=== PATIENT | female | born 1935 | race Caucasian/White ===

== ENCOUNTER → 2016-11-16 | Outpatient (CLI) | payer OTHER ==
--- NOTE | 2016-11-16 13:28 | US ---
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 Comparison: CT abdomen and pelvis June 06, 2012. Findings: The right kidney measures 11.0 x 4.0 x 4.8 cm and the left kidney measures 10.6 x 3.9 x 4.0 cm. The kidneys have normal echotexture, cortical thickness, and contour without pelvicaliectasis. T he right renal pelvis/proximal right ureter are mildly prominent similar to the comparison CT. The bladder is normal. Bilateral ureteral jets are present. Prevoid bladder volume is 115 mL. Postv oid bladder volume is 13 mL. Impression: Normal renal ultrasound.
== END ==
LOC: FIMAGING 11:33
PROVIDERS: ATTEND Urology
DX: N34.3 Urethral syndrome, unspecified (principal)

== ENCOUNTER 2017-05-25 19:56 | Emergency (ER) | payer OTHER ==
[2017-05-25 20:08] VITALS: RESP 18; TEMP 98.4
--- NOTE | 2017-05-25 20:20 | EDPHY ---
H & P Stated Complaint: pt has uncontrolled blood sugar, toe infection x3 days Time Seen by Provider: 05/25/17 20:19 HPI/ROS: CHIEF COMPLAINT: Evaluation of right great toe HISTORY OF PRESENT ILLNESS: Patient has a history of diabetes which she reports is poorly managed. She reports that is not atypical for her blood sugars to be 4 -500 range. She denies any vomiting or weakness. Patient has had fairly poor follow-up with an top spotter. She reportedly has seen Dr. Elena Beavers once approximately 4 months ago. Patient became concerned about some mild erythema to her right great toe. She has a history of a ingrown toenail which was resected some time ago and has a chronically abnormal nail since that procedure. Patient denies any fever. She denies any additional acute complaints. The patient reports that she has been using 15 units of Lantus on a daily basis and then uses fast-acting insulin on a sliding scale. REVIEW OF SYSTEMS: A comprehensive 10 point review of systems is otherwise negative aside from elements mentioned in the history of present illness. Source: Patient - Personal History Current Tetanus Diphtheria and Acellular Pertussis (TDAP): Unsure - Medical/Surgical History Hx Asthma: No Hx Chronic Respiratory Disease: No Hx Diabetes: Yes Hx Cardiac Disease: No Hx Renal Disease: No Hx Cirrhosis: No Hx Alcoholism: No Hx HIV/AIDS: No Hx Splenectomy or Spleen Trauma: No Other PMH: HTN, DM, anxiety, - Social History Smoking Status: Never smoked - Physical Exam Exam: General Appearance: Alert, no distress Eyes: Pupils equal and round no pallor or injection ENT, Mouth: Mucous membranes moist Respiratory: There are no retractions, lungs are clear to auscultation Cardiovascular: Regular rate and rhythm Gastrointestinal: Abdomen is soft and nontender, no masses, bowel sounds normal Neurological: A&O, normal motor function, normal sensory exam, normal cranial nerves Skin: Warm and dry, no rashes Musculoskeletal: Neck is supple nontender Extremities: Evidence of old nail resection on right great toe, minimal erythema, no discharge, no fluctuance, no abscess, no evidence of white/dry gangrene Psychiatric: Patient is oriented X 3, there is no agitation Constitutional: Initial Vital Signs Temperature (C) 36.9 C 05/25/17 20:03 Heart Rate 86 05/25/17 20:03 Respiratory Rate 18 07/20/17 20:03 Blood Pressure 173/82 H 05/25/17 20:03 O2 Sat (%) 96 05/25/17 20:03 O2 Delivery Mode Room Air Allergies/Adverse Reactions: amoxicillin trihydrate [From Augmentin] Allergy (Verified 08/10/15 03:10) brompheniramine maleate [From Rondec] Allergy (Verified 08/10/15 03:10) carbinoxamine maleate [From Rondec] Allergy (Verified 08/10/15 03:10) cefaclor [From Ceclor] Allergy (Verified 08/10/15 03:10) cefuroxime axetil [From Ceftin] Allergy (Verified 08/10/15 03:10) chlorpheniramine maleate [From Ornade] Allergy (Verified 08/10/15 03:10) clindamycin Allergy (Verified 08/10/15 03:10) hydrocodone Allergy (Verified 08/10/15 03:10) latex [Latex] Allergy (Verified 08/10/15 03:10) metronidazole [From Flagyl] Allergy (Verified 08/10/15 03:10) Metronidazole HCl [From Flagyl] Allergy (Verified 12/10/13 13:46) Penicillins Allergy (Verified 12/10/13 13:46) phenylpropanolamine HCl [From Ornade] Allergy (Verified 12/10/13 13:46) potassium clavula *RETIRED-07/16/12 [From Augmentin] Allergy (Verified 12/10/13 13:46) pseudoephedrine HCl [From Rondec] Allergy (Verified 12/10/13 13:46) Sulfa (Sulfonamide Antibiotics) Allergy (Verified 12/10/13 13:46) Home Medications: Medication Instructions Recorded Clorazepate Dipotassium [Tranxene 7.5 mg PO HS PRN 06/07/12 T-Tab (RX)] Glucosam/Csa/Collagen/Hyalur A 1 each PO DAILY 06/07/12 [Glucosamine Chondroitin Cap] Losartan Potassium [Cozaar] 100 mg PO DAILY 06/07/12 Multivitamins [Multivitamin (OTC)] 1 each PO DAILY 06/07/12 [place]-3 Fatty Acids [Fish Oil 1000 1,000 mg PO DAILY 06/07/12 mg (OTC)] Ibuprofen [Motrin 200 mg (OTC)] 200 mg PO DAILY PRN 10/23/13 Insulin Aspart [Novolog] 2 - 9 unit SQ TIDMEAL PRN 08/28/13 Acetaminophen [Tylenol Tablet] 325 mg PO DAILY PRN 12/10/13 Insulin Glargine [Lantus 100 18 units SC DAILY 12/10/13 UNITS/ML (RX)] Metoprolol Tartrate [Lopressor 100 100 mg PO BID 12/10/13 mg (RX)] Doxycycline Hyclate 100 mg PO BID #20 tablet 05/25/17 Medical Decision Making ED Course/Re-evaluation: The patient presents to the ED for evaluation of a possible right toe infection. She has minimal cellulitis. She will be started on doxycycline there is no evidence of abscess, whether dry gangrene or significant soft tissue infection. The patient is noted to have hyperglycemia without evidence of diabetic ketoacidosis. The patient is scheduled to see her primary care provider Dr. Mancilla on Monday. The patient is also under the care of Dr. Beavers from Endocrinology. I have stressed to her the importance of making sure she has closer follow up with her top spotter she does not appear to adequately be controlling her blood sugars on a long-term basis. The patient will be referred to our case loader operator for a telephone call on Monday to ensure that she is getting proper outpatient follow-up. The patient will see Dr. Mancilla tomorrow. Differential Diagnosis: Differential diagnosis considered includes diabetic ketoacidosis, cellulitis, abscess, gangrene - Data Points Laboratory Results: Laboratory Results 05/25/17 20:40 05/25/17 20:40 Sodium 130 mEq/L L mEq/L (134-144) Potassium 4.4 mEq/L mEq/L (3.5-5.2) Chloride 94 mEq/L L mEq/L (97-110) Carbon Dioxide 23 mEq/l mEq/l (22-31) Anion Gap 13 mEq/L mEq/L (8-16) BUN 22 mg/dL mg/dL (7-23) Creatinine 0.7 mg/dL mg/dL (0.6-1.0) Estimated GFR > 60 Glucose 363 mg/dL H mg/dL (70-100) Calcium 9.3 mg/dL mg/dL (8.5-10.4) Departure - Departure Disposition: Home, Routine, Self-Care Clinical Impression: Diabetes mellitus, Cellulitis Condition: Good Instructions: Cellulitis (ED) Additional Instructions: 1. Please take antibiotics as directed. 2. Please follow up tomorrow with Dr. Mancilla for recheck. 3. You need to have close follow up with Dr. Mancilla and Dr. Beavers as your blood sugars have not been well controlled. 4. Please return to the ED for markedly worsening symptoms, fever, increasing redness, vomiting or other concerns. Referrals: Donaldo Mancilla MD [Primary Care Provider] - As per Instructions Prescriptions: Doxycycline Hyclate 100 mg PO BID #20 tablet
[2017-05-25 21:23] LABS: ANION GAP 13 mEq/L (8-16); CALCIUM 9.3 mg/dL (8.5-10.4); CARBON DIOXIDE 23 mEq/l (22-31); CHLORIDE 94 mEq/L (97-110); CREATININE 0.7 mg/dL (0.6-1.0); GLOMERULAR FILTRATION RATE > 60; GLUCOSE 363 mg/dL (70-100); POTASSIUM 4.4 mEq/L (3.5-5.2); SODIUM 130 mEq/L (134-144)
[2017-05-25 22:33] VITALS: BP 155/76; PULSE 70; O2SAT 95
== END 2017-05-25 22:34 | disposition home or self-care (01) ==
DX: L03.031 Cellulitis of right toe (principal); E11.9 Type 2 diabetes mellitus without complications; I10 Essential (primary) hypertension; Z79.4 Long term (current) use of insulin; Z91.040 Latex allergy status

== ENCOUNTER 2018-01-02 23:34 | Emergency (ER) | payer OTHER ==
[2018-01-02] MEDS ORDERED: NS 500 ML IV ONE (23:41)
--- NOTE | 2018-01-02 23:45 | EDPHY ---
H & P HPI/ROS: HPI CHIEF COMPLAINT: Diarrhea, dehydration, high blood sugar, generalized weakness HISTORY OF PRESENT ILLNESS: This is a very pleasant 82-year-old female she presents emergency room by EMS from private residence where she lives independently she has a history of insulin-dependent diabetes, she presents emergency room stating that for the past few days she has had watery diarrhea. Denies black tarry stools. She also reports that her blood sugars have been very labile sometimes running low in the 60s but most recently running high in the 200s to up to 400s. She says this is unusual for her. She states tonight she had worsening diarrhea she felt like she was getting dehydrated. She also reports that her blood sugar was in the 400s. She denies any chest pain or shortness of breath. Denies any abdominal pain. Denies fever. Denies vomiting. Denies urinary symptoms. Denies nausea. Denies focal weakness numbness or tingling. Past Medical History: Hypertension, diabetes, anxiety, hyponatremia, Past Surgical History: Hysterectomy, appendectomy Social History: Denies daily use drugs alcohol tobacco products. Lives independently. Private residence. Family History: Noncontributory ROS REVIEW OF SYSTEMS: A comprehensive 10 point review of systems is otherwise negative aside from elements mentioned in the history of present illness. Exam Constitutional appears well nontoxic triage nursing summary reviewed, vital signs reviewed, awake/alert. Eyes normal conjunctivae and sclera, EOMI, PERRLA. HENT normal inspection, atraumatic, dry mucus membranes, no epistaxis, neck supple/ no meningismus, no raccoon eyes. Respiratory clear to auscultation bilaterally, normal breath sounds, no respiratory distress, no wheezing. Cardiovascular rate normal, regular rhythm, no murmur, no edema, distal pulses normal. Gastrointestinal soft, non-tender, no rebound, no guarding, normal bowel sounds, no distension, no pulsatile mass. Genitourinary no CVA tenderness. Musculoskeletal no midline vertebral tenderness, full range of motion, no calf swelling, no tenderness of extremities, no meningismus, good pulses, neurovascularly intact. Skin pink, warm, & dry, no rash, skin atraumatic. Neurologic awake, alert and oriented x 3, AAOx3, moves all 4 extremities equally, motor intact, sensory intact, CN II-XII intact, normal cerebellar, normal vision, normal speech. Psychiatric normal mood/affect. Heme/Lymph/Immune no lymphadenopathy. Differential Diagnosis: Includes but is not limited to in a particular order electrolyte disturbance, hyponatremia, dehydration, DKA, infection, colitis, C diff, enteritis, GI illness, urinary tract infection Medical Decision Making: Plan for this patient IV establishment with IV fluid bolus 500 cc normal saline until I can evaluate her sodium, clinically on exam she does appear dry, check urinalysis basic blood work, send stool studies if she is able to provide a diarrheal stools sample. Re-evaluation: 0218: Patient re-evaluated this time she is resting comfortably. Sodium noted to be 128. She has received 1 L of normal saline here in the emergency room is feeling much better. She reports to me she feels very well hydrated. She denies feeling weak. She would like to go home. She has not had any vomiting or diarrhea here in the emergency room. She states she is unable to give us a diarrheal sample. Vital signs have been stable. She is afebrile. Abdomen is soft nontender. She is feeling better after 1 L normal saline. She would like to go home. We discussed return precautions. She understands return emergency room if she develops worsening abdominal pain, fever, vomiting, worsening diarrhea, or not feeling well questions or concerns. Source: Patient, EMS - Medical/Surgical History Hx Asthma: No Hx Chronic Respiratory Disease: No Hx Diabetes: Yes Hx Cardiac Disease: No Hx Renal Disease: No Hx Cirrhosis: No Hx Alcoholism: No Hx HIV/AIDS: No Hx Splenectomy or Spleen Trauma: No Other PMH: HTN, DM, anxiety, - Social History Smoking Status: Never smoked Constitutional: Initial Vital Signs Temperature (C) 36.8 C 01/02/18 23:34 Heart Rate 78 01/02/18 23:34 Respiratory Rate 16 01/02/18 23:34 Blood Pressure 110/74 01/02/18 23:34 O2 Sat (%) 98 01/02/18 23:34 O2 Delivery Mode Room Air Allergies/Adverse Reactions: amoxicillin trihydrate [From Augmentin] Allergy (Verified 01/02/18 23:54) brompheniramine maleate [From Rondec] Allergy (Verified 01/02/18 23:54) carbinoxamine maleate [From Rondec] Allergy (Verified 01/02/18 23:54) cefaclor [From Ceclor] Allergy (Verified 01/02/18 23:54) cefuroxime axetil [From Ceftin] Allergy (Verified 01/02/18 23:54) chlorpheniramine maleate [From Ornade] Allergy (Verified 01/02/18 23:54) clindamycin Allergy (Verified 01/02/18 23:54) hydrocodone Allergy (Verified 01/02/18 23:54) latex [Latex] Allergy (Verified 01/02/18 23:54) metronidazole [From Flagyl] Allergy (Verified 01/02/18 23:54) Metronidazole HCl [From Flagyl] Allergy (Verified 01/02/18 23:54) Penicillins Allergy (Verified 01/02/18 23:54) phenylpropanolamine HCl [From Ornade] Allergy (Verified 01/02/18 23:54) potassium clavula *RETIRED-07/16/12 [From Augmentin] Allergy (Verified 01/02/18 23:54) pseudoephedrine HCl [From Rondec] Allergy (Verified 01/02/18 23:54) Sulfa (Sulfonamide Antibiotics) Allergy (Verified 01/02/18 23:54) Home Medications: Medication Instructions Recorded Clorazepate Dipotassium [Tranxene 7.5 mg PO HS PRN 06/07/12 T-Tab (RX)] Glucosam/Csa/Collagen/Hyalur A 1 each PO DAILY 06/07/12 [Glucosamine Chondroitin Cap] Losartan Potassium [Cozaar] 100 mg PO DAILY 06/07/12 Multivitamins [Multivitamin (OTC)] 1 each PO DAILY 06/07/12 [place]-3 Fatty Acids [Fish Oil 1000 1,000 mg PO DAILY 06/07/12 mg (OTC)] Ibuprofen [Motrin 200 mg (OTC)] 200 mg PO DAILY PRN 08/28/13 Insulin Aspart [Novolog] 2 - 9 unit SQ TIDMEAL PRN 08/28/13 Acetaminophen [Tylenol Tablet] 325 mg PO DAILY PRN 12/10/13 Insulin Glargine [Lantus 100 18 units SC DAILY 12/10/13 UNITS/ML (RX)] Metoprolol Tartrate [Lopressor 100 100 mg PO BID 12/10/13 mg (RX)] Doxycycline Hyclate 100 mg PO BID #20 tablet 05/25/17 Medical Decision Making - Data Points Laboratory Results: Laboratory Results 01/02/18 23:43 01/02/18 23:43 01/03/18 01/03/18 01/03/18 01:30 00:21 00:01 WBC RBC Hgb Hct MCV MCH MCHC RDW Plt Count MPV Neut % (Auto) Lymph % (Auto) [place] % (Auto) Eos % (Auto) Baso % (Auto) Nucleat RBC Rel Count Absolute Neuts (auto) Absolute Lymphs (auto) Absolute Monos (auto) Absolute Eos (auto) Absolute Basos (auto) Absolute Nucleated RBC Immature Gran % Immature Gran # PT 13.5 SEC SEC (12.0-15.0) INR 1.01 (0.83-1.16) APTT 29.2 SEC SEC (23.0-38.0) VBG Lactic Acid 1.5 mmol/L mmol/L (0.7-2.1) Sodium Potassium Chloride Carbon Dioxide Anion Gap BUN Creatinine Estimated GFR Glucose Calcium Total Bilirubin Conjugated Bilirubin Unconjugated Bilirubin AST ALT Alkaline Phosphatase Total Protein Albumin Lipase Urine Color YELLOW Urine Appearance CLEAR Urine pH 5.0 (5.0-7.5) Ur Specific [place] 1.010 (1.002-1.030) Urine Protein NEGATIVE (NEGATIVE) Urine Ketones TRACE H (NEGATIVE) Urine Blood NEGATIVE (NEGATIVE) Urine Nitrate NEGATIVE (NEGATIVE) Urine Bilirubin NEGATIVE (NEGATIVE) Urine Urobilinogen NEGATIVE EU EU (0.2-1.0) Ur Leukocyte Esterase NEGATIVE (NEGATIVE) Urine RBC 1-3 /hpf /hpf (0-3) Urine WBC 1-3 /hpf /hpf (0-3) Ur Epithelial Cells TRACE /lpf /lpf (NONE-1+) Hyaline Casts 1-5 /lpf /lpf (0-1) Urine Glucose 3+ H (NEGATIVE) 01/02/18 01/02/18 23:43 23:43 WBC 6.77 10^3/uL 10^3/uL (3.80-9.50) RBC 3.96 10^6/uL L 10^6/uL (4.18-5.33) Hgb 12.0 g/dL L g/dL (12.6-16.3) Hct 34.2 % L % (38.0-47.0) MCV 86.4 fL fL (81.5-99.8) MCH 30.3 pg pg (27.9-34.1) MCHC 35.1 g/dL g/dL (32.4-36.7) RDW 13.3 % % (11.5-15.2) Plt Count 219 10^3/uL 10^3/uL (150-400) MPV 9.3 fL fL (8.7-11.7) Neut % (Auto) 68.8 % % (39.3-74.2) Lymph % (Auto) 19.2 % % (15.0-45.0) [place] % (Auto) 7.4 % % (4.5-13.0) Eos % (Auto) 3.5 % % (0.6-7.6) Baso % (Auto) 1.0 % % (0.3-1.7) Nucleat RBC Rel Count 0.0 % % (0.0-0.2) Absolute Neuts (auto) 4.65 10^3/uL 10^3/uL (1.70-6.50) Absolute Lymphs (auto) 1.30 10^3/uL 10^3/uL (1.00-3.00) Absolute Monos (auto) 0.50 10^3/uL 10^3/uL (0.30-0.80) Absolute Eos (auto) 0.24 10^3/uL 10^3/uL (0.03-0.40) Absolute Basos (auto) 0.07 10^3/uL 10^3/uL (0.02-0.10) Absolute Nucleated RBC 0.00 10^3/uL 10^3/uL (0-0.01) Immature Gran % 0.1 % % (0.0-1.1) Immature Gran # 0.01 10^3/uL 10^3/uL (0.00-0.10) PT INR APTT VBG Lactic Acid Sodium 128 mEq/L L mEq/L (135-145) Potassium 4.0 mEq/L mEq/L (3.5-5.2) Chloride 95 mEq/L L mEq/L (97-110) Carbon Dioxide 22 mEq/l mEq/l (22-31) Anion Gap 11 mEq/L mEq/L (8-16) BUN 26 mg/dL H mg/dL (7-23) Creatinine 0.8 mg/dL mg/dL (0.6-1.0) Estimated GFR > 60 Glucose 241 mg/dL H mg/dL (70-100) Calcium 9.4 mg/dL mg/dL (8.5-10.4) Total Bilirubin 0.7 mg/dL mg/dL (0.1-1.4) Conjugated Bilirubin 0.2 mg/dL mg/dL (0.0-0.5) Unconjugated Bilirubin 0.5 mg/dL mg/dL (0.0-1.1) AST 26 IU/L IU/L (14-46) ALT 35 IU/L IU/L (9-52) Alkaline Phosphatase 96 IU/L IU/L (38-126) Total Protein 6.3 g/dL g/dL (6.3-8.2) Albumin 3.6 g/dL g/dL (3.5-5.0) Lipase 49 IU/L IU/L (23-300) Urine Color Urine Appearance Urine pH Ur Specific [place] Urine Protein Urine Ketones Urine Blood Urine Nitrate Urine Bilirubin Urine Urobilinogen Ur Leukocyte Esterase Urine RBC Urine WBC Ur Epithelial Cells Hyaline Casts Urine Glucose Medications Given: Discontinued Medications Sodium Chloride (Ns) 500 mls @ 0 mls/hr IV EDNOW ONE; Wide Open PRN Reason: Protocol Stop: 01/02/18 23:42 Last Admin: 01/02/18 23:50 Dose: 500 mls Sodium Chloride (Ns) 500 mls @ 0 mls/hr IV ONCE ONE PRN Reason: Wide Open Stop: 01/03/18 00:24 Last Admin: 01/03/18 00:26 Dose: 500 mls Departure - Departure Disposition: Home, Routine, Self-Care Clinical Impression: Dehydration, Hyponatremia Diarrhea Qualifiers: Diarrhea type: unspecified type Qualified Code(s): R19.7 - Diarrhea, unspecified Condition: Good Instructions: Acute Diarrhea (ED), Dehydration (ED) Additional Instructions: 1. [place] or plain diet over the next 48 hr. 2. Return emergency room if you have abdominal pain worsening diarrhea high fever vomiting or you do not feel well. 3. Try to stay well-hydrated Referrals: Patient,NotPresent [Unknown] - As per Instructions
[2018-01-02 23:47] VITALS: RESP 16; TEMP 98.2; O2SAT 98
[2018-01-03 00:04] LABS: PLATELET COUNT 219 10^3/uL (150-400)
[2018-01-03 00:14] LABS: INR 1.01 (0.83-1.16); PROTIME(PATIENT) 13.5 SEC (12.0-15.0)
[2018-01-03] MEDS ORDERED: NS 500 ML IV ONE (00:23)
[2018-01-03 01:37] VITALS: BP 153/68; PULSE 77
== END 2018-01-03 02:41 | disposition home or self-care (01) ==
LOC: EDUNIT#
DX: R19.7 Diarrhea, unspecified (principal); E86.0 Dehydration; E87.1 Hypo-osmolality and hyponatremia; E86.9 Volume depletion, unspecified; I10 Essential (primary) hypertension; E11.9 Type 2 diabetes mellitus without complications; Z79.4 Long term (current) use of insulin; Z91.040 Latex allergy status

== ENCOUNTER 2018-04-30 20:36 | Emergency (ER) | payer OTHER ==
--- NOTE | 2018-04-30 21:24 | CPEKG ---
Heart Rate: 78 RR Interval: 769 P-R Interval: 148 QRSD Interval: 96 QT Interval: 412 QTC Interval: 470 P [place]: -43 QRS [place]: 59 T Wave [place]: 67 EKG Severity - ABNORMAL ECG - EKG Impression: SINUS RHYTHM EKG Impression: ATRIAL PREMATURE COMPLEX EKG Impression: LEFT VENTRICULAR HYPERTROPHY Electronically Signed By: Freedom Guy 30-Apr-2018 23:23:05
[2018-04-30 21:53] LABS: PLATELET COUNT 179 10^3/uL (150-400)
--- NOTE | 2018-04-30 22:44 | EDPHY ---
H & P Stated Complaint: elevated bp luevano nausea dizzy x24 hr Time Seen by Provider: 04/30/18 21:25 HPI/ROS: Chief Complaint: Headache, nausea, hypertension HPI: 82-year-old woman with a history of type 1 diabetes and hypertension is presenting with concerns of her blood pressure being elevated. She has had a headache with nausea all day. She checked her blood pressure was 214 systolic. She checked it again is not coming down. She has been taking her medications as prescribed. No numbness or weakness. No nausea or vomiting. No chest pain or shortness of breath. No palpitations. ROS: 10 point Review of Systems is negative except as noted in the HPI. PMH: Hypertension, diabetes Social History: No smoking, no alcohol, no recreational drug use Family History: non-contributory Physical Exam: Gen: Awake, Alert, No Distress HEENT: Nose: no rhinorrhea Eyes: PERRLA, EOMI Mouth: Moist mucosa Neck: Supple, no JVD Chest: nontender, lungs clear to auscultation Heart: S1, S2 normal, no murmur Abd: Soft, non-tender, no guarding Back: no CVA tenderness, no midline tenderness Ext: no edema, non-tender Skin: no rash Neuro: CN II-XII intact, Sensation grossly intact, Strength 5/5 in bilateral upper and lower extremities - Personal History Current Tetanus/Diphtheria Vaccine: Yes Current Tetanus Diphtheria and Acellular Pertussis (TDAP): Yes - Medical/Surgical History Hx Asthma: No Hx Chronic Respiratory Disease: No Hx Diabetes: Yes Hx Cardiac Disease: No Hx Renal Disease: No Hx Cirrhosis: No Hx Alcoholism: No Hx HIV/AIDS: No Hx Splenectomy or Spleen Trauma: No Other PMH: HTN, DM, anxiety,. appy tonsils - Social History Smoking Status: Never smoked Constitutional: Initial Vital Signs Temperature (C) 36.9 C 04/30/18 20:45 Heart Rate 86 04/30/18 20:45 Respiratory Rate 18 04/30/18 20:45 Blood Pressure 211/92 H 04/30/18 20:45 O2 Sat (%) 96 04/30/18 20:45 O2 Delivery Mode Room Air Allergies/Adverse Reactions: amoxicillin trihydrate [From Augmentin] Allergy (Verified 01/02/18 23:54) brompheniramine maleate [From Rondec] Allergy (Verified 01/02/18 23:54) carbinoxamine maleate [From Rondec] Allergy (Verified 01/02/18 23:54) cefaclor [From Ceclor] Allergy (Verified 01/02/18 23:54) cefuroxime axetil [From Ceftin] Allergy (Verified 01/02/18 23:54) chlorpheniramine maleate [From Ornade] Allergy (Verified 01/02/18 23:54) clindamycin Allergy (Verified 01/02/18 23:54) hydrocodone Allergy (Verified 01/02/18 23:54) latex [Latex] Allergy (Verified 01/02/18 23:54) metronidazole [From Flagyl] Allergy (Verified 01/02/18 23:54) Metronidazole HCl [From Flagyl] Allergy (Verified 01/02/18 23:54) Penicillins Allergy (Verified 01/02/18 23:54) phenylpropanolamine HCl [From Ornade] Allergy (Verified 01/02/18 23:54) potassium clavula *RETIRED-07/16/12 [From Augmentin] Allergy (Verified 01/02/18 23:54) pseudoephedrine HCl [From Rondec] Allergy (Verified 01/02/18 23:54) Sulfa (Sulfonamide Antibiotics) Allergy (Verified 01/02/18 23:54) Home Medications: Medication Instructions Recorded Glucosam/Csa/Collagen/Hyalur A 1 each PO DAILY 06/07/12 [Glucosamine Chondroitin Cap] Losartan Potassium [Cozaar] 50 mg PO DAILY 06/07/12 Multivitamins [Multivitamin (OTC)] 1 each PO DAILY 06/07/12 [place]-3 Fatty Acids [Fish Oil 1000 1,000 mg PO DAILY 06/07/12 mg (OTC)] Ibuprofen [Motrin 200 mg (OTC)] 200 mg PO DAILY PRN 08/28/13 Insulin Aspart [Novolog] 2 - 9 unit SQ TIDMEAL PRN 08/28/13 Acetaminophen [Tylenol Tablet] 325 mg PO DAILY PRN 12/10/13 Insulin Glargine [Lantus 100 18 units SC DAILY 12/10/13 UNITS/ML (RX)] Metoprolol Tartrate [Lopressor 100 25 mg PO BID 12/10/13 mg (RX)] Medical Decision Making - Diagnostics EKG Interpretation: ECG time 9:22 p.m., rate of 78, normal axis, normal intervals, there is findings suggestive of LVH, otherwise no acute ischemic changes. Imaging Results: Imaging Impressions Head CT 04/30/18 21:39 Impression: No evidence for acute intracranial abnormality. Mild periventricular and deep hemispheric white matter change that can be seen with small vessel ischemic disease. Results called and discussed with Freedom Guy M.D., on April 30, 2018 at 2220. Imaging: Discussed imaging studies w/ call center analyst Radiologist ED Course/Re-evaluation: 82-year-old woman with a history of hypertension diabetes presenting with headache nausea and hypertension. CT scan of brain is normal. ECG shows all thing acute. Renal functions normal. Urinalysis is negative for infection. Patient's blood pressure has come down to 117/58 without any treatment. She has been reassured. There is no evidence of any end-organ damage. Will discharge with follow-up with primary care physician. - Data Points Laboratory Results: Laboratory Results 04/30/18 21:44 04/30/18 21:44 04/30/18 04/30/18 04/30/18 22:15 21:44 21:44 WBC 8.03 10^3/uL 10^3/uL (3.80-9.50) RBC 4.20 10^6/uL 10^6/uL (4.18-5.33) Hgb 12.5 g/dL L g/dL (12.6-16.3) Hct 36.4 % L % (38.0-47.0) MCV 86.7 fL fL (81.5-99.8) MCH 29.8 pg pg (27.9-34.1) MCHC 34.3 g/dL g/dL (32.4-36.7) RDW 13.1 % % (11.5-15.2) Plt Count 179 10^3/uL 10^3/uL (150-400) MPV 9.4 fL fL (8.7-11.7) Neut % (Auto) 82.1 % H % (39.3-74.2) Lymph % (Auto) 10.1 % L % (15.0-45.0) [place] % (Auto) 5.0 % % (4.5-13.0) Eos % (Auto) 2.1 % % (0.6-7.6) Baso % (Auto) 0.5 % % (0.3-1.7) Nucleat RBC Rel Count 0.0 % % (0.0-0.2) Absolute Neuts (auto) 6.59 10^3/uL H 10^3/uL (1.70-6.50) Absolute Lymphs (auto) 0.81 10^3/uL L 10^3/uL (1.00-3.00) Absolute Monos (auto) 0.40 10^3/uL 10^3/uL (0.30-0.80) Absolute Eos (auto) 0.17 10^3/uL 10^3/uL (0.03-0.40) Absolute Basos (auto) 0.04 10^3/uL 10^3/uL (0.02-0.10) Absolute Nucleated RBC 0.00 10^3/uL 10^3/uL (0-0.01) Immature Gran % 0.2 % % (0.0-1.1) Immature Gran # 0.02 10^3/uL 10^3/uL (0.00-0.10) Sodium 128 mEq/L L mEq/L (135-145) Potassium 4.2 mEq/L mEq/L (3.3-5.0) Chloride 91 mEq/L L mEq/L (97-110) Carbon Dioxide 25 mEq/l mEq/l (22-31) Anion Gap 12 mEq/L mEq/L (8-16) BUN 20 mg/dL mg/dL (7-23) Creatinine 0.7 mg/dL mg/dL (0.6-1.0) Estimated GFR > 60 Glucose 276 mg/dL H mg/dL (70-100) Calcium 9.1 mg/dL mg/dL (8.5-10.4) Urine Color PALE YELLOW Urine Appearance CLEAR Urine pH 7.0 (5.0-7.5) Ur Specific [place] 1.010 (1.002-1.030) Urine Protein NEGATIVE (NEGATIVE) Urine Ketones 1+ H (NEGATIVE) Urine Blood NEGATIVE (NEGATIVE) Urine Nitrate NEGATIVE (NEGATIVE) Urine Bilirubin NEGATIVE (NEGATIVE) Urine Urobilinogen NEGATIVE EU EU (0.2-1.0) Ur Leukocyte Esterase NEGATIVE (NEGATIVE) Urine RBC 1-3 /hpf /hpf (0-3) Urine WBC 1-3 /hpf /hpf (0-3) Ur Epithelial Cells NONE SEEN /lpf /lpf (NONE-1+) Urine Glucose 3+ H (NEGATIVE) Departure - Departure Disposition: Home, Routine, Self-Care Clinical Impression: Hypertension Condition: Good Instructions: Hypertension (ED) Additional Instructions: Follow up with your primary care physician in 2-3 days for blood pressure recheck. Return to the emergency department for chest pain, fevers or chills, nausea, vomiting, or any other concerns. Referrals: Donaldo Mancilla MD [Primary Care Provider] - As per Instructions
[2018-04-30 23:34] VITALS: BP 117/58
== END 2018-04-30 23:40 | disposition home or self-care (01) ==
DX: I10 Essential (primary) hypertension (principal); E11.9 Type 2 diabetes mellitus without complications; Z79.4 Long term (current) use of insulin; Z91.040 Latex allergy status

== ENCOUNTER 2018-05-09 22:14 | Inpatient (IN) | payer OTHER ==
--- NOTE | 2018-05-09 22:18 | EDPHY ---
H & P Stated Complaint: ALOC Time Seen by Provider: 05/09/18 22:17 HPI/ROS: HPI The patient presents with an episode of ALOC which occurred just prior to arrival while the patient was at the pharmacy check out. She slumped backwards while in line, witnessed by another remote mortgage underwriter. She lost consciousness for approximately 30 sec. She currently feels dizzy and generally unwell. She says preceding her episode, she remembers feeling like she needed to sit down, very lightheaded. She has no prior history of fainting. She does not have any shortness of breath, chest pain, palpitations. Per paramedics, blood glucose was 324, the patient have a history of diabetes on insulin. Other vital signs were normal, EKG was unremarkable. She is complaining of left ankle edema. She has been having left ankle and foot pain over the last 5 days. She is not sure if she injured herself while gardening. She has been using an Keith wrap on this because of the swelling that she is having. REVIEW OF SYSTEMS Constitutional: No fever, no chills. Eyes: No discharge. ENT: No sore throat. Cardiovascular: No chest pain, no palpitations. Respiratory: No cough, no shortness of breath. Gastrointestinal: No abdominal pain, no vomiting. Genitourinary: No hematuria. Musculoskeletal: No back pain. Skin: No rashes. Neurological: No headache. PMHx: Insulin-dependent diabetes, hypertension Soc Hx: Housed, lives independently; is contemplating moving to an assisted living facility PHYSICAL General Appearance: Alert, no distress Eyes: Pupils equal and round no pallor or injection ENT, Mouth: Mucous membranes moist Respiratory: There are no retractions, lungs are clear to auscultation Cardiovascular: Regular rate and rhythm Gastrointestinal: Abdomen is soft and non-tender, no masses, bowel sounds normal Neurological: A&O, moves all extremities Skin: Warm and dry, no rashes Musculoskeletal: Neck is supple non tender Extremities: symmetrical, full range of motion, left ankle with mild edema, there is tenderness overlying the medial metatarsals with no overlying skin changes Psychiatric: Patient is oriented X 3, there is no agitation Source: Patient, EMS Exam Limitations: No limitations Constitutional: Initial Vital Signs Temperature (C) 37.0 C 05/09/18 22:25 Heart Rate 88 05/09/18 22:25 Respiratory Rate 16 05/09/18 22:25 Blood Pressure 199/99 H 05/09/18 22:25 O2 Sat (%) 98 05/09/18 22:25 O2 Delivery Mode Room Air Allergies/Adverse Reactions: amoxicillin trihydrate [From Augmentin] Allergy (Verified 01/02/18 23:54) brompheniramine maleate [From Rondec] Allergy (Verified 01/02/18 23:54) carbinoxamine maleate [From Rondec] Allergy (Verified 01/02/18 23:54) cefaclor [From Ceclor] Allergy (Verified 01/02/18 23:54) cefuroxime axetil [From Ceftin] Allergy (Verified 01/02/18 23:54) chlorpheniramine maleate [From Ornade] Allergy (Verified 01/02/18 23:54) clindamycin Allergy (Verified 01/02/18 23:54) hydrocodone Allergy (Verified 01/02/18 23:54) latex [Latex] Allergy (Verified 01/02/18 23:54) metronidazole [From Flagyl] Allergy (Verified 01/02/18 23:54) Metronidazole HCl [From Flagyl] Allergy (Verified 01/02/18 23:54) Penicillins Allergy (Verified 01/02/18 23:54) phenylpropanolamine HCl [From Ornade] Allergy (Verified 01/02/18 23:54) potassium clavula *RETIRED-07/16/12 [From Augmentin] Allergy (Verified 01/02/18 23:54) pseudoephedrine HCl [From Rondec] Allergy (Verified 01/02/18 23:54) Sulfa (Sulfonamide Antibiotics) Allergy (Verified 01/02/18 23:54) Home Medications: Medication Instructions Recorded Multivitamins [Multivitamin (OTC)] 1 each PO DAILY 06/07/12 [place]-3 Fatty Acids [Fish Oil 1000 1,000 mg PO DAILY 06/07/12 mg (OTC)] Insulin Aspart [Novolog] 2 - 9 unit SQ TIDMEAL PRN 08/28/13 Insulin Glargine [Lantus 100 15 units SC DAILY 12/10/13 UNITS/ML (RX)] Acetaminophen [Tylenol ES 500 mg 500 mg PO DAILY PRN 05/10/18 (*)] Fluorometholone [Fml (*)] 1 drop RTEYE BID 05/10/18 Latanoprost 0.005% [Xalatan 0.005% 1 drops EACHEYE HS 05/10/18 (*)] Losartan Potassium [Cozaar 50 mg 50 mg PO HS 05/10/18 (*)] Losartan Potassium [Cozaar 50 mg 100 mg PO DAILY 05/10/18 (*)] Metoprolol Tartrate [Lopressor 50 50 mg PO BID 05/10/18 mg (*)] Propylene Glycol/Peg 400 [Systane 1 drop EACHEYE TID 05/10/18 0.3-0.4% Eye Drops] Propylene Glycol/Peg 400 [Systane 1 drop EACHEYE PRN PRN 05/10/18 Gel Eye Drops] Sodium Chloride 5% [Dannie-128 5%] 1 - 3 drop EACHEYE TID 05/10/18 amLODIPine BESYLATE [Norvasc 5 mg 5 mg PO DAILY 05/10/18 (*)] Medical Decision Making - Diagnostics EKG Interpretation: EKG: Complete interpretation has been separately recorded in the [employer] archive. Summary impression: LVH Imaging Results: X-ray left ankle three view shows no fracture, no dislocation, interpreted by me , radiology interpretation is pending. Chest x-ray is unremarkable. Differential Diagnosis: 82-year-old female with history of diabetes, hypertension, presents with syncopal episode, brought in by ambulance from the drug store where she was buying a compression stocking for her left leg swelling and pain. On exam, well-appearing, hypertensive, does have left ankle swelling. Differential diagnosis includes pulmonary embolism, vasovagal event, arrhythmia , CHF. In the emergency department, basic labs were obtained and were relatively normal except for elevated glucose without any signs of anion gap acidosis. D- dimer was negative making DVT unlikely. X-ray of her ankle was also normal. I will place her in an ankle stirrup splint. She received a L of fluid but continued to feel generally unwell. She has had no events on telemetry so far. I have consulted with the hospitalist infection control manager Dr. Alves who will admit the patient for further monitoring. Patient is happy with this plan. - Data Points Laboratory Results: Laboratory Results 05/10/18 08:40 05/10/18 08:40 Medications Given: Acetaminophen (Tylenol) 650 mg PO Q4HRS PRN PRN Reason: Pain, Mild/Fever, Can Take PO Stop: 11/06/18 00:19 Last Admin: 05/10/18 23:13 Dose: 650 mg Amlodipine Besylate (Norvasc) 5 mg PO DAILY [facility] Stop: 11/06/18 10:59 Last Admin: 05/10/18 12:35 Dose: Not Given Enoxaparin Sodium (Lovenox) 40 mg SC DAILY [facility] Stop: 11/06/18 08:59 Last Admin: 05/10/18 10:45 Dose: 40 mg Fluorometholone (Fml) 0 drop RTEYE BID [facility] Stop: 11/06/18 20:59 Last Admin: 05/10/18 22:06 Dose: 1 drop Vancomycin HCl 750 mg/ (Dextrose) 150 mls @ 150 mls/hr IV Q24H [facility] Stop: 06/09/18 11:59 Last Admin: 05/10/18 12:30 Dose: 150 mls Insulin Human Lispro (Humalog Lispro) 0 unit SC ACHS [facility] PRN Reason: Protocol Stop: 11/06/18 17:29 Last Admin: 05/10/18 22:04 Dose: Not Given Latanoprost (Xalatan 0.005%) 1 drops EACHEYE [facility] Stop: 11/06/18 20:59 Last Admin: 05/10/18 22:02 Dose: 1 drop Losartan Potassium (Cozaar) 50 mg PO [facility] Stop: 11/06/18 20:59 Last Admin: 05/10/18 22:01 Dose: 50 mg Losartan Potassium (Cozaar) 100 mg PO DAILY [facility] Stop: 11/06/18 10:59 Last Admin: 05/10/18 12:35 Dose: 100 mg Metoprolol Tartrate (Lopressor) 50 mg PO BID [facility] Stop: 11/06/18 10:59 Last Admin: 05/10/18 22:02 Dose: 50 mg Miscellaneous Medication (Non-Formulary) 1 ea EACHEYE TID [facility] Stop: 11/06/18 15:59 Last Admin: 05/10/18 22:19 Dose: 1 drop Sodium Chloride (Dannie-128 5%) 1 - 3 drops EACHEYE TID [facility] Stop: 11/06/18 15:59 Last Admin: 05/10/18 22:19 Dose: 1 drop Discontinued Medications Hydralazine HCl (Apresoline) 25 mg PO ONCE ONE Stop: 05/10/18 00:50 Last Admin: 05/10/18 01:13 Dose: 25 mg Sodium Chloride (Ns) 1,000 mls @ 0 mls/hr IV ONCE ONE; [place] PRN Reason: Protocol Stop: 05/09/18 22:25 Last Admin: 05/09/18 22:29 Dose: 1,000 mls Insulin Glargine (Lantus Syringe) 15 units SC DAILY [facility] Stop: 11/06/18 08:59 Last Admin: 05/10/18 10:47 Dose: 15 units Insulin Human Lispro (Humalog Lispro) 0 unit SC TIDMEAL [facility] PRN Reason: Protocol Stop: 11/06/18 07:59 Last Admin: 05/10/18 10:45 Dose: 2 units Insulin Human Lispro (Humalog Lispro) 10 unit SC ONCE ONE Stop: 05/10/18 00:50 Last Admin: 05/10/18 01:14 Dose: 5 units Point of Care Test Results: Chemistry 05/10/18 05/10/18 05/10/18 10:26 07:55 03:20 POC Glucose 199 mg/dL H mg/dL 246 mg/dL H mg/dL 267 mg/dL H mg/dL (70-100) (70-100) (70-100) POC Troponin I 05/09/18 22:32 POC Glucose POC Troponin I 0.00 ng/mL ng/mL (0.00-0.08) Departure - Departure Disposition: [facility] Acute Clinical Impression: Hyperglycemia Syncope Qualifiers: Syncope type: unspecified Qualified Code(s): R55 - Syncope and collapse Condition: Fair
[2018-05-09] MEDS ORDERED: NS 1,000 ML IV ONE (22:24)
--- NOTE | 2018-05-09 22:30 | CPEKG ---
Heart Rate: 89 RR Interval: 674 P-R Interval: 152 QRSD Interval: 102 QT Interval: 380 QTC Interval: 463 P [place]: -2 QRS [place]: 40 T Wave [place]: 45 EKG Severity - ABNORMAL ECG - EKG Impression: SINUS RHYTHM EKG Impression: PROBABLE LEFT VENTRICULAR HYPERTROPHY Electronically Signed By: Cathy Chaves 10-May-2018 07:45:48
[2018-05-09 22:57] LABS: PLATELET COUNT 249 10^3/uL (150-400)
[2018-05-10] MEDS ORDERED: ONDANSETRON DISINTEGRATING 4 MG TAB PO PRN (00:20)
[2018-05-10] MEDS ORDERED: ONDANSETRON 4 MG/2 ML VIAL IVP PRN (00:20)
[2018-05-10] MEDS ORDERED: D50W 25 GM/50 ML VIAL IVP PRN (00:22)
[2018-05-10] MEDS ORDERED: INSULIN LISPRO 100 UNIT/ML SC ONE ×2 (00:49→01:00)
[2018-05-10] MEDS ORDERED: hydrALAZINE 25 MG TAB PO ONE (00:49)
--- NOTE | 2018-05-10 01:08 | PDGENHP ---
History and Physical - Chief Complaint Syncope - History of Present Illness 82 yo F w/ hx of HTN and IDDM presents after syncopal event. Patient tells me she has been under a lot of stress lately. On Monday she noticed that her L ankle was hurting. This progressed and became red and swollen. She does not recall specific trauma but it has made accomplishing her ADLs difficult. Today she felt fatigued and "unwell" most of the day. She went to the pharmacy to get some compression stocking when she had a syncopal event while in line. She denies a specific prodrome aside from feeling unwell. She was unconscious for about 30 seconds, she says, and denies post-ictal confusion. No shaking movements were noted at the scene. Of note, she tells me her blood sugar and blood pressure have been poorly controlled lately. She states is not unusual to see BG in the 400-500 range or SBP's over 200. Despite these numbers she claims compliance with her home medications. BG on arrival was >300 and SBP during my evaluation >200. Case discussed with ED physician Dr. Chaves, previous records reviewed including D/C summary by Dr. Morris dated 12/11/13. History Information - Allergies/Home Medication List Allergies/Adverse Reactions: amoxicillin trihydrate [From Augmentin] Allergy (Verified 01/02/18 23:54) brompheniramine maleate [From Rondec] Allergy (Verified 01/02/18 23:54) carbinoxamine maleate [From Rondec] Allergy (Verified 01/02/18 23:54) cefaclor [From Ceclor] Allergy (Verified 01/02/18 23:54) cefuroxime axetil [From Ceftin] Allergy (Verified 01/02/18 23:54) chlorpheniramine maleate [From Ornade] Allergy (Verified 01/02/18 23:54) clindamycin Allergy (Verified 01/02/18 23:54) hydrocodone Allergy (Verified 01/02/18 23:54) latex [Latex] Allergy (Verified 01/02/18 23:54) metronidazole [From Flagyl] Allergy (Verified 01/02/18 23:54) Metronidazole HCl [From Flagyl] Allergy (Verified 01/02/18 23:54) Penicillins Allergy (Verified 01/02/18 23:54) phenylpropanolamine HCl [From Ornade] Allergy (Verified 01/02/18 23:54) potassium clavula *RETIRED-07/16/12 [From Augmentin] Allergy (Verified 01/02/18 23:54) pseudoephedrine HCl [From Rondec] Allergy (Verified 01/02/18 23:54) Sulfa (Sulfonamide Antibiotics) Allergy (Verified 01/02/18 23:54) Home Medications: Glucosam/Csa/Collagen/Hyalur A [Glucosamine Chondroitin Cap] 1 each PO DAILY 12/18 [Last Taken 12/09/13] Losartan Potassium [Cozaar] 50 mg PO DAILY 06/07/12 [Last Taken 12/10/13] Multivitamins [Multivitamin (OTC)] 1 each PO DAILY 06/07/12 [Last Taken 12/09/13 ] Harrison-3 Fatty Acids [Fish Oil 1000 mg (OTC)] 1,000 mg PO DAILY 06/07/12 [Last Taken 12/09/13] Ibuprofen [Motrin 200 mg (OTC)] 200 mg PO DAILY PRN 08/28/13 [Last Taken ] Insulin Aspart [Novolog] 2 - 9 unit SQ TIDMEAL PRN 08/28/13 [Last Taken 18:00] Acetaminophen [Tylenol Tablet] 325 mg PO DAILY PRN 12/10/13 [Last Taken 12/08/13 ] Insulin Glargine [Lantus 100 UNITS/ML (RX)] 18 units SC DAILY 12/10/13 [Last Taken 12/10/13 08:00] Metoprolol Tartrate [Lopressor 100 mg (RX)] 25 mg PO BID 12/10/13 [Last Taken 08:00] I have personally reviewed and updated: family history, medical history - Past Medical History diabetes type 2, hypertension - Surgical History Reports: appendectomy, hysterectomy - Family History Positive for: cancer - Social History Smoking Status: Never smoked Review of Systems Review of Systems: ROS: 10pt was reviewed & negative except for what was stated in HPI & below Physical Exam Physical Exam: Temp Pulse Resp BP Pulse Ox 37.0 C 96 16 184/76 H 97 05/09/18 22:25 05/10/18 00:34 05/10/18 00:34 05/10/18 00:34 05/10/18 00:34 Constitutional: appears nourished, uncomfortable Eyes: PERRL, EOMI Ears, Nose, Mouth, Throat: moist mucous membranes, no oral mucosal ulcers Cardiovascular: regular rate and rhythym, no murmur, rub, or gallop, other ( Occasional irregular beats) Respiratory: no respiratory distress, clear to auscultation Gastrointestinal: normoactive bowel sounds, soft, non-tender abdomen Skin: warm, other (Swelling and redness of medial L ankle) Neurologic: AAOx3, CN II-XII Intact Psychiatric: interacting appropriately, not anxious Lab Data & Imaging Review 05/09/18 22:45 05/09/18 22:45 WBC 9.83 10^3/uL (3.80-9.50) H 05/09/18 22:45 RBC 4.29 10^6/uL (4.18-5.33) 05/09/18 22:45 Hgb 12.9 g/dL (12.6-16.3) 05/09/18 22:45 Hct 37.2 % (38.0-47.0) L 05/09/18 22:45 MCV 86.7 fL (81.5-99.8) 05/09/18 22:45 MCH 30.1 pg (27.9-34.1) 05/09/18 22:45 MCHC 34.7 g/dL (32.4-36.7) 05/09/18 22:45 RDW 13.2 % (11.5-15.2) 05/09/18 22:45 Plt Count 249 10^3/uL (150-400) 05/09/18 22:45 MPV 9.6 fL (8.7-11.7) 05/09/18 22:45 Neut % (Auto) 72.6 % (39.3-74.2) 05/09/18 22:45 Lymph % (Auto) 13.4 % (15.0-45.0) L 05/09/18 22:45 Phillips % (Auto) 10.7 % (4.5-13.0) 05/09/18 22:45 Eos % (Auto) 2.4 % (0.6-7.6) 05/09/18 22:45 Baso % (Auto) 0.6 % (0.3-1.7) 05/09/18 22:45 Nucleat RBC Rel Count 0.0 % (0.0-0.2) 05/09/18 22:45 Absolute Neuts (auto) 7.13 10^3/uL (1.70-6.50) H 05/09/18 22:45 Absolute Lymphs (auto) 1.32 10^3/uL (1.00-3.00) 05/09/18 22:45 Absolute Monos (auto) 1.05 10^3/uL (0.30-0.80) H 05/09/18 22:45 Absolute Eos (auto) 0.24 10^3/uL (0.03-0.40) 05/09/18 22:45 Absolute Basos (auto) 0.06 10^3/uL (0.02-0.10) 05/09/18 22:45 Absolute Nucleated RBC 0.00 10^3/uL (0-0.01) 05/09/18 22:45 Immature Gran % 0.3 % (0.0-1.1) 05/09/18 22:45 Immature Gran # 0.03 10^3/uL (0.00-0.10) 05/09/18 22:45 D-Dimer < 0.27 ug/mLFEU (0.00-0.50) 05/09/18 22:45 Sodium 131 mEq/L (135-145) L 05/09/18 22:45 Potassium 4.2 mEq/L (3.3-5.0) 05/09/18 22:45 Chloride 91 mEq/L (97-110) L 05/09/18 22:45 Carbon Dioxide 26 mEq/l (22-31) 05/09/18 22:45 Anion Gap 14 mEq/L (8-16) 05/09/18 22:45 BUN 21 mg/dL (7-23) 05/09/18 22:45 Creatinine 0.8 mg/dL (0.6-1.0) 05/09/18 22:45 Estimated GFR > 60 05/09/18 22:45 Glucose 304 mg/dL (70-100) H 05/09/18 22:45 Calcium 9.5 mg/dL (8.5-10.4) 05/09/18 22:45 POC Troponin I 0.00 ng/mL (0.00-0.08) 05/09/18 22:32 NT-Pro-B Natriuret Pep 1010 pg/mL (0-450) H 05/09/18 22:45 Urine Color YELLOW 05/09/18 23:33 Urine Appearance CLEAR 05/09/18 23:33 Urine pH 6.0 (5.0-7.5) 05/09/18 23:33 Ur Specific [place] 1.017 (1.002-1.030) 05/09/18 23:33 Urine Protein NEGATIVE (NEGATIVE) 05/09/18 23:33 Urine Ketones 1+ (NEGATIVE) H 05/09/18 23:33 Urine Blood NEGATIVE (NEGATIVE) 05/09/18 23:33 Urine Nitrate NEGATIVE (NEGATIVE) 05/09/18 23:33 Urine Bilirubin NEGATIVE (NEGATIVE) 05/09/18 23:33 Urine Urobilinogen NEGATIVE EU (0.2-1.0) 05/09/18 23:33 Ur Leukocyte Esterase NEGATIVE (NEGATIVE) 05/09/18 23:33 Urine RBC 1-3 /hpf (0-3) 05/09/18 23:33 Urine WBC 1-3 /hpf (0-3) 05/09/18 23:33 Ur Epithelial Cells TRACE /lpf (NONE-1+) 05/09/18 23:33 Urine Bacteria TRACE /hpf (NONE SEEN) H 05/09/18 23:33 Hyaline Casts 1-5 /lpf (0-1) 05/09/18 23:33 Urine Mucus TRACE /lpf (NONE-1+) 05/09/18 23:33 Urine Glucose 3+ (NEGATIVE) H 05/09/18 23:33 Imaging Review: Imaging Impressions Chest X-Ray 05/09/18 22:57 Impression: Chest negative for acute abnormality. Foot X-Ray 05/09/18 22:57 Impression: Negative for fracture. Degenerative changes are noted. Visualized and Interpreted Chest x-ray results: Yes Chest X-Ray results: no infiltrate Visualized and Interpreted EKG results: Yes EKG Interpretation: Positive for: normal sinsus rhythm, other (LVH) Assessment & Plan Assessment: 82 yo F w/ hx of poorly controlled HTN and IDDM presents with syncope. Plan: 1. Syncope - Unclear etiology, patient lightheaded and feeling overall unwell prior to event. Most likely etiology is vasovagal from ankle pain with contribution from hypovolemia due to ongoing elevated blood glucose and osmotic diuresis. The event does not sound concerning for a seizure. Cardiac work-up and monitoring has been unremarkable so for aside from mildly elevated BNP. ECG shows NSR with signs of LVH(personally interpreted), likely related to poorly controlled HTN. - Admit for observation - Monitor on telemetry, trend cardiac enzymes - PT/OT evaluations - Aim for better control of blood glucose and BP, see below - S/p 1 L NS, will obtain orthostatic VS in the morning 2. L ankle swelling, redness - Possibly 2/2 sprain but patient does not recall this happening. Xray negative for specific abnormality. Infection and crystal arthropathy seem less likely but reasonable to monitor for progression of pain, erythema, and swelling. - Serial ankle examinations, if febrile will likely need arthrocentesis; 0/4 SIRS currently 3. IDDM c/b hyperglycemia - Patient tells me it is not uncommon to have BG>400 at home despite insulin glargine 15 u qAM + lispro SSI. I suspect she is underdosed in both basal and bolus insulins. - Insulin lispro SSI standard protocol + insulin glargine 15 u qAM to first gauge effect of home regimen; increase as indicated - Check BG ACHS, D50 IV PRN for hypoglycemia - Will check A1c with AM labs 4. HTN - Poorly controlled despite metoprolol and losartan at home. - Will manage with PRN hydralazine overnight - Needs pharmacy confirmation of home doses prior to reconciliation and further adjustment Diet - Regular Code - Full Ppx - LMWH Dispo - Admit under observation status
[2018-05-10] MEDS: ACETAMINOPHEN 325 MG TAB PO PRN ×3 (02:34→23:13)
[2018-05-10] MEDS ORDERED: INSULIN LISPRO 100 UNIT/ML SC SCH (08:00)
[2018-05-10 08:51] LABS: PLATELET COUNT 222 10^3/uL (150-400)
[2018-05-10] MEDS ORDERED: INSULIN GLARGINE 100 UNITS/ML UNIT SC SCH (09:00)
[2018-05-10] MEDS: ENOXAPARIN 40 MG/0.4 ML SYR SC SCH (10:45)
[2018-05-10] MEDS: VANCOMYCIN 750 MG in D5W 150 ML IV SCH (12:30)
[2018-05-10] MEDS: METOPROLOL TARTRATE 50 MG TAB PO SCH ×2 (12:34→22:02)
[2018-05-10] MEDS: amLODIPine BESYLATE 5 MG TAB PO SCH (12:35)
[2018-05-10] MEDS: LOSARTAN POTASSIUM 50 MG TAB PO SCH ×2 (12:35→22:01)
--- NOTE | 2018-05-10 15:28 | ASMTCMCOM ---
CM Note CM Note Notes: Patient admitted for self-reported syncopal event at home. She also reports poorly controlled Diabetes and Hypertension. She endorses being under great psychological strain. I met [facility] patient and her daughter Johana to discuss discharge planning. They have started to discuss transitioning patient to an assisted living facility, but patient is clearly not entirely sure this is what she wants. 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 She perseverates a bit on "being happy" and that she's had to "give up her dreams" recently. Her daughter tried to remind her that she can't handle the responsibilities of owning her home right now and that moving somewhere smaller and more manageable would help eliminate some stress. Patient has apparently visited a few facilities but she doesn't seem mentally ready to commit. I emphasized that the family will need to come up with an interim plan for home. I provided a list of private duty caregivers and the [employer]. Case Management will follow. Date Signed: 05/10/2018 03:27 PM Electronically Signed By:Chelsea Miranda RN
[2018-05-10] MEDS ORDERED: SODIUM CHLORIDE 5% 30 ML OPHT.BTL EACHEYE SCH (16:00)
--- NOTE | 2018-05-10 16:15 | HOSPPROG ---
Hospitalist Progress Note Assessment/Plan: * Syncope - suspect vasovagal due to foot pain * LLE pain/erythema - suspect cellulitis s/p recent toenail removal by podiatry -PCN/cephalosporin allergy - start IV Vanco * DM - uncontrolled - HgA1c 11.2 -very resistant to any change in diabetic regimen -extremely fearful of hypoglycemic episode living alone * HTN -watch on home meds * Anxiety -refuses med tx - has tried in past Subjective: Very anxious about living alone as a diabetic. Foot still hurts, unable to walk Objective: Vital Signs Temp Pulse Resp BP Pulse Ox 36.9 C 80 18 166/79 H 98 05/10/18 15:42 05/10/18 15:42 05/10/18 15:42 05/10/18 15:42 05/10/18 15:42 Laboratory Results 05/10/18 08:40 05/10/18 08:40 05/09/18 05/10/18 05/11/18 05:59 05:59 05:59 Intake Total 200 350 Output Total 1200 500 Balance -1000 -150 US - negative for DVT EKG viewed, my personal interpretation is - LVH, NSR - Physical Exam Constitutional: no apparent distress, appears nourished, not in pain Cardiovascular: regular rate and rhythym, no murmur, rub, or gallop Respiratory: no respiratory distress, no rales or rhonchi, clear to auscultation Gastrointestinal: normoactive bowel sounds, soft, non-tender abdomen, no palpable masses Skin: warm, erythema, rash, No normal color, No fluctuance Neurologic: AAOx3, sensation intact bilaterally Psychiatric: interacting appropriately, not anxious, not encephalopathic, thought process linear ICD10 Worksheet Patient Problems: Problems Problem Status Onset Chest pain Acute
--- NOTE | 2018-05-10 16:44 | PDMN ---
Medical Necessity Medical necessity: Change to IP, as of 05/10/18, per MD; los >2 mn for ongoing management of suspected vasovagal syncope r/t LLE pain/erythema; pt unable to walk; requiring IV abx & therapies; comorbid advanced age & uncontrolled diabetes; per progress note & order 05/10/18
[2018-05-10] MEDS: SODIUM CHLORIDE 5% 30 ML OPHT.BTL EACHEYE SCH ×2 (17:41→22:19)
[2018-05-10] MEDS: POLYETHYLENE GLYCOL EACHEYE SCH ×2 (18:22→22:19)
[2018-05-10] MEDS: PROPYLENE GLYCOL EACHEYE SCH ×2 (18:22→22:19)
[2018-05-10] MEDS: [UNRECOGNIZED DRUG - OTHER] EACHEYE SCH ×2 (18:22→22:19)
[2018-05-10] MEDS: INSULIN LISPRO 100 UNIT/ML SC SCH ×2 (18:24→22:04)
[2018-05-10] MEDS ORDERED: FLUOROMETHOLONE 5 ML OPHT.BTL RTEYE SCH (21:00)
[2018-05-10] MEDS ORDERED: LATANOPROST 0.005% 2.5 ML OPHT DROPS EACHEYE SCH ×2 (21:00)
[2018-05-10] MEDS: LATANOPROST 0.005% 2.5 ML OPHT DROPS EACHEYE SCH (22:02)
[2018-05-10] MEDS: FLUOROMETHOLONE 5 ML OPHT.BTL RTEYE SCH (22:06)
[2018-05-11] MEDS ORDERED: INSULIN GLARGINE 100 UNITS/ML UNIT SC ONE (10:52)
[2018-05-11] MEDS: INSULIN GLARGINE 100 UNITS/ML UNIT SC SCH (10:52)
[2018-05-11] MEDS: ENOXAPARIN 40 MG/0.4 ML SYR SC SCH (10:54)
[2018-05-11] MEDS: FLUOROMETHOLONE 5 ML OPHT.BTL RTEYE SCH (10:54)
[2018-05-11] MEDS: PROPYLENE GLYCOL EACHEYE SCH ×2 (10:57→17:23)
[2018-05-11] MEDS: [UNRECOGNIZED DRUG - OTHER] EACHEYE SCH ×2 (10:57→17:23)
[2018-05-11] MEDS: POLYETHYLENE GLYCOL EACHEYE SCH ×2 (10:57→17:23)
[2018-05-11] MEDS: SODIUM CHLORIDE 5% 30 ML OPHT.BTL EACHEYE SCH ×2 (11:00→17:24)
[2018-05-11] MEDS: LOSARTAN POTASSIUM 50 MG TAB PO SCH ×2 (11:01→20:50)
[2018-05-11] MEDS: METOPROLOL TARTRATE 50 MG TAB PO SCH ×2 (11:01→20:50)
[2018-05-11] MEDS: amLODIPine BESYLATE 5 MG TAB PO SCH (11:02)
[2018-05-11] MEDS: INSULIN LISPRO 100 UNIT/ML SC SCH ×4 (13:09→21:00)
[2018-05-11] MEDS: VANCOMYCIN 750 MG in D5W 150 ML IV SCH (13:13)
--- NOTE | 2018-05-11 15:13 | HOSPPROG ---
Hospitalist Progress Note Assessment/Plan: * Syncope - suspect vasovagal due to foot pain/dehydration * LLE cellulitis, started after recent podiatry manipulation of toenail -PCN/cephalosporin allergy - start IV Vanco -improved on IV abx - continue -erythema now localized to 1st MTP - consider gout -clinical suspicion still greater for infection * DM - uncontrolled - HgA1c 11.2 -very resistant to any change in diabetic regimen -extremely fearful of hypoglycemic episode living alone -follows with Dr. Beavers -has 24 hr continuous glucose monitor at home, hasn't used yet * HTN -increase Norvasc * Anxiety -refuses med tx - has tried in past Subjective: Foot is better Objective: Vital Signs Temp Pulse Resp BP Pulse Ox 36.8 C 96 18 148/74 H 97 05/11/18 08:00 05/11/18 12:00 05/11/18 12:00 05/11/18 12:00 05/11/18 12:00 05/10/18 05/11/18 05/12/18 05:59 05:59 05:59 Intake Total 500 Output Total 770 200 Balance -270 -200 - Physical Exam Constitutional: no apparent distress, appears nourished, not in pain Cardiovascular: regular rate and rhythym, no murmur, rub, or gallop Respiratory: no respiratory distress, no rales or rhonchi, clear to auscultation Gastrointestinal: normoactive bowel sounds, soft, non-tender abdomen, no palpable masses Skin: erythema (much better, now localizing to 1st MTP) Neurologic: AAOx3, sensation intact bilaterally Psychiatric: interacting appropriately, not anxious, not encephalopathic, thought process linear ICD10 Worksheet Patient Problems: Problems Problem Status Onset Hyperglycemia Acute Syncope Acute Chest pain Acute
--- NOTE | 2018-05-11 15:33 | ASMTCMCOM ---
CM Note CM Note Notes: 05/11/2018 Case Management Note Met w/pt and both her daughters Johana [phone] and Carlita Goodrich [phone]. Family has long term care administrator plans for pt to move into Assisted Living. Daughters plan to tour [facility] in [place] this weekend. Discharge options discussed are as follows: Option #1: home with home care. Notified [facility] of possibly d/c. [facility] accepted pt. Pt has Meals on Wheels in place already and strong family support. Option #2: SNF rehab. Faxed referrals to [facility], [facility], and [facility]. Discussed pt fears re: hypoglycemia and living alone. Daughter Carlita is T1D using the [employer] 670g system. Unbeknowst to daughters pt has a dexcom G5 on her dining room table from her coding consultant Dr. Beavers. Encouraged pt to bring to hospital for assistance in setting up continuous glucose monitor. Discussed difference between Dexcom G5 and Dexcom G6 with the G6 being FDA approved to dose insulin without finger sticks. Pt to inquire with Dr. Beavers's office if she can switch devices. Pt repair department manager is Dr. Mancilla at [facility] Case Management d/c poc: Home Care vs SNF rehab Case Management to follow. Date Signed: 05/11/2018 03:32 PM Electronically Signed By:Dacia Olmstead RN
[2018-05-12] MEDS: ACETAMINOPHEN 325 MG TAB PO PRN ×2 (00:21→11:26)
[2018-05-12] MEDS: FLUOROMETHOLONE 5 ML OPHT.BTL RTEYE SCH ×3 (00:23→23:17)
[2018-05-12] MEDS: LATANOPROST 0.005% 2.5 ML OPHT DROPS EACHEYE SCH ×2 (00:25→22:41)
[2018-05-12] MEDS: PROPYLENE GLYCOL EACHEYE PRN ×2 (00:30→11:32)
[2018-05-12] MEDS: PEG EACHEYE PRN ×2 (00:30→11:32)
[2018-05-12] MEDS: SODIUM CHLORIDE 5% 30 ML OPHT.BTL EACHEYE SCH ×4 (00:31→23:40)
[2018-05-12] MEDS: [UNRECOGNIZED DRUG - OTHER] EACHEYE SCH ×3 (00:31→17:27)
[2018-05-12] MEDS: PROPYLENE GLYCOL EACHEYE SCH ×3 (00:31→17:27)
[2018-05-12] MEDS: POLYETHYLENE GLYCOL EACHEYE SCH ×3 (00:31→17:27)
[2018-05-12] MEDS: INSULIN LISPRO 100 UNIT/ML SC SCH ×5 (10:57→21:02)
[2018-05-12] MEDS ORDERED: INSULIN GLARGINE 100 UNITS/ML UNIT SC ONE (11:16)
[2018-05-12] MEDS: INSULIN GLARGINE 100 UNITS/ML UNIT SC SCH (11:16)
[2018-05-12] MEDS: amLODIPine BESYLATE 5 MG TAB PO SCH (11:26)
[2018-05-12] MEDS: ENOXAPARIN 40 MG/0.4 ML SYR SC SCH (11:27)
[2018-05-12] MEDS: LOSARTAN POTASSIUM 50 MG TAB PO SCH ×2 (11:27→20:45)
[2018-05-12] MEDS: METOPROLOL TARTRATE 50 MG TAB PO SCH ×2 (11:27→20:44)
[2018-05-12] MEDS: VANCOMYCIN 750 MG in D5W 150 ML IV SCH (13:07)
[2018-05-12] MEDS: VANCOMYCIN HCL/NORMAL SALINE 250 ML IV SCH (13:18)
--- NOTE | 2018-05-12 14:56 | ASMTCMCOM ---
CM Note CM Note Notes: 05/12/2018 Case Management Note Notified via [facility] that [facility] accepted pt. Notified pt who is excited to be discharging to a facility closer to her daughter. Case Management d/c poc: [facility] rehab Case Management to follow. Date Signed: 05/12/2018 02:55 PM Electronically Signed By:Dacia Olmstead RN
[2018-05-12] MEDS ORDERED: D50W 25 GM/50 ML SYR IVP PRN (16:40)
--- NOTE | 2018-05-12 17:07 | HOSPPROG ---
Hospitalist Progress Note Assessment/Plan: * Syncope - suspect vasovagal due to foot pain/dehydration * LLE cellulitis, started after recent podiatry manipulation of toenail -PCN/cephalosporin allergy - start IV Vanco -improved on IV abx - continue -erythema now localized to 1st MTP - consider gout -clinical suspicion still greater for infection * DM - uncontrolled - HgA1c 11.2 -increase lantus to 22 use [facility] ss she will benefit from a simpler regimen as she is overwhelmed -has 24 hr continuous glucose monitor at home, hasn't used yet * HTN -increase Norvasc * Anxiety -refuses med tx - has tried in past Subjective: anxious re: hypoglycemia Objective: Vital Signs Temp Pulse Resp BP Pulse Ox 36.8 C 85 14 118/51 L 96 05/12/18 15:29 05/12/18 15:29 05/12/18 15:29 05/12/18 15:29 05/12/18 15:29 Laboratory Results 05/12/18 05:02 05/11/18 05/12/18 05/13/18 05:59 05:59 05:59 Intake Total 500 300 Output Total 770 600 400 Balance -270 -300 -400 - Physical Exam Constitutional: no apparent distress Eyes: PERRL, anicteric sclera Ears, Nose, Mouth, Throat: moist mucous membranes, hearing normal Cardiovascular: regular rate and rhythym, no murmur, rub, or gallop Respiratory: no respiratory distress, no rales or rhonchi Gastrointestinal: normoactive bowel sounds, soft, non-tender abdomen Skin: warm, normal color Musculoskeletal: full muscle strength, other (erythema over dorsum of L foot. no fluctuance) ICD10 Worksheet Patient Problems: Problems Problem Status Onset Hyperglycemia Acute Syncope Acute Chest pain Acute
[2018-05-13] MEDS: [UNRECOGNIZED DRUG - OTHER] EACHEYE SCH ×4 (00:25→22:12)
[2018-05-13] MEDS: POLYETHYLENE GLYCOL EACHEYE SCH ×4 (00:25→22:12)
[2018-05-13] MEDS: PROPYLENE GLYCOL EACHEYE SCH ×4 (00:25→22:12)
[2018-05-13] MEDS ORDERED: INSULIN LISPRO 100 UNIT/ML SC ONE (04:24)
[2018-05-13] MEDS ORDERED: INSULIN LISPRO humALOG 75/25 100 UNIT/ML SYR SC SCH (09:15)
--- NOTE | 2018-05-13 09:33 | HOSPPROG ---
Hospitalist Progress Note Assessment/Plan: 82 yo F w uncontrolled dm and htn here w syncope and L foot cellulitis Syncope - suspect vasovagal due to foot pain/dehydration no events on telelemtry; has been dc'd LLE cellulitis, started after recent podiatry manipulation of toenail -PCN/cephalosporin allergy - start IV Vanco day 5/7 of abx -improved on IV abx - continue -erythema now localized to 1st MTP - consider gout not as tender as one would expect gout to be and no joint effusion -clinical suspicion still greater for infection DM - uncontrolled - HgA1c 11.2 -increase lantus to [address] on scheduled ACHS lispro w no sliding scale. a few days on this regimen before adjustment is reasonable her anxiety is a barrier to ideal control HTN well controlled with: norvasc 10 losartan 150 hs metoprolol 50 bid hyponatremia: suspect component of pseudohyponatremia check Uosm fluid restrict follow daily Anxiety -refuses med tx - has tried in past proph: lmwh Subjective: very anxious and perseverating about insulin increases, blood pressure Objective: Vital Signs Temp Pulse Resp BP Pulse Ox 37.1 C 98 12 142/64 H 94 05/13/18 03:37 05/13/18 03:37 05/13/18 03:37 05/13/18 03:37 05/13/18 03:37 Laboratory Results 05/13/18 04:12 05/13/18 04:12 05/12/18 05/13/18 05/14/18 05:59 05:59 05:59 Intake Total 300 750 Output Total 600 1050 Balance -300 -300 - Physical Exam Constitutional: no apparent distress, appears nourished Eyes: PERRL, anicteric sclera Ears, Nose, Mouth, Throat: moist mucous membranes, hearing normal Cardiovascular: regular rate and rhythym, no murmur, rub, or gallop Respiratory: no respiratory distress, no rales or rhonchi Gastrointestinal: normoactive bowel sounds, soft, non-tender abdomen Genitourinary: no bladder fullness, No bearden in urethra Skin: warm, normal color Musculoskeletal: full muscle strength, other (L foot w improving erythema, mild edema) Neurologic: AAOx3 Psychiatric: interacting appropriately, No not anxious ICD10 Worksheet Patient Problems: Problems Problem Status Onset Hyperglycemia Acute Syncope Acute Chest pain Acute
[2018-05-13] MEDS: ENOXAPARIN 40 MG/0.4 ML SYR SC SCH (10:25)
[2018-05-13] MEDS: ACETAMINOPHEN 325 MG TAB PO PRN (10:26)
[2018-05-13] MEDS: amLODIPine BESYLATE 5 MG TAB PO SCH (10:28)
[2018-05-13] MEDS: METOPROLOL TARTRATE 50 MG TAB PO SCH ×2 (10:28→19:20)
[2018-05-13] MEDS: INSULIN GLARGINE 100 UNITS/ML UNIT SC SCH (10:28)
[2018-05-13] MEDS: LOSARTAN POTASSIUM 50 MG TAB PO SCH ×2 (10:29→19:20)
[2018-05-13] MEDS: INSULIN LISPRO 100 UNIT/ML SC SCH ×5 (10:38→23:04)
[2018-05-13] MEDS: FLUOROMETHOLONE 5 ML OPHT.BTL RTEYE SCH ×2 (10:49→22:10)
[2018-05-13] MEDS: SODIUM CHLORIDE 5% 30 ML OPHT.BTL EACHEYE SCH ×3 (11:52→22:09)
[2018-05-13] MEDS: VANCOMYCIN HCL/NORMAL SALINE 250 ML IV SCH (14:33)
[2018-05-13] MEDS: PROPYLENE GLYCOL EACHEYE PRN ×2 (22:10→22:11)
[2018-05-13] MEDS: LATANOPROST 0.005% 2.5 ML OPHT DROPS EACHEYE SCH (22:10)
[2018-05-13] MEDS: PEG EACHEYE PRN ×2 (22:10→22:11)
[2018-05-14] MEDS: INSULIN GLARGINE 100 UNITS/ML UNIT SC SCH (08:15)
[2018-05-14] MEDS: LOSARTAN POTASSIUM 50 MG TAB PO SCH ×2 (08:16→20:51)
[2018-05-14] MEDS: INSULIN LISPRO 100 UNIT/ML SC SCH ×3 (08:16→18:27)
[2018-05-14] MEDS: METOPROLOL TARTRATE 50 MG TAB PO SCH ×2 (08:17→20:51)
[2018-05-14] MEDS: ENOXAPARIN 40 MG/0.4 ML SYR SC SCH (08:17)
[2018-05-14] MEDS: amLODIPine BESYLATE 5 MG TAB PO SCH (08:17)
[2018-05-14] MEDS: SODIUM CHLORIDE 5% 30 ML OPHT.BTL EACHEYE SCH ×3 (08:18→20:55)
[2018-05-14] MEDS: FLUOROMETHOLONE 5 ML OPHT.BTL RTEYE SCH ×2 (08:19→20:50)
[2018-05-14] MEDS: [UNRECOGNIZED DRUG - OTHER] EACHEYE SCH ×3 (08:22→21:14)
[2018-05-14] MEDS: POLYETHYLENE GLYCOL EACHEYE SCH ×3 (08:22→21:14)
[2018-05-14] MEDS: PROPYLENE GLYCOL EACHEYE SCH ×3 (08:22→21:14)
--- NOTE | 2018-05-14 10:29 | HOSPPROG ---
Hospitalist Progress Note Assessment/Plan: 82 yo F w uncontrolled dm and htn here w syncope and L foot cellulitis Syncope - suspect vasovagal due to foot pain/dehydration no events on telelemtry; has been dc'd LLE cellulitis, started after recent podiatry manipulation of toenail -PCN/cephalosporin allergy - start IV Vanco day 05/12 of abx -improved on IV abx - continue -erythema now localized to 1st MTP - consider gout not as tender as one would expect gout to be and no joint effusion -clinical suspicion still greater for infection DM - uncontrolled - HgA1c 11.2 -increase lantus to [address] on scheduled ACHS lispro w no sliding scale. a few days on this regimen before adjustment is reasonable her anxiety is a barrier to ideal control 05/14 blood sugars improved HTN well controlled with: norvasc 10 losartan 150 hs metoprolol 50 bid hyponatremia: suspect component of pseudohyponatremia high uosm c/w SIADH fluid restricted await today's Anxiety -refuses med tx - has tried in past proph: lmwh Subjective: very anxious. blood sugars much improved on new regimen. claims to have had symptomatic low at 105 Objective: Vital Signs Temp Pulse Resp BP Pulse Ox 37.3 C 90 14 144/63 H 94 05/14/18 08:00 05/14/18 08:00 05/14/18 08:00 05/14/18 08:00 05/14/18 08:00 Laboratory Results 05/13/18 04:12 05/13/18 04:12 05/13/18 05/14/18 05/15/18 05:59 05:59 05:59 Intake Total 750 700 400 Output Total 1050 350 200 Balance -300 350 200 - Physical Exam Constitutional: no apparent distress, appears nourished Eyes: PERRL, anicteric sclera Ears, Nose, Mouth, Throat: moist mucous membranes, hearing normal Cardiovascular: regular rate and rhythym, no murmur, rub, or gallop Respiratory: no respiratory distress, no rales or rhonchi Gastrointestinal: normoactive bowel sounds, soft, non-tender abdomen Genitourinary: no bladder fullness, No bearden in urethra Skin: warm Musculoskeletal: full muscle strength, other (left toe much better) ICD10 Worksheet Patient Problems: Problems Problem Status Onset Hyperglycemia Acute Syncope Acute Chest pain Acute
[2018-05-14] MEDS: VANCOMYCIN HCL/NORMAL SALINE 250 ML IV SCH (14:37)
[2018-05-14] MEDS: VANCOMYCIN 750 MG in NS 150 ML IV SCH (15:02)
[2018-05-14] MEDS: LATANOPROST 0.005% 2.5 ML OPHT DROPS EACHEYE SCH (20:50)
[2018-05-15] MEDS: ACETAMINOPHEN 325 MG TAB PO PRN (00:25)
[2018-05-15] MEDS: INSULIN LISPRO 100 UNIT/ML SC SCH ×3 (00:26→13:08)
[2018-05-15] MEDS: VANCOMYCIN 750 MG in NS 150 ML IV SCH (03:25)
[2018-05-15] MEDS: ENOXAPARIN 40 MG/0.4 ML SYR SC SCH (08:53)
[2018-05-15] MEDS: INSULIN GLARGINE 100 UNITS/ML UNIT SC SCH (08:54)
[2018-05-15] MEDS: METOPROLOL TARTRATE 50 MG TAB PO SCH (08:54)
[2018-05-15] MEDS: PROPYLENE GLYCOL EACHEYE SCH (08:55)
[2018-05-15] MEDS: POLYETHYLENE GLYCOL EACHEYE SCH (08:55)
[2018-05-15] MEDS: LOSARTAN POTASSIUM 50 MG TAB PO SCH (08:55)
[2018-05-15] MEDS: [UNRECOGNIZED DRUG - OTHER] EACHEYE SCH (08:55)
[2018-05-15] MEDS: SODIUM CHLORIDE 5% 30 ML OPHT.BTL EACHEYE SCH (08:56)
[2018-05-15] MEDS: FLUOROMETHOLONE 5 ML OPHT.BTL RTEYE SCH (08:57)
[2018-05-15] MEDS ORDERED: INSULIN GLARGINE 100 UNITS/ML UNIT SC ONE (12:01)
--- NOTE | 2018-05-15 12:03 | PDIAF ---
- Diagnosis Diagnosis: syncope, cellulitis Code Status: Full Code - Medication Management Discharge Medications: Medications to Continue on Transfer Multivitamins [Multivitamin (*)] 1 each PO DAILY 06/07/12 [Last Taken 05/09/18] Newell-3 Fatty Acids [Fish Oil 1000 mg (*)] 1,000 mg PO DAILY 06/07/12 [Last Taken 05/09/18] Acetaminophen [Tylenol ES 500 mg (*)] 500 mg PO DAILY PRN 05/10/18 [Last Taken Unknown] Fluorometholone [Fml (*)] 1 drop RTEYE BID 05/10/18 [Last Taken 05/09/18 09:00] Latanoprost 0.005% [Xalatan 0.005% (*)] 1 drops EACHEYE HS 05/10/18 [Last Taken 05/08/18] Losartan Potassium [Cozaar 50 mg (*)] 50 mg PO HS 05/10/18 [Last Taken 05/08/18] Losartan Potassium [Cozaar 50 mg (*)] 100 mg PO DAILY 05/10/18 [Last Taken 05/09] Metoprolol Tartrate [Lopressor 50 mg (*)] 50 mg PO BID 05/10/18 [Last Taken 02/21 09:00] Propylene Glycol/Peg 400 [SYSTANE 0.3-0.4% EYE DROPS] 1 drop EACHEYE TID [Last Taken 05/09/18] Propylene Glycol/Peg 400 [Systane Gel Eye Drops] 1 drop EACHEYE PRN PRN [Last Taken Unknown] Sodium Chloride 5% [Dannie-128 5%] 1 - 3 drop EACHEYE TID 05/10/18 [Last Taken 02/21] amLODIPine BESYLATE [Norvasc 5 mg (*)] 5 mg PO DAILY 05/10/18 [Last Taken Unknown] Doxycycline Hyclate 100 mg PO BID #2 tablet 05/15/18 [Last Taken Unknown] FLUoxetine [Prozac 10 MG (*)] 10 mg PO DAILY #30 cap 05/15/18 [Last Taken Unknown] Insulin Glargine [Lantus Syringe] 30 units SC DAILY unit 05/15/18 [Last Taken Unknown] Insulin Lispro [HumaLOG LISPRO] 6 unit SC DAILY@1200 unit 05/15/18 [Last Taken Unknown] Insulin Lispro [HumaLOG LISPRO] 6 unit SC HS unit 05/15/18 [Last Taken Unknown] Insulin Lispro [HumaLOG LISPRO] 10 unit SC DAILY@1800 unit 05/15/18 [Last Taken Unknown] Discharge Medications: Refer to the Discharge Home Medication list for PRN reason. - Orders Services needed: Registered Nurse, Certified Life Skills Instructor, Master Systems Analyst Engineer , Physical Therapy Diet Recommendation: ADA 2000 consistent carb Diet Texture: Regular Texture Diet Additional Instructions: Recommend referral to therapist for behavioral therapy and psychiatrist - Follow Up Care Current Providers and Referrals: Donaldo Mancilla MD [Primary Care Provider] -
--- NOTE | 2018-05-15 12:30 | PDIAF ---
- Diagnosis Diagnosis: syncope, cellulitis Code Status: Full Code - Medication Management Discharge Medications: Medications to Continue on Transfer Multivitamins [Multivitamin (*)] 1 each PO DAILY 06/07/12 [Last Taken 05/09/18] [place]-3 Fatty Acids [Fish Oil 1000 mg (*)] 1,000 mg PO DAILY 06/07/12 [Last Taken 05/09/18] Acetaminophen [Tylenol ES 500 mg (*)] 500 mg PO DAILY PRN 05/10/18 [Last Taken Unknown] Fluorometholone [Fml (*)] 1 drop RTEYE BID 05/10/18 [Last Taken 05/09/18 09:00] Latanoprost 0.005% [Xalatan 0.005% (*)] 1 drops EACHEYE HS 05/10/18 [Last Taken 05/08/18] Losartan Potassium [Cozaar 50 mg (*)] 50 mg PO HS 05/10/18 [Last Taken 05/08/18] Losartan Potassium [Cozaar 50 mg (*)] 100 mg PO DAILY 05/10/18 [Last Taken 05/09] Metoprolol Tartrate [Lopressor 50 mg (*)] 50 mg PO BID 05/10/18 [Last Taken 02/21 09:00] Propylene Glycol/Peg 400 [SYSTANE 0.3-0.4% EYE DROPS] 1 drop EACHEYE TID [Last Taken 05/09/18] Propylene Glycol/Peg 400 [Systane Gel Eye Drops] 1 drop EACHEYE PRN PRN [Last Taken Unknown] Sodium Chloride 5% [Dannie-128 5%] 1 - 3 drop EACHEYE TID 05/10/18 [Last Taken 02/21] amLODIPine BESYLATE [Norvasc 5 mg (*)] 5 mg PO DAILY 05/10/18 [Last Taken Unknown] Doxycycline Hyclate 100 mg PO BID #2 tablet 05/15/18 [Last Taken Unknown] FLUoxetine [Prozac 10 MG (*)] 10 mg PO DAILY #30 cap 05/15/18 [Last Taken Unknown] Insulin Glargine [Lantus Syringe] 30 units SC DAILY unit 05/15/18 [Last Taken Unknown] Insulin Lispro [HumaLOG LISPRO] 6 unit SC DAILY@1200 unit 05/15/18 [Last Taken Unknown] Insulin Lispro [HumaLOG LISPRO] 6 unit SC HS unit 05/15/18 [Last Taken Unknown] Insulin Lispro [HumaLOG LISPRO] 10 unit SC DAILY@1800 unit 05/15/18 [Last Taken Unknown] Discharge Medications: Refer to the Discharge Home Medication list for PRN reason. - Orders Services needed: Registered Nurse, Certified Electrical Systems Drafter, Master Checker Dump Grounds , Physical Therapy Diet Recommendation: ADA 2000 consistent carb, fluid restriction (use comment for amount) (1500ml) Diet Texture: Regular Texture Diet Additional Instructions: Recommend referral to therapist for behavioral therapy and psychiatrist - Labs/Radiology BMP Date: 05/16/18 - Follow Up Care Current Providers and Referrals: Donaldo Mancilla MD [Primary Care Provider] -
[2018-05-15 12:37] VITALS: BP 140/64
--- NOTE | 2018-05-15 13:37 | ASMTCMCOM ---
CM Note CM Note Notes: Chart reviewed. Patient has been medically cleared for discharge to [facility]. Final orders via allscripts. Bobo from [facility] to arrange transportation . CM available should other needs arise. Plan: DC to [facility] Date Signed: 05/15/2018 01:36 PM Electronically Signed By:Rossi Rosado RN
--- NOTE | 2018-05-15 13:39 | ASMTLACE ---
LACE Length of stay for Answers: 4-6 days current admission Comorbidities - select Answers: Diabetes (uncontrolled or all that apply controlled) Other Notes: HTN # of Emergency department Answers: 3-4 visits in the last 6 months Score: 9 Date Signed: 05/15/2018 01:38 PM Electronically Signed By:Rossi Rosado RN
--- NOTE | 2018-05-15 15:10 | GDS ---
[f rep st] DISCHARGE SUMMARY DISCHARGE DIAGNOSES: 1. Type 2 diabetes, uncontrolled. 2. Syncope. 3. Left foot cellulitis. 4. Hypertension. 5. Syndrome of inappropriate antidiuretic hormone secretion. 6. Anxiety. HISTORY OF PRESENT ILLNESS: An 82-year-old female with anxiety, diabetes, and hypertension who presented after a syncopal event. She has been under a lot of stress. She notes her left ankle was hurting. The foot became swollen and red. She went to the pharmacy and had a syncopal episode in line. She denies any prodromal symptoms including chest pain, shortness of breath, or dizziness. HOSPITAL COURSE: 1. Syncope: likely vasovagal. EKG without arrhythmia. Troponin was normal. 2. Left foot cellulitis: was on vancomycin here and will complete doxycycline tomorrow for a total of 7 days. 3. Diabetes, with hyperglycemia: A1c 11. Increased her glargine to 30 units daily, along with scheduled short-acting insulin with meals. 4. Hypertension: Controlled on home medications. 5. Hyponatremia: SIADH. Continue 1500 mL fluid restriction. Repeat a BMP tomorrow. 6. Anxiety: states it is debilitating. Started Prozac 10 mg. Would recommend a therapist and psychiatrist. Disposition: The patient is stable for discharge Follow-up 1. Repeat BMP on 05/16/2018. PHYSICAL EXAMINATION: VITAL SIGNS: Today, temperature 36.8, blood pressure 129 /60, heart rate is in the 80s, respirations 14, and 94% on room air. GENERAL: She is anxious, lying in bed, in no acute distress. HEENT: PERRLA. Moist mucous membranes. CV: Regular rate and rhythm. LUNGS: Clear. ABDOMEN: Soft , nontender, and nondistended. Positive bowel sounds. : No [place]. MUSCULOSKELETAL: Left foot with minimal erythema. No tenderness. Full range of motion. NEUROLOGIC: II through XII are intact. PSYCHIATRIC: Extremely anxious, but answering appropriately. /[id number]/MODL Time spent on discharge >30 min coordinating discharge and bedside with pt explaining med changes MTDD
--- NOTE | 2018-05-15 17:11 | ASDISCHSUM ---
Discharge Information Plan Status:SNF Medically Cleared to Leave:05/15/2018 Discharge Date:05/15/2018 04:12 PM D/C Disposition:Half-Way Facility ADT D/C Disposition:Half-Way Facility Projected Discharge Date:05/15/2018 11:00 AM Transportation at D/C:Wheelchair Van Discharge Delay Reason: Follow-Up Date:05/15/2018 11:00 AM Discharge Slot: Final Diagnosis: Placement Information Referral Type:*Fpc/SNF Referral ID:-[id number] Provider Name:Luz Moore [place] Address 1:[address] Phone Number: Address 2: Fax Number: [facility]:[place] Selection Factors: State:[place] Referral Type:*Home Health Care Services Referral ID:[id number] Provider Name: Address 1: Phone Number: Address 2: Fax Number: [facility]: Selection Factors: State: Patient Contact Information Contact Name:NO Relationship:Daughter Address:[address] [place] [address] Work Phone: [facility]:[place] Alternate Phone: State/Zip Code:[place] [address] Email: Financial Information Financial Class:Medicare Primary Plan Desc:MEDICARE INPATIENT Primary Plan Number:[id number] Secondary Plan Desc:MARCOS LARA PPO Secondary Plan Number:[id number] Assessment Information LACE LACE Length of stay for Answers: 4-6 days current admission Comorbidities - select Answers: Diabetes (uncontrolled or all that apply controlled) Other Notes: HTN # of Emergency department Answers: 3-4 visits in the last 6 months Score: 9 Date Signed: 05/15/2018 01:38 PM Electronically Signed By:Rossi Rosado RN [facility] CM Progress Note CM Note CM Note Notes: Patient admitted for self-reported syncopal event at home. She also reports poorly controlled Diabetes and Hypertension. She endorses being under great psychological strain. I met [facility] patient and her daughter Johana to discuss discharge planning. They have started to discuss transitioning patient to an assisted living facility, but patient is clearly not entirely sure this is what she wants. She endorses having extreme anxiety around her Diabetes/blood glucose control, yet she doesn't see how having any additional help (in the form of private duty analytical laboratory technician) would help with that. She perseverates a bit on "being happy" and that she's had to "give up her dreams" recently. Her daughter tried to remind her that she can't handle the responsibilities of owning her home right now and that moving somewhere smaller and more manageable would help eliminate some stress. Patient has apparently visited a few facilities but she doesn't seem mentally ready to commit. I emphasized that the family will need to come up with an interim plan for home. I provided a list of private duty caregivers and the [employer]. Case Management will follow. Date Signed: 05/10/2018 03:27 PM Electronically Signed By:Chelsea Miranda RN [facility] CM Progress Note CM Note CM Note Notes: 05/11/2018 Case Management Note Met w/pt and both her daughters Johana [phone] and Carlita Goodrich [phone]. Family has exterminator helper termite plans for pt to move into Assisted Living. Daughters plan to tour [facility] in [place] this weekend. Discharge options discussed are as follows: Option #1: home with home care. Notified [facility] of possibly d/c. [facility] accepted pt. Pt has Meals on Wheels in place already and strong family support. Option #2: SNF rehab. Faxed referrals to [facility], and [facility]. Discussed pt fears re: hypoglycemia and living alone. Daughter Carlita is T1D using the Medtronic 670g system. Unbeknowst to daughters pt has a dexcom G5 on her dining room table from her mechanical test engineer Dr. Beavers. Encouraged pt to bring to hospital for assistance in setting up continuous glucose monitor. Discussed difference between Dexcom G5 and Dexcom G6 with the G6 being FDA approved to dose insulin without finger sticks. Pt to inquire with Dr. Beavers's office if she can switch devices. Pt drawing in machine tender helper is Dr. Mancilla at [facility] Case Management d/c poc: Home Care vs SNF rehab Case Management to follow. Date Signed: 05/11/2018 03:32 PM Electronically Signed By:Dacia Olmstead RN [facility] CM Progress Note CM Note CM Note Notes: 05/12/2018 Case Management Note Notified via [employer] that [facility] accepted pt. Notified pt who is excited to be discharging to a facility closer to her daughter. Case Management d/c poc: [facility] re[facility] Case Management to follow. Date Signed: 05/12/2018 02:55 PM Electronically Signed By:Dacia Olmstead RN [facility] CM Progress Note CM Note CM Note Notes: Chart reviewed. Patient has been medically cleared for discharge to [facility]. Final orders via allscripts. Bobo from [facility] to arrange transportation . CM available should other needs arise. Plan: DC to [facility] Date Signed: 05/15/2018 01:36 PM Electronically Signed By:Rossi Rosado RN Intervention Information Intervention Type:*JORGE-Signed Date of Service:05/10/2018 09:52 AM Patient Type:Observation Staff Member:Magaly Estrada Hours: Discipline: Severity: Comment: Intervention Type:*IM-Signed Date of Service:05/11/2018 03:11 PM Patient Type:Inpatient Staff Member:Magaly Estrada Hours: Discipline: Severity: Comment: Intervention Type:*IM-Signed Date of Service:05/15/2018 01:59 PM Patient Type:Inpatient Staff Member:Magaly Estrada Hours: Discipline: Severity: Comment:IM completed on Friday 05/11, however, p jc did not discharge over the weekend. Anothe r IM was signed today, 05/15.
== END 2018-05-15 16:12 | DRG 638 ==
LOC: EDBD → EDUNIT# → F2W 05-10 01:24 → OBSVTOIN 05-10 11:09
PROVIDERS: ADMIT Student in an Organized Health Care Education/Training Program; ATTEND Student in an Organized Health Care Education/Training Program
DX: E11.65 Type 2 diabetes mellitus with hyperglycemia (principal); L03.116 Cellulitis of left lower limb; E22.2 Syndrome of inappropriate secretion of antidiuretic hormone; E86.1 Hypovolemia; M25.572 Pain in left ankle and joints of left foot; I10 Essential (primary) hypertension; F41.9 Anxiety disorder, unspecified; Z79.4 Long term (current) use of insulin
CPT/HCPCS: 84484-PO; 97116-GP; 97161-GP; 97165-GO; 97530-GO; 97530-GP; 97535-GO; A4565; G8978-GP-CL; G8979-GP-CJ; G8987-GO-CI; G8988-GO-CI; G8989-GO-CI; J1650; J1815; J2405; J3370

== ENCOUNTER 2018-06-28 06:35 | Inpatient (IN) | payer OTHER ==
--- NOTE | 2018-06-28 06:46 | EDPHY ---
H & P Time Seen by Provider: 06/28/18 06:45 HPI/ROS: CHIEF COMPLAINT: Weakness for 4 days HISTORY OF PRESENT ILLNESS: The patient was admitted on June 04 of this year for left hip fracture and is currently at [facility]. For the lasted 4 days she has been getting increasingly weak and more sleepy with decreased appetite. Symptoms severe and associated with high glucose reported as 452 this morning at the facility. She denies chest pain shortness of breath vomiting or diarrhea. No fevers were reported. She is transported by EMS with notable vital signs for tachycardia. REVIEW OF SYSTEMS: Eye: no change in vision ENT: no sore throat Cardiac: no chest pain or syncope Pulmonary: no cough or SOB Abdomen: no vomiting, diarrhea, abdominal pain, decreased appetite Musculoskeletal: Left hip pain is relatively stable Skin: no rash Neuro: no headache Constitutional: no fever : no urinary symptoms A comprehensive 10 point review of systems is otherwise negative aside from elements mentioned in the history of present illness. PAST MEDICAL HISTORY: Includes hypertension, insulin-dependent diabetes, anxiety depression, at appendectomy, left hip replacement Social history: Current [facility] resident General Appearance: Patient is sleepy but opens eyes spontaneously and answers questions appropriately. Eyes: No scleral icterus. ENT, Mouth: Dry mucous membranes. Respiratory: Normal respiratory effort, breath sounds equal, lungs are clear to auscultation. Cardiovascular: Regular rate and rhythm. Tachycardic. Gastrointestinal: Abdomen is soft and non tender. Neurological: Alert, face symmetric, normal motor and sensory in extremities. She does have some difficulty lifting left leg up off the bed but she says this is because of pain. Skin: Warm and dry, no rashes. Left hip has a palm sized dressing on it that is clean dry intact without any exudates swelling the dressing and no surrounding redness. Musculoskeletal: No peripheral edema. Psychiatric: Not agitated. Emergency Department course/MDM: Patient also has outpatient MRI of her brain scheduled for July 06 because of altered mental status. She appears sleepy today but no other altered mental status. 800: WBC noted at 17,000 but patient does not pneumonia on my interpretation of the x-ray. No cough or shortness of breath or hypoxia. Ross Rios admit hospitalist. Lactate screening, blood cultures x2, Levaquin 750 mg IV for UTI with elevated white blood cell count. She has pyuria on urinalysis which was a catheterized specimen. 836: Lactate less than 2, has SIRS criteria but does not have severe sepsis or septic shock. IV fluids, does not require repeat lactate now or pressors. Smoking Status: Never smoked Constitutional: Initial Vital Signs Temperature (C) 37.7 C 06/28/18 06:35 Heart Rate 114 H 06/28/18 06:35 Respiratory Rate 20 06/28/18 06:35 Blood Pressure 184/84 H 06/28/18 06:35 O2 Sat (%) 95 06/28/18 06:35 O2 Delivery Mode Room Air Allergies/Adverse Reactions: metronidazole Allergy (Unknown, Verified 06/28/18 06:40) Rash amoxicillin trihydrate [From Augmentin] Allergy (Verified 06/28/18 06:40) brompheniramine maleate [From Rondec] Allergy (Verified 06/28/18 06:40) carbinoxamine maleate [From Rondec] Allergy (Verified 06/28/18 06:40) cefaclor Allergy (Verified 06/28/18 06:40) Rash cefuroxime axetil [From Ceftin] Allergy (Verified 06/28/18 06:40) chlorpheniramine maleate [From Ornade] Allergy (Verified 06/28/18 06:40) clindamycin Allergy (Verified 06/28/18 06:40) hydrocodone Allergy (Verified 06/28/18 06:40) latex [Latex] Allergy (Verified 06/28/18 06:40) Metronidazole HCl [From Flagyl] Allergy (Verified 06/28/18 06:40) Penicillins Allergy (Verified 06/28/18 06:40) phenylpropanolamine HCl [From Ornade] Allergy (Verified 06/28/18 06:40) potassium clavula *RETIRED-07/16/12 [From Augmentin] Allergy (Verified 06/28/18 06:40) pseudoephedrine HCl [From Rondec] Allergy (Verified 06/28/18 06:40) Home Medications: Medication Instructions Recorded Multivitamins [Multivitamin (*)] 1 each PO DAILY 06/07/12 [place]-3 Fatty Acids [Fish Oil 1000 1,000 mg PO DAILY 06/07/12 mg (*)] Fluorometholone [Fml (*)] 1 drop RTEYE BID 05/10/18 Latanoprost 0.005% [Xalatan 0.005% 1 drops EACHEYE HS 05/10/18 (*)] Losartan Potassium [Cozaar 50 mg 100 mg PO DAILY 05/10/18 (*)] Losartan Potassium [Cozaar 50 mg 100 mg PO DAILY 05/10/18 (*)] Metoprolol Tartrate [Lopressor 50 50 mg PO BID 05/10/18 mg (*)] Propylene Glycol/Peg 400 [SYSTANE 1 drop EACHEYE TID 05/10/18 0.3-0.4% EYE DROPS] Sodium Chloride 5% [Dannie-128 5%] 1 - 3 drop EACHEYE TID 05/10/18 C/E/Zn/Cu/OM3/DHA/EPA/LUT/ZEAX 1 each PO BID 06/05/18 [Preservision Areds 2 Softgel] Insulin Aspart [novoLOG] 0 unit SC TIDMEAL 06/05/18 Acetaminophen [Tylenol ES 500 mg 1,000 mg PO TID tab 06/15/18 (*)] Aspirin [Aspirin 81mg (*)] 81 mg PO DAILY tab.chew 06/15/18 Enoxaparin [Lovenox 40 MG (*)] 40 mg SC DAILY syr 06/15/18 Lidocaine 4%/Menthol 1% [Icy Hot 1 patch TD DAILY patch 06/15/18 Lidocaine/Menthol 4%/1% Patch (*)] Polyethylene Glycol 3350 [Miralax 17 gm PO DAILY PRN pkt 06/15/18 17 gm (*)] Docusate Sodium [Colace 100 MG (*)] 100 mg PO DAILY 06/28/18 Insulin Glargine,Hum.rec.anlog 15 unit SQ HS 06/28/18 [Basaglar Kwikpen U-100] amLODIPine BESYLATE [Norvasc 10 mg 10 mg PO DAILY 06/28/18 (*)] Medical Decision Making - Diagnostics EKG Interpretation: 12-lead EKG interpreted by me; official reading is in computer system. My interpretation is sinus tachycardia with LVH rate 115, performed for tachycardia. Imaging Results: Imaging Impressions Chest X-Ray 06/28/18 06:52 Impression: 1. Left lower lobe pneumonia. 2. Recommend follow up until clear. Differential Diagnosis: Differential for hyperglycemia considered including but not limited to infection , ACS, diabetic ketoacidosis Critical Care Time: Critical care time spent by me, Dr. Johnson, exclusively with the care of this patient was 30 minutes, exclusive of PA or STATE APPELLATE CLERK time and exclusive of separate procedures. The organ system at risk was infectious and I ordered IV fluids and IV antibiotics, multiple diagnostics to stabilize the patient and prevent worsening of the patient's condition. - Data Points Laboratory Results: Laboratory Results 06/28/18 06:48 06/28/18 06:48 06/28/18 06/28/18 06/28/18 07:50 06:48 06:48 WBC RBC Hgb Hct MCV MCH MCHC RDW Plt Count MPV Neut % (Auto) Lymph % (Auto) [place] % (Auto) Eos % (Auto) Baso % (Auto) Nucleat RBC Rel Count Absolute Neuts (auto) Absolute Lymphs (auto) Absolute Monos (auto) Absolute Eos (auto) Absolute Basos (auto) Absolute Nucleated RBC Immature Gran % Immature Gran # RBC/WBC/PLT Morphology Platelet Estimate VBG pH 7.42 (7.31-7.42) Sodium 127 mEq/L L mEq/L (135-145) Potassium 5.0 mEq/L mEq/L (3.3-5.0) Chloride 91 mEq/L L mEq/L (97-110) Carbon Dioxide 27 mEq/l mEq/l (22-31) Anion Gap 9 mEq/L mEq/L (8-16) BUN 25 mg/dL H mg/dL (7-23) Creatinine 1.0 mg/dL mg/dL (0.6-1.0) Estimated GFR 53 Glucose 291 mg/dL H mg/dL (70-100) Calcium 8.7 mg/dL mg/dL (8.5-10.4) Urine Color YELLOW Urine Appearance CLEAR Urine pH 5.0 (5.0-7.5) Ur Specific [place] 1.017 (1.002-1.030) Urine Protein 1+ H (NEGATIVE) Urine Ketones 1+ H (NEGATIVE) Urine Blood 2+ H (NEGATIVE) Urine Nitrate NEGATIVE (NEGATIVE) Urine Bilirubin NEGATIVE (NEGATIVE) Urine Urobilinogen NEGATIVE EU EU (0.2-1.0) Ur Leukocyte Esterase TRACE H (NEGATIVE) Urine RBC 1-3 /hpf /hpf (0-3) Urine WBC 25-50 /hpf H /hpf (0-3) Ur Epithelial Cells TRACE /lpf /lpf (NONE-1+) Urine Bacteria TRACE /hpf H /hpf (NONE SEEN) Urine Mucus TRACE /lpf /lpf (NONE-1+) Urine Glucose 3+ H (NEGATIVE) 06/28/18 06:48 WBC 17.15 10^3/uL H 10^3/uL (3.80-9.50) RBC 3.61 10^6/uL L 10^6/uL (4.18-5.33) Hgb 10.7 g/dL L g/dL (12.6-16.3) Hct 31.1 % L % (38.0-47.0) MCV 86.1 fL fL (81.5-99.8) MCH 29.6 pg pg (27.9-34.1) MCHC 34.4 g/dL g/dL (32.4-36.7) RDW 14.8 % % (11.5-15.2) Plt Count 357 10^3/uL 10^3/uL (150-400) MPV 8.8 fL fL (8.7-11.7) Neut % (Auto) 91.5 % H % (39.3-74.2) Lymph % (Auto) 2.5 % L % (15.0-45.0) [place] % (Auto) 4.8 % % (4.5-13.0) Eos % (Auto) 0.1 % L % (0.6-7.6) Baso % (Auto) 0.2 % L % (0.3-1.7) Nucleat RBC Rel Count 0.0 % % (0.0-0.2) Absolute Neuts (auto) 15.69 10^3/uL H 10^3/uL (1.70-6.50) Absolute Lymphs (auto) 0.43 10^3/uL L 10^3/uL (1.00-3.00) Absolute Monos (auto) 0.82 10^3/uL H 10^3/uL (0.30-0.80) Absolute Eos (auto) 0.02 10^3/uL L 10^3/uL (0.03-0.40) Absolute Basos (auto) 0.03 10^3/uL 10^3/uL (0.02-0.10) Absolute Nucleated RBC 0.00 10^3/uL 10^3/uL (0-0.01) Immature Gran % 0.9 % % (0.0-1.1) Immature Gran # 0.15 10^3/uL H 10^3/uL (0.00-0.10) RBC/WBC/PLT Morphology TNP Platelet Estimate TNP VBG pH Sodium Potassium Chloride Carbon Dioxide Anion Gap BUN Creatinine Estimated GFR Glucose Calcium Urine Color Urine Appearance Urine pH Ur Specific [place] Urine Protein Urine Ketones Urine Blood Urine Nitrate Urine Bilirubin Urine Urobilinogen Ur Leukocyte Esterase Urine RBC Urine WBC Ur Epithelial Cells Urine Bacteria Urine Mucus Urine Glucose Medications Given: Levofloxacin/Dextrose (Levaquin 750 Mg (Premix)) 150 mls @ 100 mls/hr IV EDNOW ONE PRN Reason: Protocol Stop: 06/28/18 09:43 Last Admin: 06/28/18 08:28 Dose: 150 mls Discontinued Medications Sodium Chloride (Ns) 1,000 mls @ 0 mls/hr IV EDNOW ONE; Wide Open PRN Reason: Protocol Stop: 06/28/18 06:53 Last Admin: 06/28/18 07:00 Dose: 1,000 mls Sodium Chloride (Ns) 1,000 mls @ 0 mls/hr IV EDNOW ONE; Wide Open PRN Reason: Protocol Stop: 06/28/18 08:19 Last Admin: 06/28/18 08:29 Dose: 1,000 mls Departure - Departure Disposition: [facility] Acute Clinical Impression: Hyperglycemia Urinary tract infection Qualifiers: Urinary tract infection type: acute pyelonephritis Qualified Code(s): N10 - Acute pyelonephritis Condition: Fair
[2018-06-28] MEDS ORDERED: NS 1,000 ML IV ONE ×2 (06:52→08:18)
[2018-06-28 07:06] LABS: PLATELET COUNT 357 10^3/uL (150-400)
--- NOTE | 2018-06-28 08:57 | CPEKG ---
Test Reason : OPEN Blood Pressure : / mmHG Vent. Rate : 115 BPM Atrial Rate : 116 BPM P-R Int : 166 ms QRS Dur : 092 ms QT Int : 331 ms P-R-T Axes : 068 041 071 degrees QTc Int : 458 ms Sinus tachycardia Consider left ventricular hypertrophy Confirmed by Jerman Johnson ([id number]) on 06/28/2018 8:56:48 AM Referred By: Confirmed By:Jerman Johnson
[2018-06-28] MEDS ORDERED: D50W 25 GM/50 ML SYR IVP PRN (09:23)
[2018-06-28] MEDS ORDERED: POLYETHYLENE GLYCOL 3350 17 GM PKT PO PRN (09:24)
--- NOTE | 2018-06-28 09:29 | ASMTLACE ---
DANIELE Acuity / Level of Answers: Yes Care: Did the patient have an inpatient admission? Comorbidities - select Answers: Diabetes (uncontrolled or all that apply controlled) Opioid dependence / Chronic pain Other Notes: HTN # of Emergency department Answers: 5-8 visits in the last 6 months Social determinants Answers: Mental health diagnosis (anxiety, depression, pers onality disorders, etc.) Score: 16 Date Signed: 06/28/2018 09:28 AM Electronically Signed By:Magaly Estrada
[2018-06-28] MEDS ORDERED: ONDANSETRON DISINTEGRATING 4 MG TAB PO PRN (10:27)
[2018-06-28] MEDS ORDERED: ACETAMINOPHEN 325 MG TAB PO PRN (10:27)
[2018-06-28] MEDS ORDERED: NS 1,000 ML IV SCH (10:30)
[2018-06-28] MEDS: METOPROLOL TARTRATE 50 MG TAB PO SCH ×2 (10:33→21:16)
[2018-06-28] MEDS: LIDOCAINE 4%/MENTHOL 1% PATCH TD SCH (10:50)
[2018-06-28] MEDS: LOSARTAN POTASSIUM 50 MG TAB PO SCH (10:56)
--- NOTE | 2018-06-28 11:47 | GHP ---
[f rep st] HISTORY AND PHYSICAL DATE OF ADMISSION: 06/28/2018 CHIEF COMPLAINT: Weakness for approximately a week with poor appetite. 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 The patient tells me she has been feeling weak for approximately the last 7 days. She denies any fever. She denies any chills. She describes just not wanting to eat very much. It was noted that she had a high glucose at [facility] today that was reported at 452. She denies any chest pain, shortness of breath. Bowel movements have been regular. She denies any urgency or frequency with urination. She denies any type of coughing. She was transferred by EMS for ongoing tachycardia. PAST MEDICAL HISTORY: 1. 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 2. Metabolic encephalopathy. 3. Hypokalemia. 4. Acute blood loss anemia. 5. Diabetes, poorly controlled. 6. Hypertension. 7. Asthma. 8. GERD. 9. Attention deficit hyperactivity disorder. 10. Hyponatremia. 11. Acute kidney injury. PAST SURGICAL HISTORY: 1. Hysterectomy in 2003. 2. Breast biopsy. 3. Tonsillectomy. 4. Laparoscopic appendectomy in 2001. 5. Recent hip ORIF in May of 2018. SOCIAL HISTORY: She is currently living at [facility]. She has been twice. She has 2 children. She does not smoke. She occasionally drinks alcohol. 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 FAMILY HISTORY: Her mom had pancreatic cancer. Her father had Alzheimer's. HOME MEDICATIONS: Systane 1 drop each eye t.i.d., Cozaar 100 mg daily, Xalatan 0.05% drop to each eye q.h.s., Tylenol 1000 mg p.o. t.i.d., Norvasc 10 mg daily , MiraLAX 17 g daily, multivitamin 1 tab daily, metoprolol 50 mg p.o. b.i.d., insulin sliding scale with meals, fish oil 1000 mg daily, Colace 100 mg daily, aspirin 81 mg daily. ALLERGIES: Metronidazole, Augmentin, Rondec, Cefaclor, Ceftin, clindamycin, hydrocodone, latex, penicillins. REVIEW OF SYSTEM: A 10-point review of system was performed and was negative other than pertinent positives in HPI and past medical history. PHYSICAL EXAM: GENERAL: The patient is an 82-year-old female who appears to be in very fair health. VITAL SIGNS: Blood pressure is 183/80, heart rate of 105, respiratory rate of 16, O2 sats on room air 90%, temperature is 37.1 Celsius. EYES: Pupils are equal and reactive. EOMs are intact. No conjunctival injection noted. ENT: Normal ears. Hearing intact. Oral airway is extremely dry. NECK: Trachea is midline. CARDIOVASCULAR: Regular rate and rhythm. She is tachycardic. No murmurs noted. CHEST/LUNGS: Very diminished bibasilar without rales or rhonchi noted. ABDOMEN: Soft, nontender. SKIN: Her left hip incision is well approximated. No drainage or oozing. MUSCULOSKELETAL: Not evaluated. PSYCHIATRIC: She is alert and oriented but very flat affect. She appears to have normal judgment, insight, and normal memory. LABORATORY DATA: Chemistry panel shows a sodium of 127, potassium 5, chloride 91, CO2 of 27, BUN of 25, creatinine of 1, glucose of 291. Procalcitonin is pending. Her pH is 7.42. Venous lactic acid is 1.1. CBC shows a white blood cell count of 17.15, hemoglobin 10.7, hematocrit of 31.1, platelet count of 357. Urinalysis shows 1+ protein, 1+ ketones, 2+ blood, trace leukocyte esterase, white blood cell count of 25-50, trace bacteria, 3+ glucose. Head CT shows mild atrophy without acute hemorrhage, hydrocephalus, or mass effect. She has cerebrovascular atherosclerosis. She has no definite acute infarct. She has old bilateral basal ganglia lacunar infarcts. She has mild microvascular ischemic gliosis. EKG that I interpreted myself shows tachycardia with LVH. I reviewed the patient's care with Dr. Jerman Johnson, emergency physician. ASSESSMENT/PLAN: 1. Left lower lobe pneumonia. She does not meet criteria for sepsis. Blood cultures were sent, checking a procalcitonin level and respiratory PCR. Will start her on Levaquin and do aggressive pulmonary toileting. She has leukocytosis, will recheck labs in the morning. 2. Hyponatremia. Will check urine studies. The patient appears clinically dry. Will gently hydrate her with saline. 3. Tachycardia. I suspect this is from dehydration, plus she did not receive her metoprolol. Will resume her beta gregg. 4. Diabetes. This is poorly controlled. Will resume sliding scale and check an A1c. 5. Recent open reduction, internal fixation of the left hip. Will ask Physical Therapy and Occupational Therapy to work with her. 6. Pyuria. She has no signs or symptoms of a urinary tract infection. Urine culture is pending. 7. Failure to thrive. Will do a calorie count. Therapies to see. 8. Hypertension. Resume metoprolol and Cozaar. 9. Code status: Full. 10. Deep venous thrombosis prophylaxis. Low-molecular weight heparin and knee- high YENNIFER hose. LENGTH OF STAY: I suspect she will require greater than a 2-midnight stay with the multiple comorbidities. /[id number]/MODL MTDD
[2018-06-28] MEDS: INSULIN LISPRO 100 UNIT/ML SC SCH ×2 (12:31→18:27)
[2018-06-28] MEDS ORDERED: ACETAMINOPHEN 500 MG TAB PO ONE (12:36)
[2018-06-28] MEDS: ONDANSETRON 4 MG/2 ML VIAL IVP PRN (15:15)
[2018-06-28] MEDS: ACETAMINOPHEN 500 MG TAB PO SCH ×2 (15:16→22:55)
[2018-06-28] MEDS: TEARS/DEXTRAN 70/HYPROMELLOSE 15 ML OPHT.BTL EACHEYE SCH ×2 (15:33→22:14)
[2018-06-28] MEDS: SODIUM CHLORIDE 5% 30 ML OPHT.BTL EACHEYE SCH ×2 (15:33→22:12)
--- NOTE | 2018-06-28 15:45 | PDMN ---
Medical Necessity Medical necessity: Pt meets IP criteria per TRAP[facility] BIRD & MCG [id number]; est los >2 mn for LLL pneumonia & dehydration w/tachycardia, hyponatremia, pyuria & failure to thrive; cxs pending; requiring IV abx, aggressive pulmonary toileting, follow- up labs, IVFs & therapies; comorbid recent hip fx s/p ORIF & CVA, GRETCHEN, advanced age, diabetes, HTN; per H&P & order 06/28/18
[2018-06-28] MEDS: PATCH REMOVAL 1 EA PATCH TD SCH (21:29)
[2018-06-28] MEDS: FLUOROMETHOLONE 5 ML OPHT.BTL RTEYE SCH (22:12)
[2018-06-28] MEDS: LATANOPROST 0.005% 2.5 ML OPHT DROPS EACHEYE SCH (22:13)
[2018-06-29 05:37] LABS: PLATELET COUNT 271 10^3/uL (150-400)
--- NOTE | 2018-06-29 08:06 | WOCRNPDOC ---
WOCRN Advanced Assessment Note - Skin Integrity Problem, Advanced Assess Left Distal Sacrum Pressure Injury Dressing Type: Open to Air Site Measurement - Head-to-Toe Length X Width X Depth (cm): 1x4x0 Pressure Injury Stage: Stage 1 Pressure Injury Present on Admit: Yes Right Medial Sacrum Pressure Injury Dressing Type: Open to Air Site Measurement - Head-to-Toe Length X Width X Depth (cm): 2x2x0 Pressure Injury Stage: Stage 1 Pressure Injury Present on Admit: Yes Right Distal Sacrum Pressure Injury Dressing Type: Open to Air Site Measurement - Head-to-Toe Length X Width X Depth (cm): 1x1x0 Pressure Injury Stage: Stage 1 Pressure Injury Present on Admit: Yes Skin Integrity Problem Comment: Pressure injury was deeper at some point as evidenced by scar tissue, however it is now healed and fully epithelized. Patient incontinent of urine. No need for any dressings. Treat with dimethicone cream. Wound care will sign off. Chelsey CALZADA in room for care.
[2018-06-29] MEDS: ENOXAPARIN 40 MG/0.4 ML SYR SC SCH (09:00)
[2018-06-29] MEDS: LOSARTAN POTASSIUM 50 MG TAB PO SCH (09:00)
[2018-06-29] MEDS: LIDOCAINE 4%/MENTHOL 1% PATCH TD SCH (09:00)
[2018-06-29] MEDS: DOCUSATE SODIUM 100 MG CAP PO SCH (09:00)
[2018-06-29] MEDS: INSULIN LISPRO 100 UNIT/ML SC SCH ×4 (09:00→18:19)
[2018-06-29] MEDS: MULTIVITAMINS 1 EACH TAB PO SCH (09:01)
[2018-06-29] MEDS: OMEGA-3 FATTY ACIDS 1,000 MG CAP PO SCH (09:01)
[2018-06-29] MEDS: ASPIRIN 81 MG CHEWABLE TAB PO SCH (09:01)
[2018-06-29] MEDS: ACETAMINOPHEN 500 MG TAB PO SCH ×3 (09:01→21:04)
[2018-06-29] MEDS: METOPROLOL TARTRATE 50 MG TAB PO SCH ×2 (09:01→21:07)
[2018-06-29] MEDS: FLUOROMETHOLONE 5 ML OPHT.BTL RTEYE SCH ×2 (09:03→22:01)
[2018-06-29] MEDS: SODIUM CHLORIDE 5% 30 ML OPHT.BTL EACHEYE SCH ×3 (09:04→22:06)
[2018-06-29] MEDS: TEARS/DEXTRAN 70/HYPROMELLOSE 15 ML OPHT.BTL EACHEYE SCH ×3 (09:05→22:05)
[2018-06-29] MEDS: ONDANSETRON 4 MG/2 ML VIAL IVP PRN (15:31)
--- NOTE | 2018-06-29 15:38 | ASMTCMCOM ---
CM Note CM Note Notes: Pt was admitted from [facility] where pt has been rehabbing after a recent hip fracture and surgery on June 05. Pt also has a hx of a stroke. Pt has 2 daughters who are involved with her care, dtr Phyllis ([phone]) asked to speake with CM. She states that [facility] won't hold pt's bed unless they pay $600/day, dtr says they won't do that so she is going to picker tender helper pt's things. CM spoke w/Shruti at [facility] and she will speak with dtr, otherwise there is no problem with pt returning. Carolyne from [facility]CU was here to see pt, states pt is on the waitlist for [facility] ([place]) DC date still uncertain, CRAIG w/f DC Plan: TBD Date Signed: 06/29/2018 03:37 PM Electronically Signed By:Winsome Escamilla RN
[2018-06-29] MEDS: ERTAPENEM 1 GM in NS 100 ML IV SCH (15:47)
--- NOTE | 2018-06-29 15:54 | HOSPPROG ---
Hospitalist Progress Note Assessment/Plan: * E coli sepsis -suspect urine as source -on Levaquin - consult ID - d/w Dr. Laws * Recent hip fracture -no evidence for infection -needs janes removed * Recent CVA - watershed * Hyponatremia - improved -suspect hypovolemia - continue IVF * DM -continue Lantus Subjective: Generalized weakness Objective: Vital Signs Temp Pulse Resp BP Pulse Ox 36.4 C 80 18 116/72 96 06/29/18 15:07 06/29/18 15:07 06/29/18 15:07 06/29/18 15:07 06/29/18 15:07 Microbiology 06/28/18 08:16 Blood Panel (PCR) - Final Blood Escherichia Coli 06/28/18 11:00 Respiratory Panel (PCR) - Final Nasal, Sinus - Swab No Organism Detected Laboratory Results 06/29/18 05:00 06/29/18 05:00 06/28/18 06/29/18 06/30/18 05:59 05:59 05:59 Intake Total 2736 Output Total 200 Balance 2536 abd US - sludge - no obvious cholecystitis - Physical Exam Constitutional: no apparent distress, appears nourished, not in pain Cardiovascular: regular rate and rhythym, no murmur, rub, or gallop Respiratory: no respiratory distress, no rales or rhonchi, clear to auscultation Gastrointestinal: normoactive bowel sounds, soft, non-tender abdomen, no palpable masses, other (mild RUQ pain) Skin: no rashes or abrasions, no fluctuance, no induration Neurologic: AAOx3, sensation intact bilaterally Psychiatric: interacting appropriately, not anxious, not encephalopathic, thought process linear ICD10 Worksheet Patient Problems: Problems Problem Status Onset Chronic Disease Mgmt/Transitional care Acute Hyperglycemia Acute Urinary tract infection Acute Cerebral infarction, watershed distribution, bilateral, acute Acute Chest pain Acute Hip fracture Acute Hypertension Acute Hyponatremia Acute Syncope Acute
[2018-06-29] MEDS: NS 1,000 ML IV SCH ×2 (16:28→16:32)
--- NOTE | 2018-06-29 19:13 | GCON ---
[f rep st] CONSULTATION INFECTIOUS DISEASE CONSULTATION PROVIDER REQUESTING CONSULTATION: Vani Rios MD. REASON FOR CONSULTATION: E coli bacteremia. HISTORY OF PRESENT ILLNESS: An 82-year-old woman who recently has had multiple hospitalizations starting in May, pertinent other hospitalizations at the end of May following a left femur fracture. Postoperatively, patient's course was complicated by a CVA and subsequently patient was discharged on 06/15/2018, to [facility]. The patient was discharged to [facility] on the and has been there since until she returned on 06/28/2018 after severe malaise x1 week and decreased mentation with poor appetite. She was brought for evaluation in our emergency room and was admitted for further workup. The patient today describes fatigue for a week, as above. She also describes urinary frequency but no dysuria. She denies abdominal pain, and says she has a very poor appetite. She says that her most significant concern is severe fatigue, which has not improved since admission. The patient was admitted and blood cultures were obtained, which immediately grew E coli. In addition, patient had pyuria and urine cultures growing gram-negative holli lactose tool distributor. Imaging showed a left lower lobe infiltrate and an ultrasound of her abdomen was performed today which showed hepatomegaly, gallbladder debris, but no signs of cholecystitis. She denies coughing. Upon admission, patient was started on levofloxacin 750 mg IV daily. ID is asked to consult for further management of E coli bacteremia, and assessment of source. PAST MEDICAL HISTORY: CVA in May of 2018, watershed infarction secondary to hypotension, insulin-dependent diabetes, hypertension, asthma, gastroesophageal reflux disease, ADD, acute renal injury, resolved. PAST SURGICAL HISTORY: Hysterectomy, breast biopsy, tonsillectomy, laparoscopic appendectomy, and recent open reduction/internal fixation of her left hip, June 06, 2018. SOCIAL HISTORY: She has 2 daughters and 1 adopted daughter. She is living at [facility]. She drinks alcohol. 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 FAMILY HISTORY: Her mom had pancreatic cancer. Her father had Alzheimer's. PERTINENT MEDICATIONS: Include levofloxacin 750 mg IV daily. She is on insulin and Lovenox and aspirin 81 mg. ALLERGIES: Patient has a reaction to amoxicillin and penicillin, which she describes as overall body reaction. REVIEW OF SYSTEMS: A complete 10-point review of systems was performed and is negative except as mentioned in the HPI. PHYSICAL EXAM: VITAL SIGNS: BP 116/72, heart rate 80, respiratory rate 18, saturation 96% on room air, temperature 36.4. GENERAL: This is a thin woman with somewhat of a flat affect. No distress. HEENT: Dry mucous membranes. Fair dentition. No oral ulcerations. No thrush. Conjunctivae were pale. No jaundice. NECK: Supple. No lymphadenopathy. CARDIOVASCULAR: Regular rate. No murmurs. CHEST: Clear to auscultation bilaterally. ABDOMEN: Soft, nontender, mildly distended. Bowel sounds are present. Suprapubic region, no tenderness. No Pettit was in place. EXTREMITIES: Patient has mild left lower extremity edema. She has 3 incision sites laterally on her left thigh. Harmeet still in place without erythema or discharge. NEUROLOGICAL: The patient was deferred, but notably patient was alert and oriented x4 with fluent speech. SKIN: No rashes. LABORATORY: White count 17, on admission, 13.5 today. Hematocrit went from 31- 26, platelets of 271. Creatinine normal, was 0.7. Alkaline phosphatase 416, AST 19, ALT 31. Blood cultures as per HPI. Patient has a remote urine culture from 02/21/2018, that showed cox susceptible E coli. ASSESSMENT/PLAN: 82-year-old woman with multiple hospitalizations recently, returned to the hospital with sepsis secondary to Escherichia coli bacteremia, likely urinary source. Patient feels no improvement overnight. Susceptibilities of E coli will not be available tomorrow. With patient's recent hospitalizations, antibiotic exposure, and catheterization during last hospitalization, 06/15/2018, would discontinue levofloxacin and place the patient on ertapenem until susceptibilities are available. At this point, repeat blood cultures are not indicated unless other complicating factors are identified. Duration of therapy dependent on further assessment of underlying illness and course of symptomatic improvement. If bacteremia due to urinary source recommend 10 days with specific antibiotic based on susceptibility pattern. Thank you for this consultation. We will continue to see the patient on a daily basis. Greater than 70 minutes spent on this patients care, greater than 50% of time spent counseling, educating, and coordinating care regarding the above mentioned plan. /[id number]/MODL and [id number]/[facility]
[2018-06-29] MEDS: INSULIN GLARGINE 100 UNITS/ML UNIT SC SCH (21:03)
[2018-06-29] MEDS: LATANOPROST 0.005% 2.5 ML OPHT DROPS EACHEYE SCH (22:02)
[2018-06-29] MEDS: PATCH REMOVAL 1 EA PATCH TD SCH (22:13)
[2018-06-30] MEDS: NS 1,000 ML IV SCH (03:06)
[2018-06-30 05:43] LABS: PLATELET COUNT 279 10^3/uL (150-400)
[2018-06-30] MEDS: ERTAPENEM 1 GM in NS 100 ML IV SCH (09:19)
[2018-06-30] MEDS: LIDOCAINE 4%/MENTHOL 1% PATCH TD SCH (09:19)
[2018-06-30] MEDS: LOSARTAN POTASSIUM 50 MG TAB PO SCH (09:20)
[2018-06-30] MEDS: DOCUSATE SODIUM 100 MG CAP PO SCH (09:20)
[2018-06-30] MEDS: OMEGA-3 FATTY ACIDS 1,000 MG CAP PO SCH (09:20)
[2018-06-30] MEDS: ENOXAPARIN 40 MG/0.4 ML SYR SC SCH (09:20)
[2018-06-30] MEDS: ACETAMINOPHEN 500 MG TAB PO SCH ×3 (09:20→22:03)
[2018-06-30] MEDS: METOPROLOL TARTRATE 50 MG TAB PO SCH ×2 (09:20→22:03)
[2018-06-30] MEDS: MULTIVITAMINS 1 EACH TAB PO SCH (09:21)
[2018-06-30] MEDS: ASPIRIN 81 MG CHEWABLE TAB PO SCH (09:21)
[2018-06-30] MEDS: INSULIN LISPRO 100 UNIT/ML SC SCH ×3 (10:06→17:54)
[2018-06-30] MEDS: FLUOROMETHOLONE 5 ML OPHT.BTL RTEYE SCH ×2 (10:07→22:11)
[2018-06-30] MEDS: SODIUM CHLORIDE 5% 30 ML OPHT.BTL EACHEYE SCH ×3 (10:07→22:13)
[2018-06-30] MEDS: TEARS/DEXTRAN 70/HYPROMELLOSE 15 ML OPHT.BTL EACHEYE SCH ×3 (10:08→22:09)
--- NOTE | 2018-06-30 11:08 | PCMIDPN ---
Assessment/Plan: E coli bacteremia likely source urinary but still with severe malaise and anorexia - no symptomatic improvement despite 3 days appropriate antibiotic coverage. WBC is improving --hold off on narrowing back to ceftriaxone until can sort out reaction to cephalosporins - "all over body reactions" --due to lack of symptomatic improvement, CT abd/pelvis w contrast --since not improving, will repeat blood cultures meds ertapenem 1gm IV daily #2 Levoflox x 2 doses Microbiology 06/28/18 08:16 Blood Cx 2/2: Escherichia Coli 06/28/18 07:50 Urine,Cx: Escherichia Coli Subjective: still feeling very poorly c/o anorexia no dysuria, polyuria Objective: Vital Signs Temp Pulse Resp BP Pulse Ox 36.7 C 86 16 160/83 H 96 06/30/18 08:00 06/30/18 08:00 06/30/18 08:00 06/30/18 08:00 06/30/18 08:00 Microbiology 06/28/18 08:16 Blood Panel (PCR) - Final Blood Escherichia Coli Laboratory Results 06/30/18 05:15 06/30/18 05:15 06/29/18 06/30/18 07/01/18 05:59 05:59 05:59 Intake Total 2736 1200 Output Total 200 Balance 2536 1200 - Physical Exam General Appearance: alert EENT: pale conjunctiva, dry mucous membranes, No scleral icterus, No thrush Respiratory: lungs clear, No accessory muscle use Neck: supple Cardiac/Chest: regular rate, rhythm Extremities: No pedal edema Abdomen: non-tender, soft, distended, other (decreased bowel sounds) Skin: No diaphoresis, No jaundice, No rash Neuro/Psych: alert, oriented x 3, depressed affect - Time Spent With Patient Time Spent with Patient: greater than 35 minutes Time Spent with Patient: Greater than 35 minutes spent on this patients care, greater than 50% of time spent counseling, educating, and coordinating care regarding the above mentioned plan. ICD10 Worksheet Patient Problems: Problems Problem Status Onset Chronic Disease Mgmt/Transitional care Acute Hyperglycemia Acute Urinary tract infection Acute Cerebral infarction, watershed distribution, bilateral, acute Acute Chest pain Acute Hip fracture Acute Hypertension Acute Hyponatremia Acute Syncope Acute
[2018-06-30] MEDS ORDERED: IOPAMIDOL (ISOVUE-300) 100 ML BTL ONE (12:43)
--- NOTE | 2018-06-30 15:02 | ASMTCMCOM ---
CM Note CM Note Notes: Spoke w/pt's dtr Phyllis verdugo; dc poc. She is agreeable to pt returning to [facility], she spoke with Shruti and all conerns addressed. Pt will dc to sn[facility] when medically stable. DC Plan: [facility] Date Signed: 06/30/2018 03:01 PM Electronically Signed By:Winsome Escamilla RN
--- NOTE | 2018-06-30 16:15 | HOSPPROG ---
Hospitalist Progress Note Assessment/Plan: * E coli sepsis -urine vs. intra-abdominal source - check CT abd -IV invanz * Recent hip fracture -no evidence for infection * Recent CVA - watershed * Hyponatremia - worsened again -suspect SIADH - check urine sodium -fluid restrict * DM -continue Lantus Subjective: Not feeling much better Objective: Vital Signs Temp Pulse Resp BP Pulse Ox 36.7 C 80 20 113/59 L 96 06/30/18 11:05 06/30/18 11:05 06/30/18 11:05 06/30/18 11:05 06/30/18 11:05 Microbiology 06/28/18 08:16 Blood Culture - Final Blood Escherichia Coli Blood Panel (PCR) - Final Escherichia Coli Laboratory Results 06/30/18 05:15 06/30/18 05:15 06/29/18 06/30/18 07/01/18 05:59 05:59 05:59 Intake Total 2736 1200 Output Total 200 Balance 2536 1200 d/w Dr. parker regarding looking for intra-abd source - Physical Exam Constitutional: no apparent distress, appears nourished, not in pain Cardiovascular: regular rate and rhythym, no murmur, rub, or gallop Respiratory: no respiratory distress, no rales or rhonchi, clear to auscultation Gastrointestinal: tenderness (mild ), distension, No guarding, No rebound Skin: no rashes or abrasions, no fluctuance, no induration Neurologic: AAOx3, sensation intact bilaterally Psychiatric: interacting appropriately, not anxious, not encephalopathic, thought process linear, flat affect ICD10 Worksheet Patient Problems: Problems Problem Status Onset Chronic Disease [facility]/Transitional care Acute Hyperglycemia Acute Urinary tract infection Acute Cerebral infarction, watershed distribution, bilateral, acute Acute Chest pain Acute Hip fracture Acute Hypertension Acute Hyponatremia Acute Syncope Acute
[2018-06-30] MEDS: INSULIN GLARGINE 100 UNITS/ML UNIT SC SCH (22:06)
[2018-06-30] MEDS: LATANOPROST 0.005% 2.5 ML OPHT DROPS EACHEYE SCH (22:07)
[2018-06-30] MEDS: PATCH REMOVAL 1 EA PATCH TD SCH (22:15)
[2018-07-01 05:30] LABS: PLATELET COUNT 320 10^3/uL (150-400)
[2018-07-01] MEDS: LOSARTAN POTASSIUM 50 MG TAB PO SCH (09:08)
[2018-07-01] MEDS: ERTAPENEM 1 GM in NS 100 ML IV SCH (09:08)
[2018-07-01] MEDS: OMEGA-3 FATTY ACIDS 1,000 MG CAP PO SCH (09:08)
[2018-07-01] MEDS: ENOXAPARIN 40 MG/0.4 ML SYR SC SCH (09:08)
[2018-07-01] MEDS: LIDOCAINE 4%/MENTHOL 1% PATCH TD SCH (09:09)
[2018-07-01] MEDS: ASPIRIN 81 MG CHEWABLE TAB PO SCH (09:09)
[2018-07-01] MEDS: METOPROLOL TARTRATE 50 MG TAB PO SCH ×2 (09:09→21:37)
[2018-07-01] MEDS: MULTIVITAMINS 1 EACH TAB PO SCH (09:09)
[2018-07-01] MEDS: DOCUSATE SODIUM 100 MG CAP PO SCH (09:09)
[2018-07-01] MEDS: INSULIN LISPRO 100 UNIT/ML SC SCH ×3 (09:18→17:38)
[2018-07-01] MEDS: ACETAMINOPHEN 500 MG TAB PO SCH ×3 (09:19→21:37)
[2018-07-01] MEDS: FLUOROMETHOLONE 5 ML OPHT.BTL RTEYE SCH ×2 (10:38→21:42)
[2018-07-01] MEDS: TEARS/DEXTRAN 70/HYPROMELLOSE 15 ML OPHT.BTL EACHEYE SCH ×3 (10:38→21:45)
[2018-07-01] MEDS: SODIUM CHLORIDE 5% 30 ML OPHT.BTL EACHEYE SCH ×3 (10:38→21:43)
--- NOTE | 2018-07-01 11:00 | PCMIDPN ---
Assessment/Plan: Assessment: E coli bacteremia secondary to presumed urinary tract infection. Patient is demonstrating clearance of the E coli. She is on ertapenem currently. She continues to show significant lassitude and weakness. Counseled her about the need to sit up in a chair and work with PT. Will continue the ertapenem for now. CT scan reviewed and no focal source of continued infection found. White blood cell count is continuing to decreased to normal. Plan: 1. Continue IV ertapenem. 2. Follow repeat blood cultures. 3. Encourage physical therapy. Will ask nurse to have her set up in the chair at bedside later today. Needs a physical therapy consultation. 07/01/18 10:57 Subjective: Patient is resting in her hospital bed. She has no particular complaints but feels profoundly weak and tired. Minimal appetite. No fevers or chills. No rash. Objective: Ertapenem # 2 Vital Signs Temp Pulse Resp BP Pulse Ox 36.6 C 82 13 152/68 H 100 07/01/18 07:38 07/01/18 07:38 07/01/18 07:38 07/01/18 07:38 07/01/18 07:38 Microbiology 06/28/18 08:16 Blood Culture - Final Blood Escherichia Coli Blood Panel (PCR) - Final Escherichia Coli Laboratory Results 07/01/18 04:50 07/01/18 04:50 06/30/18 07/01/18 07/02/18 05:59 05:59 05:59 Intake Total 1200 300 200 Output Total 300 Balance 1200 0 200 - Physical Exam General Appearance: WD/WN, alert, no apparent distress, non-toxic Respiratory: lungs clear, normal breath sounds, No respiratory distress Cardiac/Chest: regular rate, rhythm, No tachycardia Skin: normal color, warm/dry, No rash Neuro/Psych: alert, normal mood/affect, oriented x 3 ICD10 Worksheet Patient Problems: Problems Problem Status Onset Chronic Disease Mgmt/Transitional care Acute Hyperglycemia Acute Urinary tract infection Acute Cerebral infarction, watershed distribution, bilateral, acute Acute Chest pain Acute Hip fracture Acute Hypertension Acute Hyponatremia Acute Syncope Acute
--- NOTE | 2018-07-01 15:42 | HOSPPROG ---
Hospitalist Progress Note Assessment/Plan: * E coli sepsis due to UTI -IV invanz * Recent hip fracture -no evidence for infection * Recent CVA - watershed * Hyponatremia due to SIADH -improved with fluid restrict * DM -continue Lantus * Diarrhea -loose black stool since admission -check Cdiff and occult blood -watch H/H - dropping a little more than expected for hydration alone -empiric PPI Subjective: Maybe feeling a little better Objective: Vital Signs Temp Pulse Resp BP Pulse Ox 36.4 C 93 18 162/75 H 100 07/01/18 11:36 07/01/18 11:36 07/01/18 11:36 07/01/18 11:36 07/01/18 11:36 Microbiology 06/28/18 08:16 Blood Culture - Final Blood Escherichia Coli Blood Panel (PCR) - Final Escherichia Coli Laboratory Results 07/01/18 04:50 07/01/18 04:50 06/30/18 07/01/18 07/02/18 05:59 05:59 05:59 Intake Total 1200 300 200 Output Total 300 Balance 1200 0 200 d/w Dr. Aimn regarding timing of discharge CT abd - some diffuse edema, otherwise negative - Physical Exam Constitutional: no apparent distress, appears nourished, not in pain Cardiovascular: regular rate and rhythym, no murmur, rub, or gallop Respiratory: no respiratory distress, no rales or rhonchi, clear to auscultation Gastrointestinal: normoactive bowel sounds, soft, non-tender abdomen, no palpable masses Skin: no rashes or abrasions, no fluctuance, no induration Neurologic: AAOx3, sensation intact bilaterally Psychiatric: interacting appropriately, thought process linear, depressed, flat affect, No encephalopathic, No anxious, No poor insight, No poor judgement, No poor memory ICD10 Worksheet Patient Problems: Problems Problem Status Onset Chronic Disease Mgmt/Transitional care Acute Hyperglycemia Acute Urinary tract infection Acute Cerebral infarction, watershed distribution, bilateral, acute Acute Chest pain Acute Hip fracture Acute Hypertension Acute Hyponatremia Acute Syncope Acute
[2018-07-01] MEDS: PANTOPRAZOLE SODIUM 40 MG TAB PO SCH (16:33)
[2018-07-01] MEDS: LATANOPROST 0.005% 2.5 ML OPHT DROPS EACHEYE SCH (21:41)
[2018-07-01] MEDS: PATCH REMOVAL 1 EA PATCH TD SCH (21:45)
[2018-07-01] MEDS: INSULIN GLARGINE 100 UNITS/ML UNIT SC SCH (22:33)
[2018-07-02 05:00] LABS: PLATELET COUNT 329 10^3/uL (150-400)
[2018-07-02] MEDS ORDERED: PANTOPRAZOLE SODIUM 40 MG VIAL IVP SCH (09:15)
--- NOTE | 2018-07-02 09:25 | HOSPPROG ---
Hospitalist Progress Note Assessment/Plan: * E coli sepsis due to UTI -IV invanz * UGIB - clearly melena this am -d/w Dr. Tomlinson - GI to consult and probable EGD -IV PPI * Acute blood loss anemia -serial H/H * Recent hip fracture -no evidence for infection * Recent CVA - watershed -hold ASA due to GIB * Hyponatremia due to SIADH -improved with fluid restrict * DM -continue Lantus High risk Subjective: Melena this am Objective: Vital Signs Temp Pulse Resp BP Pulse Ox 37.1 C 99 16 141/64 H 97 07/02/18 08:00 07/02/18 08:00 07/02/18 08:00 07/02/18 08:00 07/02/18 08:00 Microbiology 07/01/18 16:30 Gastrointestinal Tract Panel (PCR) - Final Stool No Organism Detected Laboratory Results 07/02/18 04:45 07/02/18 04:45 07/01/18 07/02/18 07/03/18 05:59 05:59 05:59 Intake Total 300 300 Output Total 300 Balance 0 300 - Physical Exam Constitutional: no apparent distress, appears nourished, not in pain Cardiovascular: regular rate and rhythym, no murmur, rub, or gallop Respiratory: no respiratory distress, no rales or rhonchi, clear to auscultation Gastrointestinal: normoactive bowel sounds, soft, non-tender abdomen, no palpable masses Skin: no rashes or abrasions, no fluctuance, no induration Neurologic: AAOx3, sensation intact bilaterally Psychiatric: interacting appropriately, not anxious, not encephalopathic, thought process linear, flat affect ICD10 Worksheet Patient Problems: Problems Problem Status Onset Chronic Disease [facility]/Transitional care Acute Hyperglycemia Acute Urinary tract infection Acute Cerebral infarction, watershed distribution, bilateral, acute Acute Chest pain Acute Hip fracture Acute Hypertension Acute Hyponatremia Acute Syncope Acute
[2018-07-02] MEDS: ERTAPENEM 1 GM in NS 100 ML IV SCH (09:26)
[2018-07-02] MEDS ORDERED: LR 1,000 ML IV ONE (10:22)
--- NOTE | 2018-07-02 10:38 | PDANEPAE ---
ANE History of Present Illness 82 year old with an upeer GI bleed ANE Past Medical History - Cardiovascular History Hx Hypertension: Yes Hx Arrhythmias: No Hx Chest Pain: No Hx Coronary Artery / Peripheral Vascular Disease: No Hx CHF / Valvular Disease: No Hx Palpitations: No - Pulmonary History Hx COPD: No Hx Asthma/Reactive Airway Disease: No Hx Recent Upper Respiratory Infection: No Hx Oxygen in Use at Home: No Hx Sleep Apnea: No Sleep Apnea Screening Result - Last Documented: Negative - Endocrine History Hx Diabetes: Yes - Renal History Hx Renal Disorders: No - Liver History Hx Hepatic Disorders: No - Chronic Pain History Chronic Pain: Yes ANE Review of Systems Review of systems is: negative Review of Systems: ANE Patient History - Allergies Allergies/Adverse Reactions: metronidazole Allergy (Unknown, Verified 06/28/18 06:40) Rash amoxicillin trihydrate [From Augmentin] Allergy (Verified 06/28/18 06:40) brompheniramine maleate [From Rondec] Allergy (Verified 06/28/18 06:40) carbinoxamine maleate [From Rondec] Allergy (Verified 06/28/18 06:40) cefaclor Allergy (Verified 06/28/18 06:40) Rash cefuroxime axetil [From Ceftin] Allergy (Verified 06/28/18 06:40) chlorpheniramine maleate [From Ornade] Allergy (Verified 06/28/18 06:40) clindamycin Allergy (Verified 06/28/18 06:40) hydrocodone Allergy (Verified 06/28/18 06:40) latex [Latex] Allergy (Verified 06/28/18 06:40) Metronidazole HCl [From Flagyl] Allergy (Verified 06/28/18 06:40) Penicillins Allergy (Verified 06/28/18 06:40) phenylpropanolamine HCl [From Ornade] Allergy (Verified 06/28/18 06:40) potassium clavula *RETIRED-07/16/12 [From Augmentin] Allergy (Verified 06/28/18 06:40) pseudoephedrine HCl [From Rondec] Allergy (Verified 06/28/18 06:40) - Home Medications Home Medications: Multivitamins [Multivitamin (*)] 1 each PO DAILY 06/07/12 [Last Taken 06/04/18] [place]-3 Fatty Acids [Fish Oil 1000 mg (*)] 1,000 mg PO DAILY 06/07/12 [Last Taken 06/04/18] Fluorometholone [Fml (*)] 1 drop RTEYE BID 05/10/18 [Last Taken 06/04/18] Latanoprost 0.005% [Xalatan 0.005% (*)] 1 drops EACHEYE HS 05/10/18 [Last Taken 06/03/18] Losartan Potassium [Cozaar 50 mg (*)] 100 mg PO DAILY 05/10/18 [Last Taken 06/04] Losartan Potassium [Cozaar 50 mg (*)] 100 mg PO DAILY 05/10/18 [Last Taken 06/04] Metoprolol Tartrate [Lopressor 50 mg (*)] 50 mg PO BID 05/10/18 [Last Taken 21:00] Propylene Glycol/Peg 400 [SYSTANE 0.3-0.4% EYE DROPS] 1 drop EACHEYE TID [Last Taken 06/04/18] Sodium Chloride 5% [Dannie-128 5%] 1 - 3 drop EACHEYE TID 05/10/18 [Last Taken ] C/E/Zn/Cu/OM3/DHA/EPA/LUT/ZEAX [Preservision Areds 2 Softgel] 1 each PO BID [Last Taken 06/04/18] Insulin Aspart [novoLOG] 0 unit SC TIDMEAL 06/05/18 [Last Taken 06/04/18 17:00 5 units] Docusate Sodium [Colace 100 MG (*)] 100 mg PO DAILY 06/28/18 [Last Taken Unknown ] Insulin Glargine,Hum.rec.anlog [Basaglar Kwikpen U-100] 15 unit SQ HS 06/28/18 [ Last Taken Unknown] amLODIPine BESYLATE [Norvasc 10 mg (*)] 10 mg PO DAILY 06/28/18 [Last Taken Unknown] - NPO status NPO Status: no food or drink >8 hours NPO Since - Liquids (Date): 07/02/18 NPO Since - Liquids (Time): 00:00 NPO Since - Solids (Date): 07/02/18 NPO Since - Solids (Time): 00:00 - Anes Hx Anes Hx: no prior problems - Smoking Hx Smoking Status: Never smoked ANE Labs/Vital Signs - Labs Result Diagrams: 07/02/18 04:45 07/02/18 04:45 - Vital Signs Blood Pressure: 152/71 Heart Rate: 86 Respiratory Rate: 16 O2 Sat (%): 96 Height: 167.64 cm Weight: 74.843 kg ANE Physical Exam - Airway Neck exam: FROM Mallampati Score: Class 2 Mouth exam: normal dental/mouth exam - Pulmonary Pulmonary: no respiratory distress - Cardiovascular Cardiovascular: regular rate and rhythym - ASA Status ASA Status: III ANE Anesthesia Plan Anesthesia Plan: MAC
[2018-07-02] MEDS ORDERED: PROPOFOL 200 MG/20 ML VIAL ONE (10:44)
[2018-07-02] MEDS ORDERED: fentaNYL 100 MCG/2 ML INJ ONE (10:44)
--- NOTE | 2018-07-02 10:59 | GCON ---
[f rep st] CONSULTATION GASTROINTESTINAL CONSULTATION DATE OF CONSULTATION: 07/02/2018 REFERRING PHYSICIAN: Vani Rios MD REASON FOR CONSULTATION: Acute melena. HISTORY OF PRESENT ILLNESS: The patient is an 82-year-old female who was admitted to the hospital on 06/28/2018, with E coli sepsis. She did have a recent left hip ORIF on June 05 of this year and does have a history of a recent CVA, secondary to watershed infarct, secondary to hypotension. Other health concerns are chronic hypertension and diabetes mellitus. She was admitted on 06/28/2018, with malaise and fatigue. She is noted to have a blood sugar of 452 on admission. She was found to have a left lower lobe pneumonia and E coli urinary tract infection. Her initial hemoglobin was 10.7, with hematocrit of 31.1, and a white count of 17.15. She has been treated with IV antibiotics with improvement clinically, albeit, she is noted to have a fall in her hemoglobin with hydration, down to 7.8 yesterday, and 7.4 today for hemoglobin. She is noted to have a dark watery stool last night, and maroon stool today. I was asked to see the patient for further evaluation. The patient states that she has had no dyspepsia, no heartburn, or indigestion. She has denied any dysphagia or anorexia. She has had no prior EGD. She does not recall whether or not she has had a colonoscopy in the past. PRESENT MEDICATIONS: Include acetaminophen 1 g p.o. t.i.d., amlodipine 10 mg p.o. daily, aspirin 81 mg daily, ertapenem on 1 g IV daily, Humalog insulin 15 units subcu q.h.s. and p.r.n. sliding scale, losartan 100 mg p.o. daily, Lopressor 50 mg p.o. b.i.d., multivitamin 1 daily p.o., fish oil 1 g p.o. daily , Protonix 40 mg p.o. daily, MiraLAX p.r.n. constipation, Lovenox 40 mg subcu daily. ALLERGIES: She is allergic to metronidazole, penicillin, Rondec, cefaclor, Ceftin, clindamycin, hydrocodone, latex, and Augmentin. PAST MEDICAL HISTORY: Significant for CVA, secondary to watershed infarct, secondary to hypertension in May of 2018, poorly controlled diabetes mellitus, essential hypertension, asthma, GERD, attention deficit hyperactivity disorder. PAST SURGICAL HISTORY: Significant for total abdominal hysterectomy in 2003, breast biopsy, tonsillectomy, laparoscopic appendectomy in 2001, left hip ORIF in May 2018. FAMILY HISTORY: Positive for pancreatic cancer in her mother, Alzheimer's in her father. Negative for GI malignancies. SOCIAL HISTORY: The patient was living at [facility] prior to this admission. She is . She has 2 daughters who live in the area. She does not smoke tobacco. Occasionally drinks alcohol. 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 REVIEW OF SYSTEMS: Significant for fatigue, mild shortness of breath with exertion, and lower extremity weakness, otherwise negative for comprehensive review of systems on my examination. PHYSICAL EXAMINATION: VITAL SIGNS: Temperature is 37.1 Celsius, pulse 99 and regular, blood pressure 141/64, respiratory rate was 16, O2 saturation 97% on 1 L per nasal cannula. GENERAL: A fatigued-appearing, frail woman sitting in a chair. INTEGUMENT: Pale. HEENT: Head atraumatic, normocephalic. Pupils equal, round, reactive to light. EOMs intact. Sclerae are pale. Nares patent. Mucous membranes moist. Dentition fair. NECK: Supple. Trachea was midline. LYMPHATIC: No cervical or axillary adenopathy noted. PULMONARY: Lungs clear to percussion, auscultation. CARDIOVASCULAR: Regular rate normal S1, S2 without murmur. Peripheral pulses decreased bilaterally. No pedal edema. GASTROINTESTINAL: Abdomen slightly protuberant. Positive bowel sounds. No liver or spleen tip palpable. No masses or tenderness noted. EXTREMITIES: Without deformity. NEURO: Patient was alert, oriented x3. There are no focal neurologic deficits. LABORATORY DATA: Hemoglobin today 7.4 (hemoglobin on admission 10.7), hematocrit today 22.4, RDW 14.6, platelets 329,000, white count 8.59. Sodium 132, potassium 4.1, chloride 99, CO2 is 27, anion gap 6, BUN 17, creatinine 0.8 , glucose 185, calcium 8.0. Stool Hemoccult positive, maroon stool. IMPRESSION: 1. Acute gastrointestinal bleed with melena, likely upper gastrointestinal source. 2. Escherichia coli urosepsis, presently on broad-spectrum antibiotic therapy. 3. History of cerebrovascular accident. 4. Type 2 diabetes mellitus with poor control as an outpatient. 5. Essential hypertension. 6. Reactive airway disease. 7. Gastroesophageal reflux disease by history. 8. Post-hemorrhagic anemia, secondary to gastrointestinal bleeding. RECOMMENDATION: 1. I had a lengthy discussion with the patient and her 2 daughters concerning the pros and cons of endoscopic evaluation with propofol anesthesia. I do recommend this be performed urgently today due to her active bleed. Both daughters and the patient are in agreement and will therefore proceed with the same. 2. Hold aspirin and Lovenox. 3. NPO. 4. IV PPI therapy. /[id number]/MODL MTDD
[2018-07-02] MEDS ORDERED: PROMETHAZINE HCL 25 MG/ML INJ IVP PRN (11:11)
[2018-07-02] MEDS ORDERED: NALOXONE HCL 0.4 MG/ML INJ IVP PRN (11:11)
[2018-07-02] MEDS ORDERED: fentaNYL 100 MCG/2 ML INJ IVP PRN (11:11)
[2018-07-02] MEDS ORDERED: ONDANSETRON 4 MG/2 ML VIAL IVP PRN (11:11)
--- NOTE | 2018-07-02 11:12 | POSTANESTH ---
Post Anesthetic Evaluation Cardiovascular Status: Normal, Stable Respiratory Status: Normal, Stable Level of Consciousness/Mental Status: Can Participate in Eval Pain Control: Adequate, Prn Tx Ordered Nausea/Vomiting Control: Adequate, Prn Tx Ordered Complications Possibly Related to Anesthesia: None Noted
--- NOTE | 2018-07-02 11:16 | GIREPORT ---
[facility] Surgical Services - Endoscopy Department Patient Name: Shannan Polanco Procedure Date: 07/02/2018 10:43 AM Patient Type: Inpatient Attending MD/ ER Physician: Melchor Tomlinson MD Procedure: Upper GI endoscopy Indications: Melena, Acute post hemorrhagic anemia Providers: Melchor Tomlinson MD Medicines: Propofol per Anesthesia Complications: No immediate complications. Description of Procedure: After obtaining informed consent, the endoscope was passed under direct vision. Throughout the procedure, the patient's blood pressure, pulse, and oxygen saturations were monitored continuously. The Endoscope was intro duced through the mouth, and advanced to the third part of duodenum. The uppe r GI endoscopy was accomplished without difficulty. The patient tolerated th e procedure well. Findings: The examined esophagus was normal. Diffuse mild inflammation characterized by erythema and granularity was found in the entire examined stomach. Biopsies were taken with a cold forceps for histology. One oozing cratered duodenal ulcer with pigmented material was found in the duodenal bulb. The lesion was 15 mm in largest dimension. For hemostasi s, one hemostatic clip was successfully placed. There was no bleeding at t he end of the procedure. Coagulation for hemostasis using bipolar probe wa s successful. Estimated blood loss: none. Estimated Blood Loss: Estimated blood loss: none. Post Op Diagnosis: - Normal esophagus. - Chronic atrophic gastritis. Biopsied to r/o HP gastritis. - One oozing duodenal ulcer with pigmented material. Clip was placed. Treated with bipolar cautery. Recommendation: - Return patient to [facility] for [facility] care. - Use Protonix (pantoprazole) 40 mg IV daily. - Clear liquid diet today. - No aspirin, ibuprofen, naproxen, or other non-steroidal anti-inflamma tory drugs. - Await pathology results. - The findings and recommendations were discussed with the patient, daughters and their primary physician. Attending Participation: I personally performed the entire procedure. Melchor Tomlinson MD Melchor Tomlinson MD 07/02/2018 11:16:20 AM This report has been signed electronicallyMelchor Tomlinson MD Number of Addenda: 0 Note Initiated On: 07/02/2018 10:43 AM [email or web address]
[2018-07-02] MEDS: ACETAMINOPHEN 500 MG TAB PO SCH ×3 (12:10→22:12)
[2018-07-02] MEDS: ASPIRIN 81 MG CHEWABLE TAB PO SCH (12:11)
[2018-07-02] MEDS: INSULIN LISPRO 100 UNIT/ML SC SCH ×3 (12:11→17:36)
[2018-07-02] MEDS: DOCUSATE SODIUM 100 MG CAP PO SCH (12:12)
[2018-07-02] MEDS: LIDOCAINE 4%/MENTHOL 1% PATCH TD SCH (12:13)
[2018-07-02] MEDS: LOSARTAN POTASSIUM 50 MG TAB PO SCH (12:41)
[2018-07-02] MEDS: METOPROLOL TARTRATE 50 MG TAB PO SCH ×2 (12:41→22:11)
[2018-07-02] MEDS: OMEGA-3 FATTY ACIDS 1,000 MG CAP PO SCH (13:05)
[2018-07-02] MEDS: MULTIVITAMINS 1 EACH TAB PO SCH (13:05)
[2018-07-02] MEDS: PANTOPRAZOLE SODIUM 40 MG TAB PO SCH (13:06)
[2018-07-02] MEDS: ENOXAPARIN 40 MG/0.4 ML SYR SC SCH (13:06)
[2018-07-02] MEDS: FLUOROMETHOLONE 5 ML OPHT.BTL RTEYE SCH ×2 (14:30→22:13)
[2018-07-02] MEDS: TEARS/DEXTRAN 70/HYPROMELLOSE 15 ML OPHT.BTL EACHEYE SCH ×3 (14:31→22:13)
[2018-07-02] MEDS: SODIUM CHLORIDE 5% 30 ML OPHT.BTL EACHEYE SCH ×3 (14:31→22:13)
--- NOTE | 2018-07-02 14:38 | PCMIDPN ---
Assessment/Plan: Assessment: E coli bacteremia secondary to presumed urinary tract infection. Patient is demonstrating clearance of the E coli. She is on ertapenem currently. Patient was diagnosed with acute gastrointestinal bleed earlier today. She went for urgent endoscopy and was found to have a duodenal ulcer. This was clipped and cauterized. She needs to continue to try to sit up in a chair and work with PT. Will continue the ertapenem for now. White blood cell count is continuing to decreased to normal. Plan: 1. Continue IV ertapenem. 2. Follow repeat blood cultures. 3. Encourage physical therapy. Will ask nurse to have her set up in the chair at bedside later today. Needs a physical therapy consultation. Subjective: Patient has returned from endoscopy. She is resting comfortably in her hospital bed. Her daughter is in the room. She has no new complaint. Still feels poorly. No fevers or chills. Objective: Ertapenem # 3 Vital Signs Temp Pulse Resp BP Pulse Ox 36.6 C 74 18 135/61 H 100 07/02/18 12:40 07/02/18 13:39 07/02/18 13:39 07/02/18 13:39 07/02/18 13:39 Microbiology 07/01/18 16:30 Gastrointestinal Tract Panel (PCR) - Final Stool No Organism Detected Laboratory Results 07/02/18 12:25 07/02/18 04:45 07/01/18 07/02/18 07/03/18 05:59 05:59 05:59 Intake Total 300 300 550 Output Total 300 Balance 0 300 550 - Physical Exam General Appearance: WD/WN, alert, no apparent distress, thin, non-toxic Respiratory: lungs clear, normal breath sounds, No respiratory distress Cardiac/Chest: regular rate, rhythm, No tachycardia Skin: normal color, warm/dry, No rash Neuro/Psych: alert, normal mood/affect, oriented x 3 ICD10 Worksheet Patient Problems: Problems Problem Status Onset Chronic Disease Mgmt/Transitional care Acute Hyperglycemia Acute Urinary tract infection Acute Cerebral infarction, watershed distribution, bilateral, acute Acute Chest pain Acute Hip fracture Acute Hypertension Acute Hyponatremia Acute Syncope Acute
--- NOTE | 2018-07-02 16:18 | ASMTCMCOM ---
CM Note CM Note Notes: Pt admitted from [facility] where she was staying after falling on the stairs in her home. Spoke with pt's daughter Carlita who is overwhelmed emotionally and requested staff be very careful with language in discussing discharge plans with pt. Pt is hoarder and fell due to too much stuff piled on the stairs. Daughters feel it is unsafe for her to go home and are looking for intermediate manager care options for the pt. Pt gets very agitated in discussions about senior living plans. D/C plans at this time are to [facility]. Referral has been sent to [facility]. D/C Plan: Return to [facility] Date Signed: 07/02/2018 04:17 PM Electronically Signed By:Patricia Gilbert
[2018-07-02] MEDS: INSULIN GLARGINE 100 UNITS/ML UNIT SC SCH (22:12)
[2018-07-02] MEDS: LATANOPROST 0.005% 2.5 ML OPHT DROPS EACHEYE SCH (22:13)
[2018-07-02] MEDS: PATCH REMOVAL 1 EA PATCH TD SCH (22:15)
[2018-07-03] MEDS: PANTOPRAZOLE SODIUM 40 MG VIAL IVP SCH ×3 (00:53→21:24)
[2018-07-03 04:59] LABS: PLATELET COUNT 365 10^3/uL (150-400)
[2018-07-03] MEDS: NS 1,000 ML IV SCH ×2 (06:01→17:18)
--- NOTE | 2018-07-03 09:28 | WOCRNPDOC ---
WOCRN Advanced Assessment Note - Skin Integrity Problem, Advanced Assess Right Medial Sacrum Pressure Injury Dressing Type: Mepilex Border Dressing Description: Clean/Dry, Intact Exudate Amount: None Integumentary Issue Intervention: Visualized Under Dressing Elaine Wound Tissue: Blanching Wound Bed Color: Brewer Wound Bed Constitution: Red/Brewer - Non Granular Tissue (100%) Wound Edges: Epithelizing Site Odor: None Site Measurement - Head-to-Toe Length X Width X Depth (cm): 0.4x0.4x0.1 Pressure Injury Stage: Stage 2 Pressure Injury Present on Admit: No Skin Integrity Problem Comment: Wound cleansed with NS and gauze. Partial thickness tissue loss that was previously a stage 1 pressure injury that is now a stage 2 pressure injury. Wound is just to the right of midline on the distal sacrum. Educated patient on the importance of not laying on her backside continuously, but to lay on either her right or left side. Patient verbalized understanding. Patient is already on a P500 specialty bed. Wound care will round again next week.
[2018-07-03] MEDS: ERTAPENEM 1 GM in NS 100 ML IV SCH (11:36)
[2018-07-03] MEDS: LIDOCAINE 4%/MENTHOL 1% PATCH TD SCH (11:36)
[2018-07-03] MEDS: INSULIN LISPRO 100 UNIT/ML SC SCH ×3 (11:48→17:54)
[2018-07-03] MEDS: DOCUSATE SODIUM 100 MG CAP PO SCH (11:53)
[2018-07-03] MEDS: LOSARTAN POTASSIUM 50 MG TAB PO SCH (11:54)
[2018-07-03] MEDS: MULTIVITAMINS 1 EACH TAB PO SCH (11:54)
[2018-07-03] MEDS: ACETAMINOPHEN 500 MG TAB PO SCH ×3 (11:54→21:24)
[2018-07-03] MEDS: OMEGA-3 FATTY ACIDS 1,000 MG CAP PO SCH (11:55)
[2018-07-03] MEDS: METOPROLOL TARTRATE 50 MG TAB PO SCH ×2 (11:55→21:24)
[2018-07-03] MEDS: FLUOROMETHOLONE 5 ML OPHT.BTL RTEYE SCH ×2 (11:57→21:23)
[2018-07-03] MEDS: SODIUM CHLORIDE 5% 30 ML OPHT.BTL EACHEYE SCH ×3 (11:58→21:23)
[2018-07-03] MEDS: TEARS/DEXTRAN 70/HYPROMELLOSE 15 ML OPHT.BTL EACHEYE SCH ×3 (12:09→21:23)
--- NOTE | 2018-07-03 14:46 | SOAPPROG ---
SOAP Progress Note Assessment/Plan: Assessment: 1. DU with recent bleed; S/P endoclip and cautery yesterday with hemostasis. 2. Post-hemorrhagic anemia, stable. 3. Appetite improved. Plan: 1. Advance diet as tolerated. 2. Continue IV PPI additional 48 hours. 3. Will follow with you. Melchor Tomlinson MD 07/03/18 14:46 Subjective: CC: Bleeding DU. Interval HPI: Patient without BM since yesterday. Tolerating clears po, wants to advance diet. No nausea or abdominal pain. Objective: Vital Signs Temp Pulse Resp BP Pulse Ox 36.4 C 85 16 162/75 H 99 07/03/18 11:09 07/03/18 11:55 07/03/18 11:09 07/03/18 11:55 07/03/18 11:09 Laboratory Results 07/03/18 04:30 07/03/18 04:30 07/02/18 07/03/18 07/04/18 05:59 05:59 05:59 Intake Total 300 2106 Output Total 1050 1500 Balance 300 1056 -1500 Physical Exam - Physical Exam General Appearance: WD/WN, alert, no apparent distress Respiratory: chest non-tender, lungs clear, normal breath sounds Abdomen: normal bowel sounds, non-tender, soft Skin: normal color, warm/dry Neuro/Psych: alert, normal mood/affect, oriented x 3 ICD10 Worksheet Patient Problems: Problems Problem Status Onset Chronic Disease [facility]/Transitional care Acute Hyperglycemia Acute Urinary tract infection Acute Cerebral infarction, watershed distribution, bilateral, acute Acute Chest pain Acute Hip fracture Acute Hypertension Acute Hyponatremia Acute Syncope Acute
--- NOTE | 2018-07-03 16:18 | PCMIDPN ---
Assessment/Plan: #E coli bacteremia likely source urinary. WBC may be slightly elevated due to GI bleed. Otherwise clinically better. CT abdomen pelvis was unrevealing for additional infectious problems --okay to transition back to p.o. Levofloxacin to complete 10 days of antibiotics. (4 more days, 07/08/18 stop date) --call ID for additional questions #GI Bleed: likely case of slow to resolve symptoms, anorexia much improved today meds, antibiotics day 04/15 ertapenem 1gm IV daily #5 Levoflox x 2 doses Microbiology 06/28/18 08:16 Blood Cx 2/2: Escherichia Coli 06/28/18 07:50 Urine,Cx: Escherichia Coli Subjective: Patient states she is feeling better. No abdominal pain, appetite is better Objective: Vital Signs Temp Pulse Resp BP Pulse Ox 36.6 C 68 12 139/66 H 100 07/03/18 15:29 07/03/18 15:29 07/03/18 15:29 07/03/18 15:29 07/03/18 15:29 Laboratory Results 07/03/18 04:30 07/03/18 04:30 07/02/18 07/03/18 07/04/18 05:59 05:59 05:59 Intake Total 300 2106 Output Total 1050 2200 Balance 300 1056 -2200 - Physical Exam General Appearance: alert, thin, non-toxic EENT: pale conjunctiva Respiratory: other (Decreased breath sounds in the bases), No accessory muscle use Cardiac/Chest: regular rate, rhythm Extremities: No pedal edema Abdomen: non-tender, soft, other (Mild distension) Pelvic Exam: No bearden Neuro/Psych: alert, oriented x 3, depressed affect - Time Spent With Patient Time Spent with Patient: greater than 25 minutes Time Spent with Patient: Greater than 25 minutes spent on this patients care, greater than 50% of time spent counseling, educating, and coordinating care regarding the above mentioned plan. ICD10 Worksheet Patient Problems: Problems Problem Status Onset Chronic Disease Mgmt/Transitional care Acute Hyperglycemia Acute Urinary tract infection Acute Cerebral infarction, watershed distribution, bilateral, acute Acute Chest pain Acute Hip fracture Acute Hypertension Acute Hyponatremia Acute Syncope Acute
--- NOTE | 2018-07-03 18:06 | HOSPPROG ---
Hospitalist Progress Note Assessment/Plan: * E coli sepsis due to UTI -now on PO levaquin per ID - complete 10 days tx * UGIB due to DU - s/p endoclip and cautery -IV PPI for an additional 48 hours per GI -advance diet * Acute blood loss anemia -H/H stable * Recent hip fracture -no evidence for infection * Recent CVA - watershed -hold ASA due to GIB * Hyponatremia due to SIADH -improved with fluid restrict * DM -continue Lantus Subjective: Feeling better Objective: Vital Signs Temp Pulse Resp BP Pulse Ox 36.6 C 68 12 139/66 H 100 07/03/18 15:29 07/03/18 15:29 07/03/18 15:29 07/03/18 15:29 07/03/18 15:29 Laboratory Results 07/03/18 04:30 07/03/18 04:30 07/02/18 07/03/18 07/04/18 05:59 05:59 05:59 Intake Total 300 2106 1000 Output Total 1050 2200 Balance 300 1056 -1200 - Physical Exam Constitutional: no apparent distress, appears nourished, not in pain Cardiovascular: regular rate and rhythym, no murmur, rub, or gallop Respiratory: no respiratory distress, no rales or rhonchi, clear to auscultation Gastrointestinal: normoactive bowel sounds, soft, non-tender abdomen, no palpable masses Skin: no rashes or abrasions, no fluctuance, no induration Neurologic: AAOx3, sensation intact bilaterally Psychiatric: interacting appropriately, not anxious, not encephalopathic, thought process linear ICD10 Worksheet Patient Problems: Problems Problem Status Onset Chronic Disease Mgmt/Transitional care Acute Hyperglycemia Acute Urinary tract infection Acute Cerebral infarction, watershed distribution, bilateral, acute Acute Chest pain Acute Hip fracture Acute Hypertension Acute Hyponatremia Acute Syncope Acute
[2018-07-03] MEDS: INSULIN GLARGINE 100 UNITS/ML UNIT SC SCH (20:55)
[2018-07-03] MEDS: LATANOPROST 0.005% 2.5 ML OPHT DROPS EACHEYE SCH (21:24)
[2018-07-03] MEDS: PATCH REMOVAL 1 EA PATCH TD SCH (21:45)
[2018-07-04 06:14] LABS: PLATELET COUNT 400 10^3/uL (150-400)
[2018-07-04] MEDS: ACETAMINOPHEN 500 MG TAB PO SCH ×3 (08:54→21:20)
[2018-07-04] MEDS: LIDOCAINE 4%/MENTHOL 1% PATCH TD SCH (08:55)
[2018-07-04] MEDS: INSULIN LISPRO 100 UNIT/ML SC SCH ×3 (08:56→18:17)
[2018-07-04] MEDS: METOPROLOL TARTRATE 50 MG TAB PO SCH ×2 (08:56→21:55)
[2018-07-04] MEDS: PANTOPRAZOLE SODIUM 40 MG VIAL IVP SCH ×2 (08:56→21:20)
[2018-07-04] MEDS: OMEGA-3 FATTY ACIDS 1,000 MG CAP PO SCH (08:57)
[2018-07-04] MEDS: LOSARTAN POTASSIUM 50 MG TAB PO SCH (08:57)
[2018-07-04] MEDS: DOCUSATE SODIUM 100 MG CAP PO SCH (08:57)
[2018-07-04] MEDS: MULTIVITAMINS 1 EACH TAB PO SCH (08:57)
[2018-07-04] MEDS: FLUOROMETHOLONE 5 ML OPHT.BTL RTEYE SCH ×2 (09:19→20:08)
[2018-07-04] MEDS: SODIUM CHLORIDE 5% 30 ML OPHT.BTL EACHEYE SCH ×3 (09:21→21:17)
[2018-07-04] MEDS: TEARS/DEXTRAN 70/HYPROMELLOSE 15 ML OPHT.BTL EACHEYE SCH ×3 (09:22→21:18)
--- NOTE | 2018-07-04 13:01 | SOAPPROG ---
SOAP Progress Note Assessment/Plan: Assessment: 1. DU with recent bleed; S/P endoclip and cautery. 2. Post-hemorrhagic anemia, stable. 3. Appetite improved. Plan: 1. Continue IV PPI additional 24 hours. 2. Will follow with you. Melchor Tomlinson MD 07/04/18 12:59 Subjective: CC: DU with bleed. Interval HPI: Patient without GI complaints, appetite good. No BM x 2 days. Objective: Vital Signs Temp Pulse Resp BP Pulse Ox 36.7 C 79 20 108/54 L 93 07/04/18 11:42 07/04/18 11:42 07/04/18 11:42 07/04/18 11:42 07/04/18 11:42 Laboratory Results 07/04/18 05:28 07/04/18 05:28 07/03/18 07/04/18 07/05/18 05:59 05:59 05:59 Intake Total 2106 1690 Output Total 1050 3200 Balance 1056 -1510 Physical Exam - Physical Exam General Appearance: alert, no apparent distress Respiratory: lungs clear, normal breath sounds Cardiac/Chest: regular rate, rhythm Abdomen: normal bowel sounds, non-tender, soft Skin: normal color, warm/dry Neuro/Psych: alert, normal mood/affect, oriented x 3 ICD10 Worksheet Patient Problems: Problems Problem Status Onset Chronic Disease Mgmt/Transitional care Acute Hyperglycemia Acute Urinary tract infection Acute Cerebral infarction, watershed distribution, bilateral, acute Acute Chest pain Acute Hip fracture Acute Hypertension Acute Hyponatremia Acute Syncope Acute
--- NOTE | 2018-07-04 13:46 | ASMTCMCOM ---
CM Note CM Note Notes: Pt had palliative consult today, pt's goals of care are to improve physically by working with therapies at rehab. Also wants help with depression, dtrs will engage either [facility] or [facility] for outpt palliative services. Plan remains discharging to [facility]. DC Plan: SNF/ [facility] Date Signed: 07/04/2018 01:45 PM Electronically Signed By:Winsome Escamilla RN
--- NOTE | 2018-07-04 14:38 | HOSPPROG ---
Hospitalist Progress Note Assessment/Plan: #E coli bacteremia due to UTI: Stable. -continue PO levaquin per ID - complete 10 days tx (through 07/08) #UGIB due to DU: s/p endoclip and cautery -IV PPI for an additional 24 hours per GI -advance diet to carb controlled today #Hypoalbuminemia: -nutrition consulted -supplements TID with meals #Depressed mood: tearful during encounter, poor appetite -consider mitrazepine to help with mood and appetite, patient wants to hold on starting -palliative care consulted #Acute blood loss anemia: d/t above -H/H stable #Recent hip fracture -no evidence for infection, pain controlled #Recent CVA: watershed -hold ASA due to GIB #Hyponatremia due to SIADH: Na slightly down today -continue fluid restriction #DM -continue Lantus VTE ppx: SCDs with recent GIB Code: Full Dispo: remain inpatient for IV PPI. plan to discharge to [facility] for ongoing therapy needs with palliative care support Subjective: Tearful about all the medical issues she's had over last few weeks. Wondering what she can do to get stronger. Objective: Vital Signs Temp Pulse Resp BP Pulse Ox 36.7 C 79 20 108/54 L 93 07/04/18 11:42 07/04/18 11:42 07/04/18 11:42 07/04/18 11:42 07/04/18 11:42 Laboratory Results 07/04/18 05:28 07/04/18 05:28 07/03/18 07/04/18 07/05/18 05:59 05:59 05:59 Intake Total 2106 1690 Output Total 1050 3200 Balance 1056 -1510 - Physical Exam Constitutional: no apparent distress, not in pain, other (elderly) Eyes: PERRL, anicteric sclera, EOMI Ears, Nose, Mouth, Throat: moist mucous membranes, hearing normal, ears appear normal, no oral mucosal ulcers Cardiovascular: regular rate and rhythym, no murmur, rub, or gallop Respiratory: no respiratory distress, no rales or rhonchi, clear to auscultation Gastrointestinal: normoactive bowel sounds, soft, non-tender abdomen, no palpable masses Neurologic: AAOx3, sensation intact bilaterally Psychiatric: interacting appropriately, not anxious, not encephalopathic, other (tearful at times) ICD10 Worksheet Patient Problems: Problems Problem Status Onset Chronic Disease Mgmt/Transitional care Acute Hyperglycemia Acute Urinary tract infection Acute Cerebral infarction, watershed distribution, bilateral, acute Acute Chest pain Acute Hip fracture Acute Hypertension Acute Hyponatremia Acute Syncope Acute
[2018-07-04] MEDS: LATANOPROST 0.005% 2.5 ML OPHT DROPS EACHEYE SCH (20:23)
[2018-07-04] MEDS: PATCH REMOVAL 1 EA PATCH TD SCH (20:24)
[2018-07-04] MEDS: INSULIN GLARGINE 100 UNITS/ML UNIT SC SCH (21:57)
[2018-07-05] MEDS: INSULIN LISPRO 100 UNIT/ML SC SCH ×2 (08:24→12:33)
[2018-07-05] MEDS: PANTOPRAZOLE SODIUM 40 MG VIAL IVP SCH (10:02)
[2018-07-05] MEDS: MULTIVITAMINS 1 EACH TAB PO SCH (10:02)
[2018-07-05] MEDS: OMEGA-3 FATTY ACIDS 1,000 MG CAP PO SCH (10:05)
[2018-07-05] MEDS: DOCUSATE SODIUM 100 MG CAP PO SCH (10:05)
[2018-07-05] MEDS: LOSARTAN POTASSIUM 50 MG TAB PO SCH (10:06)
[2018-07-05] MEDS: ACETAMINOPHEN 500 MG TAB PO SCH (10:13)
[2018-07-05] MEDS: METOPROLOL TARTRATE 50 MG TAB PO SCH (10:43)
[2018-07-05] MEDS: FLUOROMETHOLONE 5 ML OPHT.BTL RTEYE SCH (10:44)
[2018-07-05] MEDS: TEARS/DEXTRAN 70/HYPROMELLOSE 15 ML OPHT.BTL EACHEYE SCH (10:46)
[2018-07-05] MEDS: SODIUM CHLORIDE 5% 30 ML OPHT.BTL EACHEYE SCH (10:47)
[2018-07-05] MEDS: LIDOCAINE 4%/MENTHOL 1% PATCH TD SCH (10:47)
--- NOTE | 2018-07-05 11:25 | SOAPPROG ---
SOAP Progress Note Assessment/Plan: Assessment: 1. DU with recent bleed; S/P endoclip and cautery. No rebleed since endoscopic intervention. 2. Post-hemorrhagic anemia, stable. 3. Appetite improved. Plan: 1. D/C IV PPI therapy. Protonix 40 mg PO BID x 2 months. 2. Will sign off today, please call me for recurrent GI bleeding. Melchor Tomlinson MD 07/05/18 11:22 Subjective: CC: DU with bleed. Interval HPI: Patient without GI complaints. No melena. Tolerating po diet. Objective: Vital Signs Temp Pulse Resp BP Pulse Ox 37.1 C 105 H 14 114/61 90 L 07/05/18 07:47 07/05/18 10:43 07/05/18 07:47 07/05/18 10:43 07/05/18 07:47 Laboratory Results 07/05/18 05:06 07/05/18 05:06 07/04/18 07/05/18 07/06/18 05:59 05:59 05:59 Intake Total 1690 1120 Output Total 3200 1010 Balance -1510 110 Gastric biopsies negative for HP. Physical Exam - Physical Exam General Appearance: WD/WN, alert, no apparent distress Respiratory: chest non-tender, lungs clear, normal breath sounds Cardiac/Chest: regular rate, rhythm Abdomen: normal bowel sounds, non-tender, soft Skin: normal color, warm/dry Neuro/Psych: alert, normal mood/affect, oriented x 3 ICD10 Worksheet Patient Problems: Problems Problem Status Onset Chronic Disease Mgmt/Transitional care Acute Hyperglycemia Acute Urinary tract infection Acute Cerebral infarction, watershed distribution, bilateral, acute Acute Chest pain Acute Hip fracture Acute Hypertension Acute Hyponatremia Acute Syncope Acute
[2018-07-05 11:26] VITALS: BP 101/50
--- NOTE | 2018-07-05 12:35 | PDIAF ---
- Diagnosis Code Status: Full Code - Medication Management Discharge Medications: Medications to Continue on Transfer Multivitamins [Multivitamin (*)] 1 each PO DAILY 06/07/12 [Last Taken 06/04/18] [place]-3 Fatty Acids [Fish Oil 1000 mg (*)] 1,000 mg PO DAILY 06/07/12 [Last Taken 06/04/18] Fluorometholone [Fml (*)] 1 drop RTEYE BID 05/10/18 [Last Taken 06/04/18] Latanoprost 0.005% [Xalatan 0.005% (*)] 1 drops EACHEYE HS 05/10/18 [Last Taken 06/03/18] Losartan Potassium [Cozaar 50 mg (*)] 100 mg PO DAILY 05/10/18 [Last Taken 06/04] Metoprolol Tartrate [Lopressor 50 mg (*)] 50 mg PO BID 05/10/18 [Last Taken 21:00] Propylene Glycol/Peg 400 [SYSTANE 0.3-0.4% EYE DROPS] 1 drop EACHEYE TID [Last Taken 06/04/18] Sodium Chloride 5% [Dannie-128 5%] 1 - 3 drop EACHEYE TID 05/10/18 [Last Taken ] C/E/Zn/Cu/OM3/DHA/EPA/LUT/ZEAX [Preservision Areds 2 Softgel] 1 each PO BID [Last Taken 06/04/18] Insulin Aspart [novoLOG] 0 unit SC TIDMEAL 06/05/18 [Last Taken 06/04/18 17:00 5 units] Acetaminophen [Tylenol ES 500 mg (*)] 1,000 mg PO TID tab 06/15/18 [Last Taken Unknown] Lidocaine 4%/Menthol 1% [Icy Hot Lidocaine/Menthol 4%/1% Patch (*)] 1 patch TD DAILY patch 06/15/18 [Last Taken Unknown] Polyethylene Glycol 3350 [Miralax 17 gm (*)] 17 gm PO DAILY PRN pkt 06/15/18 [ Last Taken Unknown] Docusate Sodium [Colace 100 MG (*)] 100 mg PO DAILY 06/28/18 [Last Taken Unknown ] Insulin Glargine,Hum.rec.anlog [Leanna Pruitt U-100] 15 unit SQ HS 06/28/18 [ Last Taken Unknown] amLODIPine BESYLATE [Norvasc 10 mg (*)] 10 mg PO DAILY 06/28/18 [Last Taken Unknown] Pantoprazole Sodium [Protonix 40mg (*)] 40 mg PO BID tab 07/05/18 [Last Taken Unknown] levOFLOXACIN [levAQUIN (*)] 750 mg PO DAILY AT 10AM #0 tab 07/05/18 [Last Taken Unknown] Discharge Medications: Refer to the Discharge Home Medication list for PRN reason. - Orders Services needed: Registered Nurse, Physical Therapy, Occupational Therapy, Speech Language Pathologist Additional Instructions: 1. Please take levofloxacin for urinary infection through 07/08. 2. We have started you on pantoprazole twice daily which you should take for 8 weeks to help your stomach ulcer heal. 3. Plan to restart taking your aspirin 81mg daily in 1 week, on 07/12. 4. We recommend that you contact Dr Sierra to set up a follow up appointment. [facility] should be able to facilitate transferring you to this appointment. 5. Strongly recommend Glucerna supplements with meals. 6. I would recommend scheduled toileting to help prevent urinary incontinence. Wound Care Instructions: Please follow up within 3- 4 weeks of discharge with outpatient [facility] if you continue to have issues with your wounds: You may reach them at [phone] for an appointment and continued management of your wounds. Please call them [place] [facility] to schedule your appointment as they fill up quickly. If before that time you have any issues please follow up with your PCP. Wound care: Bedsore (Pressure injury) care: You have a stage 2 pressure injury (also known as a bedsore) on the very lowest part of your back (the sacrum.) To help heal this wound and avoid further injury please do the followin. Reposition yourself frequently, at least every 15 minutes when sitting. We recommend sitting on an air cushion. Please never use a doughnut. 2. When youre in bed, try to rest on your side as much as possible, and change position every two hours (for example, turn or tilt from your right side toward your left).~ If you sleep on a sleep number or medical bed, keep the head of the bed below 30 degrees and keep all pressure off your low back for at least 5 minutes at least every two hours.~ 3. As needed, you may use Calazime, dimethicone moisture barrier cream, or any pcmu-kej-dubrcwn diaper rash cream to help prevent or treat a moisture- related rash to your bottom area and buttocks. 4. Please contact [facility] outpatient [facility] for an appointment, at [phone], If your wounds re/open or dont improve, or if you have any further questions or concerns. - Follow Up Care Current Providers and Referrals: Patient,NotPresent [Unknown] - As per Instructions
--- NOTE | 2018-07-05 13:25 | ASMTDCNOTE ---
Case Management Discharge Discharge Order Complete? Answers: Yes Patient to Obtain Answers: Other Notes: [facility] Medications Transportation Arranged Answers: [facility] will Pick (Date 07/05/2018 03:30 AM & Time) Case Management Transport Answers: Yes Form Complete Faxed Final Orders Answers: Yes Agency/Facility Transfer Answers: Yes Report Printed & Faxed to Receiving Agency Family Notified Answers: Yes Discharge Comments Notes: D/w , final orders sent. Shruti gavin yuri, RN to call report Date Signed: 07/05/2018 01:21 PM Electronically Signed By:Winsome Escamilla RN
--- NOTE | 2018-07-05 16:06 | PDDCSUM ---
Discharge Summary Discharge Summary: Date of Admission: 06/28/2018 Date of Discharge: 07/05/2018 Consultants: gastroenterology, infectious disease Procedures/studies: EGD, CT abd/pelvis, CT head Disposition: Discharged back to [facility] for ongoing rehab needs. Discharge Diagnoses: 1. E coli bacteremia due to 2. Urinary tract infection 3. Upper GI bleed due to duodenal ulcer 4. Acute blood loss anemia 5. Hypoalbuminemia 6. Depressed mood 7. Recent L hip fracture 8. Recent CVA 9. Hyponatremia 10. T2DM 11. HTN Brief Hospital Course by Problem: 82yo F with multiple hospitalizations recently returned due to weakness found to have sepsis secondary to E coli bacteremia likely from urinary source. During hospitalization, had UGIB requiring intervention. #E coli bacteremia due to UTI: To complete 10 days of levofloxacin on 07/08. #UGIB due to duodenal ulcer: s/p endoclip and cautery. Biopsies showed chronic gastritis but negative for H pylori. To complete 8 weeks of PO PPI BID. #Acute blood loss anemia: Due to bleeding ulcer. Transfused 1u PRBC this admission. H/H stable on discharge. #Hypoalbuminemia: Nutrition consulted. Recommend supplements TID. #Depressed mood: Several medical issues have arisen lately. We considered mirtazepine (to help with appetite too) but patient declined for now. #Recent L hip fracture: s/p ORIF on 06/05/18. No e/o infection, pain controlled. Advised to follow up with Dr Sierra. #Recent CVA: 05/2018. Watershed in setting of hypotension. Aspirin has been held in setting of GIB. #Hyponatremia due to SIADH: Resolved with fluid restriction. #DM: Labile BG but no symptomatic hypoglycemia. We continued her glargine and lispro at discharge. #HTN: BP controlled on home meds, no hypotension. Medications: Please refer to EMR for complete list. Additions this hospitalization include levofloxacin (through 07/08) and pantoprazole 40mg BID ( for 8 weeks). Follow Up Plan: 1. Patient to schedule appointment with Dr Sierra for f/u of left hip surgery 2. Resume aspirin 81mg daily 1 week after discharge (on or around 07/12/2018) 3. Recommend checking BMP in 1-2 weeks to assess sodium level Physical Exam: Vitals reviewed. She is alert and oriented, frail appearing. Regular rate and rhythm on cardiac exam. Lungs clear without wheezing. Abdomen soft, nontender. No lower extremity edema.
[2018-07-05] MEDS ORDERED: PANTOPRAZOLE SODIUM 40 MG TAB PO SCH (21:00)
--- NOTE | 2018-07-06 10:53 | ASDISCHSUM ---
Discharge Information Plan Status:SNF Medically Cleared to Leave: Discharge Date:07/05/2018 03:50 PM CM D/C Disposition:Care Home Facility ADT D/C Disposition:Care Home Facility Projected Discharge Date:07/02/2018 11:00 AM Transportation at D/C:ALS/BLS Discharge Delay Reason: Follow-Up Date:07/02/2018 11:00 AM Discharge Slot: Final Diagnosis: Placement Information Referral Type:*Fpc/SNF Referral ID:[id number] Provider Name:[facility] Address 1:[address] Address 2: City:[place] Selection Factors: State:[place] Patient Contact Information Contact Name:NO Relationship:Daughter Address:[address] Work Phone: [facility]:[place] Alternate Phone: [facility]/Zip Code:[place] [address] Email: Financial Information Financial Class:Medicare Primary Plan Desc:MEDICARE INPATIENT Primary Plan Number:[id number] Secondary Plan Desc:MARCOS LARA PPO Secondary Plan Number:[id number] Assessment Information LACE LACE Acuity / Level of Answers: Yes Care: Did the patient have an inpatient admission? Comorbidities - select Answers: Diabetes (uncontrolled or all that apply controlled) Opioid dependence / Chronic pain Other Notes: HTN # of Emergency department Answers: 5-8 visits in the last 6 months Social determinants Answers: Mental health diagnosis (anxiety, depression, pers onality disorders, etc.) Score: 16 Date Signed: 06/28/2018 09:28 AM Electronically Signed By:Magaly Estrada [facility] CM Progress Note CM Note CM Note Notes: Pt was admitted from [facility] where pt has been rehabbing after a recent hip fracture and surgery on June 05. Pt also has a hx of a stroke. Pt has 2 daughters who are involved with her care, dtr Phyllis ([phone]) asked to speake with CM. She states that [facility] won't hold pt's bed unless they pay $600/day, dtr says they won't do that so she is going to continuous pickling line pickler pt's things. CM spoke w/Shruti at [facility] and she will speak with dtr, otherwise there is no problem with pt returning. Carolyne from [facility] was here to see pt, states pt is on the waitlist for [facility] [place] DC date still uncertain, CRAIG w/f DC Plan: TBD Date Signed: 06/29/2018 03:37 PM Electronically Signed By:Winsome Escamilla RN [facility] CM Progress Note CM Note CM Note Notes: Spoke w/pt's dtr Phyllis re; dc poc. She is agreeable to pt returning to [facility], she spoke with Shruti and all conerns addressed. Pt will dc to snf when medically stable. DC Plan: [facility] Date Signed: 06/30/2018 03:01 PM Electronically Signed By:Winsome Escamilla RN [facility] CM Progress Note CM Note CM Note Notes: Pt admitted from [facility] where she was staying after falling on the stairs in her home. Spoke with pt's daughter Carlita who is overwhelmed emotionally and requested staff be very careful with language in discussing discharge plans with pt. Pt is hoarder and fell due to too much stuff piled on the stairs. Daughters feel it is unsafe for her to go home and are looking for [employer] care options for the pt. Pt gets very agitated in discussions about group home plans. D/C plans at this time are to [facility]. Referral has been sent to [facility]. D/C Plan: Return to [facility] Date Signed: 07/02/2018 04:17 PM Electronically Signed By:Patricia Gilbert [facility] CM Progress Note CM Note CM Note Notes: Pt had palliative consult today, pt's goals of care are to improve physically by working with therapies at rehab. Also wants help with depression, dtrs will engage either [facility] or [facility] for outpt palliative services. Plan remains discharging to [facility]. DC Plan: SNF/ [facility] Date Signed: 07/04/2018 01:45 PM Electronically Signed By:Winsome Escamilla RN Case Management Discharge Plan Note Case Management Discharge Discharge Order Complete? Answers: Yes Patient to Obtain Answers: Other Notes: [facility] Medications Transportation Arranged Answers: [facility] will Pick (Date 07/05/2018 03:30 AM & Time) Case Management Transport Answers: Yes Form Complete Faxed Final Orders Answers: Yes Agency/Facility Transfer Answers: Yes Report Printed & Faxed to Receiving Agency Family Notified Answers: Yes Discharge Comments Notes: Rylee/rima GONZALEZ, final orders sent. Shruti at notifed, RN to call report Date Signed: 07/05/2018 01:21 PM Electronically Signed By:Winsome Escamilla RN Intervention Information Intervention Type:*IM-Signed Date of Service:07/05/2018 01:55 PM Patient Type:Inpatient Staff Member:Magaly Estrada Hours: Discipline: Severity: Comment:
== END 2018-07-05 15:50 | DRG 871 ==
LOC: EDUNIT# → F3E 09:13
PROVIDERS: ADMIT Internal Medicine; ATTEND Internal Medicine
PROC: 0DB68ZX Excision of Stomach, Via Natural or Artificial Opening Endoscopic, Diagnostic (ICD-10-PCS; principal; 2018-06-28)
PROC: 0W3P8ZZ Control Bleeding in Gastrointestinal Tract, Via Natural or Artificial Opening Endoscopic (ICD-10-PCS; principal; 2018-06-28)
DX: A41.51 Sepsis due to Escherichia coli [E. coli] (principal); N39.0 Urinary tract infection, site not specified; K26.4 Chronic or unspecified duodenal ulcer with hemorrhage; D62 Acute posthemorrhagic anemia; E87.1 Hypo-osmolality and hyponatremia; J18.9 Pneumonia, unspecified organism; K29.40 Chronic atrophic gastritis without bleeding; L89.151 Pressure ulcer of sacral region, stage 1; L89.152 Pressure ulcer of sacral region, stage 2; E11.9 Type 2 diabetes mellitus without complications; Z79.4 Long term (current) use of insulin; I10 Essential (primary) hypertension; K21.9 Gastro-esophageal reflux disease without esophagitis; J45.909 Unspecified asthma, uncomplicated; Z86.73 Personal history of transient ischemic attack (TIA), and cerebral infarction without residual deficits
CPT/HCPCS: 87449-90; 96365; 97110-GO; 97162-GP; 97166-GO; 97530-GO; 97530-GP; 97535-GO; G8978-GP-CL; G8979-GP-CI; G8987-GO-CM; G8988-GO-CK; J1335; J1650; J1815; J1956; J2405; J2704; J3010; P9016; Q9967

== ENCOUNTER → 2018-07-24 | Outpatient (CLI) | payer OTHER | LOC: BMCIMAGING 10:39 | PROVIDERS: ATTEND Orthopaedic Surgery | DX: S72.302D Unspecified fracture of shaft of left femur, subsequent encounter for closed fracture with routine healing (principal) ==

== ENCOUNTER 2018-08-10 14:05 | Inpatient (IN) | payer OTHER ==
--- NOTE | 2018-08-10 14:09 | EDPHY ---
H & P Time Seen by Provider: 08/10/18 14:09 HPI/ROS: Chief complaint. Abnormal labs HPI. Patient 82-year-old female with CVA about 1 month ago. She says it mainly has affected her memory. She is in rehab at [facility]. Yesterday she was having routine labs drawn and today the results come back showing a sodium of 121 and a potassium of 5.8. Patient has fatigue but otherwise no other symptoms. She does complain of bed sore on her bottom that is being treated. Denies chest pain or shortness of breath. No abdominal pain. No fever. ROS 10 systems were reviewed and negative with the exception of the elements mentioned in the history of present illness Past Medical/Surgical History: CVA 1 month ago, hip fracture, hypertension, diabetes, depression, GERD Social History: , nonsmoker, no alcohol Smoking Status: Never smoked Physical Exam: General Appearance: Alert well-developed female mild distress. Vital signs are stable Eyes: Pupils equal and round no pallor or injection. ENT, Mouth: Mucous membranes are moist. Respiratory: There are no retractions, lungs are clear to auscultation. Cardiovascular: Regular rate and rhythm. Gastrointestinal: Abdomen is soft and nontender, no masses, bowel sounds normal. Neurological: Awake and alert, sensory and motor exams grossly normal. Skin: Patient has bedsore, skin breakdown between the buttocks on her bottom. No obvious infection Musculoskeletal: Neck is supple nontender. Extremities symmetrical, full range of motion. Psychiatric: Patient is oriented X 3, there is no agitation. Constitutional: Initial Vital Signs Temperature (C) 36.5 C 08/10/18 14:13 Heart Rate 73 08/10/18 14:13 Respiratory Rate 18 08/10/18 14:13 Blood Pressure 127/55 H 08/10/18 14:13 O2 Sat (%) 99 08/10/18 14:13 O2 Delivery Mode Room Air Allergies/Adverse Reactions: metronidazole Allergy (Unknown, Verified 06/28/18 06:40) Rash amoxicillin trihydrate [From Augmentin] Allergy (Verified 06/28/18 06:40) brompheniramine maleate [From Rondec] Allergy (Verified 06/28/18 06:40) carbinoxamine maleate [From Rondec] Allergy (Verified 06/28/18 06:40) cefaclor Allergy (Verified 06/28/18 06:40) Rash cefuroxime axetil [From Ceftin] Allergy (Verified 06/28/18 06:40) chlorpheniramine maleate [From Ornade] Allergy (Verified 06/28/18 06:40) clindamycin Allergy (Verified 06/28/18 06:40) hydrocodone Allergy (Verified 06/28/18 06:40) latex [Latex] Allergy (Verified 06/28/18 06:40) Metronidazole HCl [From Flagyl] Allergy (Verified 06/28/18 06:40) Penicillins Allergy (Verified 06/28/18 06:40) phenylpropanolamine HCl [From Ornade] Allergy (Verified 06/28/18 06:40) potassium clavula *RETIRED-07/16/12 [From Augmentin] Allergy (Verified 06/28/18 06:40) pseudoephedrine HCl [From Rondec] Allergy (Verified 06/28/18 06:40) Home Medications: Medication Instructions Recorded Multivitamins [Multivitamin (*)] 1 each PO DAILY 06/07/12 [place]-3 Fatty Acids [Fish Oil 1000 1,000 mg PO DAILY 06/07/12 mg (*)] Fluorometholone [Fml (*)] 1 drop RTEYE BID 05/10/18 Latanoprost 0.005% [Xalatan 0.005% 1 drops EACHEYE HS 05/10/18 (*)] Losartan Potassium [Cozaar 50 mg 100 mg PO DAILY 05/10/18 (*)] Metoprolol Tartrate [Lopressor 50 50 mg PO BID 05/10/18 mg (*)] Propylene Glycol/Peg 400 [SYSTANE 1 drop EACHEYE TID 05/10/18 0.3-0.4% EYE DROPS] Sodium Chloride 5% [Dannie-128 5%] 1 - 3 drop EACHEYE TID 05/10/18 C/E/Zn/Cu/OM3/DHA/EPA/LUT/ZEAX 1 each PO BID 06/05/18 [Preservision Areds 2 Softgel] Insulin Aspart [novoLOG] 0 unit SC TIDMEAL 06/05/18 Acetaminophen [Tylenol ES 500 mg 1,000 mg PO TID tab 06/15/18 (*)] Lidocaine 4%/Menthol 1% [Icy Hot 1 patch TD DAILY patch 06/15/18 Lidocaine/Menthol 4%/1% Patch (*)] Polyethylene Glycol 3350 [Miralax 17 gm PO DAILY PRN pkt 06/15/18 17 gm (*)] Docusate Sodium [Colace 100 MG (*)] 100 mg PO DAILY 06/28/18 Insulin Glargine,Hum.rec.anlog 15 unit SQ HS 06/28/18 [Basaglar Kwikpen U-100] amLODIPine BESYLATE [Norvasc 10 mg 10 mg PO DAILY 06/28/18 (*)] Pantoprazole Sodium [Protonix 40mg 40 mg PO BID tab 07/05/18 (*)] levOFLOXACIN [levAQUIN (*)] 750 mg PO DAILY AT 10AM #0 tab 07/05/18 Medical Decision Making - Diagnostics EKG Interpretation: EKG interpreted by me shows normal sinus rhythm normal interval and axis. QRS is normal there is no significant ST elevation or depression. There is 1 PVC. The rate is 70 Procedures: IV without supplemental fluids I-STAT shows a sodium of 123. Potassium 4.8 ED Course/Re-evaluation: Skin cream and padding is applied to the bed sore Patient and I discussed laboratory evaluation recommendation for admission. She expresses understanding and agreement I consulted discussed case with Dr. Pike, hospitalist, who agrees to the admission Differential Diagnosis: Hyponatremia for unclear reason. Symptoms are fatigue. She also has a bedsore that he is being treated and needs to be continued to be treated. - Data Points Laboratory Results: Laboratory Results 08/10/18 14:13 08/10/18 08/10/18 08/10/18 14:17 14:13 14:13 WBC 15.70 10^3/uL H 10^3/uL (3.80-9.50) RBC 3.53 10^6/uL L 10^6/uL (4.18-5.33) Hgb 10.2 g/dL L g/dL (12.6-16.3) POC Hgb 11.6 gm/dL L gm/dL (12.6-16.3) Hct 30.4 % L % (38.0-47.0) POC Hct 34 % L % (38-47) MCV 86.1 fL fL (81.5-99.8) MCH 28.9 pg pg (27.9-34.1) MCHC 33.6 g/dL g/dL (32.4-36.7) RDW 14.7 % % (11.5-15.2) Plt Count 629 10^3/uL H 10^3/uL (150-400) MPV 8.7 fL fL (8.7-11.7) Neut % (Auto) 90.8 % H % (39.3-74.2) Lymph % (Auto) 4.6 % L % (15.0-45.0) [place] % (Auto) 3.6 % L % (4.5-13.0) Eos % (Auto) 0.1 % L % (0.6-7.6) Baso % (Auto) 0.1 % L % (0.3-1.7) Nucleat RBC Rel Count 0.0 % % (0.0-0.2) Absolute Neuts (auto) 14.24 10^3/uL H 10^3/uL (1.70-6.50) Absolute Lymphs (auto) 0.73 10^3/uL L 10^3/uL (1.00-3.00) Absolute Monos (auto) 0.56 10^3/uL 10^3/uL (0.30-0.80) Absolute Eos (auto) 0.02 10^3/uL L 10^3/uL (0.03-0.40) Absolute Basos (auto) 0.02 10^3/uL 10^3/uL (0.02-0.10) Absolute Nucleated RBC 0.00 10^3/uL 10^3/uL (0-0.01) Immature Gran % 0.8 % % (0.0-1.1) Immature Gran # 0.13 10^3/uL H 10^3/uL (0.00-0.10) POC Sodium 123 mEq/L L mEq/L (135-145) Sodium Pending POC Potassium 4.6 mEq/L mEq/L (3.3-5.0) Potassium Pending POC Chloride 88 mEq/L L mEq/L (97-110) Chloride Pending Carbon Dioxide Pending Anion Gap Pending POC BUN 25 mg/dL H mg/dL (7-23) BUN Pending Creatinine Pending POC Creatinine 1.0 mg/dL mg/dL (0.6-1.0) Estimated GFR Pending Glucose Pending POC Glucose 283 mg/dL H mg/dL (70-100) Calcium Pending Point of Care Test Results: Chemistry 08/10/18 14:17 POC Sodium 123 mEq/L L mEq/L (135-145) POC Potassium 4.6 mEq/L mEq/L (3.3-5.0) POC Chloride 88 mEq/L L mEq/L (97-110) POC BUN 25 mg/dL H mg/dL (7-23) POC Creatinine 1.0 mg/dL mg/dL (0.6-1.0) POC Glucose 283 mg/dL H mg/dL (70-100) ISTAT H&H 08/10/18 14:17 POC Hgb 11.6 gm/dL L gm/dL (12.6-16.3) POC Hct 34 % L % (38-47) Departure - Departure Disposition: [facility] Inpatient Acute Clinical Impression: Hyponatremia Bed sore on buttock Qualifiers: Pressure injury stage: unspecified pressure injury stage Laterality: unspecified laterality Qualified Code(s): L89.309 - Pressure ulcer of unspecified buttock, unspecified stage Condition: Fair Referrals: Patient,NotPresent [Unknown] - As per Instructions
[2018-08-10 14:33] LABS: PLATELET COUNT 629 10^3/uL (150-400)
--- NOTE | 2018-08-10 14:51 | PDGENHP ---
History and Physical History and Physical: CC: SENT FROM A NURSING FACILITY WITH HYPONATREMIA HISTORY: This patient was at a detention facility and yesterday had blood tests drawn. Apparently there was sodium 121 and potassium 5.8. For these reasons she was sent to the ER for further assessment. Patient herself has very poor memory, the daughter is here with me and feels in. Apparently the patient had been feeling poorly early last week So some type of assessment was done. The symptoms are not clear but the daughter seems to recall the patient was feeling generally poorly, with weakness and nausea, the only thing the patient herself at this moment remembers is feeling like she was ill and was only emptying her bladder twice a day as opposed to the usual more frequent voiding. It sounds like she was diagnosed with a UTI and took several days of antibiotic last week without any improvement in symptoms. As the patient arrives here today she has the same ongoing symptoms of weakness, nausea, overall malaise. No chills, pain, diarrhea, vomiting. The daughter is not aware of any fevers, patient does not recall any chills 4 days ago the patient had a blood test done which showed a low sodium and high potassium. It sounds like there may possibly have been some treatment initiated but the daughter does not remember specifically. Test were repeated yesterday and with results back to day as above pt sent here. 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 I have reviewed the list and ordered appropriate medicines. PHYSICAL EXAMINATION: Vital Signs: All stable without fever Review Nurse: Sinus Examination: General: alert, oriented, obvious memory deficit appears to be at her baseline, relaxed, eating Skin: warm, dry, good color, no rash; there is a significant erythema in the gluteal cleft and sacral area with some mild opening but no deep appearing infection and no palpable fluctuance, no drainage; this had a appropriate dressing on it from the nursing HEENT: normal Neck: no mass or jvd Resps: relaxed Lungs: clear breath sounds Heart: regular, no murmur Abdomen: soft, nondistended, nontender, +BS, no mass Upper Extremities: normal Lower Extremities: no edema, warm No Bleeding or bruising Neurologic: normal speech/language, 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, no focal weakness IV site: looks normal LABORATORY DATA: White blood cell count 71334 with 14,000 neutrophils Hemoglobin is at 10 which is up from 8 a month and half ago Platelets 506645 which is new from June Sodium right now is 125 potassium 5.1 There is a metabolic anion gap acidosis Hyperglycemia in the 240 range Ordered a urine sodium which comes back at 32 RADIOLOGY STUDIES: None done yet 12 LEAD EKG: I reviewed a 12 lead tracing from the ER today which shows a normal EKG ASSESSMENT: * acute malaise, nausea, weakness, change in bladder function * elevated white blood cell count raises concern for possible infection * recent care home acquired urinary tract infection complicated by bacteremia with E coli treated here in June * acute hyponatremia with history of the same * Clinical history, elevated BUN, and indeterminate urine sodium suggest likely hypovolemic hyponatremia but 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 Other infectious issues are possible. I have right now low suspicion that her acute illnesses caused by her decubitus ulcer but there is some significant erythema locally in the gluteal cleft and sacral area. Question if this could represent a cellulitis locally PLANS: * Inpatient admission hospital * Frequent monitoring of urine sodiums * Oral fluid restriction * Gentle saline hydration to begin * Blood cultures stat * Empiric antibiotics * UA and urine culture stat * Portable chest x-ray stat * Fall risk precautions * DVT prophylaxis * will try to get [facility] to send us copies of her most recent labs, cultures vital signs, medicine changes and physician notes I have reviewed the patient's case in detail with Dr. Manoj Arriaga I have reviewed the patient's past medical records as part of this assessment, including previous hospital admission records
--- NOTE | 2018-08-10 15:02 | CPEKG ---
Test Reason : OPEN Blood Pressure : / mmHG Vent. Rate : 070 BPM Atrial Rate : 072 BPM P-R Int : 178 ms QRS Dur : 101 ms QT Int : 411 ms P-R-T Axes : -05 040 055 degrees QTc Int : 444 ms Sinus rhythm Atrial premature complex Confirmed by Manoj Arriaga ([id number]) on 08/10/2018 3:02:36 PM Referred By: Confirmed By:Manoj Arriaga
--- NOTE | 2018-08-10 15:40 | WOCRNPDOC ---
WOCRN Advanced Assessment Note - Skin Integrity Problem, Advanced Assess Sacrum Pressure Injury Dressing Type: Allevyn Life Dressing Description: Clean/Dry, Intact Exudate Amount: Minimal Exudate Characteristic(s): Serosanguinous Integumentary Issue Intervention: Visualized Under Dressing, Mechanical Debridement Sahara Wound Tissue: Erythema, Non-blanching Sahara Wound Swelling: None Wound Bed Constitution: Granulation Tissue (50%), Loose Slough (50%) Wound Edges: Epibole Site Measurement - Head-to-Toe Length X Width X Depth (cm): 1.2x1.6x0.3 (stage3) ; non blanching erythema/denuded area surrounding the stage 3: 8.8x4.3x0 Pressure Injury Stage: Stage 3 Pressure Injury Present on Admit: Yes Skin Integrity Problem Comment: Patient seen in June when she had a stage 2 pressure injury in a similar location, however this wound is just left of the midline rather than to the right. The wound was mechanically debrided with a q tip revealing wound bed with 70% granulation tissue. The sahara wound skin is denuded and almost looks burnt. Patient reports she was getting dressing changes 3x per day at [facility]. Patient was quite teary and sad due to being sick for a long time and feelings of loneliness. After active listening with patient we discussed plan of care, pressure injury prevention/treatment with patient and that she may need conservative bedside debridement and follow up at outpatient wound healing center after she discharges. Wound care will follow up early next week. Report given to ZHENG Ferguson. Autolytic debridement with iodoflex initiated/allergies reviewed.
[2018-08-10] MEDS ORDERED: POLYETHYLENE GLYCOL 3350 17 GM PKT PO PRN (17:31)
[2018-08-10] MEDS ORDERED: NS 1,000 ML IV SCH ×3 (17:45→22:30)
[2018-08-10] MEDS ORDERED: D50W 25 GM/50 ML SYR IVP PRN (18:18)
[2018-08-10] MEDS: INSULIN LISPRO 100 UNIT/ML SC SCH (18:46)
[2018-08-10] MEDS ORDERED: INSULIN GLARGINE 100 UNITS/ML UNIT SC SCH (21:00)
[2018-08-10] MEDS: SODIUM CHLORIDE 1,000 MG TAB PO SCH (21:11)
[2018-08-10] MEDS: PANTOPRAZOLE SODIUM 40 MG TAB PO SCH (21:11)
[2018-08-10] MEDS: METOPROLOL TARTRATE 50 MG TAB PO SCH (21:11)
[2018-08-10] MEDS: PRESERVISION AREDS2 FORMULA EYE VIT 1 EACH PO SCH (21:11)
[2018-08-10] MEDS: NITROFURANTOIN MACROBID 100 MG CAP PO SCH (21:11)
[2018-08-10] MEDS: DICLOFENAC SODIUM 1% 100 GM GEL TP SCH (21:16)
[2018-08-10] MEDS: DORZOLAMIDE 2% OPTH DROPS RTEYE SCH (21:18)
[2018-08-10] MEDS: FLUOROMETHOLONE 5 ML OPHT.BTL RTEYE SCH (21:18)
[2018-08-10] MEDS: LATANOPROST 0.005% 2.5 ML OPHT DROPS EACHEYE SCH (21:18)
[2018-08-10] MEDS: SODIUM CHLORIDE 5% 30 ML OPHT.BTL EACHEYE SCH (21:19)
[2018-08-10] MEDS ORDERED: ONDANSETRON 4 MG/2 ML VIAL IVP PRN (22:15)
[2018-08-10] MEDS ORDERED: INSULIN LISPRO 100 UNIT/ML SC ONE (22:20)
[2018-08-11] MEDS ORDERED: LOSARTAN POTASSIUM 50 MG TAB PO SCH (09:00)
[2018-08-11] MEDS: INSULIN LISPRO 100 UNIT/ML SC SCH ×3 (09:54→18:20)
[2018-08-11] MEDS: DOCUSATE SODIUM 100 MG CAP PO SCH (09:55)
[2018-08-11] MEDS: METOPROLOL TARTRATE 50 MG TAB PO SCH ×2 (09:55→22:09)
[2018-08-11] MEDS: PRESERVISION AREDS2 FORMULA EYE VIT 1 EACH PO SCH ×2 (09:55→22:09)
[2018-08-11] MEDS: SODIUM CHLORIDE 1,000 MG TAB PO SCH ×2 (09:55→22:10)
[2018-08-11] MEDS: NITROFURANTOIN MACROBID 100 MG CAP PO SCH (09:55)
[2018-08-11] MEDS: MULTIVITAMINS 1 EACH TAB PO SCH (09:56)
[2018-08-11] MEDS: OMEGA-3 FATTY ACIDS 1,000 MG CAP PO SCH (09:56)
[2018-08-11] MEDS: LIDOCAINE 4%/MENTHOL 1% PATCH TD SCH ×2 (09:56→12:05)
[2018-08-11] MEDS: ASPIRIN EC 81 MG TAB PO SCH (09:56)
[2018-08-11] MEDS: PANTOPRAZOLE SODIUM 40 MG TAB PO SCH ×2 (09:57→22:09)
[2018-08-11] MEDS: DICLOFENAC SODIUM 1% 100 GM GEL TP SCH ×3 (10:05→22:29)
[2018-08-11] MEDS: DORZOLAMIDE 2% OPTH DROPS RTEYE SCH ×2 (10:06→22:34)
[2018-08-11] MEDS: SODIUM CHLORIDE 5% 30 ML OPHT.BTL EACHEYE SCH ×4 (10:06→22:44)
[2018-08-11] MEDS: FLUOROMETHOLONE 5 ML OPHT.BTL RTEYE SCH ×2 (10:06→22:19)
--- NOTE | 2018-08-11 10:35 | PDMN ---
Medical Necessity Medical necessity: [id number] Electrolyte d/o and MG SIC Systemic or Infectious Condition GR yo w/ acute malaise, nausea, weakness, change in bladder function, elevated WBC, acute hyponatremia 120, chronic sacral decubitus wound present on admission, inability to ambulate since hip surg, high fall risk, most concerned about a recurrent urine infection that was not successfully treated last week with an oral antibx. 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 Hx stroke, poorly controlled DM, HTN, asthma, anemia, hyponatremia, dementia, ADD, Acute metabolic encephalopathy in hospital during and other illnesses, Acute kidney injury, ORIF hip fx, lives in SNF Recent admission in Jun 2018 for e coli bacteremia, UTI, acute GIB, hyponatremia and Failure to Thrive.
--- NOTE | 2018-08-11 12:00 | ASMTCMCOM ---
CM Note CM Note Notes: Patient is currently at [facility] for care of a sacral ulcer. She also seems to have a UTI that she was treated for but may not be resolved. Pt has 2 dtrs, anticipate she will dc to [facility] when medically stable CM w/f. DC Plan: [facility] Date Signed: 08/11/2018 11:59 AM Electronically Signed By:Winsome Escamilla RN
[2018-08-11] MEDS ORDERED: D50W 25 GM/50 ML SYR IVP PRN (13:53)
[2018-08-11] MEDS ORDERED: INSULIN GLARGINE 100 UNITS/ML UNIT SC SCH (13:55)
--- NOTE | 2018-08-11 15:13 | HOSPPROG ---
Hospitalist Progress Note Assessment/Plan: * Hyponatremia -h/o SIADH - fluid restriction + salt tabs -was not following fluid restriction at home * Hyperkalemia -hold ARB -check cortisol levels * UTI -IV ceftriaxone pending culture * DM II - uncontrolled -last HgA1c > 11 -increase Lantus * Recent UGIB due to DU -continue PPI * Recent hip fracture * Recent watershed CVA * Decub POA - stage III -follow-up wound care Subjective: No new complaints. Objective: Vital Signs Temp Pulse Resp BP Pulse Ox 36.5 C 70 12 164/79 H 98 08/11/18 12:00 08/11/18 09:55 08/11/18 12:00 08/11/18 12:00 08/11/18 12:00 Laboratory Results 08/11/18 13:57 08/10/18 08/11/18 08/12/18 05:59 05:59 05:59 Intake Total 98.1 240 Output Total 201 1250 Balance -102.9 -1010 old chart reviewed regarding recent previous admissions CXR viewed, my personal interpretation is - possible LLL infiltrate - Physical Exam Constitutional: no apparent distress, appears nourished, not in pain Cardiovascular: regular rate and rhythym, no murmur, rub, or gallop Respiratory: no respiratory distress, no rales or rhonchi, clear to auscultation Gastrointestinal: normoactive bowel sounds, soft, non-tender abdomen, no palpable masses Skin: no rashes or abrasions, no fluctuance, no induration Neurologic: AAOx3, sensation intact bilaterally Psychiatric: interacting appropriately, not anxious, not encephalopathic, thought process linear ICD10 Worksheet Patient Problems: Problems Problem Status Onset Bed sore on buttock Acute Chronic Disease [facility]Transitional care Acute Urinary tract infection Acute Cerebral infarction, watershed distribution, bilateral, acute Acute Chest pain Acute Syncope Acute Hyperglycemia Acute Hip fracture Acute Hypertension Acute Hyponatremia Acute
[2018-08-11] MEDS ORDERED: INSULIN LISPRO 100 UNIT/ML SC SCH (18:00)
[2018-08-11] MEDS ORDERED: PATCH REMOVAL 1 EA PATCH TD SCH (21:00)
[2018-08-11] MEDS ORDERED: MELATONIN 3 MG TAB PO SCH (21:00)
[2018-08-11] MEDS: LATANOPROST 0.005% 2.5 ML OPHT DROPS EACHEYE SCH (22:28)
[2018-08-12 05:51] LABS: PLATELET COUNT 424 10^3/uL (150-400)
[2018-08-12] MEDS ORDERED: COSYNTROPIN 0.25 MG/2 ML SYRINGE IVP ONE (06:00)
[2018-08-12] MEDS: MULTIVITAMINS 1 EACH TAB PO SCH (08:58)
[2018-08-12] MEDS: DOCUSATE SODIUM 100 MG CAP PO SCH (08:58)
[2018-08-12] MEDS: PANTOPRAZOLE SODIUM 40 MG TAB PO SCH (08:58)
[2018-08-12] MEDS: PRESERVISION AREDS2 FORMULA EYE VIT 1 EACH PO SCH (08:59)
[2018-08-12] MEDS: METOPROLOL TARTRATE 50 MG TAB PO SCH (08:59)
[2018-08-12] MEDS: OMEGA-3 FATTY ACIDS 1,000 MG CAP PO SCH (08:59)
[2018-08-12] MEDS: ASPIRIN EC 81 MG TAB PO SCH (08:59)
[2018-08-12] MEDS: SODIUM CHLORIDE 1,000 MG TAB PO SCH (09:00)
[2018-08-12] MEDS ORDERED: ENOXAPARIN 40 MG/0.4 ML SYR SC SCH (09:00)
[2018-08-12] MEDS: INSULIN LISPRO 100 UNIT/ML SC SCH ×2 (09:04→12:34)
[2018-08-12] MEDS: DICLOFENAC SODIUM 1% 100 GM GEL TP SCH (09:04)
[2018-08-12] MEDS: DORZOLAMIDE 2% OPTH DROPS RTEYE SCH (09:05)
[2018-08-12] MEDS: FLUOROMETHOLONE 5 ML OPHT.BTL RTEYE SCH (09:05)
[2018-08-12] MEDS: LIDOCAINE 4%/MENTHOL 1% PATCH TD SCH (09:06)
[2018-08-12] MEDS: SODIUM CHLORIDE 5% 30 ML OPHT.BTL EACHEYE SCH (09:07)
--- NOTE | 2018-08-12 12:58 | ASMTCMCOM ---
CM Note CM Note Notes: CM spoke with floor RN, patient has switched to oral antibiotics. Discharge date continues TBD, likely back to [facility]. CM call to Shruti to give update, she states patient they are still able to accept patient when ready. CM to follow. Date Signed: 08/12/2018 12:57 PM Electronically Signed By:Karla Frank
[2018-08-12] MEDS ORDERED: INSULIN GLARGINE 100 UNITS/ML UNIT SC SCH (13:27)
--- NOTE | 2018-08-12 13:44 | PDIAF ---
- Diagnosis Diagnosis: hyponatremia due to SIADH - Medication Management Discharge Medications: Medications to Continue on Transfer Multivitamins [Multivitamin (*)] 1 each PO DAILY 06/07/12 [Last Taken 06/04/18] Bunnlevel-3 Fatty Acids [Fish Oil 1000 mg (*)] 1,000 mg PO DAILY 06/07/12 [Last Taken 06/04/18] Fluorometholone [Fml (*)] 1 drop RTEYE BID 05/10/18 [Last Taken 06/04/18] Latanoprost 0.005% [Xalatan 0.005% (*)] 1 drops EACHEYE HS 05/10/18 [Last Taken 06/03/18] Metoprolol Tartrate [Lopressor 50 mg (*)] 50 mg PO BID 05/10/18 [Last Taken 21:00] Propylene Glycol/Peg 400 [SYSTANE 0.3-0.4% EYE DROPS] 1 drop EACHEYE TID [Last Taken 06/04/18] Sodium Chloride 5% [Dannie-128 5%] 1 - 3 drop EACHEYE TID 05/10/18 [Last Taken ] C/E/Zn/Cu/OM3/DHA/EPA/LUT/ZEAX [Preservision Areds 2 Softgel] 1 each PO BID [Last Taken 06/04/18] Insulin Aspart [novoLOG] 0 unit SC TIDMEAL 06/05/18 [Last Taken 06/04/18 17:00 5 units] Acetaminophen [Tylenol ES 500 mg (*)] 1,000 mg PO TID tab 06/15/18 [Last Taken Unknown] Lidocaine 4%/Menthol 1% [Icy Hot Lidocaine/Menthol 4%/1% Patch (*)] 1 patch TD DAILY patch 06/15/18 [Last Taken Unknown] Polyethylene Glycol 3350 [Miralax 17 gm (*)] 17 gm PO DAILY PRN pkt 06/15/18 [ Last Taken Unknown] Docusate Sodium [Colace 100 MG (*)] 100 mg PO DAILY 06/28/18 [Last Taken Unknown ] Insulin Glargine,Hum.rec.anlog [Basaglar Kwikpen U-100] 12 unit SQ HS 06/28/18 [ Last Taken Unknown] amLODIPine BESYLATE [Norvasc 10 mg (*)] 10 mg PO DAILY 06/28/18 [Last Taken Unknown] Pantoprazole Sodium [Protonix 40mg (*)] 40 mg PO BID tab 07/05/18 [Last Taken Unknown] Aspirin EC [Aspirin EC 81 mg (*)] 81 mg PO DAILY 08/10/18 [Last Taken Unknown] Diclofenac Sodium 1% [Voltaren Gel (*)] 4 gm TP TID 08/10/18 [Last Taken Unknown ] Dorzolamide HCl/Pf [Dorzolamide 2% Eye Drop] 1 drop RTEYE BID 08/10/18 [Last Taken Unknown] Insulin Aspart [Novolog Flexpen] 9 unit SQ TIDMEAL 08/10/18 [Last Taken Unknown] Methylphenidate HCl [Ritalin 5mg (*)] 5 mg PO DAILY 08/10/18 [Last Taken Unknown ] Sodium Chloride [Salt Tablet] 500 mg PO BID 08/10/18 [Last Taken Unknown] Cephalexin [Keflex (*)] 500 mg PO BID #10 cap 08/12/18 [Last Taken Unknown] Isosorbide Mononitrate [Imdur 30 mg (*)] 30 mg PO DAILY #30 tab.sr 08/12/18 [ Last Taken Unknown] 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 - Orders Services needed: Physical Therapy, Occupational Therapy Oxygen: IS hourly while awake Diet Recommendation: ADA 2000 consistent carb, fluid restriction (use comment for amount) (1500) Wound Care Instructions: Wound care: Please follow up within 3- 4 weeks of discharge with outpatient Wound Healing Center. You may reach them at for an appointment and continued management of your wounds. Please call them emely to schedule your appointment as they fill up quickly. If before that time you have any issues, please follow up with your PCP. Wound care: Bedsore (Pressure injury) care: You have a stage 3 pressure injury (also known as a bedsore) on the very lowest part of your back (the sacrum.) To help heal this wound and avoid further injury please do the followin.Reposition yourself frequently, at least every 15 minutes when sitting. Try to stand for at least 3 min every hour so that the tissues fully reperfuse with blood. We recommend sitting on an air cushion. Please never use a doughnut. 2.When youre in bed, try to rest on your side as much as possible, and change position every two hours (for example, turn or tilt from your right side toward your left).~ If you sleep on a sleep number or medical bed, keep the head of the bed below 30 degrees and keep all pressure off your low back for at least 5 minutes at least every two hours.~. 3.As needed, you may use Calazime, dimethicone moisture barrier cream, or any [id number] diaper rash cream to help prevent or treat a moisture-related rash to your bottom area and buttocks. DRESSING CHANGE ORDERS: Change dressings to Sacrum every 3 days and prn. 1. Clean with ns and gauze. 2. Apply barrier cream from 3M sahara wound. If you run out of this you may use Medline's nutrishield or another dimethicone cream. 3. Iodosorb gel to wound bed only. 4. Cover with Mepilex border Sacrum or other foam border sacral dressing. Jacqueline CONRAD. Additional Instructions: 1500cc fluid restriction daily - Labs/Radiology BMP Date: 08/16/18 (weekly until stable) - Follow Up Care Current Providers and Referrals: Patient,NotPresent [Unknown] - As per Instructions
--- NOTE | 2018-08-12 14:00 | ASMTDCNOTE ---
Case Management Discharge Discharge Order Complete? Answers: No Patient to Obtain Answers: Other Notes: [facility] Medications Transportation Arranged Answers: Other Notes: [facility] Transport will Pick (Date 08/12/2018 03:30 PM & Time) Discharge Comments Notes: CM spoke with Shruti at [facility], patient to discharge today and transport will be here at 3:30. CM sent Transfer of Care Summary via [employer]. CM met with patient and daughter, they have no questions at this time around discharge plan. IM delivered, signed for receipt and placed in back of chart. CM available to support if further discharge needs arise. Date Signed: 08/12/2018 02:00 PM Electronically Signed By:Karla Frank
[2018-08-12 15:00] VITALS: BP 146/64
--- NOTE | 2018-08-12 17:39 | GDS ---
DISCHARGE DIAGNOSES: 1. 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 2. Hyperkalemia. 3. Escherichia coli urinary tract infection. 4. Diabetes type 2. 5. Recent upper gastrointestinal bleed due to duodenal ulcer. 6. Recent hip fracture. 7. Recent watershed stroke. 8. Decubitus ulcer, present on admission, stage III. HISTORY: The patient is an 82-year-old female who has had multiple recent hospitalizations and is st ill at [facility] for rehabilitation, started with a hip fracture. She had a stroke after that, then she had E coli sepsis from a UTI with positive blood cultures, then she had an upper GI bleed from a duodenal ulcer. She is still at [facility] and Rehab is doing okay. On her previous admissions, faraz jacob was diagnosed with SIADH and was supposed to be on a fluid restriction, although it sounds like she was not following that anymore. Laboratory studies at [facility] revealed a sodium of 120 with a po tassium of 5.8, and she was transferred to the hospital. She also had a repeat urinary tract infecti on, although no bacteremia at this time. I do think there is an element of dehydration and her hypon atremia improved, at least up to the low 130s, with IV fluid resuscitation. I educated her regarding need for fluid restriction on an ongoing basis and close monitoring of serum sodiums at [facility]. She has also been taking salt tabs. I held her losartan for the hyperkalemia. Davey stim test was d one to rule out adrenal insufficiency as a cause of her electrolyte abnormalities and it was within n ormal limits. E coli urinary tract infection was sensitive to cephalosporins. She was on Macrobid a t [facility] and it is resistant to this antibiotic. She has cephalosporins listed as an allergy; cathleen schuster, has been tolerating ceftriaxone throughout this hospitalization. I do not think that is a [facility] allergy, so she will discharge on Keflex. DISCHARGE MEDICATIONS: Please see computerized record for full detailed list. New medications: 1. Keflex 500 mg p.o. b.i.d. for 5 more days. 2. Imdur 30 mg p.o. daily to be taken instead of her losartan due to hyperkalemia. ADDITIONAL DISCHARGE INSTRUCTIONS: 1. Fluid restriction, 1500 cc per day. 2. Recheck basic metabolic panel on October 11th and then recommended weekly until stabilized. 3. Wound care instructions for stage III decubitus ulcer. RECOMMENDATIONS: Followup the Wound Care Center within 3-4 weeks of discharge and wound care instruc tions for [facility] given by Wound Care specialty nurse. Please refer to interagency form for yosvany jaramillo. Greater than 30 minutes' time was spent arranging this discharge. Patient was seen and examined by pradip jacob on the day of discharge. /[id number]/MODL
[2018-08-12] MEDS ORDERED: CEPHALEXIN 500 MG CAP PO SCH (21:00)
== END 2018-08-12 15:31 | DRG 643 ==
LOC: EDUNIT# → F3E 15:40
PROVIDERS: ADMIT Internal Medicine; ATTEND Internal Medicine
DX: E22.2 Syndrome of inappropriate secretion of antidiuretic hormone (principal); E87.1 Hypo-osmolality and hyponatremia; E86.0 Dehydration; E87.5 Hyperkalemia; E11.65 Type 2 diabetes mellitus with hyperglycemia; N39.0 Urinary tract infection, site not specified; B96.20 Unspecified Escherichia coli [E. coli] as the cause of diseases classified elsewhere; L89.153 Pressure ulcer of sacral region, stage 3; S72.112D Displaced fracture of greater trochanter of left femur, subsequent encounter for closed fracture with routine healing; I69.311 Memory deficit following cerebral infarction
CPT/HCPCS: 82435-PO; 82565-PO; 82947-PO; 84132-PO; 84295-PO; 84520-PO; 85014-PO; 96374; 97116-GP; 97161-GP; 97166-GO; 97535-GO; G8978-GP-CK; G8979-GP-CJ; G8987-GO-CJ; G8988-GO-CI; J0696; J0834; J1650; J1815

== ENCOUNTER → 2018-08-29 | Outpatient (CLI) | payer OTHER | LOC: BMCIMAGING 15:01 | PROVIDERS: ATTEND Orthopaedic Surgery | DX: Z09 Encounter for follow-up examination after completed treatment for conditions other than malignant neoplasm (principal); S72.302D Unspecified fracture of shaft of left femur, subsequent encounter for closed fracture with routine healing ==

== ENCOUNTER 2018-09-02 13:33 | Inpatient (IN) | payer OTHER ==
--- NOTE | 2018-09-02 13:35 | EDPHY ---
HPI/HX/ROS/PE/MDM Narrative: CHIEF COMPLAINT: Stroke alert HPI: The patient is an 83 y/o female with a history of a CVA, dementia, hyponatremia , hyperkalemia, diabetes, hypertension, and a chronic UTI arriving via EMS on a stroke alert. On 08/10/18 the patient was admitted for 2 days for hyponatremia and a UTI. Per EMS, the patient currently has a UTI and is being treated with cranberry juice and Tylenol for an associated fever. It has been suggested that the patient's UTI's are due to colonization. While at lunch today, at 12:00 ( 1.5 hours ago) she was eating with her family when they noticed that the patient started having difficulty saying the correct words. The patient had intermittent episodes of slurring her words and having difficulty thinking of the words she wanted to say. She also kept saying "so busy", but per her daughter this was not the words the patient was wanting to say. The patient then became frustrated as she was unable to say the word she wanted to. When EMS arrived they noticed that the patient had expressive aphasia and a BGL of 277. The patient does have dementia but can usually communicate normally. She is not anticoagulated but does take Aspirin daily. No headache, chest pain, shortness of breath, abdominal pain, bowel complaints. REVIEW OF SYSTEMS: Aside from elements discussed in the HPI, a comprehensive 10-point review of systems was reviewed and is negative. 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 ENT: Eyes are normal to inspection. ENT inspection normal. Neck: Normal inspection. Full range of motion. Respiratory: No respiratory distress. Breath sounds normal bilaterally. Cardiovascular: Regular rate and rhythm. Strong peripheral pulses. Normal cap refill. Abdomen: The abdomen is nontender to palpation. There are no peritoneal signs. There are normal bowel sounds. Back: Normal to inspection. No tenderness to palpation. Skin: Normal color. No rash. Warm and dry. Extremities: Normal appearance. Full range of motion. Neuro: Normal fluent speech; with minor word finding difficulty. Normal motor function. Normal sensory function. ED Course: 1333: I met EMS upon arrival and sent the patient for a head CT. She is speaking fairly clearly at this time. 1352: I spoke with Dr. Knight, radiologist, who reports that the head CT is negative for acute findings. There are also no acute findings on the patient's chest x-ray. 1350: EKG was ordered and interpreted by myself. Please see [place] system for official reading. 1355: Patient has mildly low sodium at 129. 1359: Reassessed patient and performed a more thorough physical exam. I have also discussed the patient's normal imaging findings and laboratory findings with the patient and her family. I will have [facility] consult via the stroke robot. 1406: I consulted with Dr. Nava from [facility] regarding this patient. She will consult on this patient. 1433: I consulted with Dr. Nava, neurologist, regarding this patient. This patient has mild word-finding difficulties but is not a candidate for TPA secondary to recent CVA and mild symptoms. Head and neck CTA ordered with plan for admission for further evaluation and observation. 1435: Reassessed patient and discussed plan for further imaging and admission. The patient and her family are comfortable with this plan. 300mg [place] Aspirin administered. 1625: I consulted with Dr. Ibanez, radiologist, who reports that the patient has negative head and neck CTA. She will need to be admitted to this hospital. 1635: I consulted with the hospitalist service, Dr. Hylton accepts admission of this patient. I suspect this likely represents delirium rather than CVA. - Data Points Imaging Results: Imaging Impressions Head CT 09/02/18 13:37 Impression: 1. Old bilateral basal ganglia lacunar infarcts. 2. No acute hemorrhage, hydrocephalus, or mass effect. 3. Cerebrovascular atherosclerosis. 4. No definite acute infarct. 5. Mild cerebral atrophy and moderate microvascular ischemic gliosis. 6. Consider MRI of the brain, if there is continued clinical concern. Findings and recommendations discussed with Emergency Department physician, Malcolm Wilkins MD at 13:50 hour, 09/02/2018. Final report concurs with initial preliminary interpretation. Chest X-Ray 09/02/18 13:43 Impression: 1. No residual pneumonia or congestive heart failure. 2. Consider chest two views when the patient's medical condition permits. Head CTA 09/02/18 14:34 Impression: 1. Mild bilateral carotid atherosclerotic disease without flow-limiting stenosis. 2. Mild left vertebral atherosclerotic disease without evidence of right or left vertebral dissection, occlusion or significant stenosis. Measurement of carotid stenosis is based on the residual internal carotid diameter with [place] Symptomatic Carotid Endarterectomy Trial (NASCET) based stenosis levels. CT Angiogram of the Brain Clinical Indications: Expressive aphasia, TIA. Technique: CT angiogram of the brain and neck was performed with the uneventful intravenous administration of 75 mL Isovue-370 contrast. Multiplanar reconstructions including 3D reconstructions performed and evaluated on Vitrea workstation in order to better evaluate the [place] vessels. Images were manipulated by the radiologist at the computer workstation. Dose reduction techniques were utilized. Findings: Major vessels of the [place] are adequately displayed, demonstrating cerebrovascular atherosclerotic calcifications of bilateral cavernous and supraclinoid internal carotid arteries without flow-limiting stenosis, occlusion, dissection or intraluminal thrombi. Vertebrobasilar system appears patent. No definite cerebral aneurysm. Superior sagittal sinus, transverse sinuses, and major veins demonstrate no evidence of intraluminal thrombi. Impression: 1. Cerebrovascular atherosclerosis. 2. No evidence of intraluminal thrombi or occlusion of the [place] vessels. Findings and recommendations discussed with Emergency Department physician, Malcolm Wilkins MD at 16:20 hour, 09/02/2018. Final report concurs with initial preliminary interpretation. Neck CTA 09/02/18 14:34 Impression: 1. Mild bilateral carotid atherosclerotic disease without flow-limiting stenosis. 2. Mild left vertebral atherosclerotic disease without evidence of right or left vertebral dissection, occlusion or significant stenosis. Measurement of carotid stenosis is based on the residual internal carotid diameter with [place] Symptomatic Carotid Endarterectomy Trial (NASCET) based stenosis levels. CT Angiogram of the Brain Clinical Indications: Expressive aphasia, TIA. Technique: CT angiogram of the brain and neck was performed with the uneventful intravenous administration of 75 mL Isovue-370 contrast. Multiplanar reconstructions including 3D reconstructions performed and evaluated on Vitrea workstation in order to better evaluate the [place] vessels. Images were manipulated by the radiologist at the computer workstation. Dose reduction techniques were utilized. Findings: Major vessels of the [place] are adequately displayed, demonstrating cerebrovascular atherosclerotic calcifications of bilateral cavernous and supraclinoid internal carotid arteries without flow-limiting stenosis, occlusion, dissection or intraluminal thrombi. Vertebrobasilar system appears patent. No definite cerebral aneurysm. Superior sagittal sinus, transverse sinuses, and major veins demonstrate no evidence of intraluminal thrombi. Impression: 1. Cerebrovascular atherosclerosis. 2. No evidence of intraluminal thrombi or occlusion of the [place] vessels. Findings and recommendations discussed with Emergency Department physician, Malcolm Wilkins MD at 16:20 hour, 09/02/2018. Final report concurs with initial preliminary interpretation. Imaging: Discussed imaging studies w/ call center recruiter Radiologist, I viewed and interpreted images myself Laboratory Results: Laboratory Results 09/02/18 13:30 09/02/18 13:30 09/02/18 09/02/18 09/02/18 15:00 13:55 13:40 WBC RBC Hgb POC Hgb 10.9 gm/dL L gm/dL (12.6-16.3) Hct POC Hct 32 % L % (38-47) MCV MCH MCHC RDW Plt Count MPV Neut % (Auto) Lymph % (Auto) [place] % (Auto) Eos % (Auto) Baso % (Auto) Nucleat RBC Rel Count Absolute Neuts (auto) Absolute Lymphs (auto) Absolute Monos (auto) Absolute Eos (auto) Absolute Basos (auto) Absolute Nucleated RBC Immature Gran % Immature Gran # PT INR APTT POC Sodium 129 mEq/L L mEq/L (135-145) Sodium POC Potassium 4.6 mEq/L mEq/L (3.3-5.0) Potassium POC Chloride 92 mEq/L L mEq/L (97-110) Chloride Carbon Dioxide Anion Gap POC BUN 26 mg/dL H mg/dL (7-23) BUN Creatinine POC Creatinine 1.2 mg/dL H mg/dL (0.6-1.0) Estimated GFR Glucose POC Glucose 277 mg/dL H mg/dL (70-100) Calcium POC Troponin I 0.00 ng/mL ng/mL (0.00-0.08) Urine Color YELLOW Urine Appearance MODERATELY TURBID Urine pH 5.0 (5.0-7.5) Ur Specific [place] 1.015 (1.002-1.030) Urine Protein 2+ H (NEGATIVE) Urine Ketones NEGATIVE (NEGATIVE) Urine Blood 1+ H (NEGATIVE) Urine Nitrate NEGATIVE (NEGATIVE) Urine Bilirubin NEGATIVE (NEGATIVE) Urine Urobilinogen NEGATIVE EU EU (0.2-1.0) Ur Leukocyte Esterase 2+ H (NEGATIVE) Urine RBC 5-10 /hpf H /hpf (0-3) Urine WBC 50-182 /hpf H /hpf (0-3) Ur Epithelial Cells NONE SEEN /lpf /lpf (NONE-1+) Urine Bacteria 4+ /hpf H /hpf (NONE SEEN) Urine Glucose 1+ H (NEGATIVE) 09/02/18 09/02/18 09/02/18 13:30 13:30 13:30 WBC 8.90 10^3/uL 10^3/uL (3.80-9.50) RBC 3.48 10^6/uL L 10^6/uL (4.18-5.33) Hgb 10.3 g/dL L g/dL (12.6-16.3) POC Hgb Hct 31.0 % L % (38.0-47.0) POC Hct MCV 89.1 fL fL (81.5-99.8) MCH 29.6 pg pg (27.9-34.1) MCHC 33.2 g/dL g/dL (32.4-36.7) RDW 15.8 % H % (11.5-15.2) Plt Count 211 10^3/uL 10^3/uL (150-400) MPV 9.3 fL fL (8.7-11.7) Neut % (Auto) 80.0 % H % (39.3-74.2) Lymph % (Auto) 8.7 % L % (15.0-45.0) Clarke % (Auto) 9.6 % % (4.5-13.0) Eos % (Auto) 1.0 % % (0.6-7.6) Baso % (Auto) 0.3 % % (0.3-1.7) Nucleat RBC Rel Count 0.0 % % (0.0-0.2) Absolute Neuts (auto) 7.12 10^3/uL H 10^3/uL (1.70-6.50) Absolute Lymphs (auto) 0.77 10^3/uL L 10^3/uL (1.00-3.00) Absolute Monos (auto) 0.85 10^3/uL H 10^3/uL (0.30-0.80) Absolute Eos (auto) 0.09 10^3/uL 10^3/uL (0.03-0.40) Absolute Basos (auto) 0.03 10^3/uL 10^3/uL (0.02-0.10) Absolute Nucleated RBC 0.00 10^3/uL 10^3/uL (0-0.01) Immature Gran % 0.4 % % (0.0-1.1) Immature Gran # 0.04 10^3/uL 10^3/uL (0.00-0.10) PT 12.8 SEC SEC (12.0-15.0) INR 0.94 (0.83-1.16) APTT 27.4 SEC SEC (23.0-38.0) POC Sodium Sodium 129 mEq/L L mEq/L (135-145) POC Potassium Potassium 4.8 mEq/L mEq/L (3.3-5.0) POC Chloride Chloride 91 mEq/L L mEq/L (97-110) Carbon Dioxide 27 mEq/l mEq/l (22-31) Anion Gap 11 mEq/L mEq/L (6-14) POC BUN BUN 26 mg/dL H mg/dL (7-23) Creatinine 1.2 mg/dL H mg/dL (0.6-1.0) POC Creatinine Estimated GFR 43 Glucose 268 mg/dL H mg/dL (70-100) POC Glucose Calcium 9.5 mg/dL mg/dL (8.5-10.4) POC Troponin I Urine Color Urine Appearance Urine pH Ur Specific [place] Urine Protein Urine Ketones Urine Blood Urine Nitrate Urine Bilirubin Urine Urobilinogen Ur Leukocyte Esterase Urine RBC Urine WBC Ur Epithelial Cells Urine Bacteria Urine Glucose Medications Given: Discontinued Medications Aspirin (Aspirin Rectal) 300 mg [place] EDNOW ONE Stop: 09/02/18 14:47 Last Admin: 09/02/18 15:01 Dose: 300 mg Point of Care Test Results: Chemistry 09/02/18 09/02/18 13:55 13:40 POC Sodium 129 mEq/L L mEq/L (135-145) POC Potassium 4.6 mEq/L mEq/L (3.3-5.0) POC Chloride 92 mEq/L L mEq/L (97-110) POC BUN 26 mg/dL H mg/dL (7-23) POC Creatinine 1.2 mg/dL H mg/dL (0.6-1.0) POC Glucose 277 mg/dL H mg/dL (70-100) POC Troponin I 0.00 ng/mL ng/mL (0.00-0.08) ISTAT H&H 09/02/18 13:40 POC Hgb 10.9 gm/dL L gm/dL (12.6-16.3) POC Hct 32 % L % (38-47) General Initial Vital Signs: Initial Vital Signs Temperature (C) 36.8 C 09/02/18 13:33 Heart Rate 71 09/02/18 13:33 Respiratory Rate 16 09/02/18 13:33 Blood Pressure 165/85 H 09/02/18 13:33 O2 Sat (%) 98 09/02/18 13:33 O2 Delivery Mode Room Air Allergies/Adverse Reactions: metronidazole Allergy (Unknown, Verified 09/02/18 13:50) Rash amoxicillin trihydrate [From Augmentin] Allergy (Verified 09/02/18 13:50) brompheniramine maleate [From Rondec] Allergy (Verified 09/02/18 13:50) carbinoxamine maleate [From Rondec] Allergy (Verified 09/02/18 13:50) cefaclor Allergy (Verified 09/02/18 13:50) Rash cefuroxime axetil [From Ceftin] Allergy (Verified 09/02/18 13:50) chlorpheniramine maleate [From Ornade] Allergy (Verified 09/02/18 13:50) clindamycin Allergy (Verified 09/02/18 13:50) hydrocodone Allergy (Verified 09/02/18 13:50) latex [Latex] Allergy (Verified 09/02/18 13:50) Metronidazole HCl [From Flagyl] Allergy (Verified 09/02/18 13:50) Penicillins Allergy (Verified 09/02/18 13:50) phenylpropanolamine HCl [From Ornade] Allergy (Verified 09/02/18 13:50) potassium clavula *RETIRED-07/16/12 [From Augmentin] Allergy (Verified 09/02/18 13:50) pseudoephedrine HCl [From Rondec] Allergy (Verified 09/02/18 13:50) Sulfa (Sulfonamide Antibiotics) Allergy (Verified 09/02/18 13:50) Home Medications: Medication Instructions Recorded Fluorometholone [Fml (*)] 1 drop RTEYE BID 05/10/18 Metoprolol Tartrate [Lopressor 50 50 mg PO BID 05/10/18 mg (*)] Sodium Chloride 5% [Dannie-128 5%] 1 - 3 drop EACHEYE TID 05/10/18 C/E/Zn/Cu/OM3/DHA/EPA/LUT/ZEAX 1 cap PO BID 06/05/18 [Preservision Areds 2 Softgel] Acetaminophen [Tylenol ES 500 mg 1,000 mg PO TID tab 06/15/18 (*)] Docusate Sodium [Colace 100 MG (*)] 100 mg PO DAILY 06/28/18 Insulin Glargine,Hum.rec.anlog 12 unit SQ HS 06/28/18 [Basaglar Kwikpen U-100] Aspirin EC [Aspirin EC 81 mg (*)] 81 mg PO DAILY 08/10/18 Diclofenac Sodium 1% [Voltaren Gel 4 gm TP TID 08/10/18 (*)] Dorzolamide HCl/Pf [Dorzolamide 2% 1 drop RTEYE BID 08/10/18 Eye Drop] Sodium Chloride [Salt Tablet] 500 mg PO BID 08/10/18 Brimonidine 0.2% [ALPHAGAN 0.2% 1 drops EACHEYE BID 09/02/18 (RX)] Herbals/Supplements -Info Only 1 ea PO DAILY 09/02/18 Insulin Lispro [Humalog] 0 unit SQ TIDMEAL 09/02/18 Insulin Lispro [Humalog] 9 unit SQ TIDMEAL 09/02/18 Isosorbide Mononitrate [Imdur 30 30 mg PO DAILY 09/02/18 mg (*)] Latanoprost 0.005% [Xalatan 0.005% 1 drops EACHEYE HS 09/02/18 (*)] Lidocaine 4%/Menthol 1% [Icy Hot 1 patch TD DAILY 09/02/18 Lidocaine/Menthol 4%/1% Patch (*)] Lisinopril [Zestril 20 mg (*)] 20 mg PO HS 09/02/18 Methylphenidate HCl [Ritalin 5mg 2.5 mg PO DAILY 09/02/18 (*)] Multivitamins [Multivitamin (*)] 1 tab PO DAILY 09/02/18 [place]-3 Fatty Acids [Fish Oil 1000 1,000 mg PO DAILY 09/02/18 mg (*)] Polyethylene Glycol 3350 [Miralax 17 gm PO DAILY PRN 09/02/18 17 gm (*)] Propylene Glycol/Peg 400 [Systane 1 drop EACHEYE TID 09/02/18 Ultra 0.4-0.3% Eye Drp] Departure - Departure Disposition: [facility] Inpatient Acute Clinical Impression: Aphasia Condition: Fair Report Scribed for: Juan Diego Radford Report Scribed by: Emmy Brady Date of Report: 09/02/18 Time of Report: 13:33 Physician Review and Approval Statement: Portions of this note were transcribed by an ED scribe. I personally performed the history, physical exam, and medical decision making; and confirm the accuracy of the information in the transcribed note.
[2018-09-02 13:56] LABS: PLATELET COUNT 211 10^3/uL (150-400)
[2018-09-02 14:08] LABS: INR 0.94 (0.83-1.16); PROTIME(PATIENT) 12.8 SEC (12.0-15.0)
[2018-09-02] MEDS ORDERED: ASPIRIN RECTAL 300 MG SUPP PR ONE (14:46)
--- NOTE | 2018-09-02 15:05 | PDCONSULT ---
Hebrew Professor Note: [facility] Note Demographics Consult Type: Acute Stroke First Name: Shannan Last Name: Collin Date of : 1935 Age: 83 Gender: Female Referring Provider: Dr. WEEKS Time of initial page (): 09/02/2018 14:11 Time of return call (): 09/02/2018 14:11 Time Ready to Initiate Telemed Consult ( Time): 09/02/2018 14:11 HPI Additional History (Free Text): Patient's chief complaints is confusion. Changes in speech starting at noon. Slurring of speech and choking on water. Witnessed by family. Then she started speaking gibberish, appeared frustrated. EMS was called. Symptoms improved in route. Recently diagnosed with a UTI, but not on antibiotics. [facility]-- Past Medical History: Dementia, Diabetes Mellitus, Hyperlipidemia, Hypertension , Recent bleeding ulcers, stroke 2.5 months ago Medications: not on ASA according to family Exam SBP: 165 DBP: 89 Mental Status: awake, alert + oriented x 3, follows commands, poor attention/concentration Language: no dysarthria, mild expressive aphasia with some intermittent paraphasic errors Cranial Nerves: extra ocular movements intact, normal visual diamond, no facial droop, normal facial sensation, no dysarthria Motor: normal strength, normal bulk, no drift Sensory: normal sensation Cerebellar: normal cerebellar NIHSS Time (): 09/02/2018 14:18 LOC 1a: 0 = Alert; keenly responsive LOC 1b: 0 = Answers both questions correctly LOC Commands: 0 = Performs both tasks correctly Best Gaze: 0 = Normal Visual: 0 = No visual loss Facial Palsy: 0 = Normal symmetrical movements Motor Arm L: 0 = No drift; limb holds 90 (or 45) degrees for full 10 seconds Motor Arm R: 0 = No drift; limb holds 90 (or 45) degrees for full 10 seconds Motor Leg L: 0 = No drift; leg holds 30-degree position for full 5 seconds Motor Leg R: 0 = No drift; leg holds 30-degree position for full 5 seconds Limb Ataxia: 0 = Absent Sensory: 0 = Normal; no sensory loss Best Language: 1 = Nibt-[id number] aphasia; some obvious loss of fluency or facility of comprehension Dysarthria: 0 = Normal Extinction + Inattention: 0 = No abnormality NIHSS: [address]: no bleed Assessment Assessment: Aphasia and dysarthria, rapidly improving. Small acute ischemic stroke vs unmasking of prior stroke sx vs encephalopathy from UTI Plan Lytic/Intervention: NOT IV or IA candidate tPA Exclusion (< 3hr window): Mild or improving symptoms tPA Exclusion: Recent stroke within the past 3 months, recent GI bleed Labs: CBC, Comprehensive metabolic panel, Lipid Panel, UA Imaging: CTA Head and Neck STAT, Please call me back with results JENA if there are signs of occlusion or dissection, MRI brain without Diagnostic test: echocardiogram without bubble Therapy/Eval: NPO until cleared by swallow evaluation Medication: aspirin 81mg per day Other: LDL goal less than 70, permissive HTN, telemetry monitoring, I have discussed my recommendations with the referring provider Disposition: admit [facility] Telemedicine: Interactive 2 way audio and visual telecommunication technology was utilized during this visit. Provider Location: [place] Patient Location: [facility]
[2018-09-02] MEDS ORDERED: IOPAMIDOL (ISOVUE 370) 100 ML BTL IV ONE (15:20)
--- NOTE | 2018-09-02 15:41 | ASMTCMCOM ---
CM Note CM Note Notes: Pt presented to the Emergency Department via EMS with aphasia, slurred speech, confusion, r/o CVA. Pt was celebrating her birthday with family when she had a sudden onset of symptoms. History includes chronic UTI's, prior watershed CVA, hip fracture with repair, dementia, hyponatremia, hyperkalemia, DM, HTN, depression, GERD. Pt is a resident of [facility]. Pt is accompanied by Carlita, her daughter and [facility], as well as her son-in-law, dK. Pt to be admitted for further evaluation and treatment. Call placed to Andrews at [facility] with an update. Discharge needs remain unclear. Pt will likely transfer back to [facility] when medically stable. CM will continue to follow. Discharge Plan: To be determined, pt is a resident of [facility] Date Signed: 09/02/2018 03:40 PM Electronically Signed By:Grazyna Day RN
--- NOTE | 2018-09-02 17:11 | PDGENHP ---
History and Physical - Chief Complaint aphasia, confusion - History of Present Illness 83 yo female presents to ED from SNF after a brief episode of confusion and word finding difficulty. She has known h/o dementia and previous watershed strokes. She was admitted in 06/2018 with a hip fracture and discharged to SNF. Since then, she has had 2 recurrent hospitalizations for a GIB 2/2 duodenal ulcer, then developed E coli bacteremia 2/2 UTI. 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 She is unable to recall the events of the day and most of the history is obtained from the ED staff. She was apparently found by her daughter at noon to have difficulty with word finding and grew frustrated. No noted facial droop or extremity weakness. Her bg was 277. She is reportedly taking an antibiotic for UTI and recently had a fever. She cannot give much history, but she does endorse painful urination. Otherwise, she denies luevano, vision changes, CP, SOB, abdominal pain, N/V or diarrhea. She arrived in the ED as a stroke alert and CT head and CTA were negative. She was evaluated by [place] and no tPa was recommended. She is admitted for further evaluation. History Information - Allergies/Home Medication List Allergies/Adverse Reactions: metronidazole Allergy (Unknown, Verified 09/02/18 13:50) Rash amoxicillin trihydrate [From Augmentin] Allergy (Verified 09/02/18 13:50) brompheniramine maleate [From Rondec] Allergy (Verified 09/02/18 13:50) carbinoxamine maleate [From Rondec] Allergy (Verified 09/02/18 13:50) cefaclor Allergy (Verified 09/02/18 13:50) Rash cefuroxime axetil [From Ceftin] Allergy (Verified 09/02/18 13:50) chlorpheniramine maleate [From Ornade] Allergy (Verified 09/02/18 13:50) clindamycin Allergy (Verified 09/02/18 13:50) hydrocodone Allergy (Verified 09/02/18 13:50) latex [Latex] Allergy (Verified 09/02/18 13:50) Metronidazole HCl [From Flagyl] Allergy (Verified 09/02/18 13:50) Penicillins Allergy (Verified 09/02/18 13:50) phenylpropanolamine HCl [From Ornade] Allergy (Verified 09/02/18 13:50) potassium clavula *RETIRED-07/16/12 [From Augmentin] Allergy (Verified 09/02/18 13:50) pseudoephedrine HCl [From Rondec] Allergy (Verified 09/02/18 13:50) Sulfa (Sulfonamide Antibiotics) Allergy (Verified 09/02/18 13:50) Home Medications: Fluorometholone [Fml (*)] 1 drop RTEYE BID 05/10/18 [Last Taken 09/02/18 08:00] Metoprolol Tartrate [Lopressor 50 mg (*)] 50 mg PO BID 05/10/18 [Last Taken 08:00] Sodium Chloride 5% [Dannie-128 5%] 1 - 3 drop EACHEYE TID 05/10/18 [Last Taken 12:00] C/E/Zn/Cu/OM3/DHA/EPA/LUT/ZEAX [Preservision Areds 2 Softgel] 1 cap PO BID 06/05 [Last Taken 09/02/18 08:00] Docusate Sodium [Colace 100 MG (*)] 100 mg PO DAILY 06/28/18 [Last Taken 08:00] Insulin Glargine,Hum.rec.anlog [Leanna Pruitt U-100] 12 unit SQ HS 06/28/18 [ Last Taken 09/01/18 21:00] Aspirin EC [Aspirin EC 81 mg (*)] 81 mg PO DAILY 08/10/18 [Last Taken 09/02/18 08:00] Diclofenac Sodium 1% [Voltaren Gel (*)] 4 gm TP TID 08/10/18 [Last Taken 12:00] Dorzolamide HCl/Pf [Dorzolamide 2% Eye Drop] 1 drop RTEYE BID 08/10/18 [Last Taken 09/02/18 08:00] Sodium Chloride [Salt Tablet] 500 mg PO BID 08/10/18 [Last Taken 09/02/18 08:00] Brimonidine 0.2% [ALPHAGAN 0.2% (RX)] 1 drops EACHEYE BID 09/02/18 [Last Taken 09/02/18 08:00] Herbals/Supplements -Info Only 1 ea PO DAILY 09/02/18 [Last Taken Unknown] Insulin Lispro [Humalog] 0 unit SQ TIDMEAL 09/02/18 [Last Taken 09/02/18 12:00 3 UNITS] Insulin Lispro [Humalog] 9 unit SQ TIDMEAL 09/02/18 [Last Taken 09/02/18 12:00] Isosorbide Mononitrate [Imdur 30 mg (*)] 30 mg PO DAILY 09/02/18 [Last Taken 08:00] Latanoprost 0.005% [Xalatan 0.005% (*)] 1 drops EACHEYE HS 09/02/18 [Last Taken 09/01/18 21:00] Lidocaine 4%/Menthol 1% [Icy Hot Lidocaine/Menthol 4%/1% Patch (*)] 1 patch TD DAILY 09/02/18 [Last Taken 09/02/18 08:00] Lisinopril [Zestril 20 mg (*)] 20 mg PO HS 09/02/18 [Last Taken 09/01/18 21:00] Methylphenidate HCl [Ritalin 5mg (*)] 2.5 mg PO DAILY 09/02/18 [Last Taken 09/02 08:00] Multivitamins [Multivitamin (*)] 1 tab PO DAILY 09/02/18 [Last Taken 09/02/18 08 :00] Colcord-3 Fatty Acids [Fish Oil 1000 mg (*)] 1,000 mg PO DAILY 09/02/18 [Last Taken 09/02/18 08:00] Polyethylene Glycol 3350 [Miralax 17 gm (*)] 17 gm PO DAILY PRN 09/02/18 [Last Taken Unknown] Propylene Glycol/Peg 400 [Systane Ultra 0.4-0.3% Eye Drp] 1 drop EACHEYE TID [Last Taken 09/02/18 08:00] I have personally reviewed and updated: family history, medical history, social history, surgical history - Past Medical History asthma, diabetes type 2, hypertension Additional medical history: Anemia. H/O GIB 2/2 duodenal ulcer. E coli bacteremia / UTI 06/2018. Watershed infarcts 04/2018 - Surgical History Reports: appendectomy, hysterectomy Additional surgical history: tonsillectomy. breast biopsy - Family History Positive for: cancer - Social History Smoking Status: Never smoked Alcohol Use: None Drug Use: None Additional social history: Lives at [facility]. 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 Review of Systems Review of Systems: ROS: 10pt was reviewed & negative except for what was stated in HPI & below Physical Exam Physical Exam: Temp Pulse Resp BP Pulse Ox 36.8 C 66 16 170/76 H 95 09/02/18 14:32 09/02/18 16:00 09/02/18 16:00 09/02/18 16:00 09/02/18 16:00 Constitutional: no apparent distress Eyes: PERRL Ears, Nose, Mouth, Throat: moist mucous membranes Cardiovascular: regular rate and rhythym Respiratory: no respiratory distress, clear to auscultation Gastrointestinal: normoactive bowel sounds, soft, non-tender abdomen Skin: warm Musculoskeletal: full muscle strength Neurologic: other (oriented to person, place) Psychiatric: poor insight, poor memory Lab Data & Imaging Review 09/02/18 13:30 09/02/18 13:30 WBC 8.90 10^3/uL (3.80-9.50) 09/02/18 13:30 RBC 3.48 10^6/uL (4.18-5.33) L 09/02/18 13:30 Hgb 10.3 g/dL (12.6-16.3) L 09/02/18 13:30 POC Hgb 10.9 gm/dL (12.6-16.3) L 09/02/18 13:40 Hct 31.0 % (38.0-47.0) L 09/02/18 13:30 POC Hct 32 % (38-47) L 09/02/18 13:40 MCV 89.1 fL (81.5-99.8) 09/02/18 13:30 MCH 29.6 pg (27.9-34.1) 09/02/18 13:30 MCHC 33.2 g/dL (32.4-36.7) 09/02/18 13:30 RDW 15.8 % (11.5-15.2) H 09/02/18 13:30 Plt Count 211 10^3/uL (150-400) 09/02/18 13:30 MPV 9.3 fL (8.7-11.7) 09/02/18 13:30 Neut % (Auto) 80.0 % (39.3-74.2) H 09/02/18 13:30 Lymph % (Auto) 8.7 % (15.0-45.0) L 09/02/18 13:30 Hartley % (Auto) 9.6 % (4.5-13.0) 09/02/18 13:30 Eos % (Auto) 1.0 % (0.6-7.6) 09/02/18 13:30 Baso % (Auto) 0.3 % (0.3-1.7) 09/02/18 13:30 Nucleat RBC Rel Count 0.0 % (0.0-0.2) 09/02/18 13:30 Absolute Neuts (auto) 7.12 10^3/uL (1.70-6.50) H 09/02/18 13:30 Absolute Lymphs (auto) 0.77 10^3/uL (1.00-3.00) L 09/02/18 13:30 Absolute Monos (auto) 0.85 10^3/uL (0.30-0.80) H 09/02/18 13:30 Absolute Eos (auto) 0.09 10^3/uL (0.03-0.40) 09/02/18 13:30 Absolute Basos (auto) 0.03 10^3/uL (0.02-0.10) 09/02/18 13:30 Absolute Nucleated RBC 0.00 10^3/uL (0-0.01) 09/02/18 13:30 Immature Gran % 0.4 % (0.0-1.1) 09/02/18 13:30 Immature Gran # 0.04 10^3/uL (0.00-0.10) 09/02/18 13:30 PT 12.8 SEC (12.0-15.0) 09/02/18 13:30 INR 0.94 (0.83-1.16) 09/02/18 13:30 APTT 27.4 SEC (23.0-38.0) 09/02/18 13:30 POC Sodium 129 mEq/L (135-145) L 09/02/18 13:40 Sodium 129 mEq/L (135-145) L 09/02/18 13:30 POC Potassium 4.6 mEq/L (3.3-5.0) 09/02/18 13:40 Potassium 4.8 mEq/L (3.3-5.0) 09/02/18 13:30 POC Chloride 92 mEq/L (97-110) L 09/02/18 13:40 Chloride 91 mEq/L (97-110) L 09/02/18 13:30 Carbon Dioxide 27 mEq/l (22-31) 09/02/18 13:30 Anion Gap 11 mEq/L (6-14) 09/02/18 13:30 POC BUN 26 mg/dL (7-23) H 09/02/18 13:40 BUN 26 mg/dL (7-23) H 09/02/18 13:30 Creatinine 1.2 mg/dL (0.6-1.0) H 09/02/18 13:30 POC Creatinine 1.2 mg/dL (0.6-1.0) H 09/02/18 13:40 Estimated GFR 43 09/02/18 13:30 Glucose 268 mg/dL (70-100) H 09/02/18 13:30 POC Glucose 277 mg/dL (70-100) H 09/02/18 13:40 Calcium 9.5 mg/dL (8.5-10.4) 09/02/18 13:30 POC Troponin I 0.00 ng/mL (0.00-0.08) 09/02/18 13:55 Urine Color YELLOW 09/02/18 15:00 Urine Appearance MODERATELY TURBID 09/02/18 15:00 Urine pH 5.0 (5.0-7.5) 09/02/18 15:00 Ur Specific [place] 1.015 (1.002-1.030) 09/02/18 15:00 Urine Protein 2+ (NEGATIVE) H 09/02/18 15:00 Urine Ketones NEGATIVE (NEGATIVE) 09/02/18 15:00 Urine Blood 1+ (NEGATIVE) H 09/02/18 15:00 Urine Nitrate NEGATIVE (NEGATIVE) 09/02/18 15:00 Urine Bilirubin NEGATIVE (NEGATIVE) 09/02/18 15:00 Urine Urobilinogen NEGATIVE EU (0.2-1.0) 09/02/18 15:00 Ur Leukocyte Esterase 2+ (NEGATIVE) H 09/02/18 15:00 Urine RBC 5-10 /hpf (0-3) H 09/02/18 15:00 Urine WBC 50-182 /hpf (0-3) H 09/02/18 15:00 Ur Epithelial Cells NONE SEEN /lpf (NONE-1+) 09/02/18 15:00 Urine Bacteria 4+ /hpf (NONE SEEN) H 09/02/18 15:00 Urine Glucose 1+ (NEGATIVE) H 09/02/18 15:00 Visualized and Interpreted Chest x-ray results: Yes Chest X-Ray results: no infiltrate Visualized and Interpreted imaging results: Yes EKG Interpretation: Positive for: LVH, normal sinsus rhythm Assessment & Plan Assessment: 83 yo female who suffered a hip fracture in 06/2018 and returns for 3rd hospitalization since that time with confusion and aphasia. Aphasia / Confusion - now resolved. CT and CTA head neg for acute CVA. Evaluated by [place], no tPa recommended. Possible ischemic CVA, also consider hypertensive encephalopathy with SBP 190's on arrival vs infectious etiology with possible UTI, see below. -neurochecks -NPO until bedside swallow / speech eval -daily ASA, check lipid status in am -MRI, echo -re: BP, I am less suspicious for acute CVA and more suspicious for other etiology of her brief aphasia episode, thus will continue her home BP meds, but will not aggressively lower her BP to allow some permissive hypertension given possibility of CVA, prn Labetalol for SBP >220, DBP >120 -neurology consult in am -monitor on tele Possible UTI - no fevers or leukocytosis, though pt does endorse dysuria. Note recent e coli bacteremia 2/2 UTI. 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 Suspect hypovolemic component as well. -gentle NS overnight -free water restrict -send urine Na, osm -resume home salt tabs Dementia - unclear baseline GRETCHEN - Cr 1.2, up from baseline of 0.8. Suspect pre-renal / volume depletion -gentle IVF's overnight, recheck in am DM type 2 - Last a1c was >11 in 05/2018 -recheck a1c -cont basal/bolus insulin with achs bgs Hypertension - poor control -as above, cont home losartan and metoprolol, may warrant up-titration of doses, but opting to not aggressively lower her BP tonight with poss CVA H/O duodenal ulcer - recent GIB noted, no e/o active bleeding -ppi, watch for signs of bleeding with addition of ASA Anemia - chronic, near baseline Dispo - inpt, suspect will need >48 hrs hospitalization for ongoing care of above issues. Note this is 3rd hospitalization since her hip fracture in June.
[2018-09-02] MEDS ORDERED: ONDANSETRON DISINTEGRATING 4 MG TAB PO PRN (17:18)
[2018-09-02] MEDS ORDERED: LABETALOL HCL 5 MG/ML 20 ML MDV IVP PRN (17:18)
[2018-09-02] MEDS ORDERED: ACETAMINOPHEN 325 MG TAB PO PRN (17:18)
[2018-09-02] MEDS ORDERED: D50W 25 GM/50 ML SYR IVP PRN (17:18)
[2018-09-02] MEDS ORDERED: ONDANSETRON 4 MG/2 ML VIAL IVP PRN (17:18)
[2018-09-02] MEDS ORDERED: NS 1,000 ML IV SCH (17:30)
[2018-09-02] MEDS ORDERED: POLYETHYLENE GLYCOL 3350 17 GM PKT PO PRN (17:31)
[2018-09-02] MEDS: INSULIN LISPRO 100 UNIT/ML SC SCH ×2 (19:36→20:11)
[2018-09-02] MEDS: LISINOPRIL 20 MG TAB PO SCH (20:07)
[2018-09-02] MEDS: SODIUM CHLORIDE 1,000 MG TAB PO SCH (20:12)
[2018-09-02] MEDS: METOPROLOL TARTRATE 50 MG TAB PO SCH (20:13)
[2018-09-02] MEDS: LATANOPROST 0.005% 2.5 ML OPHT DROPS EACHEYE SCH (20:16)
[2018-09-02] MEDS: BRIMONIDINE 0.2% 5 ML OPHT.BTL EACHEYE SCH (20:16)
[2018-09-02] MEDS: FLUOROMETHOLONE 5 ML OPHT.BTL RTEYE SCH (20:19)
[2018-09-02] MEDS: DORZOLAMIDE 2% OPTH DROPS RTEYE SCH (20:21)
--- NOTE | 2018-09-02 21:06 | CPEKG ---
Test Reason : OPEN Blood Pressure : / mmHG Vent. Rate : 068 BPM Atrial Rate : 068 BPM P-R Int : 143 ms QRS Dur : 092 ms QT Int : 434 ms P-R-T Axes : 019 037 057 degrees QTc Int : 462 ms Sinus rhythm Left ventricular hypertrophy Confirmed by Malcolm Wilkins [id number]) on 09/02/2018 9:05:28 PM Referred By: Confirmed By:Malcolm Wilkins
[2018-09-02] MEDS: INSULIN GLARGINE 100 UNITS/ML UNIT SC SCH (23:01)
[2018-09-02] MEDS: SODIUM CHLORIDE 5% 30 ML OPHT.BTL EACHEYE SCH (23:01)
[2018-09-02] MEDS: DICLOFENAC SODIUM 1% 100 GM GEL TP SCH (23:11)
[2018-09-02] MEDS: CARBOXYMETHYLCELLULOSE 0.5% 0.4 ML DROPERETTE EACHEYE SCH (23:11)
--- NOTE | 2018-09-03 09:20 | NEUROPROG ---
Assessment: [id number] - Neurology Consult: - CC: Aphasia - HPI: Pt with history of dementia, prior stroke, GI issues was in a SNF when she was sent to [facility] ER on 09/02/18 for confusion and speech difficulties. This improved. Brain MRI showed no acute stroke and CTA head/neck showed nothing significant. 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 I saw the patient on 09/03/18. Her neurologic exam showed no focal problems (pt did have left hip pain and was tired and did not know date). I felt she likely had an acute confusional state from underlying dementia, recent UTI, prior stroke, diabetes, and possibly low sodium. Treatment is supportive. Pt was on an aspirin 81 mg qd given her prior stroke. - PMHx: Asthma, DM2, HTN, dementia, watershed infarcts 04/2018, H/O GIB /2 duodenal ulcer, anemia, Ecoli baceremia / UTI 06/2018 - SHx: no tobacco FHx: cancer - ROS: Pt denied acute fever, total vision loss, active severe chest pain, respiratory failure, total body severe rash, total bowel/bladder incontinence, psychosis, active seizures, or active bleeding - O: VS reviewed General: drowsy Eyes: Fundoscopic exam not able to visualize optic disks CV: Heart RRR, no murmur, no carotid bruit Lungs: Clear to auscultation bilaterally, no rhonchi or rales Neuro: - Mental: . Oriented x person/place but note date . concentration appears normal . speech fluency/comprehension normal . memory appears normal . fund of knowledge appear intact - Cranial Nerves: . II: PERRL, VFFTC . III/IV/: EOMI, no nystagmus, normal smooth pursuits, no Ptosis . V: facial sensation intact to LT . VII: face symmetric to eye closure and smile . VIII: hearing intact to conversation . IX/X: uvula raises symmetrically . XI: SCM 5/5 B/L strength . XII: tongue protrudes midline w/nl strength - Motor: . Tone: normal tone in all 4 extremity . Strength: no pronator drift, strength 5/5 throughout but pt complained of left hip pain and did not give full effort in strength testing and left hip - Reflexes: B/L bic 2/4 - Sensory: all 4 extremity intact to light touch - Coord: [id number] wnl, BUNNY wnl - Gait: deferred - Labs: 09/02/18- CBC Hct 31L, Coags wnl, H1AC 7.6H, Chem Na 129L 09/03/18- LDL 43L - Rads: 09/02/18- Head/neck CTA: no flow-limiting carotid stenosis, mild atherosclerotic disease - 09/02/18- Brain MRI wo: Underlying atrophy and white matter disease with prior lacunar infarctions within the periventricular regions of both cerebral hemispheres. No evidence of acute cerebral infarction on the current examination.. (I personally visualized the images on 09/03/18) - Assessment: 1. Acute Confusional State: Pt with history of dementia, prior stroke, GI issues was in a SNF when she was sent to [facility] ER on 09/02/18 for confusion and speech difficulties. This improved. Brain MRI showed no acute stroke and CTA head/neck showed nothing significant. 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 I saw the patient on 09/03/18. Her neurologic exam showed no focal problems (pt did have left hip pain and was tired and did not know date). I felt she likely had an acute confusional state from underlying dementia, recent UTI, prior stroke, diabetes, and possibly low sodium. Treatment is supportive. Pt was on an aspirin 81 mg qd given her prior stroke. - Plan: - No further neurologic w/u needed, neurology will sign off - Continue aspirin 81 mg qd given prior stroke - Work closely with PCM to ensure blood pressure < 140/90, H1AC < 7.0, and LDL < 70 Objective: Vital Signs Temp Pulse Resp BP Pulse Ox 37.9 C 96 17 153/81 H 93 09/03/18 04:00 09/03/18 04:00 09/03/18 04:00 09/03/18 04:00 09/03/18 04:00 Laboratory Results 09/03/18 04:30 09/02/18 09/03/18 09/04/18 05:59 05:59 05:59 Intake Total 600 Output Total 1200 Balance -600 PT 12.8 SEC (12.0-15.0) 09/02/18 13:30 INR 0.94 (0.83-1.16) 09/02/18 13:30 Allergies/Adverse Reactions: metronidazole Allergy (Unknown, Verified 09/02/18 13:50) Rash amoxicillin trihydrate [From Augmentin] Allergy (Verified 09/02/18 13:50) brompheniramine maleate [From Rondec] Allergy (Verified 09/02/18 13:50) carbinoxamine maleate [From Rondec] Allergy (Verified 09/02/18 13:50) cefaclor Allergy (Verified 09/02/18 13:50) Rash cefuroxime axetil [From Ceftin] Allergy (Verified 09/02/18 13:50) chlorpheniramine maleate [From Ornade] Allergy (Verified 09/02/18 13:50) clindamycin Allergy (Verified 09/02/18 13:50) hydrocodone Allergy (Verified 09/02/18 13:50) latex [Latex] Allergy (Verified 09/02/18 13:50) Metronidazole HCl [From Flagyl] Allergy (Verified 09/02/18 13:50) Penicillins Allergy (Verified 09/02/18 13:50) phenylpropanolamine HCl [From Ornade] Allergy (Verified 09/02/18 13:50) potassium clavula *RETIRED-07/16/12 [From Augmentin] Allergy (Verified 09/02/18 13:50) pseudoephedrine HCl [From Rondec] Allergy (Verified 09/02/18 13:50) Sulfa (Sulfonamide Antibiotics) Allergy (Verified 09/02/18 13:50)
[2018-09-03] MEDS: INSULIN LISPRO 100 UNIT/ML SC SCH ×4 (09:41→20:59)
[2018-09-03] MEDS: METOPROLOL TARTRATE 50 MG TAB PO SCH ×2 (09:42→20:25)
[2018-09-03] MEDS: ENOXAPARIN 40 MG/0.4 ML SYR SC SCH (09:42)
[2018-09-03] MEDS: SODIUM CHLORIDE 1,000 MG TAB PO SCH ×2 (09:42→20:25)
[2018-09-03] MEDS: ASPIRIN 81 MG CHEWABLE TAB PO SCH (09:42)
[2018-09-03] MEDS: DOCUSATE SODIUM 100 MG CAP PO SCH (09:43)
[2018-09-03] MEDS: ISOSORBIDE MONONITRATE 30 MG TAB.SR PO SCH (09:43)
[2018-09-03] MEDS: CARBOXYMETHYLCELLULOSE 0.5% 0.4 ML DROPERETTE EACHEYE SCH ×3 (09:44→20:53)
[2018-09-03] MEDS: PANTOPRAZOLE SODIUM 40 MG TAB PO SCH (09:44)
[2018-09-03] MEDS: LIDOCAINE 4%/MENTHOL 1% PATCH TD SCH (09:44)
--- NOTE | 2018-09-03 09:57 | PDMN ---
Medical Necessity Medical necessity: [facility] [place] M197 HTN and M300 UTI: 83 yo w/ confusion and aphasia, hypertensive encephalopathy with SBP 190's on arrival vs infectious etiology with possible UTI. Pt w/ dysuria, recent e coli bacteremia 1/2 UTI, pt is also hyponatremic and w/ GRETCHEN, creat up from baseline. Pt NPO for now, IVF , IV antibx started, neuro consult, swallow/speech eval ordered, BC & UC pending, Hx DM, recent hip fx, dementia, SIADH, anemia, duodenal ulcer w/ recent GIB, poorly controlled HTN, asthma, watershed infarcts. Dispo - inpt, suspect will need >48 hrs hospitalization for ongoing care of above issues. Note this is 3rd hospitalization since her hip fracture in June
[2018-09-03] MEDS: FLUOROMETHOLONE 5 ML OPHT.BTL RTEYE SCH ×2 (10:08→20:35)
[2018-09-03] MEDS: DORZOLAMIDE 2% OPTH DROPS RTEYE SCH ×2 (10:14→20:34)
[2018-09-03] MEDS: BRIMONIDINE 0.2% 5 ML OPHT.BTL EACHEYE SCH ×2 (10:16→20:36)
[2018-09-03] MEDS: SODIUM CHLORIDE 5% 30 ML OPHT.BTL EACHEYE SCH ×3 (10:25→20:52)
--- NOTE | 2018-09-03 12:05 | HOSPPROG ---
Hospitalist Progress Note Assessment/Plan: #Aphasia: resolved. Neuro evaluate, no acute findings on imaging. Sxs may have been unmasked with UTI. No afib, echo stable #Acute on chronic encephalopathy: watershed infarcts 04/2018. UTI and hypoNa contributing. Better today. Plan geriatric psych eval at [facility] #SIADH: fluid restriction, salt tabs #UTI: Day 2/3 abx #h/o duodenal ulcer: s/op cautery. PPI #h/o CVA: Outlined risks of ASA with daughter and pt. On PPI #Anemia: H/H stable. Denies any bleeding #Severe protein caloric malnutrition: >10% wt loss in 3 weeks. Albumin pending #HTN: home meds #DM: glargine #Stage 3 sacral ulcer: present on admission. Wound care #Mild GRETCHEN: IVFs last night, repeat now #Diet: DM #disp: DC to [facility] if clinically improved tomorrow. Daughter bedside, questions answered Subjective: no acute events Objective: Vital Signs Temp Pulse Resp BP Pulse Ox 36.7 C 76 16 109/60 98 09/03/18 11:17 09/03/18 11:17 09/03/18 11:17 09/03/18 11:17 09/03/18 11:17 Laboratory Results 09/03/18 04:30 09/02/18 09/03/18 09/04/18 05:59 05:59 05:59 Intake Total 600 Output Total 1200 Balance -600 PT 12.8 SEC (12.0-15.0) 09/02/18 13:30 INR 0.94 (0.83-1.16) 09/02/18 13:30 - Time Spent With Patient Time Spent with Patient: greater than 35 minutes Time Spent with Patient: Greater than 35 minutes spent on this patients care, greater than 50% of time spent counseling, educating, and coordinating care regarding the above mentioned plan. - Physical Exam Constitutional: no apparent distress Eyes: PERRL Ears, Nose, Mouth, Throat: moist mucous membranes Respiratory: no respiratory distress Genitourinary: no bladder fullness Skin: warm Neurologic: CN II-XII Intact Psychiatric: depressed, flat affect, poor memory ICD10 Worksheet Patient Problems: Problems Problem Status Onset Aphasia Acute Bed sore on buttock Acute Cerebral infarction, watershed distribution, bilateral, acute Acute Chest pain Acute Chronic Disease Mgmt/Transitional care Acute Hip fracture Acute Hyperglycemia Acute Hypertension Acute Hyponatremia Acute Syncope Acute Urinary tract infection Acute
--- NOTE | 2018-09-03 12:09 | WOCRNPDOC ---
WOCRN Advanced Assessment Note - Skin Integrity Problem, Advanced Assess Sacrum Pressure Injury Dressing Type: Mepilex Border Dressing Description: Intact, Soiled Closure Description: Not Approximated Exudate Amount: Minimal Exudate Color: Reddish/Yellow Exudate Characteristic(s): Serosanguinous Integumentary Issue Intervention: Visualized Under Dressing Elaine Wound Tissue: Blanching, Erythema, Macerated, Swollen Elaine Wound Swelling: Mild Wound Bed Color: [place], Red Wound Bed Constitution: Granulation Tissue (30%), Red/[place] - Non Granular Tissue (70%) Wound Edges: Epithelizing Site Measurement - Head-to-Toe Length X Width X Depth (cm): 1x0.8x0.2 Pressure Injury Stage: Stage 3 Skin Integrity Problem Comment: Healing stage 3 present on admission pressure injury. Wound bed cleaned with normal saline and patted dry with gauze. Wound bed is pink/red, with no visible slough. Patient had been treated for this pressure injury on prior admission. Patient is incontinent of urine, and dressing was wet with urine. Education provided to patient re: frequency of turning and use of external catheter. Patient acknowledged need to promote healing by offloading and moisture management. Discussed patient plan of care with Tram CALZADA. Wound care will follow.
[2018-09-03] MEDS: DICLOFENAC SODIUM 1% 100 GM GEL TP SCH ×2 (12:45→18:13)
--- NOTE | 2018-09-03 14:49 | ECHO ---
[email or web address] [address] [address] Main: [phone] Fax: Transthoracic Echocardiogram Name: YAMINI CAMPBELL MR#: [id number] Study Date: 09/03/2018 Study Time: 09:09 AM Date of : 1935 Age: 83 year(s) Height: 165.1 cm (65 in.) Weight: 45.36 kg (100 lb.) BSA: 1.47 m2 Gender: Female Examination: Echo Indication: ischemic stroke without TPA Image Quality: Adequate Contrast: Requested by: Ericka Hylton BP: 153 mmHg/81 mmHg Heart Rate: Rhythm: Indication: ischemic stroke without TPA Procedure Staff Web Marketing Specialist: Rima Suárez ANGÉLICA Reading Physician: Qamar Romero MD Requesting Provider: Conclusions: Concentric LV hypertrophy. Normal global systolic LV function. EF is 68 %. Mild mitral valve regurgitation is present. Mild to moderate aortic valve regurgitation. Mild tricuspid regurgitation is present. Right ventricular systolic pressure measures 29mmHg. Small pericardial effusion. No echocardiographic evidence of hemodynamic compromise. Measurements: Chambers Valvular Assessment AV/MV Valvular Assessment TV/PV Normal Normal Normal Name Value Range Name Value Range Name Value Range Ao Leora (MM): 3.5 cm (2.2 cm-3.7 AV Vmax: 1.40 m/s (1 m/s-1.7 TR Vmax: 2.43 mm/s ( - ) cm) m/s) TR PGmax: 24 mmHg ( - ) IVSd (2D): 1.2 cm (0.6 cm-1.1 AV maxP mmHg ( - ) syst. PAP: 29 mmHg ( - ) cm) LVOT Vmax: 0.82 m/s (0.7 m/s-1.1 LVDd (2D): 3.6 cm (3.9 cm-5.3 m/s) cm) KEYUR (Vmax): 1.7 cm2 ( - ) LVDs (2D): 2.4 cm (2.1 cm-4 AR (PHT): 611 ms ( - ) cm) MV E Vmax: 0.59 m/s ( - ) LVPWd (2D): 1.1 cm ( - ) MV A Vmax: 1.06 m/s ( - ) LVOTd 1.9 cm 1.9 cm mm MV E/A: 0.56 ( - ) LVEF (BP): 68 % (>=55 %) RVDd(2D): 2.3 cm (1.9 cm-3.8 cmmm) Continued Measurements: Chambers Valvular Assessment AV/MV Valvular Assessment TV/PV Patient: YAMINI CAMPBELL Study Date: 09/03/2018 Page 1 of 2 09:09 AM Name Value Name Value Name Value LADs: 2.9 cm MV DecTime: 183 m/s CVP (est.): 5 mmHg LADs Lon.0 cm MV E' Septal: 0.04 m/s LA Area: 11.8 cm2 MV E/E' Septal: 16.70 LA Volume: 40 ml MV E/E' Lateral: 9.90 LA Volume Index: 27.2 ml/m2 AR Vmax: 3.55 cm/s TAPSE: 1.9 cm RA Area: 11.4 cm2 Findings: Left Ventricle: Normal size left ventricle. Concentric LV hypertrophy. Normal global systolic LV function. EF is 68 %. No regional wall motion abnormality. Right Ventricle: Normal size right ventricle. Normal RV function. Left Atrium: The left atrium is normal in size. Right Atrium: The right atrium is normal in size. Mitral Valve: There is mild thickening of the mitral valve leaflets. Mild mitral valve regurgitation is present. No mitral stenosis is present. Aortic Valve: The aortic valve is tri-leaflet. Focal calcific thickening on the right coronary cusp. Mild to moderate aortic valve regurgitation. No aortic valve stenosis is present. Tricuspid Valve: The tricuspid valve is normal in appearance and function. Mild tricuspid regurgitation is present. Right ventricular systolic pressure measures 29mmHg. The pulmonary artery pressure is normal. Pulmonic Valve: The pulmonic valve is normal in appearance and function. There is no pulmonic regurgitation seen. Aorta: Normal size aortic root measuring 3.5 cm. IVC: Normal size and course of the IVC. Pericardium: Small pericardial effusion. No echocardiographic evidence of hemodynamic compromise. (No Signature Object) Patient: YAMINI CAMPBELL Study Date: 09/03/2018 Page 2 of 2 09:09 AM [id number]
--- NOTE | 2018-09-03 16:39 | ASMTCMCOM ---
CM Note CM Note Notes: Spoke with Shruti from [facility] who requested I send a new referral. New referral was sent via [employer] Patient is a resident of [facility]. CM will follow. Date Signed: 09/03/2018 04:39 PM Electronically Signed By:Mesha Valverde LCSW
[2018-09-03] MEDS: LISINOPRIL 20 MG TAB PO SCH (20:25)
[2018-09-03] MEDS: LATANOPROST 0.005% 2.5 ML OPHT DROPS EACHEYE SCH (20:33)
[2018-09-03] MEDS: INSULIN GLARGINE 100 UNITS/ML UNIT SC SCH (20:58)
[2018-09-04] MEDS: DICLOFENAC SODIUM 1% 100 GM GEL TP SCH ×4 (00:22→20:43)
[2018-09-04] MEDS: BRIMONIDINE 0.2% 5 ML OPHT.BTL EACHEYE SCH ×2 (08:23→20:25)
[2018-09-04] MEDS: SODIUM CHLORIDE 5% 30 ML OPHT.BTL EACHEYE SCH ×3 (09:24→20:25)
[2018-09-04] MEDS: INSULIN LISPRO 100 UNIT/ML SC SCH ×4 (09:36→22:07)
[2018-09-04] MEDS: SODIUM CHLORIDE 1,000 MG TAB PO SCH ×2 (09:37→20:19)
[2018-09-04] MEDS: ASPIRIN 81 MG CHEWABLE TAB PO SCH (09:37)
[2018-09-04] MEDS: ENOXAPARIN 40 MG/0.4 ML SYR SC SCH (09:37)
[2018-09-04] MEDS: DOCUSATE SODIUM 100 MG CAP PO SCH (09:38)
[2018-09-04] MEDS: CARBOXYMETHYLCELLULOSE 0.5% 0.4 ML DROPERETTE EACHEYE SCH ×3 (09:38→20:25)
[2018-09-04] MEDS: ISOSORBIDE MONONITRATE 30 MG TAB.SR PO SCH (09:38)
[2018-09-04] MEDS: PANTOPRAZOLE SODIUM 40 MG TAB PO SCH (09:38)
[2018-09-04] MEDS: METOPROLOL TARTRATE 50 MG TAB PO SCH ×2 (09:39→20:20)
[2018-09-04] MEDS: DORZOLAMIDE 2% OPTH DROPS RTEYE SCH ×2 (09:40→20:24)
[2018-09-04] MEDS: LIDOCAINE 4%/MENTHOL 1% PATCH TD SCH (09:40)
[2018-09-04] MEDS: FLUOROMETHOLONE 5 ML OPHT.BTL RTEYE SCH ×2 (11:14→20:24)
[2018-09-04] MEDS ORDERED: LISINOPRIL 20 MG TAB PO SCH ×2 (11:42→14:33)
--- NOTE | 2018-09-04 14:37 | HOSPPROG ---
Hospitalist Progress Note Assessment/Plan: #Accelerated HTN: labile. Had low this morning, suspect Imdur (half-life 5hrs), bc now BP elevated. Stop this med, add Norvasc. #Aphasia: resolved. Neuro evaluate, no acute findings on imaging. Sxs may have been unmasked with UTI. No afib, echo stable #Acute on chronic encephalopathy: at baseline. 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 UTI and hypoNa contributing. Better today. Plan geriatric psych eval at ID #SIADH: fluid restriction, salt tabs #UTI: completed 3 days CTX #h/o duodenal ulcer: s/op cautery. PPI #h/o CVA: Outlined risks of ASA with daughter and pt. On PPI #Anemia: H/H stable. Denies any bleeding #Severe protein caloric malnutrition: >10% wt loss in 3 weeks. Sacral wound, decreased albumin. Dietary consult #DM: glargine #Stage 3 sacral ulcer: present on admission. Wound care #Mild GRETCHEN: IVFs last night, repeat now #Diet: DM #disp: DC to [facility] if clinically improved tomorrow if BP controlled Subjective: QUARLES this morning with BP >200 Objective: Vital Signs Temp Pulse Resp BP Pulse Ox 36.5 C 90 12 164/73 H 95 09/04/18 11:32 09/04/18 12:13 09/04/18 11:32 09/04/18 12:13 09/04/18 12:13 Microbiology 09/02/18 18:16 Urine Culture - Final Urine,Clean Catch Escherichia Coli Laboratory Results 09/04/18 04:53 09/03/18 09/04/18 09/05/18 05:59 05:59 05:59 Intake Total 600 810 Output Total 1200 500 250 Balance -600 310 -250 PT 12.8 SEC (12.0-15.0) 09/02/18 13:30 INR 0.94 (0.83-1.16) 09/02/18 13:30 - Time Spent With Patient Time Spent with Patient: greater than 35 minutes Time Spent with Patient: Greater than 35 minutes spent on this patients care, greater than 50% of time spent counseling, educating, and coordinating care regarding the above mentioned plan. - Physical Exam Constitutional: no apparent distress, other (pale) Eyes: PERRL Ears, Nose, Mouth, Throat: moist mucous membranes Cardiovascular: regular rate and rhythym Respiratory: no respiratory distress Gastrointestinal: normoactive bowel sounds Genitourinary: No bearden in urethra Skin: warm Musculoskeletal: full muscle strength Neurologic: AAOx3, CN II-XII Intact Psychiatric: poor insight, poor judgement ICD10 Worksheet Patient Problems: Problems Problem Status Onset Aphasia Acute Bed sore on buttock Acute Cerebral infarction, watershed distribution, bilateral, acute Acute Chest pain Acute Chronic Disease Mgmt/Transitional care Acute Hip fracture Acute Hyperglycemia Acute Hypertension Acute Hyponatremia Acute Syncope Acute Urinary tract infection Acute
[2018-09-04] MEDS ORDERED: hydrALAZINE 20 MG/ML VIAL IVP PRN (14:38)
--- NOTE | 2018-09-04 15:01 | GDS ---
DISCHARGE DIAGNOSES: 1. Aphasia. 2. History of duodenal ulcer. 3. Acute on chronic encephalopathy. 4. SIADH 5. Escherichia coli urinary tract infection. 6. History of CVA, watershed infarcts, April 2018. 7. Normocytic anemia 8. Severe protein caloric malnutrition. 9. Hypertension, labile 10. Diabetes. 11. Stage III sacral ulcer present on admission. 12. Mild acute kidney injury. CONSULTATIONS: Neurology. HISTORY OF PRESENT ILLNESS: An 83-year-old female with hypertension, prior CVA with watershed infarcts, dementia, who was admitted 06/25/2018 with a hip fracture and discharged to an SNF. Since then, she had 2 recurrent hospitalizations with a duodenal ulcer, an upper GI bleed, and then developed an E coli bacteremia secondary to UTI. She presented during this stay because her daughter found her having difficulty with word finding and grew frustrated. There was no noted facial droop or extremity weakness. She had been taking an antibiotic for a UTI and recently had a fever. The patient could not provide much history, but did endorse painful urination. She arrived to the ED as a stroke alert. CT head and CTA were negative and was evaluated by [facility], who did not recommend tPA. HOSPITAL COURSE BY PROBLEM: 1. Aphasia: evaluated by Neurology and no acute findings on CTA/brain MRI. Her symptoms from her prior stroke may have been unmasked by UTI. No evidence of atrial fibrillation. Echocardiogram was stable. She is now at her baseline. 2. Acute on chronic encephalopathy: history of watershed infarcts in April 2018 and cognitive issues since that event. Suspect UTI and hyponatremia are contributing. These symptoms have improved. Per daughter, there is plan for geriatric psychiatric eval at the senior living. 3. SIADH: She is on fluid restriction and salt tabs. 4. E coli UTI: Completed 3 days of antibiotics. 5. History of duodenal ulcer, status post cautery: Started PPI. 6. History of CVA: Again, evaluated by Neurology. Continue aspirin. I did outline the risks of bleeding with both the patient and daughter, and they agreed to continue. Started PPI. 7. Severe protein caloric malnutrition, greater than 10% weight loss in the last 3 weeks: Dietary was consulted. 8. Uncontrolled hypertension: labile here, mostly >160, but several lows. Imdur has short half-life and suspect contributing to low (SBP<90). Will change this too Norvas 2.5mg that will likely need uptitration. 10. Diabetes: controlled DISPOSITION: Stable for discharge to [facility]. MEDICATIONS: 1. New: Norvasc 2.5mg 2. Discontinue Imdur. FOLLOWUP: 1. Blood pressure: Up titrate medications as needed 2. Geriatric/psychiatric evaluation. PHYSICAL EXAM: VITAL SIGNS: Today, temperature is 36.5. Blood pressure is 164 /73, with a low 87/50. Heart rate is in the 90s, respirations 12, 95% on room air. GENERAL: She is pale, but in no acute distress. HEENT: PERRLA. Moist mucous membranes. CV: Regular rate and rhythm. LUNGS: Clear. ABDOMEN: Soft , nontender, nondistended. Positive bowel sounds. : No Pettit. MUSCULOSKELETAL: 5/5 upper and lower extremity strength. NEURO: 2 through 12 intact. No facial droop. PSYCH: She is alert, oriented, answering questions, but has poor insight and can be forgetful. Time spent on discharge: Greater than 30 minutes coordinating with case management and discussing followup. /[id number]/MODL MTDRylee
[2018-09-04] MEDS: LATANOPROST 0.005% 2.5 ML OPHT DROPS EACHEYE SCH (20:25)
[2018-09-04] MEDS ORDERED: NS 1,000 ML IV SCH (21:30)
[2018-09-04] MEDS: INSULIN GLARGINE 100 UNITS/ML UNIT SC SCH (22:06)
[2018-09-05] MEDS: LIDOCAINE 4%/MENTHOL 1% PATCH TD SCH (08:43)
[2018-09-05] MEDS: ASPIRIN 81 MG CHEWABLE TAB PO SCH (08:44)
[2018-09-05] MEDS: DOCUSATE SODIUM 100 MG CAP PO SCH (08:44)
[2018-09-05] MEDS: ENOXAPARIN 40 MG/0.4 ML SYR SC SCH (08:44)
[2018-09-05] MEDS: SODIUM CHLORIDE 1,000 MG TAB PO SCH (08:44)
[2018-09-05] MEDS: PANTOPRAZOLE SODIUM 40 MG TAB PO SCH (08:44)
[2018-09-05] MEDS: CARBOXYMETHYLCELLULOSE 0.5% 0.4 ML DROPERETTE EACHEYE SCH (08:45)
[2018-09-05] MEDS: INSULIN LISPRO 100 UNIT/ML SC SCH ×2 (08:47→13:36)
[2018-09-05] MEDS: DORZOLAMIDE 2% OPTH DROPS RTEYE SCH (08:50)
[2018-09-05] MEDS: SODIUM CHLORIDE 5% 30 ML OPHT.BTL EACHEYE SCH (08:50)
[2018-09-05] MEDS: BRIMONIDINE 0.2% 5 ML OPHT.BTL EACHEYE SCH (08:50)
[2018-09-05] MEDS: FLUOROMETHOLONE 5 ML OPHT.BTL RTEYE SCH (08:50)
[2018-09-05] MEDS: METOPROLOL TARTRATE 50 MG TAB PO SCH (08:59)
[2018-09-05] MEDS: DICLOFENAC SODIUM 1% 100 GM GEL TP SCH (09:01)
--- NOTE | 2018-09-05 09:44 | ASDISCHSUM ---
Discharge Information Plan Status:SNF Medically Cleared to Leave:09/05/2018 Discharge Date:09/05/2018 CM D/C Disposition:Correction Facility ADT D/C Disposition:Correction Facility Projected Discharge Date:09/06/2018 11:00 AM Transportation at D/C:Wheelchair Van Discharge Delay Reason: Follow-Up Date:09/06/2018 11:00 AM Discharge Slot: Final Diagnosis:UTI, GRETCHEN, SIADH Placement Information Referral Type:*Care Home/SNF Referral ID:[id number] Provider Name:[facility] Address 1:[address] Address 2: City:[place] Selection Factors: State:[place] Patient Contact Information Contact Name:SARABIA (POA) Relationship:Daughter Address:[address] [place] [address] Work Phone: [facility]:[place] Alternate Phone: State/Zip Code:[place] [address] Email: Financial Information Financial Class:Medicare Primary Plan Desc:MEDICARE INPATIENT Primary Plan Number:[id number] Secondary Plan Desc:MARCOS PPO Secondary Plan Number:[id number] Assessment Information LACE LACE Length of stay for Answers: 3 days current admission Acuity / Level of Answers: Yes Care: Did the patient have an inpatient admission? Comorbidities - select Answers: Cerebrovascular disease all that apply (CVA, TIA, aneurysms, vasc ular dementia) Diabetes (uncontrolled or controlled) Other Notes: Hip fractures, chronic UTI's, dementia, hypona romy aide, hyperkalemia, HTN, GE RD # of Emergency department Answers: 5-8 visits in the last 6 months Score: 13 Date Signed: 09/05/2018 09:43 AM Electronically Signed By:Patricia Gilbert [facility] CM Progress Note CM Note CM Note Notes: Pt presented to the Emergency Department via EMS with aphasia, slurred speech, confusion, r/o CVA. Pt was celebrating her birthday with family when she had a sudden onset of symptoms. History includes chronic UTI's, prior watershed CVA, hip fracture with repair, dementia, hyponatremia, hyperkalemia, DM, HTN, depression, GERD. Pt is a resident of [facility]. Pt is accompanied by Carlita, her daughter and SEAN, as well as her son-in-law, Kd. Pt to be admitted for further evaluation and treatment. Call placed to Andrews at [facility] with an update. Discharge needs remain unclear. Pt will likely transfer back to [facility] when medically stable. CM will continue to follow. Discharge Plan: To be determined, pt is a resident of [facility] Date Signed: 09/02/2018 03:40 PM Electronically Signed By:Grazyna Day RN [facility] CM Progress Note CM Note CM Note Notes: Spoke with Shruti from [facility] who requested I send a new referral. New referral was sent via [employer]. Patient is a resident of [facility]. CM will follow. Date Signed: 09/03/2018 04:39 PM Electronically Signed By:Mesha Valverde LCSW Case Management Discharge Plan Note Case Management Discharge Discharge Order Complete? Answers: Yes Patient to Obtain Answers: Other Notes: [facility] Medications Transportation Arranged Answers: Other Notes: Elen Zepeda Transport will Pick (Date 09/05/2018 12:00 AM & Time) Faxed Final Orders Answers: Yes Agency/Facility Transfer Answers: Yes Report Printed & Faxed to Receiving Agency Family Notified Answers: Yes Notes: left message for Carlita Goodrich Discharge Comments Notes: Pt lives at [facility] and will discharge back to [facility] via transport arranged by [facility]. No further CM needs noted at this time. Date Signed: 09/05/2018 09:42 AM Electronically Signed By:Patricia Gilbert Intervention Information
--- NOTE | 2018-09-05 10:10 | GDS ---
Please see discharge summary dated 09/04/2018, for full and hospital course. Patient stayed overnight due to labile blood pressures, which have improved. Discontinued Imdur and added low dose Norvasc. This is detailed in that discharge summary. DISPOSITION: Patient is stable for discharge to [facility]. PHYSICAL EXAM: VITAL SIGNS: Today, temperature afebrile. Blood pressure is 168/77. Heart rate is in the 60s, respirations 15, 100% on room air. GENERAL: Fatigued, but no acute distress. HEENT: PERRLA. Moist mucous membranes. CV : Regular rate and rhythm. LUNGS: Clear. ABDOMEN: Soft, nontender, nondistended. Positive bowel sounds. : No Pettit. MUSCULOSKELETAL: 5/5 upper and lower extremity strength. NEURO: 2 through 12 intact. PSYCH: Flat , oriented. Time spent on discharge: Greater than 30 minutes counseling patient on followup , depression, and further evaluation. /[id number]/MODL MTDD
[2018-09-05 11:01] VITALS: BP 123/46
--- NOTE | 2018-09-05 15:18 | PDIAF ---
- Diagnosis Diagnosis: Aphasia, UTI Code Status: Full Code - Medication Management Discharge Medications: Medications to Continue on Transfer Fluorometholone [Fml (*)] 1 drop RTEYE BID 05/10/18 [Last Taken 09/02/18 08:00] Metoprolol Tartrate [Lopressor 50 mg (*)] 50 mg PO BID 05/10/18 [Last Taken 08:00] Sodium Chloride 5% [Dannie-128 5%] 1 - 3 drop EACHEYE TID 05/10/18 [Last Taken 12:00] C/E/Zn/Cu/OM3/DHA/EPA/LUT/ZEAX [Preservision Areds 2 Softgel] 1 cap PO BID 06/05 [Last Taken 09/02/18 08:00] Acetaminophen [Tylenol ES 500 mg (*)] 1,000 mg PO TID tab 06/15/18 [Last Taken 09/02/18 12:00] Docusate Sodium [Colace 100 MG (*)] 100 mg PO DAILY 06/28/18 [Last Taken 08:00] Insulin Glargine,Hum.rec.anlog [Basaglar Kwikpen U-100] 12 unit SQ HS 06/28/18 [ Last Taken 09/01/18 21:00] Aspirin EC [Aspirin EC 81 mg (*)] 81 mg PO DAILY 08/10/18 [Last Taken 09/02/18 08:00] Diclofenac Sodium 1% [Voltaren Gel (*)] 4 gm TP TID 08/10/18 [Last Taken 12:00] Dorzolamide HCl/Pf [Dorzolamide 2% Eye Drop] 1 drop RTEYE BID 08/10/18 [Last Taken 09/02/18 08:00] Sodium Chloride [Salt Tablet] 500 mg PO BID 08/10/18 [Last Taken 09/02/18 08:00] Brimonidine 0.2% [Alphagan 0.2%] 1 drops EACHEYE BID 09/02/18 [Last Taken 08:00] Herbals/Supplements -Info Only 1 ea PO DAILY 09/02/18 [Last Taken Unknown] Insulin Lispro [Humalog] 0 unit SQ TIDMEAL 09/02/18 [Last Taken 09/02/18 12:00 3 UNITS] Insulin Lispro [Humalog] 9 unit SQ TIDMEAL 09/02/18 [Last Taken 09/02/18 12:00] Latanoprost 0.005% [Xalatan 0.005% (*)] 1 drops EACHEYE HS 09/02/18 [Last Taken 09/01/18 21:00] Lidocaine 4%/Menthol 1% [Icy Hot Lidocaine/Menthol 4%/1% Patch (*)] 1 patch TD DAILY 09/02/18 [Last Taken 09/02/18 08:00] Methylphenidate HCl [Ritalin 5mg (*)] 2.5 mg PO DAILY 09/02/18 [Last Taken 09/02 08:00] Multivitamins [Multivitamin (*)] 1 tab PO DAILY 09/02/18 [Last Taken 09/02/18 08 :00] Spring-3 Fatty Acids [Fish Oil 1000 mg (*)] 1,000 mg PO DAILY 09/02/18 [Last Taken 09/02/18 08:00] Polyethylene Glycol 3350 [Miralax 17 gm (*)] 17 gm PO DAILY PRN 09/02/18 [Last Taken Unknown] Propylene Glycol/Peg 400 [Systane Ultra 0.4-0.3% Eye Drp] 1 drop EACHEYE TID [Last Taken 09/02/18 08:00] Pantoprazole Sodium [Protonix 40mg (*)] 40 mg PO DAILY tab 09/04/18 [Last Taken Unknown] Lisinopril [Zestril 20 mg (*)] 20 mg PO HS tab 09/05/18 [Last Taken Unknown] amLODIPine BESYLATE [Norvasc 2.5 mg (*)] 2.5 mg PO DAILY tab 09/05/18 [Last Taken Unknown] Discharge Medications: Refer to the Discharge Home Medication list for PRN reason. - Orders Services needed: Registered Nurse, Physical Therapy, Occupational Therapy, Speech Language Pathologist Diet Recommendation: fluid restriction (use comment for amount) (1200ml daily) Diet Texture: Regular Texture Diet, Thin Liquids Additional Instructions: Please follow up within 3- 4 weeks of discharge with outpatient [facility] if you continue to have issues with your wounds: You may reach them at [phone] for an appointment and continued management of your wounds. Please call them emely to schedule your appointment as they fill up quickly. If before that time you have any issues, please follow up with your PCP. Wound care: Bedsore (Pressure injury) care: You have a stage 3 pressure injury (also known as a bedsore) on the very lowest part of your back (the sacrum.) To help heal this wound and avoid further injury please do the followin. Reposition yourself frequently, at least every 15 minutes when sitting. Try to stand for at least 3 min every hour so that the tissues fully reperfuse with blood. We recommend sitting on an air cushion. Please never use a doughnut. 2. When youre in bed, try to rest on your side as much as possible, and change position every two hours (for example, turn or tilt from your right side toward your left).~ If you sleep on a sleep number or medical bed, keep the head of the bed below 30 degrees and keep all pressure off your low back for at least 5 minutes at least every two hours.~ 3. As needed, you may use Calazime, dimethicone moisture barrier cream, or any [id number] diaper rash cream to help prevent or treat a moisture-related rash to your bottom area and buttocks. 4. Please contact [facility] outpatient [facility] for an appointment, at , If your wounds re/open or dont improve, or if you have any further questions or concerns. Phyllis Sanchez RN Wound Care Team BLOOD PRESSURE: Have been labile in hospital. Stopped Imdur and added Norvasc. Will likely need uptitration Needs geriatric psychiatric evaluation for depression - Labs/Radiology BMP Date: 09/07/18 - Follow Up Care Current Providers and Referrals: Patient,NotPresent [Unknown] - As per Instructions
--- NOTE | 2018-09-05 18:23 | CPEEG ---
This note was entered in error. No EEG was performed on this patient. MTDD
== END 2018-09-05 14:08 | DRG 70 ==
LOC: EDUNIT# → F3N 17:43
PROVIDERS: ADMIT Hospitalist; ATTEND Hospitalist
DX: G93.40 Encephalopathy, unspecified (principal); N39.0 Urinary tract infection, site not specified; E22.2 Syndrome of inappropriate secretion of antidiuretic hormone; E43 Unspecified severe protein-calorie malnutrition; L89.153 Pressure ulcer of sacral region, stage 3; F05 Delirium due to known physiological condition; N17.9 Acute kidney failure, unspecified; I69.318 Other symptoms and signs involving cognitive functions following cerebral infarction; I69.320 Aphasia following cerebral infarction; E11.9 Type 2 diabetes mellitus without complications; I10 Essential (primary) hypertension; D64.9 Anemia, unspecified; J45.909 Unspecified asthma, uncomplicated; E86.9 Volume depletion, unspecified; Z79.82 Long term (current) use of aspirin
CPT/HCPCS: 82435-PO; 82565-PO; 82947-PO; 84132-PO; 84295-PO; 84484-PO; 84520-PO; 85014-PO; 92610-GN; 97110-GP; 97116-GP; 97161-GP; 97166-GO; 97530-GP; 97535-GO; G0515-GO; G8978-GP-CJ; G8979-GP-CI; G8987-GO-CJ; G8988-GO-CI; G8996-GN-CI; G8997-GN-CI; J0696; J1650; J1815; Q9967

== ENCOUNTER 2018-09-16 08:25 | Observation (INO) | payer OTHER ==
--- NOTE | 2018-09-16 08:26 | EDPHY ---
H & P Time Seen by Provider: 09/16/18 08:25 Constitutional: Initial Vital Signs Heart Rate 76 09/16/18 08:35 Respiratory Rate 18 09/16/18 08:35 Blood Pressure 240/107 H 09/16/18 08:35 O2 Sat (%) 98 09/16/18 08:35 O2 Delivery Mode Room Air Allergies/Adverse Reactions: metronidazole Allergy (Unknown, Verified 09/02/18 13:50) Rash amoxicillin trihydrate [From Augmentin] Allergy (Verified 09/02/18 13:50) brompheniramine maleate [From Rondec] Allergy (Verified 09/02/18 13:50) carbinoxamine maleate [From Rondec] Allergy (Verified 09/02/18 13:50) cefaclor Allergy (Verified 09/02/18 13:50) Rash cefuroxime axetil [From Ceftin] Allergy (Verified 09/02/18 13:50) chlorpheniramine maleate [From Ornade] Allergy (Verified 09/02/18 13:50) clindamycin Allergy (Verified 09/02/18 13:50) hydrocodone Allergy (Verified 09/02/18 13:50) latex [Latex] Allergy (Verified 09/02/18 13:50) Metronidazole HCl [From Flagyl] Allergy (Verified 09/02/18 13:50) Penicillins Allergy (Verified 09/02/18 13:50) phenylpropanolamine HCl [From Ornade] Allergy (Verified 09/02/18 13:50) potassium clavula *RETIRED-07/16/12 [From Augmentin] Allergy (Verified 09/02/18 13:50) pseudoephedrine HCl [From Rondec] Allergy (Verified 09/02/18 13:50) Sulfa (Sulfonamide Antibiotics) Allergy (Verified 09/02/18 13:50) Home Medications: Medication Instructions Recorded Fluorometholone [Fml (*)] 1 drop RTEYE BID 05/10/18 Metoprolol Tartrate [Lopressor 50 50 mg PO BID 05/10/18 mg (*)] Sodium Chloride 5% [Dannie-128 5%] 1 - 3 drop EACHEYE TID 05/10/18 C/E/Zn/Cu/OM3/DHA/EPA/LUT/ZEAX 1 cap PO BID 06/05/18 [Preservision Areds 2 Softgel] Acetaminophen [Tylenol ES 500 mg 1,000 mg PO TID tab 06/15/18 (*)] Docusate Sodium [Colace 100 MG (*)] 100 mg PO DAILY 06/28/18 Insulin Glargine,Hum.rec.anlog 12 unit SQ HS 06/28/18 [Basaglar Kwikpen U-100] Aspirin EC [Aspirin EC 81 mg (*)] 81 mg PO DAILY 08/10/18 Diclofenac Sodium 1% [Voltaren Gel 4 gm TP TID 08/10/18 (*)] Dorzolamide HCl/Pf [Dorzolamide 2% 1 drop RTEYE BID 08/10/18 Eye Drop] Sodium Chloride [Salt Tablet] 500 mg PO BID 08/10/18 Brimonidine 0.2% [Alphagan 0.2%] 1 drops EACHEYE BID 09/02/18 Herbals/Supplements -Info Only 1 ea PO DAILY 09/02/18 Insulin Lispro [Humalog] 9 unit SQ TIDMEAL 09/02/18 Latanoprost 0.005% [Xalatan 0.005% 1 drops EACHEYE HS 09/02/18 (*)] Lidocaine 4%/Menthol 1% [Icy Hot 1 patch TD DAILY 09/02/18 Lidocaine/Menthol 4%/1% Patch (*)] Methylphenidate HCl [Ritalin 5mg 2.5 mg PO DAILY 09/02/18 (*)] Hancock-3 Fatty Acids [Fish Oil 1000 1,000 mg PO DAILY 09/02/18 mg (*)] Polyethylene Glycol 3350 [Miralax 17 gm PO DAILY PRN 09/02/18 17 gm (*)] Propylene Glycol/Peg 400 [Systane 1 drop EACHEYE TID 09/02/18 Ultra 0.4-0.3% Eye Drp] Doxycycline Hyclate [Vibramycin 100 mg PO BID 09/16/18 100 MG (*)] Lisinopril [Zestril 20 mg (*)] 20 mg PO HS 09/16/18 Multivitamins W-Minerals [Thera M 1 each PO DAILY 09/16/18 Plus Tablet (*)] Pantoprazole Sodium [Protonix 40mg 40 mg PO DAILY 09/16/18 (*)] amLODIPine BESYLATE [Norvasc 2.5 2.5 mg PO DAILY 09/16/18 mg (*)] Medical Decision Making - Diagnostics Imaging Results: Imaging Impressions Head CT 09/16/18 08:30 Impression: 1. Negative for intracranial posttraumatic sequela. 2. Atrophy and presumed small vessel disease. 3. See above report for additional findings. Results called and discussed with Juan Diego Radford MD on 09/16/2018 at 9:34. 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 She denies anticoagulant use. Per EMS, the patient had an unwitnessed fall with positive loss of consciousness. It is unknown what caused her to fall. However, the patient states "I think I remember falling". Prior to falling, she felt lightheaded and dizzy. When EMS arrived on scene the patient was lethargic. She is now complaining of a headache and nausea. She denies taking insulin or eating this morning. She has been seen in this emergency department several times this year for a fractured left hip, TIA, and hyponatremia. No chest pain, shortness of breath, abdominal pain, bowel complaints, numbness, fevers. REVIEW OF SYSTEMS: A comprehensive 10 system review of systems is otherwise negative aside from the elements mentioned in the history of present illness and medical decision making. PHYSICAL EXAM: HR, BP, O2 Sat, RR. Temp noted General Appearance: Alert, well hydrated, appropriate, and non-toxic appearing. Head: Mild hematoma to her left temporal/frontal Eyes: Pupils equal, round, reactive to light and accommodation, EOMI, no trauma , no injection. Ears: Clear bilaterally, no perforation, normal landmarks Nose: Atraumatic, no rhinorrhea, clear. Throat: There is no erythema or exudates, no lesions, normal tonsils, mucus membranes moist. Neck: Supple, 2+ carotid upstroke, nontender, no lymphadenopathy. Respiratory: No retractions, no distress, no wheezes, and no accessory muscle use. Lungs are clear to auscultation bilaterally. Cardiovascular: Regular rate and rhythm, no murmurs, rubs, or gallops. Bilateral carotid, radial, dorsalis pedis, and posterior tibial pulses intact. Good capillary refill all extremities. Gastrointestinal: Abdomen is soft, nontender, non-distended, no masses, no rebound, no guarding, no peritoneal signs. Musculoskeletal: Left leg shortened compared to right. Normal active ROM of all extremities, atraumatic. Neurological: Alert, appropriate, and interactive. The patient has normal DTRs and non-focal cranial nerves, motor, sensory, and cerebellar exam. Skin: No rashes, good turgor, no nodules on palpation. 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 See hard copy and/or "tracemaster" electronic copy for interpretation. DIFFERENTIAL DIAGNOSIS: The differential diagnosis for the patient's head injury included but was not limited to concussion, skull fracture, intra-parenchymal contusion, subarachnoid , subdural and epidural hematoma. The differential diagnosis for the patient's syncope included but was not limited to vasovagal syncope, arrhythmia, dehydration, cardiogenic causes, neurogenic causes, and blood loss. 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 She is not anticoagulated. Upon exam she has a mild hematoma to her left temporal/frontal. Head CT, EKG, and labs ordered. She will also need to be admitted for further observation and work up of her syncope that was due to an unknown cause. 0826: I met EMS upon arrival 0838: I interpreted patient's EKG as sinus rhythm with a rate of 75 and left ventricular hypertrophy. 0855: I consulted with the hospitalist service, Dr. Rios accepts admission of this patient to the PCU. 0936: I spoke with Dr. Baugh, radiologist, who reports that there are no acute findings on the patient's head CT. 0946: Patient did not take her morning medications; we will administer these prior to moving her to the floor. - Data Points Laboratory Results: Laboratory Results 09/16/18 08:30 09/16/18 08:30 09/16/18 09/16/18 09/16/18 08:36 08:30 08:30 WBC RBC Hgb Hct MCV MCH MCHC RDW Plt Count MPV Neut % (Auto) Lymph % (Auto) Greene % (Auto) Eos % (Auto) Baso % (Auto) Nucleat RBC Rel Count Absolute Neuts (auto) Absolute Lymphs (auto) Absolute Monos (auto) Absolute Eos (auto) Absolute Basos (auto) Absolute Nucleated RBC Immature Gran % Immature Gran # PT Pending INR Pending APTT Pending Sodium 134 mEq/L L mEq/L (135-145) Potassium 4.5 mEq/L mEq/L (3.3-5.0) Chloride 96 mEq/L L mEq/L (97-110) Carbon Dioxide 30 mEq/l mEq/l (22-31) Anion Gap 8 mEq/L mEq/L (6-14) BUN 30 mg/dL H mg/dL (7-23) Creatinine 1.0 mg/dL mg/dL (0.6-1.0) Estimated GFR 53 Glucose 185 mg/dL H mg/dL (70-100) Calcium 9.9 mg/dL mg/dL (8.5-10.4) Magnesium 2.0 mg/dL mg/dL (1.6-2.3) POC Troponin I 0.00 ng/mL ng/mL (0.00-0.08) NT-Pro-B Natriuret Pep 1330 pg/mL H pg/mL (0-450) 09/16/18 08:30 WBC 7.95 10^3/uL 10^3/uL (3.80-9.50) RBC 4.03 10^6/uL L 10^6/uL (4.18-5.33) Hgb 11.7 g/dL L g/dL (12.6-16.3) Hct 35.0 % L % (38.0-47.0) MCV 86.8 fL fL (81.5-99.8) MCH 29.0 pg pg (27.9-34.1) MCHC 33.4 g/dL g/dL (32.4-36.7) RDW 15.0 % % (11.5-15.2) Plt Count 300 10^3/uL 10^3/uL (150-400) MPV 9.0 fL fL (8.7-11.7) Neut % (Auto) 76.3 % H % (39.3-74.2) Lymph % (Auto) 13.8 % L % (15.0-45.0) Greene % (Auto) 6.5 % % (4.5-13.0) Eos % (Auto) 2.1 % % (0.6-7.6) Baso % (Auto) 0.8 % % (0.3-1.7) Nucleat RBC Rel Count 0.0 % % (0.0-0.2) Absolute Neuts (auto) 6.06 10^3/uL 10^3/uL (1.70-6.50) Absolute Lymphs (auto) 1.10 10^3/uL 10^3/uL (1.00-3.00) Absolute Monos (auto) 0.52 10^3/uL 10^3/uL (0.30-0.80) Absolute Eos (auto) 0.17 10^3/uL 10^3/uL (0.03-0.40) Absolute Basos (auto) 0.06 10^3/uL 10^3/uL (0.02-0.10) Absolute Nucleated RBC 0.00 10^3/uL 10^3/uL (0-0.01) Immature Gran % 0.5 % % (0.0-1.1) Immature Gran # 0.04 10^3/uL 10^3/uL (0.00-0.10) PT INR APTT Sodium Potassium Chloride Carbon Dioxide Anion Gap BUN Creatinine Estimated GFR Glucose Calcium Magnesium POC Troponin I NT-Pro-B Natriuret Pep Point of Care Test Results: Chemistry 09/16/18 08:36 POC Troponin I 0.00 ng/mL ng/mL (0.00-0.08) Departure - Departure Disposition: [facility] Inpatient Acute Clinical Impression: Syncope Qualifiers: Syncope type: unspecified Qualified Code(s): R55 - Syncope and collapse Head injury Qualifiers: Encounter type: initial encounter Qualified Code(s): S09.90XA - Unspecified injury of head, initial encounter Condition: Fair Referrals: Donaldo Mancilla MD [Primary Care Provider] - As per Instructions Report Scribed for: Juan Diego Radford Report Scribed by: Emmy Brady Date of Report: 09/16/18 Time of Report: 09:47
[2018-09-16 08:43] LABS: PLATELET COUNT 300 10^3/uL (150-400)
[2018-09-16] MEDS ORDERED: ONDANSETRON DISINTEGRATING 4 MG TAB PO PRN (09:01)
[2018-09-16] MEDS ORDERED: ONDANSETRON 4 MG/2 ML VIAL IVP PRN (09:01)
[2018-09-16] MEDS ORDERED: METOPROLOL TARTRATE 50 MG TAB PO ONE (09:47)
[2018-09-16 09:50] LABS: INR 0.91 (0.83-1.16); PROTIME(PATIENT) 12.5 SEC (12.0-15.0)
[2018-09-16] MEDS ORDERED: amLODIPine BESYLATE 5 MG TAB ONE (09:56)
[2018-09-16] MEDS ORDERED: METOPROLOL TARTRATE 50 MG TAB ONE (09:56)
[2018-09-16] MEDS: ACETAMINOPHEN 325 MG TAB PO PRN ×2 (12:15→16:57)
[2018-09-16] MEDS ORDERED: POLYETHYLENE GLYCOL 3350 17 GM PKT PO PRN ×2 (12:23→15:51)
--- NOTE | 2018-09-16 12:36 | CPEKG ---
Test Reason : OPEN Blood Pressure : / mmHG Vent. Rate : 075 BPM Atrial Rate : 074 BPM P-R Int : 166 ms QRS Dur : 098 ms QT Int : 406 ms P-R-T Axes : 068 051 058 degrees QTc Int : 454 ms Sinus rhythm Left ventricular hypertrophy Confirmed by Juan Diego Radford ([id number]) on 09/16/2018 12:35:42 PM Referred By: Confirmed By:Juan Diego Radford
[2018-09-16] MEDS: INSULIN LISPRO 100 UNIT/ML SC SCH ×2 (13:08→18:04)
[2018-09-16] MEDS: LIDOCAINE 4%/MENTHOL 1% PATCH TD SCH (13:11)
--- NOTE | 2018-09-16 13:56 | ECHO ---
[email or web address] [address] [address] Main: [phone] Fax: Transthoracic Echocardiogram Name: YAMINI CAMPBELL MR#: [id number] Study Date: 09/16/2018 Study Time: 01:32 PM Date of : 1935 Age: 83 year(s) Height: 165.1 cm (65 in.) Weight: 54.89 kg (121 lb.) BSA: 1.6 m2 Gender: Female Examination: Limited Echo Indication: Chest pressure/recent fall/syncope/r/o worsening effusion Image Quality: Contrast: Requested by: Natalie Segura BP: 170 mmHg/97 mmHg Heart Rate: Rhythm: Indication: Chest pressure/recent fall/syncope/r/o worsening effusion Procedure Staff Cyanide Pot Hardener: Eva Garrison RDCS Reading Physician: Indio Wang MD Requesting Provider: Conclusions: This is a limited echocardiogram to evaluate for possible worsening of a pericardial effusion following a fall. The patient had a previous study on 09/03/2018. At that time, there is a trivial pericardial effusion. The current study demonstrates normal left ventricular size and function. Again noted is a trivial pericardial effusion. Essentially, there has been no change since the prior study. Measurements: Chambers Valvular Assessment AV/MV Valvular Assessment TV/PV Normal Normal Normal Name Value Range Name Value Range Name Value Range Continued Measurements: Findings: Pericardium: Trace anterior pericardial effusion with echogenicity within.. (No Signature Object) Patient: YAMINI CAMPBELL Study Date: 09/16/2018 Page 1 of 1 01:32 PM [id number]
--- NOTE | 2018-09-16 14:57 | GHP ---
DATE OF ADMISSION: 09/16/2018 CHIEF COMPLAINT: Possible syncope. HISTORY OF PRESENT ILLNESS: The patient is an 83-year-old female who has had multiple recent admissi ons who is now admitted for syncope. She was admitted last on 09/02/2018 for an episode of confusion and word-finding difficulty thought to be possibly a TIA. She was evaluated by Neurology and found to have no acute findings on CTA or brain MRI. She was mainly continued on her aspirin therapy. Add itionally she had an admission in June for a hip fracture and was discharged to [facility]. Since she had another hospitalization for a GI bleed and then an E coli bacteremia. Earlier in August she was admitted for hyponatremia thought secondary to SIADH. She is brought over here from [facility] for a fall. She has baseline dementia, but reports she is un sure whether she had loss of consciousness before or after the fall. She may have noted some lighthe adedness and dizziness. She is currently noting some chest pressure which she attributes to her fall . She did have injury with resultant hematoma and swelling to her left temporal region. She has bee n at [facility] since her last discharge 09/05/2018. PAST MEDICAL HISTORY: Includes asthma, type 2 diabetes mellitus, labile hypertension, SIADH, history of dementia, history of watershed infarcts in 04/2018, stage III pressure ulcer on her sacrum, prote in calorie malnutrition. SURGICAL HISTORY: Includes appendectomy, hysterectomy, tonsillectomy, and breast biopsy. FAMILY HISTORY: Positive for cancers. SOCIAL HISTORY: Patient is a never smoker. She reports rare alcohol intake. She is currently at [facility]. 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 She has 2 daughters, both who live in [place]. REVIEW OF SYSTEMS: As per HPI. A complete 10-point review of systems was obtained and is negative e xcept for what is dictated. HOME MEDICATIONS: Please see med reconciliation for complete details. ALLERGIES: These are listed as allergies to metronidazole, amoxicillin, brompheniramine, carbinoxami ne, cefaclor, cefuroxime, chlorpheniramine, clindamycin, hydrocodone, latex, metronidazole, penicilli ns, phenylpropanolamine, potassium, pseudoephedrine, and sulfonamides. PHYSICAL EXAMINATION: VITAL SIGNS: BP of 170/97, heart rate of 70, respirations 17, O2 saturation 9 8% on room air, temp of 98.5 degrees Fahrenheit. GENERAL: She is a pleasant female in no apparent d istress. HEENT: Head is normocephalic, atraumatic. She has a left temporal region swelling and ecc hymosis. NECK: Supple with no JVD. HEART: Regular rate and rhythm. LUNGS: Clear to auscultation bilaterally. ABDOMEN: Soft with normoactive bowel sounds. : No Pettit present. SKIN: Warm and dry. PSYCH: Patient has normal mood and affect for given situation. NEURO: No focal deficits det ected. LABORATORY DATA: CBC with WBC 7.95, hemoglobin 11.7, hematocrit 35, platelet count 300. BMP with so dium 134, potassium 4.5, chloride 96, CO2 30, BUN 30, creatinine 1, glucose of 185. NT proBNP of 133 0. Echocardiogram from today demonstrates a limited echo with a trivial pericardial effusion. EKG perso srinivasan interpreted demonstrates sinus rhythm with LVH by voltage. Head CT shows no acute findings, bu t she does have atrophy and small-vessel disease. Database from previous EKG from 09/02/2018 shows E F of 68%. Mild MR, mild TR, and a small pericardial effusion. Telemetry thus far shows sinus rhythm . IMPRESSION AND PLAN: The patient is admitted with a fall with resultant injury to her head. 1. Fall with injury to her head. On CT there is no evidence of intracranial hemorrhage. She will b e admitted to observation for pain control and further workup of this condition. 2. Chest pressure. This is likely related to her fall and musculoskeletal in nature. We will obtai n serial enzymes and a Lexiscan has been ordered for the morning. 3. Syncope. This is questionable as patient is a somewhat poor historian. We will obtain orthostat ic vitals. We will recheck urinalysis to rule out a lingering infection. Additionally if a bradyarr hythmia is suspected we could consider getting a confirmed implanted LINQ monitor. 4. Urinary tract infection. She is currently on doxycycline due to her multiple allergies to antibi otics. Repeat urinalysis will be obtained. 5. Gait instability. This likely is part of the reason she fell. PT and OT consult have been order ed. 6. Hypertension. Her blood pressures are fairly elevated. Her home medications will be continued a nd likely she will need further titration of doses. 7. Hyponatremia. This is likely secondary to SIADH. Her home sodium tablets will be held as this m ay be contributing to her poorly controlled hypertension. A fluid restriction has been put in place. 8. Anemia. She appears to be at her baseline. 9. History of duodenal ulcer. Her PPI has been continued. 10. Diabetes mellitus. Her last A1c was 7.6% on 09/02/2018, however, she has demonstrated poor cont rol in the past which is likely I would assume related to med noncompliance. Her home insulin regime n will be continued at this time. 11. Admit to OBS status. 12. Diet. An ADA diet will be ordered for her. 13. DVT prophylaxis. She will be started on Lovenox. /[id number]/MODL
[2018-09-16] MEDS ORDERED: BISACODYL 10 MG SUPP PR PRN (15:51)
[2018-09-16] MEDS ORDERED: LACTULOSE 20 GM/30 ML UDCUP PO PRN (15:51)
[2018-09-16] MEDS ORDERED: MAGNESIUM HYDROXIDE 30 ML UDCUP PO PRN (15:51)
[2018-09-16] MEDS: TEARS/DEXTRAN 70/HYPROMELLOSE 15 ML OPHT.BTL EACHEYE SCH ×2 (16:17→20:48)
[2018-09-16] MEDS: SODIUM CHLORIDE 5% 30 ML OPHT.BTL EACHEYE SCH ×2 (16:17→20:52)
--- NOTE | 2018-09-16 16:29 | ASMTCMCOM ---
CM Note CM Note Notes: Patient is 83 y/o female admitted via [facility] ED after a fall and head injury. Patient undergoing cardiac work up, head CT performed to address fall. Patient was seen at [facility] and d/c on 09/05 for Accelerated HTN and discharged back to [facility]. Patient has history of DM, Hip fractures, Chronic UTI's, dementia, hyponatremia, HTN, & GERD. Lexiscan scheduled for tomorrow AM. CM to follow. Current D/C Plan: TBD. Date Signed: 09/16/2018 04:28 PM Electronically Signed By:Karla Frank
[2018-09-16] MEDS: DICLOFENAC SODIUM 1% 100 GM GEL TP SCH ×2 (16:39→21:16)
[2018-09-16] MEDS: DOXYCYCLINE HYCLATE 100 MG CAP/TAB PO SCH (20:44)
[2018-09-16] MEDS: SENNOSIDES/DOCUSATE SODIUM TAB PO SCH (20:44)
[2018-09-16] MEDS: METOPROLOL TARTRATE 50 MG TAB PO SCH (20:45)
[2018-09-16] MEDS: BRIMONIDINE 0.2% 5 ML OPHT.BTL EACHEYE SCH (20:48)
[2018-09-16] MEDS: DORZOLAMIDE 2% OPTH DROPS RTEYE SCH (20:56)
[2018-09-16] MEDS: FLUOROMETHOLONE 5 ML OPHT.BTL RTEYE SCH (20:57)
[2018-09-16] MEDS ORDERED: LISINOPRIL 20 MG TAB PO SCH (21:00)
[2018-09-16] MEDS ORDERED: LATANOPROST 0.005% 2.5 ML OPHT DROPS EACHEYE SCH (21:00)
[2018-09-16] MEDS ORDERED: INSULIN GLARGINE 100 UNITS/ML UNIT SC SCH (21:00)
[2018-09-16] MEDS: PRESERVISION AREDS2 FORMULA EYE VIT 1 EACH PO SCH (21:05)
[2018-09-17] MEDS: ACETAMINOPHEN 325 MG TAB PO PRN ×3 (03:00→14:29)
[2018-09-17] MEDS: LIDOCAINE 4%/MENTHOL 1% PATCH TD SCH (08:29)
[2018-09-17] MEDS: FLUOROMETHOLONE 5 ML OPHT.BTL RTEYE SCH (08:30)
[2018-09-17] MEDS: DORZOLAMIDE 2% OPTH DROPS RTEYE SCH (08:30)
[2018-09-17] MEDS: BRIMONIDINE 0.2% 5 ML OPHT.BTL EACHEYE SCH (08:31)
[2018-09-17] MEDS: PRESERVISION AREDS2 FORMULA EYE VIT 1 EACH PO SCH (08:32)
[2018-09-17] MEDS: METOPROLOL TARTRATE 50 MG TAB PO SCH (08:32)
[2018-09-17] MEDS: DOXYCYCLINE HYCLATE 100 MG CAP/TAB PO SCH (08:32)
[2018-09-17] MEDS: SENNOSIDES/DOCUSATE SODIUM TAB PO SCH (08:34)
[2018-09-17] MEDS: SODIUM CHLORIDE 5% 30 ML OPHT.BTL EACHEYE SCH ×2 (08:35→16:46)
[2018-09-17] MEDS: TEARS/DEXTRAN 70/HYPROMELLOSE 15 ML OPHT.BTL EACHEYE SCH ×2 (08:35→16:46)
[2018-09-17] MEDS ORDERED: ASPIRIN EC 81 MG TAB PO SCH (09:00)
[2018-09-17] MEDS ORDERED: MULTIVITAMINS W-MINERALS 1 EACH TAB PO SCH (09:00)
[2018-09-17] MEDS ORDERED: ENOXAPARIN 40 MG/0.4 ML SYR SC SCH (09:00)
[2018-09-17] MEDS ORDERED: DOCUSATE SODIUM 100 MG CAP PO SCH (09:00)
[2018-09-17] MEDS ORDERED: PANTOPRAZOLE SODIUM 40 MG TAB PO SCH (09:00)
[2018-09-17] MEDS: DICLOFENAC SODIUM 1% 100 GM GEL TP SCH ×2 (09:13→16:46)
[2018-09-17] MEDS ORDERED: REGADENOSON 0.4 MG/5 ML SYR IVP ONE (09:58)
[2018-09-17] MEDS: INSULIN LISPRO 100 UNIT/ML SC SCH ×2 (11:20→14:29)
--- NOTE | 2018-09-17 11:28 | CPR ---
DATE OF PROCEDURE: 09/17/2018 PROCEDURE: Lexiscan nuclear stress test. INDICATION: The patient is an 83-year-old female who presents to the hospital with recurrent syncope . Her risk factors for coronary artery disease, include diabetes and hypertension. PROCEDURE IN DETAIL: Consent was obtained. The patient was placed on continuous telemetry. Her res ting EKG reveals normal sinus rhythm with a heart rate of 64 and 1 PAC. She does have high voltage c onsistent with LVH. The patient was infused with Lexiscan and complained of shortness of breath and feeling her body stressed. She remained in normal sinus rhythm with rare PACs. There were no signif icant ST, T wave changes during infusion. Her blood pressure at rest was 148/60 and dropped with the infusion to 130/58. Her oxygen saturation and heart rate remained stable throughout the procedure. She was given caffeine in the recovery phase with an improvement in her symptoms. PLAN: Await nuclear images. /[id number]/MODL
--- NOTE | 2018-09-17 12:48 | WOCRNPDOC ---
WOCRN Advanced Assessment Note - Skin Integrity Problem, Advanced Assess Sacrum Pressure Injury Dressing Type: Allevyn Life Dressing Description: Clean/Dry, Intact Closure Description: Not Approximated Exudate Amount: Scant Exudate Color: Reddish/Yellow Exudate Characteristic(s): Serosanguinous Integumentary Issue Intervention: Dressing Changed, Hydrogel Applied Elaine Wound Tissue: Scarred Elaine Wound Swelling: Mild Wound Bed Color: [place], Red Wound Bed Constitution: Red/[place] - Non Granular Tissue Wound Edges: Epithelizing Site Measurement - Head-to-Toe Length X Width X Depth (cm): 0.3x0.3x0.2 Pressure Injury Stage: Stage 3 Pressure Injury Present on Admit: Yes Skin Integrity Problem Comment: Present on admission healing stage 3 pressure injury. Wound is much smaller in diameter since last admission. Wound edges present with scarring. Wound bed cleaned with normal saline and patted dry. Patient able to remember and discuss pressure injury, and education provided re : continuing to offload to reduce pressure to her sacrum. Discussed patient plan of care with ZHENG Crouch. According to RN, patient has been calling for toileting and has not been incontinent. Education provided to RN that if patient is incontinent to discontinue use of dressing until moisture is managed. Wound care will round again next week.
--- NOTE | 2018-09-17 14:06 | PDIAF ---
- Diagnosis Code Status: Full Code - Medication Management Additional Medication Instructions: No medication changes. Discharge Medications: electronically signed and located in the Home Medication List. PICC Care - Routine: N/A - Orders Oxygen: None Diet Recommendation: fluid restriction (use comment for amount) (1.5L/day) Pettit: Not applicable Additional Instructions: Here are your discharge instructions: 1. We did not find anything wrong with your heart, lungs, or brain that would' ve caused your fall. We suspect you may have gotten a mild concussion from striking your head. The bruise on the left side of you head should go away with time. 2. We did not make any medications changes. 3. You will be going back to [facility] for ongoing physical and occupational therapy. 4. Here are instructions for your wound: Please follow up within 3- 4 weeks of discharge with outpatient [facility] if you continue to have issues with your wounds: You may reach them at [phone] for an appointment and continued management of your wounds. Please call them [facility] to schedule your appointment as they fill up quickly. If before that time you have any issues, please follow up with your PCP. Wound care: Bedsore (Pressure injury) care: You have a stage 3 pressure injury (also known as a bedsore) on the very lowest part of your back (the sacrum.) To help heal this wound and avoid further injury please do the followin. Reposition yourself frequently, at least every 15 minutes when sitting. Try to stand for at least 3 min every hour so that the tissues fully reperfuse with blood. We recommend sitting on an air cushion. Please never use a doughnut. 2. When youre in bed, try to rest on your side as much as possible, and change position every two hours (for example, turn or tilt from your right side toward your left).~ If you sleep on a sleep number or medical bed, keep the head of the bed below 30 degrees and keep all pressure off your low back for at least 5 minutes at least every two hours.~ 3. As needed, you may use Calazime, dimethicone moisture barrier cream, or any fuhg-hqe-kybroit diaper rash cream to help prevent or treat a moisture-related rash to your bottom area and buttocks. 4. Please contact [facility] outpatient [facility] for an appointment, at , If your wounds re/open or dont improve, or if you have any further questions or concerns. Phyllis Sanchez RN Wound Care Team - Follow Up Care Current Providers and Referrals: Donaldo Mancilla MD [Primary Care Provider] - As per Instructions
[2018-09-17 14:52] VITALS: BP 132/58
--- NOTE | 2018-09-17 15:58 | ASMTLACE ---
OLIVIAE Length of stay for Answers: 1 day current admission Acuity / Level of Answers: No Care: Did the patient have an inpatient admission? Comorbidities - select Answers: Cerebrovascular disease all that apply (CVA, TIA, aneurysms, vasc ular dementia) Dementia Diabetes (uncontrolled or controlled) History of falls Other Notes: Asthma, Hip fractures, Chronic UTI's, hyponatremia, GE RD # of Emergency department Answers: 5-8 visits in the last 6 months Score: 14 Date Signed: 09/17/2018 03:57 PM Electronically Signed By:Dacia Olmstead RN
--- NOTE | 2018-09-17 16:05 | ASDISCHSUM ---
Discharge Information Plan Status:SNF Medically Cleared to Leave:09/16/2018 Discharge Date:09/16/2018 CM D/C Disposition:[facility] Facility ADT D/C Disposition:[facility] Facility Projected Discharge Date:09/19/2018 11:00 AM Transportation at D/C:Wheelchair Van Discharge Delay Reason: Follow-Up Date:09/19/2018 11:00 AM Discharge Slot: Final Diagnosis: Placement Information Referral Type:*Intermediate/SNF Referral ID:[id number] Provider Name:[facility] [place] Address 1:[address] Address 2: City:[place] Selection Factors: State:[place] Patient Contact Information Contact Name:SARABIA (POA) Relationship:Daughter Address:[address] [place] [address] Work Phone: [facility]:[place] Alternate Phone: [facility]/Zip Code:[place] [address] Email: Financial Information Financial Class:Medicare Primary Plan Desc:MEDICARE OUTPATIENT Primary Plan Number:[id number] [facility] Secondary Plan Number:[id number] Assessment Information [facility] CM Progress Note CM Note CM Note Notes: Patient is 83 y/o female admitted via [facility] ED after a fall and head injury. Patient undergoing cardiac work up, head CT performed to address fall. Patient was seen at [facility] and d/c on 09/05 for Accelerated HTN and discharged back to [facility]. Patient has history of DM, Hip fractures, Chronic UTI's, dementia, hyponatremia, HTN, & GERD. Lexiscan scheduled for tomorrow AM. CM to follow. Current D/C Plan: TBD. Date Signed: 09/16/2018 04:28 PM Electronically Signed By:Karla Frank LACE LACE Length of stay for Answers: 1 day current admission Acuity / Level of Answers: No Care: Did the patient have an inpatient admission? Comorbidities - select Answers: Cerebrovascular disease all that apply (CVA, TIA, aneurysms, vasc ular dementia) Dementia Diabetes (uncontrolled or controlled) History of falls Other Notes: Asthma, Hip fractures, Chronic UTI's, hyponatremia, GE RD # of Emergency department Answers: 5-8 visits in the last 6 months Score: 14 Date Signed: 09/17/2018 03:57 PM Electronically Signed By:Dacia Olmstead RN Case Management Discharge Plan Note Case Management Discharge Discharge Order Complete? Answers: Yes Patient to Obtain Answers: Other Notes: [facility] Medications Transportation Arranged Answers: Other Notes: [facility] transport arranged by Shruti at [facility] Transport [facility] (Date 09/17/2018 05:30 PM & Time) Faxed Final Orders Answers: Yes Notes: [facility] Agency/Facility Transfer Answers: Yes Notes: [facility] Report Printed & Faxed to Receiving Agency Family Notified Answers: Yes Notes: left vm Discharge Comments Notes: 09/17/2018 Case Management Note Faxed final orders to [facility]. Shruti arranged w/c transport with Mauri from [place] for 1730. ZHENG called report. Case Management d/c: return to [facility] Date Signed: 09/17/2018 04:04 PM Electronically Signed By:Dacia Olmstead RN Intervention Information Intervention Type:*JORGE-Signed Date of Service:09/17/2018 11:58 AM Patient Type:Observation Staff Member:Fernando Woodruff Hours: Discipline: Severity: Comment:
--- NOTE | 2018-09-17 16:05 | ASMTDCNOTE ---
Case Management Discharge Discharge Order Complete? Answers: Yes Patient to Obtain Answers: Other Notes: [facility]ations Transportation Arranged Answers: Other Notes: [place] transport arranged by Shruti at [facility] Transport will [facility] (Date 09/17/2018 05:30 PM & Time) Faxed Final Orders Answers: Yes Notes: [facility] Agency/Facility Transfer Answers: Yes Notes: [facility] Report Printed & Faxed to Receiving Agency Family Notified Answers: Yes Notes: left vm Discharge Comments Notes: 09/17/2018 Case Management Note Faxed final orders to [facility]. Shruti arranged w/c transport with Mauri from [place] for 1730. RN called report. Case Management d/c: return to [facility] Date Signed: 09/17/2018 04:04 PM Electronically Signed By:Dacia Olmstead RN
--- NOTE | 2018-09-17 18:08 | PDDCSUM ---
Discharge Summary Discharge Summary: Date of Admission: 09/16/2018 Date of Discharge: 09/17/2018 Procedures/Studies: 1. Noncontrasted CT head - negative for acute pathology 2. Limited TTE - no wall motion abnormalities, normal LVEF, trivial pericardial effusion (chronic) 3. Lexiscan stress test - negative for ischemia Disposition: Discharge back to [facility] for ongoing PT/OT Discharge Diagnoses: 1. Fall with possible syncope, gait instability 2. Post-concussive syndrome 3. Musculoskeletal chest pain 4. Hyponatremia 2/2 SIADH, chronic 5. Hypertension 6. UTI, present on admission 7. H/o duodenal ulcer 8. Anemia 9. Insulin dependent diabetes 10. Dementia Brief Hospital Course: 83yo F with multiple recent admissions brought here after fall and possible LOC at [facility]. She is amnestic to events surrounding this. Per family, she was found by staff in her room and likely had mechanical fall while trying to use bathroom. She briefly lost consciousness after striking her head. CT of her head was unremarkable without e/o NPH. She was complaining of some chest pain so a cardiac evaluation (TTE, stress test, serial troponins) was undertaken and completely normal. Her BP has been slightly elevated and she was not orthostatic. She is at her baseline neurologically (mild dementia) and felt safe to return to [facility] for ongoing PT/OT. Her sodium level was actually good for her (134). We continued her doxycycline which she has been on for a UTI. Medications: Please refer to EMR for complete list. No changes were made this admission. Follow Up Plan: 1. Repeat BMP in 1 week to ensure Na is stable 2. Ongoing PT/OT 3. She needs outpatient palliative care Physical Exam: Vitals reviewed, slightly hypertensive and afebrile. Telemetry reviewed, occasional PVC and PAC but nothing sustained. Alert, frequent lapses in memory. RRR without m/r/g, lungs clear, abdomen soft, no LE edema, no rashes. She has a contusion over the left temporal area.
== END 2018-09-17 17:59 ==
LOC: EDUNIT# → F2W 11:34
PROVIDERS: ADMIT Internal Medicine; ATTEND Internal Medicine
DX: R55 Syncope and collapse (principal); S00.03XA Contusion of scalp, initial encounter; W19.XXXA Unspecified fall, initial encounter; R26.89 Other abnormalities of gait and mobility; R29.6 Repeated falls; R07.89 Other chest pain; E22.2 Syndrome of inappropriate secretion of antidiuretic hormone; I10 Essential (primary) hypertension; N39.0 Urinary tract infection, site not specified; D64.9 Anemia, unspecified; E11.9 Type 2 diabetes mellitus without complications; F03.90 Unspecified dementia, unspecified severity, without behavioral disturbance, psychotic disturbance, mood disturbance, and anxiety; Z91.040 Latex allergy status; Z86.73 Personal history of transient ischemic attack (TIA), and cerebral infarction without residual deficits; Y92.122 Bedroom in nursing home as the place of occurrence of the external cause; Y93.89 Activity, other specified
CPT/HCPCS: 70450; 78452; 93005; 93017; 93308; 96372; 96374; 97116; 97162; 99285; A9500; G0378; G8978; G8979; J1650; J1815; J2405; J2785; 82947-QW; 84484-PO

== ENCOUNTER 2018-09-22 15:27 | Emergency (ER) | payer OTHER ==
--- NOTE | 2018-09-22 15:51 | EDPHY ---
HPI/HX/ROS/PE/MDM Narrative: CHIEF COMPLAINT: Fall, finger fractures HPI: The patient is an 83 y/o female with a history of dementia arriving via EMS from [facility] complaining of right hand and finger pain secondary to a fall at an unknown time. She was admitted here on 09/16/18, 6 days ago, following a syncopal episode and head injury and has had several other recent visits for falls. It's unclear if the hand injuries she presents with today are from the fall 6 days ago or a more recent event. On-site x-ray imaging performed today describes spiral fractures of the patients right 4th and 5th metacarpals, which is where she primarily complains of pain. She also mentions pain in her right elbow, though is able to move her arm normally. She denies other acute complaints. REVIEW OF SYSTEMS: A comprehensive 10 system review of systems is otherwise negative aside from elements mentioned in the history of present illness. 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 SOCIAL HISTORY: Lives at [facility]. Never smoker. 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 Two daughters live in [place]. Prior medical records reviewed including admission 09/16/18 for syncope and head injury. PHYSICAL EXAM: General:Patient is alert, in no acute distress. ENT: Extensive old ecchymosis to left periorbital area. Eyes are normal to inspection. ENT inspection normal. Neck: Normal inspection. Full range of motion. Respiratory:No respiratory distress. Breath sounds normal bilaterally. Cardiovascular: Regular rate and rhythm. Strong peripheral pulses. Normal cap refill. Abdomen:The abdomen is nontender to palpation. There are no peritoneal signs. Back: Normal to inspection. No tenderness to palpation. Skin: Normal color. No rash. Warm and dry. Extremities: Tenderness and ecchymosis over right 4th and 5th metacarpals. Otherwise normal appearance. Full range of motion. Neuro: Oriented x3. Normal motor function. Normal sensory function. ED Course: This is an 83 y/o female with 8 prior ED visits in the last year who returns for the second time this week for evaluation after a fall. The facility had minimal information available, but it sounds like she may not have fallen again today and that her right hand injury is due to the fall 6 days ago. Outpatient x -rays showed spiral fractures of her right 4th and 5th metacarpals and she arrives at the ED for further evaluation of this. In addition to old left periorbital ecchymosis, she has tenderness, ecchymosis, and swelling over her right 4th and 5th metacarpals and additional complains of right elbow pain. She is neurovascularly intact. Plan for x-ray imaging of her hand and elbow. Right hand x-ray: nondisplaced right 4th and 5th metacarpal fractures Right elbow x-ray: no acute fracture. Reassessed patient and discussed findings. She will be placed in a ulnar gutter splint and discharged with standard care and follow up instructions. Referral to hand specialist provided. MDM: This patient presents with hand fractures. She has a large ecchymosis on her face and forehead, which appears consistent in age with a fall that occurred last week, which was prior to recent admission. I see no signs of new head injury that would require repeat workup. The nurse called the patient's LONG TERM to confirm that this does not represent a new head injury. My suspicion is that the patient's current hand fractures are likely from the prior fall and were simply missed, but I cannot confirm this. Patient denies new fall. She is comfortable with the plan for splint and discharge home with orthopedic referral. - Data Points Imaging Results: Imaging Impressions Hand X-Ray 09/22/18 15:43 Impression: 1. Fractures of the fourth and fifth minute carpals. 2. See above report for additional findings. Humerus X-Ray 09/22/18 15:43 Impression: Right humerus negative for fracture. Imaging: I viewed and interpreted images myself Medications Given: Discontinued Medications Acetaminophen (Tylenol) 650 mg PO EDNOW ONE Stop: 09/22/18 16:41 Last Admin: 09/22/18 16:45 Dose: 650 mg General Time Seen by Provider: 09/22/18 15:30 Initial Vital Signs: Initial Vital Signs Temperature (C) 36.7 C 09/22/18 15:34 Heart Rate 75 09/22/18 15:34 Respiratory Rate 16 09/22/18 15:34 Blood Pressure 179/75 H 09/22/18 15:34 O2 Sat (%) 99 09/22/18 15:34 O2 Delivery Mode Room Air Allergies/Adverse Reactions: metronidazole Allergy (Unknown, Verified 09/02/18 13:50) Rash amoxicillin trihydrate [From Augmentin] Allergy (Verified 09/02/18 13:50) brompheniramine maleate [From Rondec] Allergy (Verified 09/02/18 13:50) carbinoxamine maleate [From Rondec] Allergy (Verified 09/02/18 13:50) cefaclor Allergy (Verified 09/02/18 13:50) Rash cefuroxime axetil [From Ceftin] Allergy (Verified 09/02/18 13:50) chlorpheniramine maleate [From Ornade] Allergy (Verified 09/02/18 13:50) clindamycin Allergy (Verified 09/02/18 13:50) hydrocodone Allergy (Verified 09/02/18 13:50) latex [Latex] Allergy (Verified 09/02/18 13:50) Metronidazole HCl [From Flagyl] Allergy (Verified 09/02/18 13:50) Penicillins Allergy (Verified 09/02/18 13:50) phenylpropanolamine HCl [From Ornade] Allergy (Verified 09/02/18 13:50) potassium clavula *RETIRED-07/16/12 [From Augmentin] Allergy (Verified 09/02/18 13:50) pseudoephedrine HCl [From Rondec] Allergy (Verified 09/02/18 13:50) Sulfa (Sulfonamide Antibiotics) Allergy (Verified 09/02/18 13:50) Home Medications: Medication Instructions Recorded Fluorometholone [Fml (*)] 1 drop RTEYE BID 05/10/18 Metoprolol Tartrate [Lopressor 50 50 mg PO BID 05/10/18 mg (*)] Sodium Chloride 5% [Dannie-128 5%] 3 drop EACHEYE TID 05/10/18 C/E/Zn/Cu/OM3/DHA/EPA/LUT/ZEAX 1 cap PO BID 06/05/18 [Preservision Areds 2 Softgel] Acetaminophen [Tylenol ES 500 mg 1,000 mg PO TID tab 06/15/18 (*)] Docusate Sodium [Colace 100 MG (*)] 100 mg PO DAILY 06/28/18 Insulin Glargine,Hum.rec.anlog 12 unit SQ HS 06/28/18 [Basaglar Kwikpen U-100] Aspirin EC [Aspirin EC 81 mg (*)] 81 mg PO DAILY 10/05/18 Diclofenac Sodium 1% [Voltaren Gel 4 gm TP TID 08/10/18 (*)] Dorzolamide HCl/Pf [Dorzolamide 2% 1 drop RTEYE BID 08/10/18 Eye Drop] Sodium Chloride [Salt Tablet] 500 mg PO BID 08/10/18 Brimonidine 0.2% [Alphagan 0.2%] 1 drop EACHEYE BID 09/02/18 Herbals/Supplements -Info Only 1 ea PO DAILY 09/02/18 Insulin Lispro [Humalog] 9 unit SQ TIDMEAL 09/02/18 Latanoprost 0.005% [Xalatan 0.005% 1 drops EACHEYE HS 09/02/18 (*)] Lidocaine 4%/Menthol 1% [Icy Hot 1 patch TD DAILY 09/02/18 Lidocaine/Menthol 4%/1% Patch (*)] Methylphenidate HCl [Ritalin 5mg 2.5 mg PO DAILY 09/02/18 (*)] Carver-3 Fatty Acids [Fish Oil 1000 1,000 mg PO DAILY 09/02/18 mg (*)] Polyethylene Glycol 3350 [Miralax 17 gm PO DAILY PRN 09/02/18 17 gm (*)] Propylene Glycol/Peg 400 [Systane 1 drop EACHEYE TID 09/02/18 Ultra 0.4-0.3% Eye Drp] Doxycycline Hyclate [Vibramycin 100 mg PO BID 09/16/18 100 MG (*)] Lisinopril [Zestril 20 mg (*)] 20 mg PO HS 09/16/18 Multivitamins W-Minerals [Thera M 1 each PO DAILY 09/16/18 Plus Tablet (*)] Pantoprazole Sodium [Protonix 40mg 40 mg PO DAILY 09/16/18 (*)] amLODIPine BESYLATE [Norvasc 2.5 2.5 mg PO DAILY 09/16/18 mg (*)] Departure - Departure Disposition: Home, Routine, Self-Care Clinical Impression: Fracture, metacarpal, Closed fracture of 5th metacarpal Condition: Good Instructions: Hand Fracture (ED) Additional Instructions: 1. Keep splint clean, dry, and in place until follow up with orthopedist. 2. Wear sling for comfort. 3. Tylenol as directed on the packaging as needed for pain over the next few days. 4. Follow up with hand surgeon within the next week. 5. Return for worsening of condition. Referrals: Indio Myrick MD [Medical Doctor] - As per Instructions Report Scribed for: Malcolm Wilkins Report Scribed by: Lashonda Yu Date of Report: 09/22/18 Time of Report: 15:51 Physician Review and Approval Statement: Portions of this note were transcribed by an ED scribe. I personally performed the history, physical exam, and medical decision making; and confirm the accuracy of the information in the transcribed note.
[2018-09-22] MEDS ORDERED: ACETAMINOPHEN 325 MG TAB PO ONE (16:40)
--- NOTE | 2018-09-22 17:00 | ASMTCMCOM ---
CM Note CM Note Notes: Chart reviewed and call to patient's daughter Carlita in [place] . Patient now resides at [facility]. Carlita is not comfortable transporting patient back to due to patient's fall risk and recent hip fracture. I have contacted Shruti Garcia at and wheel chair transport arranged with Mauri at [place]. Report to be called to per Sirisha CALZADA Date Signed: 09/22/2018 04:59 PM Electronically Signed By:Crystal Sanchez RN
--- NOTE | 2018-09-22 17:22 | ASMTCMCOM ---
CM Note CM Note Notes: ED referral/discharge summary faxed to Dr. Myrick at [facility] Date Signed: 09/22/2018 05:21 PM Electronically Signed By:Crystal Sanchez RN
[2018-09-22 18:35] VITALS: BP 177/85
== END 2018-09-22 18:35 | disposition home or self-care (01) ==
LOC: EDUNIT#
PROC: 2W3EX1Z Immobilization of Right Hand using Splint (ICD-10-PCS; principal; 2018-09-22)
DX: S62.314A Displaced fracture of base of fourth metacarpal bone, right hand, initial encounter for closed fracture (principal); S62.316A Displaced fracture of base of fifth metacarpal bone, right hand, initial encounter for closed fracture; W01.198A Fall on same level from slipping, tripping and stumbling with subsequent striking against other object, initial encounter; F03.90 Unspecified dementia, unspecified severity, without behavioral disturbance, psychotic disturbance, mood disturbance, and anxiety; Y92.129 Unspecified place in nursing home as the place of occurrence of the external cause

== ENCOUNTER → 2018-10-10 | Outpatient (CLI) | payer OTHER | LOC: BMCIMAGING 15:19 | PROVIDERS: ATTEND Orthopaedic Surgery | DX: S72.402D Unspecified fracture of lower end of left femur, subsequent encounter for closed fracture with routine healing (principal); M16.12 Unilateral primary osteoarthritis, left hip; M17.12 Unilateral primary osteoarthritis, left knee ==

== ENCOUNTER 2018-11-08 16:49 | Inpatient (IN) | payer OTHER ==
--- NOTE | 2018-11-08 16:54 | EDPHY ---
H & P Time Seen by Provider: 11/08/18 16:50 HPI/ROS: CHIEF COMPLAINT: Stroke alert HISTORY OF PRESENT ILLNESS: Patient is 83yo female who presents to emergency department via EMS as a stroke alert. Per report of the patient's care facility staff, patient had a"full-blown stroke symptom"at 1600. EMS was contacted at 4:20 p.m. The per report, the patient has left-sided facial droop and some mild left upper extremity weakness. The patient has had a previous stroke. In route EMS states the patient has facial droop has improved. The patient states she is feeling nervous. She has no headache. No nausea vomiting. No chest pain or shortness of breath. No abdominal pain. REVIEW OF SYSTEMS: 10 systems were reveiwed and are negative with the exception of the elements mentioned in the history of present illness. 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 She does not smoke. Smoking Status: Never smoked Physical Exam: Vitals noted. Hypertensive GENERAL: No acute distress, alert. HEENT: Eyes normal to inspection, normal pharynx, no signs of dehydration. NECK: Normal, supple. RESPIRATORY: Clear to auscultation bilaterally, no rales, rhonchi or wheezing. CVS: Regular rate and rhythm, no rubs, murmurs, or gallops. ABDOMEN: Soft, nontender, nondistended, no organomegaly. BACK: Normal to inspection, no CVA tenderness. SKIN: Normal color, no rash, warm, dry. No pallor. EXTREMITIES: No pedal edema, no calf tenderness, no Homans sign or cords, no joint swelling. NEURO/PSYCH: Higher functions: Alert and Oriented x3. Normal speech and cognition. Normal mood and affect. Cranial nerves: Left lower facial droop. Cerebellar: Normal as tested. Coordinated movement. Peripheral exam: Mild left upper extremity weakness. Normal sensation. Constitutional: Initial Vital Signs Temperature (C) 37.1 C 11/08/18 17:10 Heart Rate 90 11/08/18 17:10 Respiratory Rate 16 11/08/18 17:10 Blood Pressure 237/101 H 11/08/18 17:10 O2 Sat (%) 99 11/08/18 17:10 O2 Delivery Mode Room Air Allergies/Adverse Reactions: metronidazole Allergy (Unknown, Verified 09/02/18 13:50) Rash amoxicillin trihydrate [From Augmentin] Allergy (Verified 09/02/18 13:50) brompheniramine maleate [From Rondec] Allergy (Verified 09/02/18 13:50) carbinoxamine maleate [From Rondec] Allergy (Verified 09/02/18 13:50) cefaclor Allergy (Verified 09/02/18 13:50) Rash cefuroxime axetil [From Ceftin] Allergy (Verified 09/02/18 13:50) chlorpheniramine maleate [From Ornade] Allergy (Verified 09/02/18 13:50) clindamycin Allergy (Verified 09/02/18 13:50) hydrocodone Allergy (Verified 09/02/18 13:50) latex [Latex] Allergy (Verified 09/02/18 13:50) Metronidazole HCl [From Flagyl] Allergy (Verified 09/02/18 13:50) Penicillins Allergy (Verified 09/02/18 13:50) phenylpropanolamine HCl [From Ornade] Allergy (Verified 09/02/18 13:50) potassium clavula *RETIRED-07/16/12 [From Augmentin] Allergy (Verified 09/02/18 13:50) pseudoephedrine HCl [From Rondec] Allergy (Verified 09/02/18 13:50) Sulfa (Sulfonamide Antibiotics) Allergy (Verified 09/02/18 13:50) Home Medications: Medication Instructions Recorded Fluorometholone [Fml (*)] 1 drop RTEYE BID 05/10/18 Metoprolol Tartrate [Lopressor 50 50 mg PO BID 05/10/18 mg (*)] Sodium Chloride 5% [Dannie-128 5%] 3 drop EACHEYE TID 05/10/18 C/E/Zn/Cu/OM3/DHA/EPA/LUT/ZEAX 1 cap PO BID 06/05/18 [Preservision Areds 2 Softgel] Acetaminophen [Tylenol ES 500 mg 1,000 mg PO TID tab 06/15/18 (*)] Docusate Sodium [Colace 100 MG (*)] 100 mg PO DAILY 06/28/18 Insulin Glargine,Hum.rec.anlog 12 unit SQ HS 06/28/18 [Leanna Haysangelita U-100] Aspirin EC [Aspirin EC 81 mg (*)] 81 mg PO DAILY 08/10/18 Diclofenac Sodium 1% [Voltaren Gel 4 gm TP TID 08/10/18 (*)] Dorzolamide HCl/Pf [Dorzolamide 2% 1 drop RTEYE BID 08/10/18 Eye Drop] Sodium Chloride [Salt Tablet] 500 mg PO BID 08/10/18 Brimonidine 0.2% [Alphagan 0.2%] 1 drop EACHEYE BID 09/02/18 Herbals/Supplements -Info Only 1 ea PO DAILY 09/02/18 Insulin Lispro [Humalog] 9 unit SQ TIDMEAL 09/02/18 Latanoprost 0.005% [Xalatan 0.005% 1 drops EACHEYE HS 09/02/18 (*)] Lidocaine 4%/Menthol 1% [Icy Hot 1 patch TD DAILY 09/02/18 Lidocaine/Menthol 4%/1% Patch (*)] Methylphenidate HCl [Ritalin 5mg 2.5 mg PO DAILY 09/02/18 (*)] [place]-3 Fatty Acids [Fish Oil 1000 1,000 mg PO DAILY 09/02/18 mg (*)] Polyethylene Glycol 3350 [Miralax 17 gm PO DAILY PRN 09/02/18 17 gm (*)] Propylene Glycol/Peg 400 [Systane 1 drop EACHEYE TID 09/02/18 Ultra 0.4-0.3% Eye Drp] Doxycycline Hyclate [Vibramycin 100 mg PO BID 09/16/18 100 MG (*)] Lisinopril [Zestril 20 mg (*)] 20 mg PO HS 09/16/18 Multivitamins W-Minerals [Thera M 1 each PO DAILY 09/16/18 Plus Tablet (*)] Pantoprazole Sodium [Protonix 40mg 40 mg PO DAILY 09/16/18 (*)] amLODIPine BESYLATE [Norvasc 2.5 2.5 mg PO DAILY 09/16/18 mg (*)] Medical Decision Making - Diagnostics Imaging Results: Imaging Impressions Head CT 11/08/18 16:50 Impression: Stable negative noncontrast CT examination of the brain Results called to Dr. Cuca Olivares at 5:00 PM at the time of the interpretation. ED Course/Re-evaluation: In the emergency department I met EMS on arrival. Took report from the customer service clerk. EMS with a normal glucose. The patient was transported directly to CT imaging from the EMS [facility]. The laboratory studies, EKG and noncontrast head CT were ordered. While in CT imaging I reviewed the patient's previous medical record of 09/22/2018. After the noncontrast head CT was completed the patient was brought back to the emergency department. [facility] was contacted. 1700: The patient returned from CT imaging I performed an NIHSS = 2 (facial droop, left LE weakness) 170: CT head: Please refer the dictated report by Dr. Ibanez. I discussed the case with Dr. Ibanez on the phone. Negative head CT. 5: I discussed case with Dr. Sanchez from [facility]. He will evaluate the patient with the stroke camera. Dr. Phillips evaluated the patient. He recommended blood pressure control. Systolic pressure between 160 and 200. He recommended no tPA at this time. His NIHSS = 1. I rechecked the patient's blood pressure. It remained elevated. She was given labetalol 5 mg IV. I discussed plan for admission with the patient. I answered all her questions. EKG shows normal sinus rhythm, normal rate, normal axis, normal intervals. LVH. There are no ST or T-wave abnormalities. Differential Diagnosis: My differential includes but is not limited to ischemic CVA, hemorrhagic CVA, dissection, aneurysm, electrolyte abnormality, sugar abnormality, bacteremia, sepsis, dysrhythmia Critical Care Time: The patient required 35 min of critical care time. This was exclusive of any unbundled procedure. This was due the fact patient was a stroke alert, time spent in consultation with [facility], hospitalist service and the customer service clerk, time spent at the bedside, chart review and treatment plan. - Data Points Laboratory Results: Laboratory Results 11/08/18 17:04 11/08/18 17:04 11/08/18 11/08/18 11/08/18 17:04 17: 17: WBC 8.93 10^3/uL 10^3/uL (3.80-9.50) RBC 3.91 10^6/uL L 10^6/uL (4.18-5.33) Hgb 11.9 g/dL L g/dL (12.6-16.3) POC Hgb Hct 35.7 % L % (38.0-47.0) POC Hct MCV 91.3 fL fL (81.5-99.8) MCH 30.4 pg pg (27.9-34.1) MCHC 33.3 g/dL g/dL (32.4-36.7) RDW 14.6 % % (11.5-15.2) Plt Count 320 10^3/uL 10^3/uL (150-400) MPV 9.2 fL fL (8.7-11.7) Neut % (Auto) 69.4 % % (39.3-74.2) Lymph % (Auto) 14.0 % L % (15.0-45.0) [place] % (Auto) 9.4 % % (4.5-13.0) Eos % (Auto) 6.0 % % (0.6-7.6) Baso % (Auto) 0.9 % % (0.3-1.7) Nucleat RBC Rel Count 0.0 % % (0.0-0.2) Absolute Neuts (auto) 6.19 10^3/uL 10^3/uL (1.70-6.50) Absolute Lymphs (auto) 1.25 10^3/uL 10^3/uL (1.00-3.00) Absolute Monos (auto) 0.84 10^3/uL H 10^3/uL (0.30-0.80) Absolute Eos (auto) 0.54 10^3/uL H 10^3/uL (0.03-0.40) Absolute Basos (auto) 0.08 10^3/uL 10^3/uL (0.02-0.10) Absolute Nucleated RBC 0.00 10^3/uL 10^3/uL (0-0.01) Immature Gran % 0.3 % % (0.0-1.1) Immature Gran # 0.03 10^3/uL 10^3/uL (0.00-0.10) PT 12.2 SEC SEC (12.0-15.0) INR 0.88 (0.83-1.16) APTT 29.2 SEC SEC (23.0-38.0) POC Sodium Sodium 135 mEq/L mEq/L (135-145) POC Potassium Potassium 4.8 mEq/L mEq/L (3.5-5.2) POC Chloride Chloride 101 mEq/L mEq/L (97-110) Carbon Dioxide 26 mEq/l mEq/l (22-31) Anion Gap 8 mEq/L mEq/L (6-14) POC BUN BUN 38 mg/dL H mg/dL (7-23) Creatinine 1.3 mg/dL H mg/dL (0.6-1.0) POC Creatinine Estimated GFR 39 Glucose 71 mg/dL mg/dL (70-100) POC Glucose Calcium 9.4 mg/dL mg/dL (8.5-10.4) POC Troponin I 11/08/18 11/08/18 16:59 16:56 WBC RBC Hgb POC Hgb 11.6 gm/dL L gm/dL (12.6-16.3) Hct POC Hct 34 % L % (38-47) MCV MCH MCHC RDW Plt Count MPV Neut % (Auto) Lymph % (Auto) [place] % (Auto) Eos % (Auto) Baso % (Auto) Nucleat RBC Rel Count Absolute Neuts (auto) Absolute Lymphs (auto) Absolute Monos (auto) Absolute Eos (auto) Absolute Basos (auto) Absolute Nucleated RBC Immature Gran % Immature Gran # PT INR APTT POC Sodium 138 mEq/L mEq/L (135-145) Sodium POC Potassium 4.5 mEq/L mEq/L (3.3-5.0) Potassium POC Chloride 102 mEq/L mEq/L (97-110) Chloride Carbon Dioxide Anion Gap POC BUN 34 mg/dL H mg/dL (7-23) BUN Creatinine POC Creatinine 1.4 mg/dL H mg/dL (0.6-1.0) Estimated GFR Glucose POC Glucose 74 mg/dL mg/dL (70-100) Calcium POC Troponin I 0.00 ng/mL ng/mL (0.00-0.08) Medications Given: Discontinued Medications Labetalol HCl (Trandate Injection) 10 mg IVP ONCE ONE Stop: 11/08/18 17:19 Last Admin: 11/08/18 17:42 Dose: 5 mg Point of Care Test Results: Chemistry 11/08/18 11/08/18 16:59 16:56 POC Sodium 138 mEq/L mEq/L (135-145) POC Potassium 4.5 mEq/L mEq/L (3.3-5.0) POC Chloride 102 mEq/L mEq/L (97-110) POC BUN 34 mg/dL H mg/dL (7-23) POC Creatinine 1.4 mg/dL H mg/dL (0.6-1.0) POC Glucose 74 mg/dL mg/dL (70-100) POC Troponin I 0.00 ng/mL ng/mL (0.00-0.08) ISTAT H&H 11/08/18 16:59 POC Hgb 11.6 gm/dL L gm/dL (12.6-16.3) POC Hct 34 % L % (38-47) Departure - Departure Disposition: [facility] Inpatient Acute Clinical Impression: TIA (transient ischemic attack) Hypertension Qualifiers: Hypertension type: unspecified Qualified Code(s): I10 - Essential (primary) hypertension Condition: Good
[2018-11-08 17:10] LABS: PLATELET COUNT 320 10^3/uL (150-400)
--- NOTE | 2018-11-08 17:11 | PDCONSULT ---
Superintendent Refuse Disposal Note: [facility] Telehealth Note Demographics Consult Type: Acute Stroke First Name: aaliyah Last Name: maira Date of : 1935 Age: 83 Gender: Female Time of initial page (): 11/08/2018 17:04 Time of return call (): 11/08/2018 17:04 Time Ready to Initiate Telemed Consult (): 11/08/2018 17:04 HPI Additional History (Free Text): left facial and right arm weakness since 4PM today. She had suspected "stroke like symptoms" at that time. she states felt faint and wasn't thinking well. She is doing well now, and still feels her left leg is weak, but stable since she broke her leg in June Exam Vitals: vital signs reviewed SBP: 237 DBP: 101 NIHSS Time (): 11/08/2018 17:06 LOC 1a: 0 = Alert; keenly responsive LOC 1b: 0 = Answers both questions correctly LOC Commands: 0 = Performs both tasks correctly Best Gaze: 0 = Normal Visual: 0 = No visual loss Facial Palsy: 0 = Normal symmetrical movements Motor Arm L: 0 = No drift; limb holds 90 (or 45) degrees for full 10 seconds Motor Arm R: 0 = No drift; limb holds 90 (or 45) degrees for full 10 seconds Motor Leg L: 1 = Drift; leg falls by the end of the 5-second period but does not hit bed Motor Leg R: 0 = No drift; leg holds 30-degree position for full 5 seconds Limb Ataxia: 0 = Absent Sensory: 0 = Normal; no sensory loss Best Language: 0 = No aphasia; normal Dysarthria: 0 = Normal Extinction + Inattention: 0 = No abnormality NIHSS: [address]: no bleed Assessment TIA vs resolving stroke symptoms Plan Lytic/Intervention: NOT IV or IA candidate, possible seizure tPA Exclusion (< 3hr window): Mild or improving symptoms Target Blood Pressure: SBP goal 160-200 Labs: Comprehensive metabolic panel, ESR, HgbA1c, Lipid Panel, UDS Imaging: CTA Head and Neck, MRI brain without Therapy/Eval: PT/OT, Speech/Swallow therapy consult Medication: aspirin 81mg per day VTE Prophylaxis: SCD Other: LDL goal less than 70, telemetry monitoring, I have discussed my recommendations with the referring provider Disposition: admit [employer] Telemedicine: Interactive 2 way audio and visual telecommunication technology was utilized during this visit. Provider Location: [place]
[2018-11-08 17:18] LABS: INR 0.88 (0.83-1.16); PROTIME(PATIENT) 12.2 SEC (12.0-15.0)
[2018-11-08] MEDS ORDERED: LABETALOL HCL 5 MG/ML 20 ML MDV IVP ONE ×2 (17:18→18:33)
--- NOTE | 2018-11-08 19:27 | GHP ---
DATE OF ADMISSION: 11/08/2018 The patient is a very pleasant 83-year-old female with a history of dementia, watershed infarcts in 2017, asthma, type 2 diabetes, hip fracture, sacral pressure ulcer, SIADH, labile hypertension an d a couple of recent admissions in the 2nd half of this year including for syncope and E coli bactere aide. She presents today with left-sided weakness. In speaking with the ER doctor, Dr. Olivares, he n oted a left-sided facial droop. She has some left-sided weakness. However, this is the side of her hip fracture. She had a stroke scale of [address] Olivares [address] Sanchez, the [place] neurologist. They cynthia cted not to do lytics. When I speak to the patient, she is aware of why she is here, but denies any left-sided weakness. Thu jacob has a slight headache. She has no fever, chills, cough, sputum, nausea, vomiting, diarrhea. REVIEW OF SYSTEMS: Complete 10-point review of systems conducted, negative except as noted in the HP I. PAST MEDICAL HISTORY: 1. History of dementia. 2. Hip fracture in June of this year with repair. 3. Type 2 diabetes. 4. Hypertension. 5. E coli bacteremia. 6. SIADH. 7. History of watershed infarcts in April 2018. 8. Pressure ulcer. 9. Protein calorie malnutrition. 10. Appendectomy, hysterectomy, tonsillectomy, breast biopsy. FAMILY HISTORY: Notable for cancer. SOCIAL HISTORY: She has never smoked. Rare alcohol. She is currently living at [facility]. 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 She has 2 daughters and a son who lives in [place], [place]. ALLERGIES: Metronidazole, amoxicillin, brompheniramine malleate, carbinoxamine malleate, cefaclor, c efuroxime, chlorpheniramine, clindamycin, hydrocodone, latex, phenylpropanolamine, potassium clavulan ate, pseudoephedrine and sulfa. MEDICATIONS: Tylenol, amlodipine, aspirin, brimonidine eye drops, PreserVision, diclofenac, docusate , dorzolamide eye drops, doxycycline, fluorometholone, insulin glargine, lispro, latanoprost, lidocai ne patch, lisinopril, methylphenidate, metoprolol tartrate, multivitamin, fish oil, pantoprazole, bunny yethylene glycol, polypropylene glycol, sodium chloride, salt tablets and 5% sodium chloride eyedrops . PHYSICAL EXAM: VITAL SIGNS: Presenting vitals: 37.1, 237/101, pulse 90, breathing 16 times a minute, 98% on room air. GENERAL: No acute distress. HEENT: Sclerae anicteric. Oropharynx clear. Mucous me mbranes moist. NECK: Supple. No lymphadenopathy or JVD. LUNGS: Clear to auscultation bilaterally . HEART: S1, S2. ABDOMEN: Soft, nontender, nondistended. LOWER EXTREMITIES: Without edema. Calv es nontender. SKIN: Without rash. NEUROLOGIC: She has cranial nerves 2-12 intact. Upper extremity and lower extremity strength are 5/5 bilaterally with the exception of her left leg, which is presuma ned limited by her previous fracture and is chronically weak per her. Noncontrast head CT shows stable negative noncontrast CT of the brain. EKG interpreted by me shows s inus at 88 with normal axis and intervals. There is evidence of LVH. There is no ST or T-wave post es. I discussed the case with Dr. Cuca Olivares. LABS: White count 9, hematocrit 35, platelets are 320,000. These are baseline. Coags normal. Sodi um 135, potassium 4.8, chloride 101, bicarb 26, BUN 38, creatinine 1.3. This is about her baseline. ASSESSMENT/PLAN: An 83-year-old female presents with transient ischemic attack in the setting of mar ked hypertension. 1. Transient ischemic attack. She has rapidly resolving symptoms. She had a normal noncontrast CT. Lytics were not recommended. She was admitted to this hospital 2 months ago with a TIA and she had head and neck CTA without significant lesions. I will not repeat this now given her rapidly resolvi ng symptoms. I do think this represents possibly a true TIA versus hypertensive affect and therefore recommend changing to Plavix which I will do. I will not repeat a lipid panel because a lipid panel done here 2 months ago showed an LDL in the 40s and HDL in the 70s. Really actually an ideal lipid panel. Will check an echocardiogram for completeness sake and follow her on telemetry. Switch to Rufina vix in the morning. 2. Hypertension, this is markedly elevated hypertension. She received some labetalol. It came down about 10% to 200/100. I will restart her lisinopril in the evening, but hold the beta gregg. We will restart her medications tomorrow. 3. Dementia. This is fairly significant and we will follow. I recall this patient from previous hos pitalization. 4. Recent hip fracture. Physical therapy, occupational therapy. 5. Diabetes. Will restart her medications once they have been started. 6. Asthma. Continue her medications. 7. Glaucoma. Continue her eyedrops. DISPOSITION: Observation status. /[id number]/MODL
[2018-11-08] MEDS ORDERED: LISINOPRIL 20 MG TAB PO SCH (21:00)
--- NOTE | 2018-11-09 08:40 | ASMTLACE ---
DANIELE Comorbidities - select Answers: Cerebrovascular disease all that apply (CVA, TIA, aneurysms, vasc ular dementia) Dementia Diabetes (uncontrolled or controlled) Opioid dependence / Chronic pain Other Notes: Malnutrition; HTN # of Emergency department Answers: 5-8 visits in the last 6 months Social determinants Answers: Mental health diagnosis (anxiety, depression, pers onality disorders, etc.) Score: 17 Date Signed: 11/09/2018 08:39 AM Electronically Signed By:Magaly Estrada
[2018-11-09] MEDS ORDERED: D50W 25 GM/50 ML SYR IVP PRN ×2 (09:58→19:45)
--- NOTE | 2018-11-09 10:53 | NEUROPROG ---
Assessment: [id number] - Neurology Consult: - CC: Dr. Jabier Lincoln consulted neurology for Left facial weakness - Narrative Summary: Pt with history of dementia, prior stroke, GI issues was in a SNF when she was sent to [facility] ER on 09/02/18 for confusion and speech difficulties. This improved. Brain MRI showed no acute stroke and CTA head/neck showed nothing significant. 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 I saw the patient on 09/03/18. Her neurologic exam showed no focal problems (pt did have left hip pain and was tired and did not know date). I felt she likely had an acute confusional state from underlying dementia, recent UTI, prior stroke, diabetes, and possibly low sodium. Treatment is supportive. Pt was on an aspirin 81 mg qd given her prior stroke. - HPI: Pt returned to [facility] ER on 11/08/18 after [facility] (where she resides for dementia ) noted left weakness. In the [facility] ER she was noted to have left sided weakness which eventually resolved. Head CT showed no acute bleed or changes. Teleneurology elected to not give her TPA. Pt was on aspirin prior to admission. I initially saw the patient on 11/09/18. Neurologic exam showed no focal deficits and no facial weakness. - PMHx: Asthma, DM2, HTN, dementia with acute confusional states at times, watershed infarcts 04/2018, H/O GIB 2/2 duodenal ulcer, anemia, Ecoli baceremia /2 UTI 2017 - SHx: no tobacco FHx: cancer - ROS: Pt denied acute fever, total vision loss, active severe chest pain, respiratory failure, total body severe rash, total bowel/bladder incontinence, psychosis, active seizures, or active bleeding - O: VS reviewed General: drowsy Eyes: Fundoscopic exam not able to visualize optic disks CV: Heart RRR, no murmur, no carotid bruit Lungs: Clear to auscultation bilaterally, no rhonchi or rales Neuro: - Mental: . Oriented x person/place but note date . concentration appears normal . speech fluency/comprehension normal . memory appears reduced (pt has dementia) . fund of knowledge appear intact - Cranial Nerves: . II: PERRL, VFFTC . III/IV/: EOMI, no nystagmus, normal smooth pursuits, no Ptosis . V: facial sensation intact to LT . VII: face symmetric to eye closure and smile . VIII: hearing intact to conversation . IX/X: uvula raises symmetrically . XI: SCM 5/5 B/L strength . XII: tongue protrudes midline w/nl strength - Motor: . Tone: normal tone in all 4 extremity . Strength: no pronator drift, strength 5/5 throughout but pt complained of left hip pain and did not give full effort in strength testing and left hip - Reflexes: B/L bic 2/4 - Sensory: all 4 extremity intact to light touch - Coord: [id number] wnl, BUNNY wnl - Gait: deferred - Labs: 09/02/18- CBC Hct 31L, Coags wnl, H1AC 7.6H, Chem Na 129L 09/03/18- LDL 43L - Rads: 09/02/18- Head/neck CTA: no flow-limiting carotid stenosis, mild atherosclerotic disease - 09/02/18- Brain MRI wo: Underlying atrophy and white matter disease with prior lacunar infarctions within the periventricular regions of both cerebral hemispheres. No evidence of acute cerebral infarction on the current examination. - 11/08/18- Head CT: no acute issues noted (I Personally visualized the images on 11/09/18) - Assessment: 1. Transient Left Facial Weakness on 11/08/18: Most likely TIA but could also be acute confusional state from underlying dementia. Will treat as TIA. - Plan: - Change aspirin to plavix 75 mg qd for stroke prevention (TIA occurred on aspirin on 11/08/18) - Brain MRI/MRA - Carotid U/S - TTE - 24 hour telemetry - Blood pressure < 140/90 - LDL < 70, LDL 43 on 09/03/18 so no statin needed - H1AC goal < 7.0, H1AC 7.6 on 09/03/18 so pt should work closely with PCM to address - PT/OT/Speech to determine any rehab needs - F/U 1-6 weeks with neurology clinic after hospital discharge Objective: Vital Signs Temp Pulse Resp BP Pulse Ox 36.8 C 91 16 172/97 H 97 11/09/18 08:00 11/09/18 08:00 11/09/18 08:00 11/09/18 08:00 11/09/18 08:00 11/08/18 11/09/18 11/10/18 05:59 05:59 05:59 Intake Total 250 Output Total 625 Balance -375 PT 12.2 SEC (12.0-15.0) 11/08/18 17:04 INR 0.88 (0.83-1.16) 11/08/18 17:04 Allergies/Adverse Reactions: metronidazole Allergy (Unknown, Verified 09/02/18 13:50) Rash amoxicillin trihydrate [From Augmentin] Allergy (Verified 09/02/18 13:50) brompheniramine maleate [From Rondec] Allergy (Verified 09/02/18 13:50) carbinoxamine maleate [From Rondec] Allergy (Verified 09/02/18 13:50) cefaclor Allergy (Verified 09/02/18 13:50) Rash cefuroxime axetil [From Ceftin] Allergy (Verified 09/02/18 13:50) chlorpheniramine maleate [From Ornade] Allergy (Verified 09/02/18 13:50) clindamycin Allergy (Verified 09/02/18 13:50) hydrocodone Allergy (Verified 09/02/18 13:50) latex [Latex] Allergy (Verified 09/02/18 13:50) Metronidazole HCl [From Flagyl] Allergy (Verified 09/02/18 13:50) Penicillins Allergy (Verified 09/02/18 13:50) phenylpropanolamine HCl [From Ornade] Allergy (Verified 09/02/18 13:50) potassium clavula *RETIRED-07/16/12 [From Augmentin] Allergy (Verified 09/02/18 13:50) pseudoephedrine HCl [From Rondec] Allergy (Verified 09/02/18 13:50) Sulfa (Sulfonamide Antibiotics) Allergy (Verified 09/02/18 13:50)
[2018-11-09] MEDS: INSULIN LISPRO 100 UNIT/ML SC SCH ×2 (11:10→18:00)
[2018-11-09] MEDS: CLOPIDOGREL BISULFATE 75 MG TAB PO SCH (11:10)
[2018-11-09] MEDS ORDERED: POLYETHYLENE GLYCOL 3350 17 GM PKT PO PRN (11:45)
[2018-11-09] MEDS ORDERED: DICLOFENAC SODIUM 1% 100 GM GEL TP PRN (11:45)
[2018-11-09] MEDS ORDERED: VANICREAM CREAM TP PRN (11:45)
[2018-11-09] MEDS ORDERED: TRIAMCINOLONE 0.1% 15 GM CRTUBE TP PRN (11:45)
--- NOTE | 2018-11-09 11:59 | ECHO ---
[email or web address] [address] [address] Main: [phone] Fax: Transthoracic Echocardiogram Name: YAMINI CAMPBELL MR#: [id number] Study Date: 11/09/2018 Study Time: 07:51 AM Date of : 1935 Age: 83 year(s) Height: 165.1 cm (65 in.) Weight: 52.62 kg (116 lb.) BSA: 1.57 m2 Gender: Female Examination: Echo Indication: Ischemic Stroke w/o TPA Image Quality: Adequate Contrast: Requested by: Ben Lincoln BP: 151 mmHg/64 mmHg Heart Rate: Rhythm: Indication: Ischemic Stroke w/o TPA Procedure Staff Tire Installer: Zeinab Samaniego RDCS Reading Physician: Qamar Romero MD Requesting Provider: Conclusions: Mild concentric LV hypertrophy. The ejection fraction is visually estimated to be 55 %. Mild mitral valve regurgitation is present. Aortic sclerosis is present. Mild aortic valve regurgitation is present. No pericardial effusion. Measurements: Chambers Valvular Assessment AV/MV Valvular Assessment TV/PV Normal Normal Normal Name Value Range Name Value Range Name Value Range Ao Leora (2D): 2.8 cm (1.4 cm-2.6 AV Vmax: 1.51 m/s (1 m/s-1.7 PV Vmax: 0.92 m/s (0.6 m/s-0.9 cm) m/s) m/s) IVSd (2D): 1.2 cm (0.6 cm-1.1 AV maxP mmHg ( - ) PV PGmax: 3 mmHg ( - ) cm) AV meanP mmHg ( - ) LVDd (2D): 3.9 cm (3.9 cm-5.3 KEYUR (VTI): 2.1 cm ( - ) cm) MV E Vmax: 0.71 m/s ( - ) LVDs (2D): 2.8 cm (2.1 cm-4 MV A Vmax: 1.13 m/s ( - ) cm) MV E/A: 0.63 ( - ) LVPWd (2D): 1.1 cm ( - ) MV PHT: 0.048 s ( - ) LVOTd 1.9 cm 1.9 cm mm MVA (PHT): 4.6 s ( - ) LVEF (BP): 58 % (>=55 %) Visual EF: 55 % Continued Measurements: Chambers Valvular Assessment AV/MV Name Value Name Value LADs: 2.8 cm MV DecTime: 151 m/s LADs Lon.1 cm MV E' Septal: 0.06 m/s Patient: YAMINI CAMPBELL Study Date: 11/09/2018 Page 1 of 2 07:51 AM LA Area: 12.9 cm2 MV E/E' Septal: 11.30 LA Volume: 30 ml MV E/E' Lateral: 9.90 LA Volume Index: 19.1 ml/m2 RA Area: 12.3 cm2 Additional Vessels Name Value Ao Ascendin.0 cm Inferior Vena Cava: 1.4 cm Findings: Left Ventricle: Normal size left ventricle. Mild concentric LV hypertrophy. Normal global systolic LV function. The ejection fraction is visually estimated to be 55 %. Normal diastolic LV function. Right Ventricle: Normal size right ventricle. Normal RV function. Left Atrium: The left atrium is normal in size. Right Atrium: The right atrium is normal in size. Mitral Valve: The mitral valve is normal in appearance and function. Mild mitral valve regurgitation is present. No mitral stenosis is present. Aortic Valve: The aortic valve is tri-leaflet. Aortic sclerosis is present. Mild aortic valve regurgitation is present. No aortic valve stenosis is present. Tricuspid Valve: The tricuspid valve is normal in appearance and function. Mild tricuspid regurgitation is present. Pulmonic Valve: The pulmonic valve is normal in appearance and function. There is no pulmonic regurgitation seen. Aorta: The aorta is normal. Normal size aortic root measuring 2.8 cm. Normal size ascending aorta measuring 3.0 cm. IVC: The IVC is normal sized. Pericardium: No pericardial effusion. No pleural effusion. Exam Comments: Patient supine in chair due to broken leg. (No Signature Object) Patient: YAMINI CAMPBELL Study Date: 11/09/2018 Page 2 of 2 07:51 AM D:_[id number]
[2018-11-09] MEDS: PROPYLENE GLYCOL EACHEYE SCH ×2 (14:26→22:02)
[2018-11-09] MEDS: PEG EACHEYE SCH ×2 (14:26→22:02)
--- NOTE | 2018-11-09 15:01 | HOSPPROG ---
Hospitalist Progress Note Assessment/Plan: 83 yo F with PMH Of dementia, prior watershed CVA, DM2, RAD presenting with sxs concerning for TIA with left sided weakness and ? left facial droop # TIA: at the time of my evaluation, patient does not recall why she came to hospital or whether or not she had weakness at that time, she states she has just been tired. Has some generalized weakness and cognitive issues but does not appear to have any focal findings. Has a hx of CVA however and neuro consulted and patient undergoing w/u for TIA. Echo unremarkable, tele monitoring thus far appears normal, carotid US normal, brain MRI/MRA pending. # hyperglycemia with DM2: blood sugar has barrera labile today for unclear reasons, ? error given significant variability, started on ssi in addition to her home regimen # dementia: relatively advanced, resides in a NH due to this, seems at baseline # recent UTI: given her presentation being slightly more c/w metabolic encephalopathy perhaps, will check UA, denies urinary sxs but due to her age/ dementia this is not reliable for her # recent hip fx # recurrent falls: resides at snf as above # HTN: continue op meds # observation status Patient new to my care. Old records reviewed and summarized as above. Subjective: no significant overnight events, patient currently notes feeling tired, does not recall why she is here, states she needs to go home because her son is visiting Objective: Vital Signs Temp Pulse Resp BP Pulse Ox 36.6 C 95 18 161/78 H 96 11/09/18 13:33 11/09/18 13:33 11/09/18 13:33 11/09/18 13:33 11/09/18 13:33 11/08/18 11/09/18 11/10/18 05:59 05:59 05:59 Intake Total 250 Output Total 625 Balance -375 PT 12.2 SEC (12.0-15.0) 11/08/18 17:04 INR 0.88 (0.83-1.16) 11/08/18 17:04 awake alert anicteric op clear rrr no mrg cta b soft nt nd no cce warm dry well perfused oriented x 2, memory poor - Time Spent With Patient Time Spent with Patient: greater than 35 minutes Time Spent with Patient: Greater than 35 minutes spent on this patients care, greater than 50% of time spent counseling, educating, and coordinating care regarding the above mentioned plan. ICD10 Worksheet Patient Problems: Problems Problem Status Onset Hypertension Acute TIA (transient ischemic attack) Acute Aphasia Acute Bed sore on buttock Acute Cerebral infarction, watershed distribution, bilateral, acute Acute Chest pain Acute Chronic Disease Mgmt/Transitional care Acute Head injury Acute Hip fracture Acute Hyperglycemia Acute Hyponatremia Acute Syncope Acute Urinary tract infection Acute
[2018-11-09] MEDS: DORZOLAMIDE 2% OPTH DROPS EACHEYE SCH ×2 (17:30→21:48)
[2018-11-09] MEDS: SODIUM CHLORIDE 5% 30 ML OPHT.BTL EACHEYE SCH ×2 (19:01→21:47)
[2018-11-09] MEDS: INSULIN GLARGINE 100 UNITS/ML UNIT SC SCH (21:44)
[2018-11-09] MEDS: LISINOPRIL 20 MG TAB PO SCH (21:45)
[2018-11-09] MEDS: PRESERVISION AREDS2 FORMULA EYE VIT 1 EACH PO SCH (21:46)
[2018-11-09] MEDS: MIRTAZAPINE 30 MG TAB PO SCH (21:46)
[2018-11-09] MEDS: METHENAMINE HIPP 1 GM TAB PO SCH (21:46)
[2018-11-09] MEDS: SODIUM CHLORIDE 1,000 MG TAB PO SCH (21:46)
[2018-11-09] MEDS: METOPROLOL TARTRATE 50 MG TAB PO SCH (21:46)
[2018-11-09] MEDS: BRIMONIDINE 0.2% 5 ML OPHT.BTL EACHEYE SCH (21:47)
[2018-11-09] MEDS: FLUOROMETHOLONE 5 ML OPHT.BTL RTEYE SCH (22:00)
[2018-11-09] MEDS: LATANOPROST 0.005% 2.5 ML OPHT DROPS EACHEYE SCH (22:01)
[2018-11-10] MEDS ORDERED: INSULIN LISPRO 100 UNIT/ML SC ONE ×2 (00:20→19:01)
[2018-11-10] MEDS: INSULIN LISPRO 100 UNIT/ML SC SCH ×3 (08:36→19:13)
[2018-11-10] MEDS: SODIUM CHLORIDE 5% 30 ML OPHT.BTL EACHEYE SCH ×3 (08:39→21:51)
[2018-11-10] MEDS: PROPYLENE GLYCOL EACHEYE SCH ×3 (08:42→21:52)
[2018-11-10] MEDS: PEG EACHEYE SCH ×3 (08:42→21:52)
[2018-11-10] MEDS: BRIMONIDINE 0.2% 5 ML OPHT.BTL EACHEYE SCH ×2 (09:20→21:51)
[2018-11-10] MEDS: SODIUM CHLORIDE 1,000 MG TAB PO SCH ×2 (09:22→21:50)
[2018-11-10] MEDS: METHENAMINE HIPP 1 GM TAB PO SCH ×2 (09:22→21:49)
[2018-11-10] MEDS: MULTIVITAMINS W-MINERALS 1 EACH TAB PO SCH (09:22)
[2018-11-10] MEDS: METOPROLOL TARTRATE 50 MG TAB PO SCH ×2 (09:22→21:49)
[2018-11-10] MEDS: PRESERVISION AREDS2 FORMULA EYE VIT 1 EACH PO SCH ×2 (09:22→21:50)
[2018-11-10] MEDS: CLOPIDOGREL BISULFATE 75 MG TAB PO SCH (09:22)
[2018-11-10] MEDS: PANTOPRAZOLE SODIUM 40 MG TAB PO SCH (09:22)
[2018-11-10] MEDS: DOCUSATE SODIUM 100 MG CAP PO SCH (09:22)
[2018-11-10] MEDS: OMEGA-3 FATTY ACIDS 1,000 MG CAP PO SCH (09:22)
[2018-11-10] MEDS: DORZOLAMIDE 2% OPTH DROPS EACHEYE SCH ×2 (09:28→21:50)
[2018-11-10] MEDS: FLUOROMETHOLONE 5 ML OPHT.BTL RTEYE SCH ×2 (09:29→21:51)
[2018-11-10] MEDS ORDERED: DIAZEPAM 5 MG TAB PO ONE (10:31)
--- NOTE | 2018-11-10 10:36 | NEUROPROG ---
Assessment: [id number] - Neurology Consult: - CC: F/U for Left facial weakness - Narrative Summary: Pt with history of dementia, prior stroke, GI issues was in a SNF when she was sent to [facility] ER on 09/02/18 for confusion and speech difficulties. This improved. Brain MRI showed no acute stroke and CTA head/neck showed nothing significant. 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 I saw the patient on 09/03/18. Her neurologic exam showed no focal problems (pt did have left hip pain and was tired and did not know date). I felt she likely had an acute confusional state from underlying dementia, recent UTI, prior stroke, diabetes, and possibly low sodium. Treatment is supportive. Pt was on an aspirin 81 mg qd given her prior stroke. - Pt returned to [facility] ER on 11/08/18 after [facility] (where she resides for dementia ) noted left weakness. In the [facility] ER she was noted to have left sided weakness which eventually resolved. Head CT showed no acute bleed or changes. Teleneurology elected to not give her TPA. Pt was on aspirin prior to admission. I initially saw the patient on 11/09/18. Neurologic exam showed no focal deficits and no facial weakness. - HPI: F/U 11/10/18. Pt could not tolerate the brain MRI/MRA on 11/09/18. She would like to retry it with a valium prior to study so will retry brain MRI wo (I cancelled brain MRA as it shortens study and seems unlikely to blade changer given head CT results in 2018). Carotid U/S showed No evidence of flow-limiting carotid stenosis. No neurologic complaints. No afib noted on telemetry. - PMHx: Asthma, DM2, HTN, dementia with acute confusional states at times, watershed infarcts 04/2018, H/O GIB 2/2 duodenal ulcer, anemia, Ecoli baceremia /2 UTI 06/2018 - SHx: no tobacco FHx: cancer - ROS: Pt denied acute fever, total vision loss, active severe chest pain, respiratory failure, total body severe rash, total bowel/bladder incontinence, psychosis, active seizures, or active bleeding - Labs: 09/02/18- CBC Hct 31L, Coags wnl, H1AC 7.6H, Chem Na 129L 09/03/18- LDL 43L - Rads: 09/02/18- Head/neck CTA: no flow-limiting carotid stenosis, mild atherosclerotic disease - 09/02/18- Brain MRI wo: Underlying atrophy and white matter disease with prior lacunar infarctions within the periventricular regions of both cerebral hemispheres. No evidence of acute cerebral infarction on the current examination. - 11/08/18- Head CT: no acute issues noted 11/08/18- TTE: no cardiac thrombus reported 11/09/18- Carotid U/S: No evidence of flow-limiting carotid stenosis 11/09/18- Brain MRA/MRI: pt declined MRI studies - Assessment: 1. Transient Left Facial Weakness on 11/08/18: Most likely TIA but could also be acute confusional state from underlying dementia. Will treat as TIA. Carotid U/S showed no carotid disease, TTE showed no cardiac thrombus, and 24 hour telemetry showed no afib. Aspirin was changed to plavix for further stroke prevention. - Plan: - Change aspirin to plavix 75 mg qd for stroke prevention (TIA occurred on aspirin on 11/08/18) - Brain MRI with valium before, if pt cannot tolerate study then will not obtain as getting general anesthesia would be a greater risk then benefit of brain MRI study - Blood pressure < 140/90 - LDL < 70, LDL 43 on 09/03/18 so no statin needed - H1AC goal < 7.0, H1AC 7.6 on 09/03/18 so pt should work closely with PCM to address - PT/OT/Speech to determine any rehab needs - F/U 1-6 weeks with neurology clinic after hospital discharge - 35 min spent with patient, majority of time spent counseling on symptoms and treatment plan Objective: Vital Signs Temp Pulse Resp BP Pulse Ox 36.7 C 85 16 194/87 H 98 11/10/18 07:22 11/10/18 09:22 11/10/18 07:22 11/10/18 09:22 11/10/18 07:22 Laboratory Results 11/10/18 02:55 11/09/18 11/10/18 11/11/18 05:59 05:59 05:59 Intake Total 250 350 Output Total 625 950 500 Balance -375 -600 -500 PT 12.2 SEC (12.0-15.0) 11/08/18 17:04 INR 0.88 (0.83-1.16) 11/08/18 17:04 Allergies/Adverse Reactions: metronidazole Allergy (Unknown, Verified 09/02/18 13:50) Rash amoxicillin trihydrate [From Augmentin] Allergy (Verified 09/02/18 13:50) brompheniramine maleate [From Rondec] Allergy (Verified 09/02/18 13:50) carbinoxamine maleate [From Rondec] Allergy (Verified 09/02/18 13:50) cefaclor Allergy (Verified 09/02/18 13:50) Rash cefuroxime axetil [From Ceftin] Allergy (Verified 09/02/18 13:50) chlorpheniramine maleate [From Ornade] Allergy (Verified 09/02/18 13:50) clindamycin Allergy (Verified 09/02/18 13:50) hydrocodone Allergy (Verified 09/02/18 13:50) latex [Latex] Allergy (Verified 09/02/18 13:50) Metronidazole HCl [From Flagyl] Allergy (Verified 09/02/18 13:50) Penicillins Allergy (Verified 09/02/18 13:50) phenylpropanolamine HCl [From Ornade] Allergy (Verified 09/02/18 13:50) potassium clavula *RETIRED-07/16/12 [From Augmentin] Allergy (Verified 09/02/18 13:50) pseudoephedrine HCl [From Rondec] Allergy (Verified 09/02/18 13:50) Sulfa (Sulfonamide Antibiotics) Allergy (Verified 09/02/18 13:50)
--- NOTE | 2018-11-10 14:33 | CPEKG ---
Test Reason : OPEN Blood Pressure : / mmHG Vent. Rate : 088 BPM Atrial Rate : 088 BPM P-R Int : 159 ms QRS Dur : 094 ms QT Int : 381 ms P-R-T Axes : 015 035 050 degrees QTc Int : 461 ms Sinus rhythm Atrial premature complex Left ventricular hypertrophy Confirmed by Cuca Olivares ([id number]) on 11/10/2018 2:33:37 PM Referred By: Confirmed By:Cuca Olivares
--- NOTE | 2018-11-10 15:40 | ASMTCMCOM ---
CM Note CM Note Notes: Pt in for TIA, resides at [facility] in LTC. Pt has a lot of family support. OT/PT rec SNF for rehab, [facility] TECHNICIAN clears pt for LTC. At [facility] pt does not get skilled therapy. Spoke with pt and family, they want pt to have skilled therapy at so pt will need to d/c to under SNF benefit. Frederic at reports as of 11/06/18 pt insurance is [employer] so needs to send for insurance auth. Pt family requests pt have therapy keeping her LTC room, this was communicated to Tiago at who report they likely can accommodate this request. CM to follow. D/c plan of care: [facility] SNF for rehab when insurance auth is obtained. Date Signed: 11/10/2018 03:39 PM Electronically Signed By:CLINT Mccarthy
--- NOTE | 2018-11-10 16:14 | HOSPPROG ---
Hospitalist Progress Note Assessment/Plan: 83 yo F with PMH Of dementia, prior watershed CVA, DM2, RAD presenting with sxs concerning for TIA with left sided weakness and ? left facial droop # TIA: at the time of my evaluation, patient does not recall why she came to hospital or whether or not she had weakness at that time, she states she overall feels as if someone is playing tricks with her or things have stopped making sense. Brain MRI performed that is not revealing for CVA, carotid US negative, no e/o infection # metabolic encephalopathy: patient with baselien dementia but now with much more confusion and even paranoia, ? related to metabolic issues including labile blood glucose versus psychiatric manifestations of chronic dementia # hyperglycemia with DM2: blood sugar has barrera labile intermittently, with significantly high readings all day yesterday and lows into the 20s overnight, cont ssi in addition to her home regimen # dementia: relatively advanced, resides in a NH due to this,as above # recent UTI: with repeat US showing pyuria/bactuia and with MS changes concernging for recurrent infection, cultures pending # recurrent falls: resides at snf as above # HTN: continue op meds # IP status, plan is to transtion from memory care to snf Subjective: no significant overnight events, patient expression a lot of concern today over how nothing makes sense, she does not know how she got here, is not sure this is really a hospital, does not understond why we would do this to her etc Objective: Vital Signs Temp Pulse Resp BP Pulse Ox 36.7 C 78 17 176/72 H 98 11/10/18 11:58 11/10/18 11:58 11/10/18 11:58 11/10/18 11:58 11/10/18 11:58 Laboratory Results 11/10/18 02:55 11/09/18 11/10/18 11/11/18 05:59 05:59 05:59 Intake Total 250 350 Output Total 625 950 500 Balance -375 -600 -500 PT 12.2 SEC (12.0-15.0) 11/08/18 17:04 INR 0.88 (0.83-1.16) 11/08/18 17:04 awake alert anicteric op clear rrr no mrg cta b soft nt nd no cce warm dry well perfused oriented x 1, memory poor, paranoid, bizarre thinking - Time Spent With Patient Time Spent with Patient: greater than 35 minutes Time Spent with Patient: Greater than 35 minutes spent on this patients care, greater than 50% of time spent counseling, educating, and coordinating care regarding the above mentioned plan. ICD10 Worksheet Patient Problems: Problems Problem Status Onset Hypertension Acute TIA (transient ischemic attack) Acute Aphasia Acute Bed sore on buttock Acute Cerebral infarction, watershed distribution, bilateral, acute Acute Chest pain Acute Chronic Disease Mgmt/Transitional care Acute Head injury Acute Hip fracture Acute Hyperglycemia Acute Hyponatremia Acute Syncope Acute Urinary tract infection Acute
--- NOTE | 2018-11-10 18:03 | PDMN ---
Medical Necessity Medical necessity: Pt meets IP criteria as of 11/09/2018 per and MCG M-360 (TIA ); est los > 2 mn for ongoing tx and evaluation of TIA with persistent weakness ; requiring neurology consult, further workup,therapies and management of chronic conditions including DM II, dementia and HTN.
[2018-11-10] MEDS: INSULIN GLARGINE 100 UNITS/ML UNIT SC SCH ×2 (21:49→23:44)
[2018-11-10] MEDS: MIRTAZAPINE 30 MG TAB PO SCH (21:50)
[2018-11-10] MEDS: LISINOPRIL 20 MG TAB PO SCH (21:50)
[2018-11-10] MEDS: LATANOPROST 0.005% 2.5 ML OPHT DROPS EACHEYE SCH (21:52)
[2018-11-11] MEDS: hydrALAZINE 10 MG TAB PO PRN (04:29)
[2018-11-11 05:34] LABS: PLATELET COUNT 277 10^3/uL (150-400)
[2018-11-11] MEDS ORDERED: D50W 25 GM/50 ML SYR IVP PRN (09:08)
[2018-11-11] MEDS: OMEGA-3 FATTY ACIDS 1,000 MG CAP PO SCH (09:59)
[2018-11-11] MEDS: CLOPIDOGREL BISULFATE 75 MG TAB PO SCH (09:59)
[2018-11-11] MEDS: PRESERVISION AREDS2 FORMULA EYE VIT 1 EACH PO SCH ×2 (09:59→21:10)
[2018-11-11] MEDS: METOPROLOL TARTRATE 50 MG TAB PO SCH ×2 (09:59→21:07)
[2018-11-11] MEDS: METHENAMINE HIPP 1 GM TAB PO SCH ×2 (10:00→21:08)
[2018-11-11] MEDS: SODIUM CHLORIDE 1,000 MG TAB PO SCH ×2 (10:00→21:10)
[2018-11-11] MEDS: amLODIPine BESYLATE 5 MG TAB PO SCH (10:01)
[2018-11-11] MEDS: MULTIVITAMINS W-MINERALS 1 EACH TAB PO SCH (10:01)
[2018-11-11] MEDS: PANTOPRAZOLE SODIUM 40 MG TAB PO SCH (10:01)
[2018-11-11] MEDS: DOCUSATE SODIUM 100 MG CAP PO SCH (10:01)
[2018-11-11] MEDS: SODIUM CHLORIDE 5% 30 ML OPHT.BTL EACHEYE SCH ×3 (10:15→21:25)
[2018-11-11] MEDS: PEG EACHEYE SCH ×3 (10:31→21:21)
[2018-11-11] MEDS: PROPYLENE GLYCOL EACHEYE SCH ×3 (10:31→21:21)
[2018-11-11] MEDS: FLUOROMETHOLONE 5 ML OPHT.BTL RTEYE SCH ×2 (10:31→21:53)
[2018-11-11] MEDS: DORZOLAMIDE 2% OPTH DROPS EACHEYE SCH ×2 (10:32→21:14)
[2018-11-11] MEDS: BRIMONIDINE 0.2% 5 ML OPHT.BTL EACHEYE SCH ×2 (10:40→21:36)
[2018-11-11] MEDS: INSULIN LISPRO 100 UNIT/ML SC SCH ×4 (10:47→16:17)
--- NOTE | 2018-11-11 14:26 | NEUROPROG ---
Assessment: [id number] - Neurology Consult: - CC: F/U for Left facial weakness - Narrative Summary: Pt with history of dementia, prior stroke, GI issues was in a SNF when she was sent to [facility] ER on 09/02/18 for confusion and speech difficulties. This improved. Brain MRI showed no acute stroke and CTA head/neck showed nothing significant. 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 I saw the patient on 09/03/18. Her neurologic exam showed no focal problems (pt did have left hip pain and was tired and did not know date). I felt she likely had an acute confusional state from underlying dementia, recent UTI, prior stroke, diabetes, and possibly low sodium. Treatment is supportive. Pt was on an aspirin 81 mg qd given her prior stroke. - Pt returned to [facility] ER on 11/08/18 after [facility] (where she resides for dementia ) noted left weakness. In the [facility] ER she was noted to have left sided weakness which eventually resolved. Head CT showed no acute bleed or changes. Teleneurology elected to not give her TPA. Pt was on aspirin prior to admission. I initially saw the patient on 11/09/18. Neurologic exam showed no focal deficits and no facial weakness. - F/U 11/10/18. Pt could not tolerate the brain MRI/MRA on 11/09/18. She would like to retry it with a valium prior to study so will retry brain MRI wo (I cancelled brain MRA as it shortens study and seems unlikely to climate change risk assessor given head CT results in 2018). Carotid U/S showed No evidence of flow-limiting carotid stenosis. No neurologic complaints. No afib noted on telemetry. - F/U 11/11/18. Brain MRI/MRA showed no acute changes and no stroke. No new complaints. Pt stable. - PMHx: Asthma, DM2, HTN, dementia with acute confusional states at times, watershed infarcts 04/2018, H/O GIB 2/2 duodenal ulcer, anemia, Ecoli baceremia /2 UTI 2017 - SHx: no tobacco FHx: cancer - ROS: Pt denied acute fever, total vision loss, active severe chest pain, respiratory failure, total body severe rash, total bowel/bladder incontinence, psychosis, active seizures, or active bleeding - Labs: 09/02/18- CBC Hct 31L, Coags wnl, H1AC 7.6H, Chem Na 129L 09/03/18- LDL 43L - Rads: 09/02/18- Head/neck CTA: no flow-limiting carotid stenosis, mild atherosclerotic disease - 09/02/18- Brain MRI wo: Underlying atrophy and white matter disease with prior lacunar infarctions within the periventricular regions of both cerebral hemispheres. No evidence of acute cerebral infarction on the current examination. - 11/08/18- Head CT: no acute issues noted 11/08/18- TTE: no cardiac thrombus reported 11/09/18- Carotid U/S: No evidence of flow-limiting carotid stenosis 11/10/18- Brain MRA/MRI: No stroke, no vessel abnl - Assessment: 1. Transient Left Facial Weakness on 11/08/18: Most likely TIA but could also be acute confusional state from underlying dementia. Will treat as TIA. Carotid U /S showed no carotid disease, TTE showed no cardiac thrombus, brain MRI/MRA showed no stroke or vessel abnl, and 24 hour telemetry showed no afib. Aspirin was changed to plavix for further stroke prevention. - Plan: - Change aspirin to plavix 75 mg qd for stroke prevention (TIA occurred on aspirin on 11/08/18) - Blood pressure < 140/90 - LDL < 70, LDL 43 on 09/03/18 so no statin needed - H1AC goal < 7.0, H1AC 7.6 on 09/03/18 so pt should work closely with PCM to address - PT/OT/Speech to determine any rehab needs - F/U 1-6 weeks with neurology clinic after hospital discharge - No further inpatient w/u needed, neurology will sign off - 35 min spent with patient, majority of time spent counseling on symptoms and treatment plan Objective: Vital Signs Temp Pulse Resp BP Pulse Ox 36.6 C 76 19 144/80 H 94 11/11/18 11:31 11/11/18 11:31 11/11/18 11:31 11/11/18 11:31 11/11/18 11:31 Laboratory Results 11/11/18 04:24 11/11/18 04:24 11/10/18 11/11/18 11/12/18 05:59 05:59 05:59 Intake Total 350 250 Output Total 950 800 Balance -600 -550 PT 12.2 SEC (12.0-15.0) 11/08/18 17:04 INR 0.88 (0.83-1.16) 11/08/18 17:04 Allergies/Adverse Reactions: metronidazole Allergy (Unknown, Verified 09/02/18 13:50) Rash amoxicillin trihydrate [From Augmentin] Allergy (Verified 09/02/18 13:50) brompheniramine maleate [From Rondec] Allergy (Verified 09/02/18 13:50) carbinoxamine maleate [From Rondec] Allergy (Verified 09/02/18 13:50) cefaclor Allergy (Verified 09/02/18 13:50) Rash cefuroxime axetil [From Ceftin] Allergy (Verified 09/02/18 13:50) chlorpheniramine maleate [From Ornade] Allergy (Verified 09/02/18 13:50) clindamycin Allergy (Verified 09/02/18 13:50) hydrocodone Allergy (Verified 09/02/18 13:50) latex [Latex] Allergy (Verified 09/02/18 13:50) Metronidazole HCl [From Flagyl] Allergy (Verified 09/02/18 13:50) Penicillins Allergy (Verified 09/02/18 13:50) phenylpropanolamine HCl [From Ornade] Allergy (Verified 09/02/18 13:50) potassium clavula *RETIRED-07/16/12 [From Augmentin] Allergy (Verified 09/02/18 13:50) pseudoephedrine HCl [From Rondec] Allergy (Verified 09/02/18 13:50) Sulfa (Sulfonamide Antibiotics) Allergy (Verified 09/02/18 13:50)
[2018-11-11] MEDS: ENOXAPARIN 30 MG/0.3 ML SYR SC SCH (15:06)
--- NOTE | 2018-11-11 16:09 | HOSPPROG ---
Hospitalist Progress Note Assessment/Plan: 83 yo F with PMH Of dementia, prior watershed CVA, DM2, RAD presenting with sxs concerning for TIA with left sided weakness and ? left facial droop # TIA: w/u negative for stroke but patient has become rapidly more confused and now lethargic since admission, as next # metabolic encephalopathy: patient with baseline dementia but now with much more confusion and even paranoia and today much more lethargy/somnolence than prior, ? related to metabolic issues including labile blood glucose versus psychiatric manifestations of chronic dementia, UA with increased wbc and given encephalopathy as well will treat for presumptive UTI pending cultures # hyperglycemia with DM2: blood sugar continues to be labile intermittently, will increase her glargine for her morning high readings and change SS back to regular as she has had some lows on the high intensity sliding scale # dementia: relatively advanced, resides in a NH due to this,as above # recent UTI: with repeat US showing pyuria/bactuia and with MS changes concernging for recurrent infection, cultures pending # recurrent falls: resides at snf as above # HTN: continue op meds # IP status, plan is to transition from memory care to snf Subjective: patient somnolent today, she states she has no new issues but notes she is just very tired, had been confused earlier in the day again with nurses stating 'this is not my foot' etc Objective: Vital Signs Temp Pulse Resp BP Pulse Ox 36.6 C 76 19 144/80 H 94 11/11/18 11:31 11/11/18 11:31 11/11/18 11:31 11/11/18 11:31 11/11/18 11:31 Laboratory Results 11/11/18 04:24 11/11/18 04:24 11/10/18 11/11/18 11/12/18 05:59 05:59 05:59 Intake Total 350 250 Output Total 950 800 400 Balance -600 -550 -400 PT 12.2 SEC (12.0-15.0) 11/08/18 17:04 INR 0.88 (0.83-1.16) 11/08/18 17:04 awake alert anicteric op clear rrr no mrg cta b soft nt nd no cce warm dry well perfused oriented x 1, memory poor, paranoid, bizarre thinking - Time Spent With Patient Time Spent with Patient: greater than 35 minutes Time Spent with Patient: Greater than 35 minutes spent on this patients care, greater than 50% of time spent counseling, educating, and coordinating care regarding the above mentioned plan. ICD10 Worksheet Patient Problems: Problems Problem Status Onset Hypertension Acute TIA (transient ischemic attack) Acute Aphasia Acute Bed sore on buttock Acute Cerebral infarction, watershed distribution, bilateral, acute Acute Chest pain Acute Chronic Disease Mgmt/Transitional care Acute Head injury Acute Hip fracture Acute Hyperglycemia Acute Hyponatremia Acute Syncope Acute Urinary tract infection Acute
[2018-11-11] MEDS: LISINOPRIL 20 MG TAB PO SCH (21:09)
[2018-11-11] MEDS: MIRTAZAPINE 30 MG TAB PO SCH (21:11)
[2018-11-11] MEDS: INSULIN GLARGINE 100 UNITS/ML UNIT SC SCH (21:12)
[2018-11-11] MEDS: LATANOPROST 0.005% 2.5 ML OPHT DROPS EACHEYE SCH (21:46)
[2018-11-12] MEDS: hydrALAZINE 10 MG TAB PO PRN (04:30)
[2018-11-12] MEDS: METOPROLOL TARTRATE 50 MG TAB PO SCH ×2 (09:14→21:12)
[2018-11-12] MEDS: amLODIPine BESYLATE 5 MG TAB PO SCH (09:14)
[2018-11-12] MEDS: SODIUM CHLORIDE 5% 30 ML OPHT.BTL EACHEYE SCH ×3 (09:17→21:13)
[2018-11-12] MEDS ORDERED: HYDROCODONE/APAP 5/325 TAB PO PRN (09:26)
[2018-11-12] MEDS: INSULIN LISPRO 100 UNIT/ML SC SCH ×3 (09:33→18:29)
[2018-11-12] MEDS: ACETAMINOPHEN 325 MG TAB PO PRN ×2 (09:39→17:52)
[2018-11-12] MEDS: METHENAMINE HIPP 1 GM TAB PO SCH ×2 (09:49→21:12)
[2018-11-12] MEDS: SODIUM CHLORIDE 1,000 MG TAB PO SCH ×2 (09:50→21:12)
[2018-11-12] MEDS: PRESERVISION AREDS2 FORMULA EYE VIT 1 EACH PO SCH ×2 (09:51→21:12)
[2018-11-12] MEDS: DOCUSATE SODIUM 100 MG CAP PO SCH (09:51)
[2018-11-12] MEDS: MULTIVITAMINS W-MINERALS 1 EACH TAB PO SCH (09:51)
[2018-11-12] MEDS: PANTOPRAZOLE SODIUM 40 MG TAB PO SCH (09:51)
[2018-11-12] MEDS: OMEGA-3 FATTY ACIDS 1,000 MG CAP PO SCH (09:51)
[2018-11-12] MEDS: CLOPIDOGREL BISULFATE 75 MG TAB PO SCH (09:51)
[2018-11-12] MEDS: ENOXAPARIN 30 MG/0.3 ML SYR SC SCH (09:58)
[2018-11-12 10:44] LABS: PLATELET COUNT 280 10^3/uL (150-400)
[2018-11-12] MEDS: BRIMONIDINE 0.2% 5 ML OPHT.BTL EACHEYE SCH ×2 (11:05→21:13)
[2018-11-12] MEDS: FLUOROMETHOLONE 5 ML OPHT.BTL RTEYE SCH ×2 (11:24→21:12)
[2018-11-12] MEDS: PROPYLENE GLYCOL EACHEYE SCH ×3 (13:48→21:09)
[2018-11-12] MEDS: PEG EACHEYE SCH ×3 (13:48→21:09)
[2018-11-12] MEDS: DORZOLAMIDE 2% OPTH DROPS EACHEYE SCH ×2 (13:48→21:13)
--- NOTE | 2018-11-12 14:27 | HOSPPROG ---
Hospitalist Progress Note Assessment/Plan: 83 yo F with PMH Of dementia, prior watershed CVA, DM2, RAD presenting with sxs concerning for TIA with left sided weakness and ? left facial droop # TIA: w/u negative for stroke, patient non focal but continues to have waxing and waning alterations in mentation as next, appreciate neuro eval # metabolic encephalopathy: patient with baseline dementia but intermittently with much more confusion and even paranoia, yesterday very somnolent. Today seems closer again to baseline. ? if related to possible UTI as next as improved since starting abx. Continue to work w/pt/ot, in correction care already # bacturia/pyuria: with increased confusion c/w metabolic encephalopathy concerning for uti as above, urine cultured pending, has hx of recurrent uti per daughter # hyper/hypo-glycemia with DM2: blood sugar continues to be labile, both very high and at times very low, increased her glargine and will continue ssi # dementia: relatively advanced, resides in a NH due to this,as above # recent hip fracture: occurred about 6 months ago and s/p surgical repair, has been increasingly weak and confused since then, continue pt/ot, pain mgmt # recurrent falls: resides at snf as above # HTN: continue op meds # IP status,will dc back to SNF likely in next 1-2 days Further hx obtained and care plan reviewed with patients daughter present at bedside. Subjective: patient notes she feels very weak and fatigued but knows she is in a health care facility--thought it was "[facility]", is a bit more achy today Objective: Vital Signs Temp Pulse Resp BP Pulse Ox 36.7 C 80 17 124/52 H 95 11/12/18 12:00 11/12/18 12:00 11/12/18 12:00 11/12/18 12:00 11/12/18 12:00 Laboratory Results 11/12/18 10:27 11/12/18 10:27 11/11/18 11/12/18 11/13/18 05:59 05:59 05:59 Intake Total 250 1650 Output Total 800 1400 Balance -550 250 PT 12.2 SEC (12.0-15.0) 11/08/18 17:04 INR 0.88 (0.83-1.16) 11/08/18 17:04 awake alert anicteric op clear rrr no mrg cta b soft nt nd no cce warm dry well perfused oriented x 2, short term memory poor, generalized weakness - Time Spent With Patient Time Spent with Patient: greater than 35 minutes Time Spent with Patient: Greater than 35 minutes spent on this patients care, greater than 50% of time spent counseling, educating, and coordinating care regarding the above mentioned plan. ICD10 Worksheet Patient Problems: Problems Problem Status Onset Hypertension Acute TIA (transient ischemic attack) Acute Aphasia Acute Bed sore on buttock Acute Cerebral infarction, watershed distribution, bilateral, acute Acute Chest pain Acute Chronic Disease Mgmt/Transitional care Acute Head injury Acute Hip fracture Acute Hyperglycemia Acute Hyponatremia Acute Syncope Acute Urinary tract infection Acute
[2018-11-12] MEDS ORDERED: NS 1,000 ML IV SCH (14:30)
[2018-11-12] MEDS: oxyCODONE IR 5 MG TAB PO PRN ×2 (15:03→18:46)
[2018-11-12] MEDS: INSULIN GLARGINE 100 UNITS/ML UNIT SC SCH (21:11)
[2018-11-12] MEDS: LATANOPROST 0.005% 2.5 ML OPHT DROPS EACHEYE SCH (21:12)
[2018-11-13 05:47] LABS: PLATELET COUNT 216 10^3/uL (150-400)
[2018-11-13] MEDS: oxyCODONE IR 5 MG TAB PO PRN (05:47)
[2018-11-13] MEDS: INSULIN LISPRO 100 UNIT/ML SC SCH ×4 (08:25→17:48)
[2018-11-13] MEDS: amLODIPine BESYLATE 5 MG TAB PO SCH (08:31)
[2018-11-13] MEDS: PRESERVISION AREDS2 FORMULA EYE VIT 1 EACH PO SCH (08:31)
[2018-11-13] MEDS: METOPROLOL TARTRATE 50 MG TAB PO SCH (08:31)
[2018-11-13] MEDS: CLOPIDOGREL BISULFATE 75 MG TAB PO SCH (08:32)
[2018-11-13] MEDS: MULTIVITAMINS W-MINERALS 1 EACH TAB PO SCH (08:32)
[2018-11-13] MEDS: DOCUSATE SODIUM 100 MG CAP PO SCH (08:32)
[2018-11-13] MEDS: ENOXAPARIN 30 MG/0.3 ML SYR SC SCH (08:32)
[2018-11-13] MEDS: METHENAMINE HIPP 1 GM TAB PO SCH (08:32)
[2018-11-13] MEDS: BRIMONIDINE 0.2% 5 ML OPHT.BTL EACHEYE SCH (08:36)
[2018-11-13] MEDS: DORZOLAMIDE 2% OPTH DROPS EACHEYE SCH (08:37)
[2018-11-13] MEDS: FLUOROMETHOLONE 5 ML OPHT.BTL RTEYE SCH (08:38)
[2018-11-13] MEDS: SODIUM CHLORIDE 5% 30 ML OPHT.BTL EACHEYE SCH ×2 (08:39→17:25)
[2018-11-13] MEDS: PROPYLENE GLYCOL EACHEYE SCH ×2 (08:39→17:26)
[2018-11-13] MEDS: PEG EACHEYE SCH ×2 (08:39→17:26)
[2018-11-13] MEDS: OMEGA-3 FATTY ACIDS 1,000 MG CAP PO SCH (09:06)
[2018-11-13] MEDS: ACETAMINOPHEN 325 MG TAB PO PRN (09:06)
[2018-11-13] MEDS: SODIUM CHLORIDE 1,000 MG TAB PO SCH (09:06)
[2018-11-13] MEDS: PANTOPRAZOLE SODIUM 40 MG TAB PO SCH (09:10)
--- NOTE | 2018-11-13 13:09 | WOCRNPDOC ---
WOCRN Advanced Assessment Note - Skin Integrity Problem, Advanced Assess Coccyx Pressure Injury Dressing Type: Open to Air Closure Description: Approximated Elaine Wound Tissue: Blanching (sluggish), Scarred Pressure Injury Stage: Stage 3 Pressure Injury Present on Admit: Yes Skin Integrity Problem Comment: This patient is well known to the wound care group as she has a history of pressure injury to her right sacrum. Today, patient was able to roll to her left side with minimal assistance. Skin in the area is completely intact and blanching though sluggish. Patient needs to be reminded to offload the area. Spoke with ZHENG Hunter and recommend a Mepilex sacral (or similar) to the area for protection. Will implement additional offloading measures. As there is no open wound, wound care will not continue to round. Please reconsult PRN.
--- NOTE | 2018-11-13 15:31 | HOSPPROG ---
Hospitalist Progress Note Assessment/Plan: 83 yo F with PMH Of dementia, prior watershed CVA, DM2, RAD presenting with sxs concerning for TIA with left sided weakness and ? left facial droop First encounter, chart reviewed. # TIA: w/u negative for stroke, patient non focal but continues to have waxing and waning alterations in mentation # metabolic encephalopathy: patient with baseline dementia intermittently with much more confusion and even paranoia seems closer to baseline possibly related to possible UTI as improved since starting abx. Continue to work w/pt/ot, in [facility] care already # bacturia/pyuria: with increased confusion c/w metabolic encephalopathy concerning for uti urine cultured no growth has hx of recurrent uti per daughter # hyper/hypo-glycemia with DM2: blood sugar continues to be labile, both very high and at times very low, increased her glargine and will continue ssi # dementia: relatively advanced, resides in a NH due to this # recent hip fracture: occurred about 6 months ago s/p surgical repair has been increasingly weak and confused since then continue pt/ot, pain mgmt # recurrent falls: resides at snf as above # HTN: continue op meds # IP status,will dc back to SNF likely in next 1-2 days D/W CM Subjective: Feeling well today. No specific complaints. Not very hungry. Objective: Vital Signs Temp Pulse Resp BP Pulse Ox 36.6 C 75 14 165/72 H 97 11/13/18 11:47 11/13/18 11:47 11/13/18 11:47 11/13/18 11:47 11/13/18 11:47 Laboratory Results 11/13/18 04:47 11/13/18 04:47 11/12/18 11/13/18 11/14/18 05:59 05:59 05:59 Intake Total 1650 1363 Output Total 1400 575 200 Balance 250 788 -200 PT 12.2 SEC (12.0-15.0) 11/08/18 17:04 INR 0.88 (0.83-1.16) 11/08/18 17:04 - Physical Exam Constitutional: appears nourished, not in pain, chronically ill appearing Eyes: PERRL, anicteric sclera, EOMI Ears, Nose, Mouth, Throat: moist mucous membranes, hearing normal, ears appear normal Cardiovascular: No JVD, No tachycardia, No edema Respiratory: no respiratory distress, no rales or rhonchi, reduced air movement Gastrointestinal: normoactive bowel sounds, No tenderness, No ascites Skin: warm, normal color, No mottled Musculoskeletal: normal joint ROM, no joint effusions, generalized weakness Psychiatric: not anxious, poor insight, poor judgement, poor memory ICD10 Worksheet Patient Problems: Problems Problem Status Onset Bed sore on buttock Acute Aphasia Acute Head injury Acute TIA (transient ischemic attack) Acute Chronic Disease Mgmt/Transitional care Acute Urinary tract infection Acute Cerebral infarction, watershed distribution, bilateral, acute Acute Chest pain Acute Syncope Acute Hyperglycemia Acute Hip fracture Acute Hypertension Acute Hyponatremia Acute
--- NOTE | 2018-11-13 15:37 | PDIAF ---
- Diagnosis Diagnosis: TIA Code Status: Full Code - Medication Management Discharge Medications: electronically signed and located in the Home Medication List. PICC Care - Routine: N/A - Orders Services needed: Registered Nurse, Physical Therapy, Occupational Therapy Diet Recommendation: no restrictions on diet Diet Texture: Regular Texture Diet, Thin Liquids, Meds Whole w/Liquids - Follow Up Care Current Providers and Referrals: BRITTANY GAONA [Other] - As per Instructions
--- NOTE | 2018-11-13 15:55 | ASMTLACE ---
LACE Length of stay for Answers: 4-6 days current admission Acuity / Level of Answers: Yes Care: Did the patient have an inpatient admission? Comorbidities - select Answers: Cerebrovascular disease all that apply (CVA, TIA, aneurysms, vasc ular dementia) Dementia Diabetes (uncontrolled or controlled) Opioid dependence / Chronic pain Other Notes: Malnutrition; HTN # of Emergency department Answers: 5-8 visits in the last 6 months Social determinants Answers: Mental health diagnosis (anxiety, depression, pers onality disorders, etc.) Score: 24 Date Signed: 11/13/2018 03:54 PM Electronically Signed By:CLINT Mccarthy
--- NOTE | 2018-11-13 16:11 | GDS ---
DISCHARGE DIAGNOSES: 1. Transient ischemic attack. 2. Metabolic encephalopathy. 3. Pyuria. 4. Hyperglycemia. 5. Dementia. 6. Weakness. 7. Failure to thrive. 8. Hypertension. CONSULTATIONS: Neurology. STUDIES AND PROCEDURES DONE: 1. CT of the head. 2. Echocardiogram. 3. Head MRA. 4. Carotid Doppler. 5. Brain MRI. HOSPITAL COURSE: Patient is an 83-year-old female brought to the hospital with complaints of left-si ded weakness. She was evaluated and diagnosed with: 1. TIA. Workup was negative for stroke. She did receive a consultation from Neurology during this hospitalization. She has been transitioned from aspirin to Plavix. We will continue this in the out patient setting. 2. Metabolic encephalopathy. This is multifactorial. The patient has baseline dementia. Her condi tion seems to be improving. She will continue physical therapy and occupational therapy. 3. Pyuria. She did receive antibiotic therapy during this hospitalization. However, her urine cult ure demonstrates no bacterial growth. Antibiotics will not be continued at time of disposition. 4. Diabetes mellitus type 2. The patient's blood sugar is variable and needs to be watched closely. Her home medications have been re-initiated. 5. Dementia. This is relatively advanced. The patient appears to be at her baseline today at the t joi of disposition. 6. Failure to thrive. The patient has had multiple falls and hip fracture recently. She will kailee nue to have half-way therapy. 7. Hypertension. This is stable with medications. DISPOSITION: She will be discharged to half-way facility for further rehabilitation and manag ement. There are no pending studies. DISCHARGE MEDICATIONS: Please refer to EMR form. New medications include Plavix as well as oxycodon e. I have discontinued previously prescribed aspirin and Remeron. FOLLOWUP: Followup will be with her primary care physician. TIME SPENT WITH PATIENT: I have spent greater than 35 minutes in the care, coordination, and managem ent of the patient's disposition. /[id number]/MODL
--- NOTE | 2018-11-13 16:32 | ASMTCMCOM ---
CM Note CM Note Notes: Today [facility] obtains insurance auth and pt is medically stable for d/c. Orders sent in [employer]. ZHENG Hunter to call report. Stretcher transport scheduled by Frederic at for 1830. Voicemail left for pt dghtr/REMIGIO Zazueta and Frederic updated pt dghtr Phyllis. Date Signed: 11/13/2018 04:32 PM Electronically Signed By:CLINT Mccarthy
[2018-11-13 17:00] VITALS: BP 156/70
--- NOTE | 2018-11-14 09:09 | ASDISCHSUM ---
Discharge Information Plan Status:SNF Medically Cleared to Leave: Discharge Date:11/13/2018 06:19 PM CM D/C Disposition: ADT D/C Disposition:Residential Facility Projected Discharge Date:11/11/2018 11:00 AM Transportation at D/C:ALS/BLS Discharge Delay Reason: Follow-Up Date:11/11/2018 11:00 AM Discharge Slot: Final Diagnosis: Placement Information Referral Type:*Half-Way/SNF Referral ID:[id number] Provider Name:[facility] Address 1:[address] Address 2: City:[place] Selection Factors: State:[place] Patient Contact Information Contact Name:SARABIA (POA) Relationship:Daughter Address:[address] [place] [address] Work Phone: [facility]:[place] Alternate Phone: [facility]/Zip Code:[place] [address] Email: Financial Information Financial Class:Medicare Primary Plan Desc:MEDICARE INPATIENT Primary Plan Number:[id number] Secondary Plan Desc:MARCOS [employer]ARA PPO Secondary Plan Number:[id number] Assessment Information LACE LACE Comorbidities - select Answers: Cerebrovascular disease all that apply (CVA, TIA, aneurysms, vasc ular dementia) Dementia Diabetes (uncontrolled or controlled) Opioid dependence / Chronic pain Other Notes: Malnutrition; HTN # of Emergency department Answers: 5-8 visits in the last 6 months Social determinants Answers: Mental health diagnosis (anxiety, depression, pers onality disorders, etc.) Score: 17 Date Signed: 11/09/2018 08:39 AM Electronically Signed By:Magaly Estrada [facility] CM Progress Note CM Note CM Note Notes: Pt in for TIA, resides at [facility] in LTC. Pt has a lot of family support. OT/PT rec SNF for rehab, [facility] clears pt for LTC. At [facility] pt does not get skilled therapy. Spoke with pt and family, they want pt to have skilled therapy at so pt will need to d/c to under SNF benefit. Frederic at reports as of 11/06/18 pt insurance is [place] so needs to send for insurance auth. Pt family requests pt have therapy keeping her LTC room, this was communicated to Tiago at who report they likely can accommodate this request. CM to follow. D/c plan of care: [facility] SNF for rehab when insurance auth is obtained. Date Signed: 11/10/2018 03:39 PM Electronically Signed By:CLINT Mccarthy LACE LACE Length of stay for Answers: 4-6 days current admission Acuity / Level of Answers: Yes Care: Did the patient have an inpatient admission? Comorbidities - select Answers: Cerebrovascular disease all that apply (CVA, TIA, aneurysms, vasc ular dementia) Dementia Diabetes (uncontrolled or controlled) Opioid dependence / Chronic pain Other Notes: Malnutrition; HTN # of Emergency department Answers: 5-8 visits in the last 6 months Social determinants Answers: Mental health diagnosis (anxiety, depression, pers onality disorders, etc.) Score: 24 Date Signed: 11/13/2018 03:54 PM Electronically Signed By:CLINT Mccarthy [facility] CM Progress Note CM Note CM Note Notes: Today [facility] obtains insurance auth and pt is medically stable for d/c. Orders sent in [employer]scripts. ZHENG Hunter to call report. Stretcher transport scheduled by Frederic at for 1830. Voicemail left for pt dghtr/REMIGIO Zazueta and Frederic updated pt dghtr Phyllis. Date Signed: 11/13/2018 04:32 PM Electronically Signed By:CLINT Mccarthy Intervention Information Intervention Type:*ANIA-Signed Date of Service:11/09/2018 12:01 PM Patient Type:Observation Staff Member:Magaly Estrada Hours: Discipline: Severity: Comment:
== END 2018-11-13 18:19 | DRG 69 ==
LOC: EDUNIT# → F2N 20:45 → F3N 11-09 12:13 → OBSVTOIN 11-09 17:25
PROVIDERS: ADMIT Internal Medicine; ATTEND Internal Medicine
DX: G45.9 Transient cerebral ischemic attack, unspecified (principal); R29.702 NIHSS score 2; G93.41 Metabolic encephalopathy; R82.71 Bacteriuria; E22.2 Syndrome of inappropriate secretion of antidiuretic hormone; E11.65 Type 2 diabetes mellitus with hyperglycemia; Z79.4 Long term (current) use of insulin; R53.1 Weakness; R62.7 Adult failure to thrive; I10 Essential (primary) hypertension; F03.90 Unspecified dementia, unspecified severity, without behavioral disturbance, psychotic disturbance, mood disturbance, and anxiety; J45.909 Unspecified asthma, uncomplicated; Z86.73 Personal history of transient ischemic attack (TIA), and cerebral infarction without residual deficits; Z79.82 Long term (current) use of aspirin
CPT/HCPCS: 82435-PO; 82565-PO; 82947-PO; 82947-QW; 84132-PO; 84295-PO; 84484-ER; 84520-PO; 85014-ER; 92610-GN; 96374; 97110-GP; 97116-GP; 97162-GP; 97166-GO; 97530-GO; 97530-GP; 97535-GO; G0378; J0696; J1650; J1815

== ENCOUNTER 2019-02-04 05:33 | Emergency (ER) | payer OTHER ==
[2019-02-04] MEDS ORDERED: METOPROLOL TARTRATE 50 MG TAB PO ONE (06:00)
--- NOTE | 2019-02-04 06:02 | EDPHY ---
H & P Stated Complaint: fatigue/shaky, "feels needs arent being met at [facility]" Time Seen by Provider: 02/04/19 05:40 HPI/ROS: Chief Complaint: Hypertension HPI: 83-year-old woman with a history of hypertension, diabetes, dementia is being brought in from her nursing home facility for concerns about hypertension and that her "medical needs are not being met". Patient states that she has been at [facility] for the last several months. She feels that her blood sugars have been running to high INR blood pressure is running high. This morning they checked her blood pressure was 200 systolic. She has been taking her medications as prescribed. Denies any headache. No chest pain. No shortness of breath. No nausea or vomiting. Patient states that the assisted staff asked her if she want to go to the hospital and she said she did. She is currently without complaint but wants some recommendations on how to control her blood pressure and blood sugars. Nursing staff here has spoke with the daughter who states that she is chronically hypertensive and her symptoms are not unusual for her. Patient is currently at her baseline. ROS: 10 systems were reviewed and were negative except those elements noted in the HPI. PMH: Hypertension, diabetes, dementia, CVA, chronic UTI Social History: No smoking, no alcohol, no recreational drug use Family History: non-contributory Physical Exam: Gen: Awake, Alert, No Distress HEENT: Nose: no rhinorrhea Eyes: PERRLA, EOMI Mouth: Moist mucosa Neck: Supple, no JVD Chest: nontender, lungs clear to auscultation Heart: S1, S2 normal, no murmur Abd: Soft, non-tender, no guarding Back: no CVA tenderness, no midline tenderness Ext: no edema, non-tender Skin: no rash Neuro: CN II-XII intact, Sensation grossly intact, Strength 5/5 in bilateral upper and lower extremities - Personal History Current Tetanus/Diphtheria Vaccine: Yes - Medical/Surgical History Hx Asthma: No Hx Chronic Respiratory Disease: No Hx Diabetes: Yes Hx Cardiac Disease: Yes Hx Renal Disease: No Hx Cirrhosis: No Hx Alcoholism: No Hx HIV/AIDS: No Hx Splenectomy or Spleen Trauma: No Other PMH: HTN, IDDM, anxiety/depr, appy, tonsils. CVA, left hip fracture, UTI, - Social History Smoking Status: Never smoked Constitutional: Initial Vital Signs Temperature (C) 36.9 C 02/04/19 05:37 Heart Rate 83 02/04/19 05:37 Respiratory Rate 18 02/04/19 05:37 Blood Pressure 211/78 H 02/04/19 05:37 O2 Sat (%) 96 02/04/19 05:37 O2 Delivery Mode Room Air Allergies/Adverse Reactions: metronidazole Allergy (Unknown, Verified 09/02/18 13:50) Rash amoxicillin trihydrate [From Augmentin] Allergy (Verified 09/02/18 13:50) brompheniramine maleate [From Rondec] Allergy (Verified 09/02/18 13:50) carbinoxamine maleate [From Rondec] Allergy (Verified 09/02/18 13:50) cefaclor Allergy (Verified 09/02/18 13:50) Rash cefuroxime axetil [From Ceftin] Allergy (Verified 09/02/18 13:50) chlorpheniramine maleate [From Ornade] Allergy (Verified 09/02/18 13:50) clindamycin Allergy (Verified 09/02/18 13:50) hydrocodone Allergy (Verified 09/02/18 13:50) latex [Latex] Allergy (Verified 09/02/18 13:50) Metronidazole HCl [From Flagyl] Allergy (Verified 09/02/18 13:50) Penicillins Allergy (Verified 09/02/18 13:50) phenylpropanolamine HCl [From Ornade] Allergy (Verified 09/02/18 13:50) potassium clavula *RETIRED-07/16/12 [From Augmentin] Allergy (Verified 09/02/18 13:50) pseudoephedrine HCl [From Rondec] Allergy (Verified 09/02/18 13:50) Sulfa (Sulfonamide Antibiotics) Allergy (Verified 09/02/18 13:50) Home Medications: Medication Instructions Recorded Fluorometholone [Fml (*)] 1 drop RTEYE BID 05/10/18 Metoprolol Tartrate [Lopressor 50 50 mg PO BID 05/10/18 mg (*)] Sodium Chloride 5% [Dannie-128 5%] 3 drop EACHEYE TID 05/10/18 C/E/Zn/Cu/OM3/DHA/EPA/LUT/ZEAX 1 cap PO BID 06/05/18 [Preservision Areds 2 Softgel] Docusate Sodium [Colace 100 MG (*)] 100 mg PO DAILY 06/28/18 Insulin Glargine,Hum.rec.anlog 12 unit SQ HS 06/28/18 [Basaglar Kwikpen U-100] Diclofenac Sodium 1% [Voltaren Gel 4 gm TP TID PRN 08/10/18 (*)] Dorzolamide HCl/Pf [Dorzolamide 2% 1 drop EACHEYE BID 08/10/18 Eye Drop] Sodium Chloride [Salt Tablet] 500 mg PO BID 08/10/18 Brimonidine 0.2% [Alphagan 0.2%] 1 drop EACHEYE BID 09/02/18 Herbals/Supplements -Info Only 1 ea PO DAILY 09/02/18 Insulin Lispro [Humalog] 9 unit SQ TIDMEAL 09/02/18 Latanoprost 0.005% [Xalatan 0.005% 1 drops EACHEYE HS 09/02/18 (*)] [place]-3 Fatty Acids [Fish Oil 1000 1,000 mg PO DAILY 09/02/18 mg (*)] Polyethylene Glycol 3350 [Miralax 17 gm PO DAILY PRN 09/02/18 17 gm (*)] Propylene Glycol/Peg 400 [Systane 1 drop EACHEYE TID 09/02/18 Ultra 0.4-0.3% Eye Drp] Lisinopril [Zestril 20 mg (*)] 20 mg PO HS 09/16/18 Multivitamins W-Minerals [Thera M 1 each PO DAILY 09/16/18 Plus Tablet (*)] amLODIPine BESYLATE [Norvasc 2.5 2.5 mg PO DAILY 09/16/18 mg (*)] Methenamine Hugo [Hiprex 1 gm (*)] 1 gm PO BID 11/08/18 Pantoprazole Sodium [Protonix] 20 mg PO DAILY 11/08/18 Triamcinolone 0.1% [Triamcinolone 1 vasile TP BID PRN 11/08/18 0.1% Cream (*)] Vanicream [Vanicream (*)] 1 vasile TP PRN PRN 11/08/18 Acetaminophen [Tylenol 325mg (*)] 650 mg PO Q6HRS PRN tab 11/13/18 Clopidogrel Bisulfate [Plavix (*)] 75 mg PO DAILY tab 11/13/18 Enoxaparin [Lovenox] 30 mg SC DAILY syr 11/13/18 oxyCODONE IR [Oxycodone Ir (*)] 2.5 - 5 mg PO Q4H PRN tab 11/13/18 Lasix 02/04/19 MIRTAZAPINE 02/04/19 Protonix 02/04/19 Xarelto 02/04/19 Medical Decision Making ED Course/Re-evaluation: 83-year-old woman being brought in from her nursing home facility with concerns about her blood pressure being uncontrolled. Here her blood pressure is 180/92. She is currently at her baseline. Her daughter's columns that that she is normally runs hypertensive. I have looked through her medical medications charts from the assisted and noted that they have been making adjustments recently to medications in what appears to be in an attempt to better control her blood pressure. The patient currently has no physical complaint. Plan will be to treat her with her normal morning metoprolol does. I expect the patient will return return to her nursing home facility. I have discussed at length with the patient that these concerns need to be discussed with her primary physician and that we are not going to make any significant changes to her medications in the emergency department. There is no indications for admission to the hospital at this time. - Data Points Laboratory Results: Laboratory Results 02/04/19 05:50 02/04/19 05:50 Sodium 131 mEq/L L mEq/L (135-145) Potassium 4.4 mEq/L mEq/L (3.5-5.2) Chloride 95 mEq/L L mEq/L (97-110) Carbon Dioxide 27 mEq/l mEq/l (22-31) Anion Gap 9 mEq/L mEq/L (6-14) BUN 28 mg/dL H mg/dL (7-23) Creatinine 1.3 mg/dL H mg/dL (0.6-1.0) Estimated GFR 39 Glucose 234 mg/dL H mg/dL (70-100) Calcium 9.9 mg/dL mg/dL (8.5-10.4) Medications Given: Discontinued Medications Metoprolol Tartrate (Lopressor) 62.5 mg PO EDNOW ONE Stop: 02/04/19 06:16 Last Admin: 02/04/19 06:08 Dose: 62.5 mg Departure - Departure Disposition: Home, Routine, Self-Care Clinical Impression: Hypertension Condition: Fair Instructions: Hypertension (ED) Additional Instructions: Follow up with your primary care physician in 1-2 days for re-evaluation of your blood pressure and diabetes management. Return to the emergency department for headache, chest pain, shortness of breath , fainting, or any other concerns. Referrals: Patient,NotPresent [Unknown] - As per Instructions
[2019-02-04] MEDS ORDERED: METOPROLOL TARTRATE 25 MG TAB PO ONE (06:15)
[2019-02-04] MEDS ORDERED: ACETAMINOPHEN 325 MG TAB PO ONE (07:38)
[2019-02-04 07:43] VITALS: BP 175/74
== END 2019-02-04 09:59 | disposition home or self-care (01) ==
LOC: EDUNIT#
DX: I10 Essential (primary) hypertension (principal); F03.90 Unspecified dementia, unspecified severity, without behavioral disturbance, psychotic disturbance, mood disturbance, and anxiety; E11.65 Type 2 diabetes mellitus with hyperglycemia; Z79.4 Long term (current) use of insulin

== ENCOUNTER 2019-02-08 12:35 | Emergency (ER) | payer OTHER ==
[2019-02-08 13:27] LABS: PLATELET COUNT 191 10^3/uL (150-400)
--- NOTE | 2019-02-08 15:09 | EDPHY ---
HPI/HX/ROS/PE/MDM Narrative: CHIEF COMPLAINT: Weakness HPI: This patient is an 83 year old female with past medical history including hypertension, diabetes mellitus, recurrent UTIs. She presents complaining of weakness ongoing since yesterday. She endorses associated fever around 100 degrees Fahrenheit. She denies productive cough, chest pain or difficulty breathing. No vomiting, diarrhea, dysuria, hematuria. She cannot identify any particular preceding events or further symptoms, seems to complain primarily of general malaise and weakness. REVIEW OF SYSTEMS: A comprehensive 10 system review of systems is otherwise negative aside from elements mentioned in the history of present illness and medical decision making. PMH: Hypertension, diabetes mellitus, history of CVA, anxiety/depression, appendectomy, tonsillectomy, history of left hip fracture, recurrent UTIs. SOCIAL HISTORY: Retired, lives in [place]. PHYSICAL EXAM: General: Flat affect, appears drowsy. Alert, responds to questions appropriately though briefly. In no acute distress. ENT:Eyes are normal to inspection. ENT inspection normal. Neck: Normal inspection. Full range of motion. Respiratory:No respiratory distress. Breath sounds normal bilaterally. Cardiovascular: Regular rate and rhythm. Strong peripheral pulses. Normal cap refill. Abdomen:The abdomen is nontender to palpation. There are no peritoneal signs. There are normal bowel sounds. Back: Normal to inspection. No tenderness to palpation. Skin: Normal color. No rash. Warm and dry. Extremities: Normal appearance. Full range of motion. Neuro: Oriented x3. Normal motor function. Normal sensory function. ED Course: 83 y/o female presents with weakness, fever. Plan for chest x-ray, labs including CBC, chemistries, UA, flu swab. Chest x-ray negative for pneumonia. Reviewed laboratory studies. Flu swab negative. UA negative for UTI. BGL elevated at 308. 16:18 Spoke with patient's daughter, who is also her POA. She is comfortable with workup so far and is amenable to discharge home or admission. Reassessed patient. Discussed imaging and laboratory results. The patient states she is feeling fine and is prefers discharge home rather than admission. She understands that there was no known cause of her symptoms identified today. She understands she many return any time for further evaluation. Plan to discharge home in good condition. Follow up and return precautions discussed. She is comfortable with this plan. - Data Points Imaging Results: Imaging Impressions Chest X-Ray 02/08/19 15:10 Impression: Clear lungs. No pneumonia. Imaging: I viewed and interpreted images myself Laboratory Results: Laboratory Results 02/08/19 13:17 02/08/19 13:17 02/08/19 02/08/19 02/08/19 14:31 13:42 13:17 WBC RBC Hgb Hct MCV MCH MCHC RDW Plt Count MPV Neut % (Auto) Lymph % (Auto) [place] % (Auto) Eos % (Auto) Baso % (Auto) Nucleat RBC Rel Count Absolute Neuts (auto) Absolute Lymphs (auto) Absolute Monos (auto) Absolute Eos (auto) Absolute Basos (auto) Absolute Nucleated RBC Immature Gran % Immature Gran # RBC/WBC/PLT Morphology Platelet Estimate Sodium 129 mEq/L L mEq/L (135-145) Potassium 4.1 mEq/L mEq/L (3.5-5.2) Chloride 95 mEq/L L mEq/L (97-110) Carbon Dioxide 23 mEq/l mEq/l (22-31) Anion Gap 11 mEq/L mEq/L (6-14) BUN 31 mg/dL H mg/dL (7-23) Creatinine 1.3 mg/dL H mg/dL (0.6-1.0) Estimated GFR 39 Glucose 308 mg/dL H mg/dL (70-100) Calcium 8.8 mg/dL mg/dL (8.5-10.4) Urine Color YELLOW Urine Appearance CLEAR Urine pH 6.0 (5.0-7.5) Ur Specific [place] 1.014 (1.002-1.030) Urine Protein 2+ H (NEGATIVE) Urine Ketones TRACE H (NEGATIVE) Urine Blood NEGATIVE (NEGATIVE) Urine Nitrate NEGATIVE (NEGATIVE) Urine Bilirubin NEGATIVE (NEGATIVE) Urine Urobilinogen NEGATIVE EU EU (0.2-1.0) Ur Leukocyte Esterase NEGATIVE (NEGATIVE) Urine RBC 10-15 /hpf H /hpf (0-3) Urine WBC 5-10 /hpf H /hpf (0-3) Ur Epithelial Cells TRACE /lpf /lpf (NONE-1+) Urine Glucose 3+ H (NEGATIVE) Nasal Influenza A PCR NEGATIVE FOR FLU A (NEGATIVE) Nasal Influenza B PCR NEGATIVE FOR FLU B (NEGATIVE) 02/08/19 13:17 WBC 12.97 10^3/uL H 10^3/uL (3.80-9.50) RBC 3.69 10^6/uL L 10^6/uL (4.18-5.33) Hgb 10.8 g/dL L g/dL (12.6-16.3) Hct 32.1 % L % (38.0-47.0) MCV 87.0 fL fL (81.5-99.8) MCH 29.3 pg pg (27.9-34.1) MCHC 33.6 g/dL g/dL (32.4-36.7) RDW 14.0 % % (11.5-15.2) Plt Count 191 10^3/uL 10^3/uL (150-400) MPV 9.6 fL fL (8.7-11.7) Neut % (Auto) 89.7 % H % (39.3-74.2) Lymph % (Auto) 3.9 % L % (15.0-45.0) [place] % (Auto) 5.4 % % (4.5-13.0) Eos % (Auto) 0.0 % L % (0.6-7.6) Baso % (Auto) 0.5 % % (0.3-1.7) Nucleat RBC Rel Count 0.0 % % (0.0-0.2) Absolute Neuts (auto) 11.63 10^3/uL H 10^3/uL (1.70-6.50) Absolute Lymphs (auto) 0.51 10^3/uL L 10^3/uL (1.00-3.00) Absolute Monos (auto) 0.70 10^3/uL 10^3/uL (0.30-0.80) Absolute Eos (auto) 0.00 10^3/uL L 10^3/uL (0.03-0.40) Absolute Basos (auto) 0.06 10^3/uL 10^3/uL (0.02-0.10) Absolute Nucleated RBC 0.00 10^3/uL 10^3/uL (0-0.01) Immature Gran % 0.5 % % (0.0-1.1) Immature Gran # 0.06 10^3/uL 10^3/uL (0.00-0.10) RBC/WBC/PLT Morphology TNP Platelet Estimate TNP Sodium Potassium Chloride Carbon Dioxide Anion Gap BUN Creatinine Estimated GFR Glucose Calcium Urine Color Urine Appearance Urine pH Ur Specific [place] Urine Protein Urine Ketones Urine Blood Urine Nitrate Urine Bilirubin Urine Urobilinogen Ur Leukocyte Esterase Urine RBC Urine WBC Ur Epithelial Cells Urine Glucose Nasal Influenza A PCR Nasal Influenza B PCR General Time Seen by Provider: 02/08/19 12:54 Initial Vital Signs: Initial Vital Signs Temperature (C) 37.9 C 02/08/19 12:46 Heart Rate 103 H 02/08/19 12:46 Respiratory Rate 16 02/08/19 12:46 Blood Pressure 171/79 H 02/08/19 12:46 O2 Sat (%) 95 02/08/19 12:46 O2 Delivery Mode Room Air Allergies/Adverse Reactions: metronidazole Allergy (Unknown, Verified 09/02/18 13:50) Rash amoxicillin trihydrate [From Augmentin] Allergy (Verified 09/02/18 13:50) brompheniramine maleate [From Rondec] Allergy (Verified 09/02/18 13:50) carbinoxamine maleate [From Rondec] Allergy (Verified 09/02/18 13:50) cefaclor Allergy (Verified 09/02/18 13:50) Rash cefuroxime axetil [From Ceftin] Allergy (Verified 09/02/18 13:50) chlorpheniramine maleate [From Ornade] Allergy (Verified 09/02/18 13:50) clindamycin Allergy (Verified 09/02/18 13:50) hydrocodone Allergy (Verified 09/02/18 13:50) latex [Latex] Allergy (Verified 09/02/18 13:50) Metronidazole HCl [From Flagyl] Allergy (Verified 09/02/18 13:50) Penicillins Allergy (Verified 09/02/18 13:50) phenylpropanolamine HCl [From Ornade] Allergy (Verified 09/02/18 13:50) potassium clavula *RETIRED-07/16/12 [From Augmentin] Allergy (Verified 09/02/18 13:50) pseudoephedrine HCl [From Rondec] Allergy (Verified 09/02/18 13:50) Sulfa (Sulfonamide Antibiotics) Allergy (Verified 09/02/18 13:50) Home Medications: Medication Instructions Recorded Fluorometholone [Fml (*)] 1 drop RTEYE BID 05/10/18 Metoprolol Tartrate [Lopressor 50 50 mg PO BID 05/10/18 mg (*)] Sodium Chloride 5% [Dannie-128 5%] 3 drop EACHEYE TID 05/10/18 C/E/Zn/Cu/OM3/DHA/EPA/LUT/ZEAX 1 cap PO BID 06/05/18 [Preservision Areds 2 Softgel] Docusate Sodium [Colace 100 MG (*)] 100 mg PO DAILY 06/28/18 Insulin Glargine,Hum.rec.anlog 12 unit SQ HS 06/28/18 [Basaglar Kwikpen U-100] Diclofenac Sodium 1% [Voltaren Gel 4 gm TP TID PRN 08/10/18 (*)] Dorzolamide HCl/Pf [Dorzolamide 2% 1 drop EACHEYE BID 08/10/18 Eye Drop] Sodium Chloride [Salt Tablet] 500 mg PO BID 08/10/18 Brimonidine 0.2% [Alphagan 0.2%] 1 drop EACHEYE BID 09/02/18 Herbals/Supplements -Info Only 1 ea PO DAILY 09/02/18 Insulin Lispro [Humalog] 9 unit SQ TIDMEAL 09/02/18 Latanoprost 0.005% [Xalatan 0.005% 1 drops EACHEYE HS 09/02/18 (*)] Tol[place]oy-3 Fatty Acids [Fish Oil 1000 1,000 mg PO DAILY 09/02/18 mg (*)] Polyethylene Glycol 3350 [Miralax 17 gm PO DAILY PRN 09/02/18 17 gm (*)] Propylene Glycol/Peg 400 [Systane 1 drop EACHEYE TID 09/02/18 Ultra 0.4-0.3% Eye Drp] Lisinopril [Zestril 20 mg (*)] 20 mg PO HS 09/16/18 Multivitamins W-Minerals [Thera M 1 each PO DAILY 09/16/18 Plus Tablet (*)] amLODIPine BESYLATE [Norvasc 2.5 2.5 mg PO DAILY 09/16/18 mg (*)] Methenamine Hugo [Hiprex 1 gm (*)] 1 gm PO BID 11/08/18 Pantoprazole Sodium [Protonix] 20 mg PO DAILY 11/08/18 Triamcinolone 0.1% [Triamcinolone 1 vasile TP BID PRN 11/08/18 0.1% Cream (*)] Vanicream [Vanicream (*)] 1 vasile TP PRN PRN 11/08/18 Acetaminophen [Tylenol 325mg (*)] 650 mg PO Q6HRS PRN tab 11/13/18 Clopidogrel Bisulfate [Plavix (*)] 75 mg PO DAILY tab 11/13/18 Enoxaparin [Lovenox] 30 mg SC DAILY syr 11/13/18 oxyCODONE IR [Oxycodone Ir (*)] 2.5 - 5 mg PO Q4H PRN tab 11/13/18 Lasix 02/04/19 MIRTAZAPINE 02/04/19 Protonix 02/04/19 Xarelto 02/04/19 Departure - Departure Disposition: Home, Routine, Self-Care Clinical Impression: Weakness Condition: Good Instructions: Weakness (ED) Additional Instructions: Follow up with your primary care provider in 2-3 days. As we discussed, we were unable to identify any acute cause for your symptoms today. Return to the emergency department for fever, increasing weakness, chest pain, shortness of breath, or other worsening of condition or further concerns. Referrals: Patient,NotPresent [Primary Care Provider] - As per Instructions Yaw Gottlieb DO [Doctor of Osteopathy] - As per Instructions Report Scribed for: Malcolm Wilkins Report Scribed by: Emily Chapman Date of Report: 02/08/19 Time of Report: 15:13 Physician Review and Approval Statement: Portions of this note were transcribed by an ED scribe. I personally performed the history, physical exam, and medical decision making; and confirm the accuracy of the information in the transcribed note.
[2019-02-08 18:03] VITALS: BP 200/89
--- NOTE | 2019-02-08 21:59 | ASMTCMCOM ---
CM Note CM Note Notes: Late Entry: Reviewed chart. Pt presented to the Emergency Department via EMS with complaints of weakness, fever, cough. History includes asthma, labile HTN, SIADH, dementia, diabetes, recurrent UTI's, CVA, anxiety, depression, left hip fracture. Pt is a LTC resident at [facility]. Her dghtr Carlita Goodrich is her POA. Asked to see pt by ZHENG Guerrero. Pt to discharge back to [facility]. Call placed to [facility] , update provided. Per staff at , able to accept pt back. Per RN at , pt's dghtr Carlita typically provides transportation for pt. Call placed to Carlita. Per Carlita, unable to assist with transport tonight. Dghtr agreeable to CM arranging transport on pt's behalf. Call placed to Luke at . Katina to arrange transportation with [employer]; hop picker scheduled for 1800. Update provided to Yolanda and pt. Discharge paperwork faxed to ; confirmed receipt with Katina. Update provided to pt's dghtr Carlita. CM available for any further issues or concerns. Date Signed: 02/08/2019 09:58 PM Electronically Signed By:Grazyna Day RN
== END 2019-02-08 18:03 | disposition home or self-care (01) ==
LOC: EDUNIT#
DX: R53.1 Weakness (principal); I10 Essential (primary) hypertension; E11.9 Type 2 diabetes mellitus without complications; Z87.440 Personal history of urinary (tract) infections; Z86.73 Personal history of transient ischemic attack (TIA), and cerebral infarction without residual deficits